=== PATIENT | female | born 1975 | race American Indian/Alaskan Native ===

== ENCOUNTER 2019-01-12 05:40 | Observation (INO) | payer BC, OTHER ==
[~2019-01-12] VITALS: Ht 167.6 cm; Wt 207.3 kg
--- OUTSIDE RECORDS SUMMARY | ~2019-01-12 | XMS | Clinical Summary ---
Demographics + + + | Address | [address] | | | [place] [address] | + + + | Home Phone | | + + + | Preferred Language | Unknown | + + + | Marital Status | Unknown | + + + | Mosque Affiliation | Unknown | + + + | Race | Unknown | + + + | Ethnic Group | Unknown | + + + Author + + + | Author | [facility] | | | and [place] | + + + | Organization | [facility] | | | and [place] | + + + | Address | Unknown | + + + | Phone | Unavailable | + + + Support + + +---------+ + | Name | Relationship | Address | Phone | + + +---------+ + | Jyoti Bullock | ECON | Unknown | | + + +---------+ + Care Team Providers + +------+ + | Care Home Insurance Agent Name | Role | Phone | + +------+ + | Margarito Felix PA-C | PP | | + +------+ + Allergies Not on File Medications + + + +---------+------+------+-------+ | Medication [...] Noted Date | + + + | Asthma | [...] Diabetes | 04/18/2014 | + + + Social History + +-------+ [...] recent travel history available. | + + Plan of Treatment + + + + + | Health Maintenance | Due Date | Last Done | Comments | + + + + + | Vaccine: | | | | | Dtap/Tdap/Td (1 - | 3 | | | | Tdap) | | | | + + + + + | Cervical Cancer | | | | | Screening (Pap) | 4 | | | + + + + + | Vaccine: Influenza | | | | | (Season Ended) | 9 | | | + + [...] +--------+ +---------+--------+ | HEALTHCOMP | HEALTH | [id number] | 01/02/20 | [phone] | | PPO | | | COMP | | 07-Pre | 7 | | | | | PPOR | | sent | | | | + +--------+ +--------+ +---------+--------+ | HEALTH | IHS | [id number] | Effect | | | Indemn | [...] | Self | [birth year] | [address] | | | [place] | | 1975 | [phone] | [place] [address] | | | be | | | 1 (Home) | | + +--------+ +--------+ + + Advance Directives Patient has advance care planning documents on file. For more information, please contact:[facility] [place] [address]"
--- OUTSIDE RECORDS SUMMARY | ~2019-01-12 | XMS | Clinical Summary ---
Demographics + + + | Address | [address] | | | [place] [address] | + + + | Home Phone | | + + + | Preferred Language | Unknown | + + + | Marital Status | Unknown | + + + | Taoist Affiliation | Unknown | + + + | Race | Unknown | + + + | Ethnic Group | Unknown | + + + Author + + + | Author | [facility] | + + + | Organization | [facility] | + + + | Address | Unknown | + + + | Phone | Unavailable | + + + Support + + +---------+ + | Name | Relationship | Address | Phone | + + +---------+ + | Lazaro Merchant | ECON | Unknown | | + + +---------+ + | Tahir Espinoza | ECON | Unknown | | + + +---------+ + Care Team Providers + +------+ + | Care Oil Field Rig Builder Name | Role | Phone | + +------+ + | Larissa Keen MD | PP | | + +------+ + Allergies + [...] + + + + | Levofloxacin | Rash, Other (See | Medium | 01/20/20 | Colitis, | | | Comments) | | 17 | fibrillation | + + + + + + | Azithromycin | Rash | Medium | 07/23/20 | | | | | | 14 | | + + + + + + Current Medications + + +--------+---------+------+------+-------+ | Prescription | Sig. | Disp. | Refills | Star | End | Statu | | | | | | t | Date | s | | | | | | Date | | | + + +--------+---------+------+------+-------+ | OMEPRAZOLE PO | Take 1 tablet by | | | | | Activ | | | mouth 2 (two) times | | | | | e | | | daily. | | | | | | + + +--------+---------+------+------+-------+ | metoprolol | Take 100 mg by mouth | | | | | Activ | | (TOPROL-XL) 100 MG | daily. | | | | | e | | 24 hr tablet | | | | | | | + + +--------+---------+------+------+-------+ | calcium carbonate | Take 600 mg by mouth | | | | | Activ | | (OS-JEANNIE) 600 MG TABS | 2 (two) times daily | | | | | e | | | with meals. | | | | | | + + +--------+---------+------+------+-------+ | insulin glargine | Inject 10 Units into | | | | | Activ | | (LANTUS) 100 UNIT/ML | the skin nightly. | | | | | e | | injection | | | | | | | + + +--------+---------+------+------+-------+ | irbesartan | Take 300 mg by mouth | | | | | Activ | | (AVAPRO) 300 MG | nightly. | | | | | e | | tablet | | | | | | | + + +--------+---------+------+------+-------+ | ascorbic acid | Take 1,000 mg by | | | | | Activ | | (VITAMIN C) 1000 MG | mouth daily. | | | | | e | | tablet | | | | | | | + + +--------+---------+------+------+-------+ | Multiple | Take 1 tablet by | | | | | Activ | | Vitamins-Minerals | mouth daily. | | | | | e | | (MULTIVITAMIN PO) | | | | | | | + + +--------+---------+------+------+-------+ | ondansetron | Take 4 mg by mouth 3 | | | | | Activ | | (ZOFRAN) 4 MG tablet | (three) times daily | | | | | e | | | as needed for | | | | | | | | Nausea. | | | | | | + + +--------+---------+------+------+-------+ | Cholecalciferol | Take 5,000 Units by | | | | | Activ | | (VITAMIN D-3 PO) | mouth daily. | | | | | e | + + +--------+---------+------+------+-------+ | levothyroxine | Take 75 mcg by mouth | | | | | Activ | | (SYNTHROID) 75 MCG | every morning | | | | | e | | tablet | before breakfast. | | | | | | + + +--------+---------+------+------+-------+ | magnesium oxide | Take 400 mg by mouth | | | | | Activ | | (MAG-OX) 400 MG | daily. | | | | | e | | tablet | | | | | | | + + +--------+---------+------+------+-------+ | glipiZIDE | Take 10 mg by mouth | | | | | Activ | | (GLUCOTROL) 10 MG | daily. | | | | | e | | tablet | | | | | | | + + +--------+---------+------+------+-------+ | celecoxib | Take 200 mg by mouth | | | | | Activ | | (CELEBREX) 200 MG | daily. | | | | | e | | capsule | | | | | | | + + +--------+---------+------+------+-------+ | sitagliptan | Take 100 mg by mouth | | | | | Activ | | (JANUVIA) 100 MG | daily. | | | | | e | | tablet | | | | | | | + + +--------+---------+------+------+-------+ | oxyCODONE | Take 10 mg by mouth | | | | | Activ | | (OXYCONTIN) 10 MG 12 | every 8 (eight) | | | | | e | | hr tablet | hours as needed for | | | | | | | | Pain. | | | | | | + + +--------+---------+------+------+-------+ | fish oil omega-3 | Take 1 g by mouth | | | | | Activ | | fatty acids 1000 MG | daily. | | | | | e | | capsule | | | | | | | + + +--------+---------+------+------+-------+ | | Take 1 tablet by | | | | | Activ | | HYDROcodone-acetamin | mouth every 6 (six) | | | | | e | | ophen (NORCO) 10-325 | hours as needed for | | | | | | | MG per tablet | Pain. | | | | | | + + +--------+---------+------+------+-------+ | | Take 1 tablet by | | | | | Activ | | triamterene-hydrochl | mouth. | | | | | e | | orothiazide | | | | | | | | (MAXZIDE-25) 37.5-25 | | | | | | | | MG per tablet | | | | | | | + + +--------+---------+------+------+-------+ | rivaroxaban | Take 1 tablet by | 60 | 2 | 01/01 | | Activ | | (XARELTO) 20 MG | mouth daily with | tablet | | 06/22 | | e | | tablet | dinner. | | | 17 | | | + + +--------+---------+------+------+-------+ Active Problems + + + | Problem | Noted Date | + + + | Morbid obesity due to excess calories (HCC) | 01/19/2017 | + + + | Paroxysmal atrial fibrillation (HCC) | 07/23/2014 | + + + + + | Overview: Paroxysmal atrial fibrillation, S/P CV in 2013. | | Last Assessment & Plan: S/p cardioversion currently in sinus | | On Xarelto for stroke prophylaxis. | + + + + + | SOB (shortness of breath) | 07/23/2014 | + + + + + | Last Assessment & Plan: Multifactorial-Recent h/o Afib s/p | | cardioversion- as per [facility] is normalWill | | request and review records from [id number] echoPt want to follow | | up with her manager linux in [place]. | |Pt want to follow up with her manager linux in [place]. | + + + + + | Hyperlipidemia | 07/23/2014 | + + + + + | Last Assessment & Plan: On Statin. | + + + + + | History of cardioversion | 05/03/2014 | + + + | Depression | 04/18/2014 | + + + | Hypertension | 04/18/2014 | + + + Resolved Problems + + + + | Problem | Noted | Resolved | | | Date | Date | + + + + | Bradycardia | 07/23/20 | | | | 14 | 7 | + + + + + + | Last Assessment & Plan: Possibly pulse deficit from Bigeminy- | | her true HR in 72 in clinicPossibly secondary to AB eleonora | | blocking agentsPatient on Metoprolol and diltiazem doses | | unknownWill review medicationsConsider lowering the medication or | | stopping diltiazem and continue MetoprololHolter monitoring- | | Ventricular Bigeminy on EKG | + + Family History + + +------+ + | Medical History | Relation | Name | Comments | + + +------+ + | Diabetes type II | Father | | | + + [...] quit 2009 | + + + + +---------+ + | Alcohol Use | Drinks/We | oz/Week | Comments | | | ek | | | + + +---------+ + | No | | | | + + +---------+ + + + + | Sex Assigned at | Date Recorded | | | | + + + | Not on file | | + + + Last Filed Vital Signs + + + + | Vital Sign | Reading | Time Taken | + + + + | Blood Pressure | 124/72 | 03/16/2017 3:07 PM PDT | + + + + | Pulse | 92 | 03/16/2017 3:07 PM PDT | + + + + | Temperature | - | - | + + + + | Respiratory Rate | 14 | 07/23/2014 4:28 PM PDT | + + + + | Oxygen Saturation | 92% | 03/16/2017 3:07 PM PDT | + + + + | Inhaled Oxygen | - | - | | Concentration | | | + + + + | Weight | 235.1 kg (518 lb 4.8 | 03/16/2017 3:07 PM PDT | | | oz) | | + + + + | Height | 167.6 cm (5' 6") | 03/16/2017 3:07 PM PDT | + + + + | Body Mass Index | 83.66 | 03/16/2017 3:07 PM PDT | + + + + Plan of Treatment [...] filefrom Last 3 Months Insurance + +--------+ +------+-------+ + | Payer | Benefi | Subscriber | Type | Phone | Address | | | t Plan | ID | | | | | | / | | | | | | | Group | | | | | + +--------+ +------+-------+ + | [employer] | PREMER | [id number] | | | [address] [address] | | | A BLUE | | | | [place], [place] | | | CROSS | | | | [phone] | | | FED | | | | | | | PPO | | | | | + +--------+ +------+-------+ + | [employer] | YELLOW | [id number] | | | | | PLANS | [place] | | | | | + +--------+ +------+-------+ + + +--------+ +--------+ + + | Guarantor Name | Accoun | Relation to | Date | Phone | Billing Address | | | t Type | Patient | of | | | | | | | | | | + +--------+ +--------+ + + | OSMIN ESPINOZA | Person | Self [birth year] | Work: | [address] | | | [place] | | 1975 | [phone] | [place] | | | be | | | [phone]: | [address] | | | | | | | | | | | | | [phone] | | | | | | | [address] | | + +--------+ +--------+ + +
--- OUTSIDE RECORDS SUMMARY | ~2019-01-12 | XMS | Clinical Summary ---
Demographics + + + | Address | [address] | | | [place] [address] | + + + | Home Phone | | + + + | Preferred Language | Unknown | + + + | Marital Status | Unknown | + + + | Mormonism Affiliation | Unknown | + + + | Race | Unknown | + + + | Ethnic Group | Unknown | + + + Author + + + | Author | [facility] | | | and [place] | + + + | Organization | [facility] | | | and [place] [...] Team Providers + +------+ + | Care Hydro Excavation Operator Name | Role | Phone | [...] +--------+ +---------+--------+ | HEALTHCOMP | HEALTH | [id number] | 01/02/20 | [phone] | | PPO | | | COMP | | 07-Pre | 7 | | | | | PPOR | | sent | | | | + +--------+ +--------+ +---------+--------+ | HEALTH | IHS | [id number] | Effect | | | Indemn | [...] | Self | [birth year] | [address] | | | [place] | | 1975 | [phone] | [place] [address] | | | be | | | 1 (Home) | | + +--------+ +--------+ + + Advance Directives Patient has advance care planning documents on file. For more information, please contact:[facility] [place] [address]"
--- OUTSIDE RECORDS SUMMARY | ~2019-01-12 | XMS | Clinical Summary ---
Demographics + + + | Address | [address] | | | [place] [address] | + + + | Home Phone | | + + + | Preferred Language | Unknown | + + + | Marital Status | Unknown | + + + | Mandaen Affiliation | Unknown | + + + | Race | Unknown | + + + | Ethnic Group | Unknown | + + + Author + + + | Author | [facility] | + + + | Organization | [facility] | + + + | Address | [...] Team Providers + +------+ + | Care Bsw Name | Role | Phone | + [...] cardioversion- as per pt [facility] is normalWill | | request and review records from [id number] echoPt want to follow | | up with her restrooms or lounges maid in [place]. | |Pt want to follow up with her restrooms or lounges maid in [place]. | + + + + + | [...] +------+-------+ + | [employer] | PREMER | [id number] | | | [address] [phone] | | | A BLUE | | | | [place], [place] | | | CROSS | | | | [phone] | | | FED | | | | | | | PPO | | | | | + +--------+ +------+-------+ + | [employer] | YELLOW | [id number] | | | | | PLANS | [...] | | [place] | | 1975 | [phone] | [place] | | | be | | | [phone]: | [address] | | | | | | | | | | | | | [phone] | | | | | | | [address] | | + +--------+ +--------+ + +
--- OUTSIDE RECORDS SUMMARY | ~2019-01-12 | XMS | Clinical Summary ---
Demographics + + + | Address | [address] | | | [place] [address] | + + + | Home Phone [...] Author + + + | Author | [facility] | + + + | Organization | [facility] | + + + | Address | Unknown | + + + | Phone | Unavailable | + + + Support + + +---------+ + | Name | Relationship | Address | Phone | + + +---------+ + | Lazaro Merchant | ECON | Unknown | | + + +---------+ + Care Team Providers + +------+ + | Care Coremaker Supervisor Name | Role | Phone | + +------+ + | Larissa Keen MD | PP | Unavailable | + +------+ + Source Comments SHERRI is fully live on both [facility] and [facility] Allergies + + + + + + | Active Allergy | Reactions | Severity | Noted | Comments | | | | | Date | | + + + + + + | Amoxicillin-Pot | Unknown | | 03/13/20 | | | Clavulanate | | | 14 | | + + + + + + | Levofloxacin | Unknown | | 03/13/20 | | | | | | 14 | | + + + + + + | Azithromycin | Unknown | | 03/13/20 | | | | | | 14 | | + + + + + + Current Medications + + +-------+---------+------+------+-------+ | Prescription | Sig. | Disp. | Refills | Star | End | Statu | | | | | | t | Date | s | | | | | | Date | | | + + +-------+---------+------+------+-------+ | rivaroxaban 20 mg | Take by mouth once | | | | | Activ | | oral tablet | daily in the | | | | | e | | | evening. | | | | | | + + +-------+---------+------+------+-------+ | metoprolol | Take 100 mg by mouth | | | | | Activ | | tartrate 100 mg oral | once daily in the | | | | | e | | tablet | evening. | | | | | | + + +-------+---------+------+------+-------+ | irbesartan 300 mg | Take 300 mg by mouth | | | | | Activ | | oral tablet | four times daily. | | | | | e | + + +-------+---------+------+------+-------+ | | Take by mouth four | | | | | Activ | | Calcium-Cholecalcife | times daily. | | | | | e | | rol, D3, 600 | | | | | | | | mg(1,500mg) -400 | | | | | | | | unit oral tablet | | | | | | | + + +-------+---------+------+------+-------+ | Cholecalciferol, | Take 5,000 Units by | | | | | Activ | | Vitamin D3, (VITAMIN | mouth four times | | | | | e | | D3) 5,000 unit oral | daily. | | | | | | | tablet | | | | | | | + + +-------+---------+------+------+-------+ | | Take 1 tablet by | | | | | Activ | | triamterene-hydrochl | mouth four times | | | | | e | | orothiazide 37.5-25 | daily. | | | | | | | mg oral tablet | | | | | | | + + +-------+---------+------+------+-------+ | omeprazole 40 mg | Take 40 mg by mouth | | | | | Activ | | oral capsule,delayed | two times daily. | | | | | e | | release(/EC) | | | | | | | + + +-------+---------+------+------+-------+ | levothyroxine 75 | Take 75 mcg by mouth | | | | | Activ | | mcg oral tablet | four times daily. | | | | | e | + + +-------+---------+------+------+-------+ | magnesium oxide | Take 400 mg by mouth | | | | | Activ | | 400 mg oral tablet | four times daily. | | | | | e | + + +-------+---------+------+------+-------+ | diltiazem SR 24 | Take by mouth four | | | | | Activ | | hour release 300 mg | times daily. | | | | | e | | oral capsule, | | | | | | | | extended release | | | | | | | + + +-------+---------+------+------+-------+ | VIT/IRON | Take by mouth once | | | | | Activ | | FUMARATE/FA | daily in the | | | | | e | | ( ORAL) | morning. | | | | | | + + +-------+---------+------+------+-------+ | | Take 1 tablet by | [...] | | | | | + + +-------+---------+------+------+-------+ | OMEGA-3 FATTY | Take by mouth once | | | | | Activ | | ACIDS (FISH OIL | daily in the | | | | | e | | ORAL) | morning. | | | | | | + + +-------+---------+------+------+-------+ | ascorbic acid SR | Take 1,000 mg by | | | | | Activ | | (VITAMIN C) 1,000 mg | mouth once daily in | | | | | e | | oral tablet | the morning. | | | | | | + + +-------+---------+------+------+-------+ Active Problems + + + | Problem | Noted Date | + + + | Type 2 diabetes mellitus treated with insulin ([facility]) | 01/24/2015 | + + + | Morbid obesity with BMI of 70 and over, adult ([facility]) | 05/03/2014 | + + + | Morbid obesity ([facility]) | 05/03/2014 | + + + | Diabetes ([facility]) | 05/03/2014 | + + + | HTN (hypertension) | 05/03/2014 | + + + | TOMMY (obstructive sleep apnea) | 05/03/2014 | + + + | Heavy periods | 05/03/2014 | + + + | A-fib (HCC) | 05/03/2014 | + + + | [...] + +---------+ + | No | 0 | 0.0 | former use 2-3 | | | Standard | | | | | drinks or | | | | | | | | | | equivalen | | | | | t | | | + + +---------+ + + + + | Sex Assigned at | Date Recorded | | | | + + + | Not on file | | + + + Last Filed Vital Signs + + + + | Vital Sign | Reading | Time Taken | + + + + | Blood Pressure | 157/83 | 06/02/2015 9:15 AM PDT | + + + + | Pulse | 86 | 06/02/2015 9:15 AM PDT | + + + + | Temperature | 37.3 C (99.1 F) | 06/02/2015 9:15 AM PDT | + + + + | Respiratory Rate | 20 | 06/02/2015 9:15 AM PDT | + + + + | Oxygen Saturation | 98% | 06/02/2015 9:15 AM PDT | + + + + | Inhaled Oxygen | - | - | | Concentration | | | + + + + | Weight | 231.5 kg (510 lb 6.4 | 07/14/2015 4:27 PM PDT | | | oz) | | + + + + | Height | 167.6 cm (5' 6") | 06/02/2015 9:15 AM PDT | + + + + | Body Mass Index | 82.38 | 07/14/2015 4:27 PM PDT | + + + + Plan of Treatment + + + + + | Health Maintenance | Due Date | Last Done | Comments | + + + + + | Pneumococcal (Adult) | | | | | (1 of 1 - PPSV23) | 3 | | | + + + + + | Influenza (Flu) | | | | | vaccination (#1) | 8 | | | + + + + + Results Not on filefrom Last 3 Months Insurance + +--------+ +------+ + + | Payer | Benefi | Subscriber | Type | Phone | Address | | | t Plan | ID | | | | | | / | | | | | | | Group | | | | | + +--------+ +------+ + + | [place] BLUE | [phone] | PPO | [phone] [address] [address] [place] | | | CROSS | | | [address] | [place] [address] | | | [place] | | | | | | | L | | | | | + +--------+ +------+ + + + +--------+ +--------+ + + | Guarantor Name | Accoun | Relation to | Date | Phone | Billing Address | | | t Type | Patient | of | | | | | | | | | | + +--------+ +--------+ + + | OSMIN ESPINOZA | Person | Self | [birth year] | Home: | [address] | | | al/Fam | | 1975 | [phone] [place] [address] | | | be | | | [address] | | + +--------+ +--------+ + +
--- OUTSIDE RECORDS SUMMARY | ~2019-01-12 | XMS | Clinical Summary ---
Demographics + + + | Address | [address] | | | [place] [address] | + + + | Home Phone [...] + + + | Author | [facility] | + + + | Organization | [facility] | + + + | Address | Unknown | + + + | Phone | Unavailable | + + + Support + + +---------+ + | Name | Relationship | Address | Phone | + + +---------+ + | Lazaro Merchant | ECON | Unknown | | + + +---------+ + Care Team Providers + +------+ + | Care Officer Lieutenant Name | Role | Phone | + +------+ + | Larissa Keen MD | PP | Unavailable | + +------+ + Source Comments [facility] Allergies + + + + + [...] Type 2 diabetes mellitus treated with insulin ([facility]) | 01/24/2015 | + + + | Morbid obesity with BMI of 70 and over, adult ([facility]) | 05/03/2014 | + + + | Morbid obesity ([facility]) | 05/03/2014 | + + + | Diabetes ([facility]) | 05/03/2014 | + + + | [...] | PPO | [phone] [address] [address] [place] | | | CROSS | | | [address] | [place] [address] | | | [place] | | | [...] | 1975 | [phone] | [place] [address] | | | be | | | [address] | | + +--------+ +--------+ + +
[~2019-01-12 05:40] MED LIST: ASPIRIN EC325 MG PO; ATENOLOL25 MG PO; CALCIUM600 MG PO; CARDIZEM CD120 MG PO; CELEBREX200 MG PO; CEPHALEXIN500 MG PO; DIGOXIN250 MCG PO; DILTIAZEM 24HR300 M1 PO; FELDENE20 MG PO; FISH OIL 1,0001 EAC6 PO; GLIPIZIDE XL10 MG PO; GUAIFENESIN600 MG PO; HYDROCODON-ACE1 EAC8 PO; IRBESARTAN300 MG PO; JANUVIA100 MG PO; LANTUS100 UNITS/ SUB-Q; LEVOXYL75 MCG PO; LISINOPRIL40 MG PO; MAGNESIUM400 MG PO; MULTIVITAMINS1 EAC8 PO; NORCO 10-325 T1 EACH PO; OMEPRAZOLE20 MG PO; ONDANSETRON ODT4 MG PO; OXYCONTIN10 MG PO; TOPROL XL100 MG PO; TRIAMTERENE-HC1 EAC1 PO; TRIAMTERENE-HC1 EAC3 PO; VERAPAMIL HCL80 MG PO; VIBRAMYCIN100 MG PO; VITAMIN C1000 MG PO; VITAMIN C500 M1 PO; VITAMIN D5000 UNIT PO; XARELTO20 MG PO
--- NOTE | 2019-01-12 09:01 | NUR ---
01/12/19 0901 Gaby Ignacio 0819- PT ARRIVES TO PACU. PT IS EXTREMELY ANXIOUS, RESP 50, LABORED. OXYGEN SAT MID 90'S ON 15L VIA MASK. PT IS COUGHING AND STATING, "I CAN'T BREATHE". RT X2 AT THE BEDSIDE SETTING UP BIPAP AND FOR A BREATHING TREATMENT PER NAHUN DUNCAN CRNA VERBAL ORDER. NAHUN DUNCAN CRNA AT THE BEDSIDE INSTRUCTING PT TO TAKE DEEP BREATHS, TRYING TO SLOW DOWN RESPS, AND TO COUGH. PT IS ABLE TO FOLLOW COMMANDS. PT PLACED ON BIPAP AT 30% O2 BY RT. PT DOES NOT LIKE THE MASK ON HER FACE. EDUCATED PT THAT SHE NEEDS TO WEAR THE BIPAP TO HELP. PT DOES NOT LIKE THIS BUT IS COOPERATIVE AT THIS TIME. 0824- PT IS TRYING TO PULL THE BIPAP MASK OFF OF HER FACE. PT STATES, "JUST GIVE ME A MOMENT. I NEED TO CATCH MY BREATHE". BIPAP MASK REMOVED TO CALM PT. PT WAS ABLE TO TAKE A COUPLE OF DEEP BREATHS AND COUGH. PT HAS SECRETIONS IN HER MOUTH. SECRETIONS SUCTIONED AND MOUTH WIPED. PT HAS BRIGHT RED BLOOD SECRETIONS. NAHUN DUNCAN CRNA REMAINS AT THE BEDSIDE AND AWARE OF THIS. 0825- DUONEB PLACED IN LINE TO BIPAP BY RT. 0831- PT IS REQUESTING TO HER USE HER BIPAP FROM HOME. RT IS SETTING UP THIS FOR THE PT. PT PLACED ON HER HOME BIPAP FOR COMFORT. 0834- ALBUTEROL PLACED IN LINE BY RT WITH 6L OF O2. 0837- PT REPORTS SHE IS FEELING MUCH BETTER AND NOT SO "PANICKY". 0844- PT BLOOD SUGAR 478.
--- NOTE | 2019-01-12 11:00 | NUR ---
PT ARRIVED VIA STREACHER FROM PACU DUE TO FAILURE OF INTUBATION TO COMPLETE VAGINAL EXAM UNDER ANSTHIA. AFTER BEING IN PACU FOR SOMETIME, PT CAME TO CCU AND WAS ABLE [facility] BS COMMODE AND VOID 300ML OF CATA IN COLOR URINE AND HAD A SMEAR OF BM. PT THEN TRANSFERED SELF TO THE BED. PT C/O SOB AND WAS PLACED ON O2 VIA NC AT 2L'S. PT HAS BEEN IN S-TACH.
--- NOTE | 2019-01-12 12:35 | NUR ---
DR SIU NOTIFIED OF Tt 0.234 AT THIS TIME. PT CONTIOUES TO C/O SOB AND UNABLE TO SLEEP DUE TO THE PRESSURE ON HER CHEST.
[2019-01-12] MEDS ORDERED: OMEPRAZOLE40 MG PO (14:29)
[2019-01-12] MEDS ORDERED: PRENATAL VITAM1 EAC5 PO (14:31)
[2019-01-12] MEDS ORDERED: TOPROL XL200 MG PO (14:31)
[2019-01-12] MEDS ORDERED: OXYCONTIN10 MG PO (14:47)
--- NOTE | 2019-01-12 14:49 | NUR ---
MED REC COMPLETE
--- NOTE | 2019-01-12 15:53 | EKG ---
[facility] [address] [place] [address] Signed Sinus tachycardia Voltage criteria for left ventricular hypertrophy Anterior infarct (cited on or before 08-JAN-2019) Abnormal ECG When compared with ECG of 08-JAN-2019 10:25, Vent. rate has increased BY 42 BPM T wave inversion now evident in Lateral leads Confirmed by SADA SIU MD ([id number]) on 01/12/2019 3:52:48 PM Electronically Signed By: SADA SIU MD 01/12/19 1553 PATIENT NAME: OSMIN ESPINOZA Electrocardiogram DATE OF : 73 PHYSICIAN: SADA SIU MD REPORT #: [id number] REPORT IS CONFIDENTIAL AND NOT TO BE RELEASED WITHOUT AUTHORIZATION
--- NOTE | 2019-01-12 16:38 | NUR ---
PT UP TO BS COMMODE VOIDED AND THEN BACK TO BED. PT JUST RETURNED AT THIS TIME, WITH SOME PERSON BELONGINGS.
--- NOTE | 2019-01-12 17:32 | NUR ---
PT UP TO BEDSIDE COMMODE, HAD BM AND BACK TO BED, AT THE BEDSIDE. PT IS FEELING BETTER, BUT DOES HAVE JAW AND THROAT PAIN. WAS GIVEN LOGEN FOR THROAT PAIN, EXPLAINED THAT WE WOULD NOT BE GIVEN PAIN MEDICATIONS DUE TO HER ISSUES WITH RESP FAILURE THIS AM.
--- NOTE | 2019-01-12 17:54 | NUR ---
PT APPEARS TO BE RELAXED AT HIS TIME, WITH IN THE ROOM.
--- NOTE | 2019-01-12 18:30 | NUR ---
PT REQUESTED NEB TX, RT NOTIFIED AND TX GIVEN. PT HAS BEEN RESTING COMFORTABLE WITH HER PERSONAL CPAP INPLACE. PT DINNER IS AT THE BEDSIDE. REMAINS AT THE BEDSIDE.
--- NOTE | 2019-01-12 19:14 | NUR ---
PT UP TO THE BS COMMODE VOIDED AND BM MED IN SIZE. PT BACK TO BED, O2 INPLACE C/O FLEM IN HER THROAT.
--- NOTE | 2019-01-12 19:15 | NUR ---
WITH THE FLEM SHE ABLE TO COUGH AND CLEAR HER THROAT. AT TIMES HAS DRY HEAVES AND HAS INCREASED ANXIETY. FRESH ICE WATER GIVEN AT THIS TIME.
--- NOTE | 2019-01-12 19:30 | NUR ---
PT IS SITTING UP AT SIDE OF BED. PT STATED THAT SHE HAS SOB. O2 SATS ARE >90%, RR IN THE 20'S. ALL LOBES HAVE WHEEZING PRESENT AT THIS TIME. PT USING 2L O2 NC AT THIS TIME. WILL CONTINUE TO MONITOR. PT REFUSES TO SIT UP.
--- NOTE | 2019-01-12 20:15 | NUR ---
BG WAS 404. MD SIU WAS NOTIFIED AT 2012. NO NEW ORDERS WERE GIVEN.
--- NOTE | 2019-01-12 20:45 | NUR ---
PT SEEMS TO HAVE FOUND A COMFORTABLE POSITION FOR SLEEPING AND BEING ABLE TO BREATH WITHOUT FEELING SHORT OF BREATH. NO NEW CONCERNS NOTED AT THIS TIME.
--- NOTE | 2019-01-12 22:00 | NUR ---
PT USED BSC. PT NOW BACK IN BED TRYING TO SLEEP SOME. NO NEW CONCERNS NOTED AT THIS TIME.
--- NOTE | 2019-01-12 23:44 | NUR ---
PT AT THIS TIME IS GETTING A NEB. PT STATED THAT SHE CANNOT BREATH. RR WAS <20, O2 SATS > 92% ON 2L O2 NC AT THE TIME OF HER COMPLAINT. PT IS ALSO ANXIOUS AT THIS TIME AND INTERMITTENLY CRYING IN REGARDS TO HER HOSPITAL STAY AND HER INABLILITY TO TAKE A FULL BREATH. PT WAS SITTING UP FOR A FEW MINUTED EARLIER BUT AT THIS TIME IS LAYING FLAT AGAIN. WILL CONTINUE TO MONITOR.
--- NOTE | 2019-01-13 | NUR ---
PT AT THIS TIME IS STILL AWAKE AND ANXIOUS. PT IS NOT ABLE TO SLEEP. LOBES HAVE EXPIRATORY WHEEZING PRESENT. NO CHANGE IN ASSESSMENT AT THIS TIME NOTED SINCE THE FIRST ASSESSMENT THIS SHIFT. WILL CONTINUE TO MONITOR.
--- NOTE | 2019-01-13 01:52 | NUR ---
PT AT THIS TIME IS SLEEPING. NO NEW CONCERNS NOTED. V/S OVERALL ARE WDL.
--- NOTE | 2019-01-13 03:30 | NUR ---
PT IS SLEEPING AT THIS TIME.
--- NOTE | 2019-01-13 05:25 | NUR ---
PT AMBULATED TO THE BATHROOM AND VOIDED. PT IS LESS ANXIOUS AT THIS TIME THAN EARLIER. PT HAS ALSO BEEN ABLE TO SLEEP FOR A WHILE. O2 SATS ARE ANYWHERE FROM 88%-95%. LOBES HAVE HAD EXPIRATOTY WHEEZING PRESENT MOST OF THIS SHIFT. THE LAST ASSESSMENT SHOWED DIMINISHED LOBES. PT DOES HAVE SEVERE TOMMY IT SEEMS. BG AT 2100 WAS 404, MD SIU WAS NOTIFIED AND INSULIN PER ORDER WAS GIVEN. AT THIS TIME V/S ARE WDL OVERALL EXCEPT HER RR IS IN THE 20'S. THIS PERHAPS IS BASELINE THOUGH. PT HAS BEEN USING HOME BI-PAP INTERMITTENLY THROUGHOUT THE NIGHT. PT HAS ALSO NEEDED FREQUWNT PRN NEBS. ONE CONCERNS IS THE HIGH DOSES OF OPIOD PT TAKES AT HOME. PT FOR THE MOST PART IS SWEATY AND ANXIOUS AND COMPLAINING OF PAIN. PRN TYLENOL DID NOT HELP. PT ALSO HAD NAUSEA AT TIMES THIS SHIFT AND REGLAN/ZOFRAN HAD TO BE GIVEN.
--- NOTE | 2019-01-13 07:30 | NUR ---
REPORT RECIEVED. PATIENT IS SITTING UP IN BED RREADY TO ORDER BREAKFAST. DENIES SHORTNESS OF BREATH. C/O IRRITATED THROAT.
--- NOTE | 2019-01-13 08:00 | NUR ---
ASSESSMENT DONE. PT IS ALKING ABOUT GOING HOME. STATES SHE FEELS ALMOST BACK TO NOMAL,EXCEPT THROAT IS SORE. DENIES SWALLOWING POBLEMS. VOICE IS CLEAR.
--- NOTE | 2019-01-13 09:30 | NUR ---
O2 TO RA, IVF CAPPED. WILL CONTINUE TO MONITOR O2 SATS. DR. CHANEY HERE TO SEE PATIENT. OKAY WITH DR. CHANEY TO DISCHARGE IF OKAY WITH DR. SIU.
[2019-01-13] MEDS ORDERED: FLUCONAZOLE150 MG PO (09:49)
[2019-01-13] MEDS ORDERED: FISH OIL 1,0001 EAC2 PO (09:50)
[2019-01-13] MEDS ORDERED: VITAMIN C1000 MG PO (09:50)
--- NOTE | 2019-01-13 10:00 | NUR ---
DISCHAGE ORDERS RECIEVED. PATIENT STATES HER RIDE HOME SHOULD BE HERE AFTER 3 TODAY.
--- NOTE | 2019-01-13 10:20 | NUR ---
SLEEPING WITH BIPAP ON. NO DISTRESS NOED.
--- NOTE | 2019-01-13 12:00 | NUR ---
ACCUCHECK-357, HUMALOG INSULIN 11 UNITS SQ GIVEN. HAS OCC LOOSE COUGH. DENEIS PROBLEMS SWALLOWING. DENEIS SHORTNESS OF BREATH REMAINS ON RA. O2 SAT 92-95 ON RA.
--- NOTE | 2019-01-13 14:25 | NUR ---
DISCHARGE INSTRUCTIONS GIVEN WITH PATIENT UNDERSTANDING. IV SITE DC'D [facility] CATH INTACT.
--- NOTE | 2019-01-13 15:30 | NUR ---
DISCHARGED VIA W/C TO HOME ACCOMP BY NURSE AND PATIENT BOYFRIEND.
== END 2019-01-13 15:30 | disposition home or self-care (01) ==
LOC: DS 05:40 → CCU 10:20 → DS 10:20 → CCU 10:50
PROVIDERS: ADMIT Obstetrics & Gynecology
PROC: 5A09357 Assistance with Respiratory Ventilation, Less than 24 Consecutive Hours, Continuous Positive Airway Pressure (ICD-10-PCS; principal; 2019-01-12)
DX: T88.4XXA Failed or difficult intubation, initial encounter (principal); J96.00 Acute respiratory failure, unspecified whether with hypoxia or hypercapnia; N92.1 Excessive and frequent menstruation with irregular cycle; E66.01 Morbid (severe) obesity due to excess calories; E11.65 Type 2 diabetes mellitus with hyperglycemia; I10 Essential (primary) hypertension; I48.0 Paroxysmal atrial fibrillation; G47.33 Obstructive sleep apnea (adult) (pediatric); K21.9 Gastro-esophageal reflux disease without esophagitis; E03.9 Hypothyroidism, unspecified; G89.4 Chronic pain syndrome; F11.20 Opioid dependence, uncomplicated; N94.6 Dysmenorrhea, unspecified; F41.9 Anxiety disorder, unspecified; Z68.45 Body mass index [BMI] 70 or greater, adult; Z53.09 Procedure and treatment not carried out because of other contraindication; Z88.1 Allergy status to other antibiotic agents; Z79.01 Long term (current) use of anticoagulants; Z79.1 Long term (current) use of non-steroidal anti-inflammatories (NSAID); Z79.4 Long term (current) use of insulin; Z79.899 Other long term (current) drug therapy
CPT/HCPCS: 36415; 80048; 83735; 84484; 85025; 93005; 93010; 94640; 94660; 96374; 96375; 96376; G0378; J0330; J1815; J2250; J2405; J2704; J2765; J3010; J7030; J7120

== ENCOUNTER 2020-04-22 17:44 | Inpatient (IN) | payer BC, OTHER ==
[~2020-04-22] VITALS: Ht 167.6 cm; Wt 195.2 kg
--- NOTE | ~2020-04-22 | DS ---
[facility] [address] [place], [place] [address] Draft ADMISSION DATE: 04/22/2020 DISCHARGE DATE: 05/06/2020 REASON FOR ADMISSION: This morbidly obese, BMI 74, woman, presented to the emergency room after a week of increasing pain in the right buttock and perineal area as well as left medial thigh. She had been applying mupirocin to the area in the past. She is a patient of Dr. Russell at [facility] as well as other providers. She was found in the emergency room by Dr. Akins to have extreme tenderness in the right buttock area with a 4 cm area of skin necrosis and marked erythema and tenderness, findings suggestive of abscess. Her white count was 18,600, lactic acid 1.6, blood sugars greater than 400 and hemoglobin A1c greater than 14. She is admitted for further evaluation and care. PERTINENT PHYSICAL EXAMINATION: GENERAL: Showed a quite morbidly obese, woman, estimated at 420 pounds. CHEST: Clear. HEART: Irregularly irregular. ABDOMEN: Massively obese, but soft. In the perineum on the right side was a necrotic ulcerated area about 4 cm in size with local tenderness and erythema, in the medial thigh and erythematous flat nondraining, non-necrotic area. HOSPITAL COURSE: The patient was thought likely to have a perineal abscess and went from emergency room with fluid resuscitation and IV antibiotic directly to operation. In the lateral decubitus position with intravenous sedation with propofol, she underwent exam under anesthesia and extensive debridement of necrotizing soft tissue infection of the right perineum and right buttock. Excision of soft tissue back to viable bleeding normal tissue was accomplished. Incision and debridement of left medial thigh soft tissue infection was also undertaken. Application of wound VAC to the buttock and perineum on the right side was accomplished. Postoperatively, she was maintained with broad-spectrum meropenem. Her COVID-19 test had been obtained and ultimately was found to be negative. She had rather poorly controlled blood sugar and consultation was undertaken with Dr. Chandler regarding that. There was some consideration of nursing staff that her was bringing her additional food much of it, not appropriate for diabetic diet, which made the sugars controls more problematic. Gram stain and cultures that were obtained showed polymicrobial problem, but the cultures never grew anything likely related to have preoperative antibiotics that had been admitted. Her wound VAC was applied was good and functional, however, urination and bowel movement proves to be problematic in PATIENT NAME: OSMIN ESPINOZA DISCHARGE SUMMARY DATE OF : 73 REPORT #: [id number] PHYSICIAN: IGOR AVINA MD PCP: NATALIE RUSSELL MD REPORT IS CONFIDENTIAL AND NOT TO BE RELEASED WITHOUT AUTHORIZATION [facility] [address] [place], [place] [address] Draft keeping the wound VAC device on. On that basis, a Hope catheter was placed. The Gram stain of the wound showed gram-negative rods, gram-positive rods, and gram-positive cocci, but as previously stated, cultures never grew anything in particular. On that basis, she was transitioned to Cipro and Flagyl antibiotics from meropenem when clinical findings of erythema and so forth of the perineum had resolved. Aggressive management for blood sugar is undertaken through initiation of Lantus insulin. It was noted that she was on a "pain contract" managed by Dr. Russell at [facility]. Pain management was an issue with her somewhat, but both opiate, non-opiate medications were used including her baseline medication. Final pathology of her excised tissue showed exuberant acute inflammation, abscess formation, dermis, subcutaneous tissue with soft tissue necrosis. Upon examination of one wound dressing change of the wound VAC, there appeared to be purulent drainage in the medial aspect of the wound. This was not far from the anal canal and concern was maintained this may represent a ewrnxua-bo-ogc, which might account for her original problem. On that basis, she was taken to the operation under a regional anesthetic and examination undertaken. There was no evidence as it turns out of a slsfckf-jj-ovz. The wound VAC was replaced. That procedure was on April 29, 2020. At that point, it was deemed likely she would benefit from ongoing wound VAC treatment of the wound, but it was problematic dislodgement of the device due to urination and poor ability to manage her own perineal hygiene needs. Consideration was made for fdc versus home health for wound VAC dressing changes. A trial of self-care was undertaken, but it was quite clear, she could not adequately manage her perineal hygiene needs. Therefore, fdc arrangements were made. After a fair amount of administrative delays, she was ultimately approved for fdc care at [facility]. She is anticipated to have wound VAC dressing changes twice a week. We will be keeping the Hope catheter in place. Mindful of the risk of urinary tract infection development, but also mindful that the wound VAC will not easily maintain its position without that. It is our open expectation that the wound will heal completely without need for elaborate additional surgical interventions (skin grafting, etc.). Her expected stay in an extended care facility would be likely 2-4 weeks and unlikely more than that. DISCHARGE MEDICATIONS: 1. Lantus insulin units daily subcutaneously. 2. Oxycodone 10 mg p.o. q.6 hours around the clock baseline maintenance medication. 3. Humalog insulin 4 units subcutaneously 5 p.m. daily. 4. Gabapentin 300 mg p.o. q.8 hours. PATIENT NAME: OSMIN ESPINOZA DISCHARGE SUMMARY DATE OF : 73 REPORT #: [id number] PHYSICIAN: IGOR AVINA MD PCP: NATALIE RUSSELL MD REPORT IS CONFIDENTIAL AND NOT TO BE RELEASED WITHOUT AUTHORIZATION [facility] [address] [place] [address] Draft 5. Aspirin 81 mg p.o. daily (in lieu of thrombin inhibitor previously on). 6. Hydroxyzine 50 mg p.o. q.6 hours p.r.n. 7. Benadryl 25 mg p.o. q.6 hours p.r.n. 8. Fluconazole 200 mg p.o. daily. 9. Humalog subcutaneous insulin 26 units t.i.d. with meals. 10. Zofran 4 mg p.o. q.6 hours as needed for nausea. 11. Pepcid 20 mg p.o. q.12 hours. 12. Ativan 2 mg p.o. q.6 hours p.r.n. anxiety. 13. Verapamil 80 mg p.o. t.i.d. 14. Triamterene hydrochlorothiazide 1 tab p.o. daily. 15. Synthroid 75 mcg p.o. daily. 16. Tylenol 1000 mg p.o. q.8 hours p.r.n. pain. 17. Metoprolol 200 mg p.o. at bedtime. DISCHARGE DIAGNOSES: 1. Necrotizing soft tissue infection of right perineum, status post extensive debridement, application of wound VAC. 2. Incision, drainage and debridement of left medial thigh. Necrotizing infection. 3. Morbid obesity, greater than 420 pounds. 4. Diabetes mellitus, insulin dependent. 5. Anxiety. 6. Chronic pain syndrome. 7. Atrial fibrillation. 8. Intertriginous and perineal yeast infection. 9. Hypothyroidism. FOLLOWUP: I will try to make arrangements to evaluate her wound at the fdc at the time of a wound VAC dressing change. Details will need to be worked out given ever changing COVID-19 visitation restrictions in fdc settings. MD KIERRA Mcintosh/MODL /[id number] PATIENT NAME: OSMIN ESPINOZA DISCHARGE SUMMARY DATE OF : 73 REPORT #: [id number] PHYSICIAN: IGOR AVINA MD PCP: NATALIE RUSSELL MD REPORT IS CONFIDENTIAL AND NOT TO BE RELEASED WITHOUT AUTHORIZATION [facility] [address] [place], [place] [address] Draft cc: MD Chrissy Aguirre MD Copies: NATALIE RUSSELL MD, CYNTHIA MD ~ PATIENT NAME: OSMIN ESPINOZA DISCHARGE SUMMARY DATE OF : [birth year] REPORT #: [id number] PHYSICIAN: IGOR AVINA MD PCP: NATALIE RUSSELL MD REPORT IS CONFIDENTIAL AND NOT TO BE RELEASED WITHOUT AUTHORIZATION
--- OUTSIDE RECORDS SUMMARY | ~2020-04-22 | XMS | Encounter Summary ---
Demographics + + + | Address | [address] | | | [place] [address] | + + + | Home Phone | | + + + | Preferred Language | Unknown | + + + | Marital Status | Unmarried Domestic Partner | + + + | Yazdanism Affiliation | Unknown | + + + | Race | or | + + + | Ethnic Group | Not or | + + + Author + + + | Author | [facility] | + + + | Organization | [facility] | + + + | Address | Unknown | + + + | Phone | Unavailable | + + + Support + + +---------+ + | Name | Relationship | Address | Phone | + + +---------+ + | Lazaro Merchant | ECON | Unknown | | + + +---------+ + Care Team Providers + +------+ + | Care Topology Teacher Name | Role | Phone | + +------+ + | Larissa Keen MD | PCP | | + +------+ + Reason for Visit + + + | Reason | Comments | + + + | Discussion | | + + + Encounter Details +--------+ + + + + | Date | Type | Department | Care Team | Description | +--------+ + + + + | 01/30/ | Telephone | Digestive Health | Jaquelin Ibanez, | Discussion | | 2014 | | Center [place] [address] | [place] | | | | | [address] [facility] | | | | | | for Health and | | | | | | [facility], [facility] [address] | | | | | | [place], [place] | | | | | | [address] | | | | | | [phone] | | | +--------+ + + + + Social History + + + +--------+------+ | Tobacco Use | Types | Packs/Day | Years | Date | | | | | Used | | + + + +--------+------+ | Former Smoker | Cigarettes | 0.4 | | | + + + +--------+------+ + + +---------+ + | Alcohol Use | Drinks/Week | oz/Week | Comments | + + +---------+ + | No | | | former use 2-3 | + + +---------+ + + + + | Sex Assigned at | Date Recorded | | | | + + + | Not on file | | + + + + + + + | Job Start Date | Occupation | Industry | + + + + | Not on file | Not on file | Not on file | + + + + + + + + | Travel History | Travel Start | Travel End | + + + + + + | No recent travel history available. | + + documented as of this encounter Plan of Treatment Not on filedocumented as of this encounter Visit Diagnoses Not on filedocumented in this encounter"
--- OUTSIDE RECORDS SUMMARY | ~2020-04-22 | XMS | Encounter Summary ---
Demographics + + + | Address | [address] | | | [place] [address] | + + + | Home Phone | | + + + | Preferred Language | Unknown | + + + | Marital Status | Unmarried Domestic Partner | + + + | Roman Catholic Affiliation | Unknown | + + + | Race | or | + + + | Ethnic Group | Not or | + + + Author + + + | Author | [facility] [facility] [employer] | + + + | Organization | [facility] | + + + | Address | Unknown | + + + | Phone | Unavailable | + + + Support + + +---------+ + | Name | Relationship | Address | Phone | + + +---------+ + | Lazaro Merchant | ECON | Unknown | | + + +---------+ + Care Team Providers + +------+ + | Care Routing Machine Operator Name | Role | Phone | + +------+ + | Larissa Keen MD | PCP | | + +------+ + Reason for Visit + + + | Reason | Comments | + + + | Questions About | counseling list | | Surgery | | + + + Encounter Details +--------+ + + + + | Date | Type | Department | Care Team | Description | +--------+ + + + + | 05/03/ | Documentati | Digestive Health | Diamond De León, | Questions About | | 2013 | on | Center at [facility] [address] | ASIAN STUDIES PROFESSOR [address] | Surgery (counseling | | | | [address] | , [address] | list) | | | | for Health and | [place], [place] | | | | | [facility] [address] | [address] | | | | | [place], [place] | [phone] | | | | | [address] | | | | | | [phone] | | | +--------+ + + + [...]
--- OUTSIDE RECORDS SUMMARY | ~2020-04-22 | XMS | Encounter Summary ---
Demographics + + + | Address | [address] | | | [place] [address] | + + + | Home Phone [...] Author + + + | Author | [facility] [employer] | + + + | Organization | [facility] | + + + | Address | Unknown | + + + | Phone | Unavailable | + + + Support + + +---------+ + | Name | Relationship | Address | Phone | + + +---------+ + | Lazaro Merchant | ECON | Unknown | | + + +---------+ + Care Team Providers + +------+ + | Care Thread Trimmer Name | Role | Phone | + +------+ + | Larissa Keen MD | PCP | | + +------+ + Encounter Details +--------+ + + + + | Date | Type | Department | Care Team | Description | +--------+ + + + + | 05/06/ | Abstract | Digestive Health | Diamond De León, | | | 2013 | | Center at [facility] [address] | AUTOMOBILE REPOSSESSOR [address] | | | | | [address] [facility] | [facility] [address] | | | | | for Health and | [place], [place] | | | | | [facility] [place] [address] | [address] | | | | | [place], [place] | [phone] | | | | | [address] | | | | | | [phone] | | | +--------+ + + + [...]
--- OUTSIDE RECORDS SUMMARY | ~2020-04-22 | XMS | Encounter Summary ---
Demographics + + + | Address | [address] | | | [place] [address] | + + + | Home Phone | | + + + | Preferred Language | Unknown | + + + | Marital Status | Unmarried Domestic Partner | + + + | Catholic Affiliation | Unknown | + + + | Race | or | + + + | Ethnic Group | Not or | + + + Author + + + | Author | [employer] [facility] | + + + | Organization | [facility] | + [...] Team Providers + +------+ + | Care Can Pusher Name | Role | Phone | + +------+ + | Mar DoddP | PCP | | + +------+ + Encounter Details +--------+ + + + + | Date | Type | Department | Care Team | Description | +--------+ + + + + | 03/15/ | Abstract | Digestive Health | Fátima Hernandez, | | | 2013 | | Center at [facility] [address] | [facility] [address] | | | | | [address] [place] | e [place], [place] | | | | | for Health and | [address] | | | | | Healing, [address] | | | | | | [place], [place] | | | | | | [address] | | | | | | | | | +--------+ + + + [...]
--- OUTSIDE RECORDS SUMMARY | ~2020-04-22 | XMS | Encounter Summary ---
Demographics + + + | Address | [address] | | | [place] [address] | + + + | Home Phone [...] + + + | Author | [facility] | + + + | Organization | [facility] | + + + | Address | Unknown | + + + | Phone | Unavailable | + + + Support + + +---------+ + | Name | Relationship | Address | Phone | + + +---------+ + | Lazaro Merchant | ECON | Unknown | | + + +---------+ + Care Team Providers + +------+ + | Care Color Weigher Name | Role | Phone | + +------+ + | Larissa Kene MD | PCP | | + +------+ + Encounter Details +--------+ + + + + | Date | Type | Department | Care Team | Description | +--------+ + + + + | 11/01/ | Abstract | Digestive Health | Diamond De León, | | | 2014 | | Center at [facility] [address] | HARD METALS ENGRAVER HAND [address] | | | | | [address] [facility] | [facility] [address] | | | | | for Health and | [place], [place] | | | | | [facility], [place] [address] | [address] | | | | | [place], [place] | [phone] | | | | | [address] | | | | | | [phone] | | | +--------+ + + + [...]
--- OUTSIDE RECORDS SUMMARY | ~2020-04-22 | XMS | Encounter Summary ---
Demographics + + + | Address | [address] | | | [place] [address] | + + + | Home Phone | | + + + | Preferred Language | Unknown | + + + | Marital Status | Unmarried Domestic Partner | + + + | Episcopal Affiliation | Unknown | + + + | Race | or | + + + | Ethnic Group | Not or | + + + Author + + + | Author | [facility] | + + + | Organization | [facility] | + [...] Team Providers + +------+ + | Care Tail Worker Name | Role | Phone | + +------+ + | Larissa Keen MD | PCP | | + +------+ + Reason for Visit + + + | Reason | Comments | + + + | Bariatric Nutrition | | + + + Office Visit - E/M Services (Routine) +--------+--------+ + + + + | Status | Reason | Specialty | Diagnoses / | Referred By | Referred To | | | | | Procedures | Contact | Contact | +--------+--------+ + + + + | Closed | | Nutrition | Diagnoses | Non-[facility] | Fn | | | | | Morbid | Epic Dept | [facility] | | | | | obesity | | [facility] [address] | | | | | (HCC) | | [address] | | | | | | | [facility] | | | | | | | Health and | | | | | | | Healing, | | | | | | | [address] | | | | | | | [place], [place] | | | | | | | [address] | | | | | | | Phone: | | | | | | | [phone] | | | | | | | Fax: | | | | | | | [phone] | +--------+--------+ + + + + Encounter Details +--------+---------+ + + + | Date | Type | Department | Care Team | Description | +--------+---------+ + + + | 05/03/ | Office | Digestive Health | Tejal Iraheta RD | Morbid obesity with | | 2013 | Visit | Center at [facility] [address] | [address] | BMI of 70 and over, | | | | [address] | [address] [place], | adult ([facility]) (Primary | | | | for Health and | [place] [address] | Dx) | | | | [facility] 2 | [phone] | | | | | [place], [place] | | | | | | [address] | | | | | | [phone] | | | +--------+---------+ + + + Social History + + [...] + + documented as of this encounter Progress Notes Tejal Iraheta, RD - 05/03/2014 10:21 AM PDT Referring Provider: Mar Dodd [facility] Outpatient Nutrition Clinic, Pre-Bariatric Surgery Evaluation Initial diet consultation prior to having Leah En Y gastric bypass surgery. Documented Time of Visit: 10:19 until 11:21 (62 minutes suew-by-kvgf with patient) SUBJECTIVE: Arrives with her boyfried. 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 Patient attended public meeting - yes, February 18. Changes made since public meeting: felt va lidated finally, working on lowering portion sizes Questions/Information desired today: nothing specific Goals & reasons why patient wants to have bariatric surgery: I want my body back, I want to be able to walk, be healthier. Daily food frequency information provided: Yes Food Allergies: Yes - raw onions Food Intolerances: Yes - walnuts, makes mouth itchy Lactose Intolerance: No Emotional Eating: Yes, due to stress, relaxation, comfort, depression, anxiety, boredom a nd anything. Dad would eat in front of them and not share food. Not allowed "junk food" at h ome, would binge when at cousins house. Weight pattern changer and repairer the past year: fluctuating 50lbs Best diet success and why: sensible eating at breakfast and lunch + working out 4 day s/week. Has not been in the routine since having gallbladder surgery. Current Physical Exercise: Nothing, has gym membership, gym has a small pool OBJECTIVE: Height: Ht Readings from Last 1 Encounters: 05/03/14 1.69 m (5' 6.53") Weight: Wt Readings from Last 1 Encounters: 05/03/14 211.331 kg (465 lb 14.4 oz) BMI: 74 Past Medical History: Past Medical History Diagnosis Date Hypertension Heartburn Nausea Loss of appetite Abdominal pain Gallstone Sleep apnea CPAP (continuous positive airway pressure) dependence setting 17 Palpitation Leaking of urine Abnormal Pap smear Irregular periods Anxiety Diabetes Thyroid disease Medications: See list in Epic snap shot Medications for Diabetes: nothing yet Checking blood glucose: yes, checks inconsistently. ranges 140-230 but highest 345mg/dL Dietary Supplements: Vit D, Ca, Mag, PNV MVI, fish oil, vit C Labs: see Results Review for current labs (if available) Nutrition Diagnosis: Obesity as evidenced by BMI of There is no height or weight on file t o calculate BMI.. Factors contributing to obesity: Emotional eating Lack of a regular physical activity program Large portions Intake of excessive empty calories Pre-Surgery Diet: Breakfast: Weight control oatmeal 1 packet, + 1/2 cup whole milk + 1T butter + Wheat toast, honey oat + 1T butter + water Brunch on the weekends, cereal, geronimo and eggs. Occ fruit between breakfast and lunch Lunch: Tuna (aguilar - lots, celery, pickles, spices) on wheat with fruit and water. Occ handf ul of chips. + water, occ alessio jose 10 Dinner: Pork chop,hamburger, deer, elk, frozen/breaded fish. green beans, salad (lettuce, carrots, tomatoes, cucumber, avocado, shredded cheese, celery + 1000[place], belizean, ranch 3 T) Rice a Roger, Mac and cheese (1 cup). Drinks ice water and diet soda. Eats out - only when going out of town. Likes pizza, Anne's, McDonalds, Liberian, Cambodian ( <1x/wk) Provided written diet suggestions to help patient lose weight before surgery. -Eat within one hour of waking, then every 3-4 waking hours -Include protein with all meals & snacks -Use healthy plate model or frozen entree (~300 calories, < 600 mg sodium) at lunch & dinn er -Begin keeping daily food logs -Choose foods & beverages with < 14 g sugar & < 5 g fat per serving. Recommended LF/FF mil k, LF/FF salad dressing, LF aguilar peanut butter instead of butter and decrease portion. -Eliminate liquid calories, carbonated beverages Discussed behavior changes to practice before surgery to prepare for surgery. -Begin fluids from meals by 30 minutes before and after -Sip fluids throughout the day, aim for 64 oz/day (non-caloric, non-caffeinated, non-carbo nated) -Begin practicing mindful eating Explore exercise program options - discussed seated options, encouraged pool use. Post-surgery diet education: Provided visual, verbal, & written information on all aspects of bariatric surgery. Discuss ed lifelong behavior changes, proper diet selections, and exercise. Encouraged patient to fo llow up with dietitian pre- or post-surgery. Written education provided: Provided and reviewed an instructional handout (bariatric surgery notebook) with the russell t on post-surgery diet progression, sample menus, behavior modifications, food items, and vi tamin and mineral supplements needed after surgery. Emphasized the importance of a regular p hysical activity program of 30-60 minutes per day to maintain weight loss post-surgery. Patient's Comprehension: The patient is: Receptive Stage of change: Preparation Barrier(s) to education: No Learning style: Patient is a Visual learner Verbal learner Information provided in writing, and used visual aids to demonstrate food portions post-alvin praneeth and size of stomach after surgery. Expected Outcome: I think the patient will do moderately if following all lifestyle and be havioral changes discussed today. Pt asking if she will ever be able to "indulge" after surg gallito. Discussed that weight gain after surgery is possible if changes to eating habits are no t made. Pt tearful, stating she would like to know why her desire to eat is so strong. She m entioned a person who offered to provide support throughout this process. Encouraged her to explore counseling/therapy/group support options. Also encouraged pt to redefine what foods are considered indulgences & that eating healthfully can be enjoyable. GOAL: The patient's goal is to have weight loss surgery to maintain weight loss and improve other health conditions. 1. Continue to practice behavioral changes to prepare for surgery. 2. Increase physical activity. 3. Review all information provided for post surgery diet progression. 4. Call or email dietitian with any questions. 5. Follow up with dietitian 1 week after surgery at first post-op visit. 6. Contact information was provided. Tejal Iraheta RD, CNSC, LD Pager# [phone] documented in this enco unter Plan of Treatment Not on filedocumented as of this encounter Procedures + +--------+ + + + | Procedure Name | Priori | Date/Time | Associated Diagnosis | Comments | | | ty | | | | + +--------+ + + + | [place] MNT INITIAL | Routin | 05/03/2014 | Morbid obesity | | | ASSESSMNT X15MIN | e | 11:40 AM | with BMI of 70 and | | | | | PDT | over, adult ([facility]) | | + +--------+ + + + documented in this encounter Visit Diagnoses + + | Diagnosis | + + | Morbid obesity with BMI of 70 and over, adult (HCC) - Primary | + + documented in this encounter
--- OUTSIDE RECORDS SUMMARY | ~2020-04-22 | XMS | Encounter Summary ---
Demographics + + + | Address | [address] | | | [place] [address] | + + + | Home Phone | | + + + | Preferred Language | Unknown | + + + | Marital Status | Unmarried Domestic Partner | + + + | Judaism Affiliation | Unknown | + + + | Race | or | + + + | Ethnic Group | Not or | + + + Author + + + | Author | [facility] | + + + | Organization | [facility] | + + + | Address | Unknown | + + + | Phone | Unavailable | + + + Support + + +---------+ + | Name | Relationship | Address | Phone | + + +---------+ + | Lazaro Merchant | ECON | Unknown | | + + +---------+ + Care Team Providers + +------+ + | Care Customs Broker Name | Role | Phone | + [...] | | | | | | | [facility] | | | | | | | Health and | | | | | | | Healing, | | | | | | | [address] | | | | | | | [place], [place] | | | | | | | [address] | | | | | | | Phone: | | | | | | | [phone] | | | | | | | Fax: | | | | | | | [phone] | +--------+--------+ + + + + Encounter Details +--------+---------+ + + + | Date | Type | Department | Care Team | Description | +--------+---------+ + + + | 06/02/ | Office | Digestive Health | Tejal Iraheta RD | Morbid obesity (HCC) | | 2015 | Visit | Center at [facility] [address] | [address] | (Primary Dx); Type | | | | [address] [facility] | [address] [place], | 2 diabetes mellitus | | | | for Health and | [place] [address] | treated with insulin | | | | [place] [address] | [phone] | (HCC) | | | | [place], [place] | | | | | | [address] | | | | | | [phone] | | | +--------+---------+ + + + [...] + + +---------+ + | No | 0 Standard drinks | 0.0 | former use 2-3 | | | or equivalent | | | + + +---------+ + + + [...] encounter Progress Notes Tejal Iraheta, RD - 06/02/2015 10:27 AM PDT Referring Provider: Larissa Keen MD Outpatient Nutrition Clinic, Pre-Bariatric Surgery Visit Follow-up diet consult prior to having Leah-En-Y gastric bypass surgery or Sleeve Gastrecto my. Documented Time of Visit: 10:29 to 10:57 (28 minutes oach-ms-orrf with patient) SUBJECTIVE: took her a couple of weeks to get into the Liver Reduction Diet. Using Quest Ba rs and Premier Shake. Working with counselor, no longer binging. Feeling full with less food s. Food Allergies: Yes - raw onions Food Intolerances: Yes - walnuts, makes mouth itchy Lactose Intolerance: No Current Physical Activity: Nothing regular - still feels uncomfortable going to the gym. Rosa s a sandy for a stair stepper- expects it to be arriving in the next few weeks Diet Recall: Shake or eggs with veggies Quest Bar or light yogurt Shake or veggies + hummus Meat + veggies Not strictly following LRD - still eating occasional bread, had a few bites of mac and pham se at dinner yesterday. Mostly drinking water, some carbonation (Ice brand) OBJECTIVE: Height: Ht Readings from Last 1 Encounters: 06/02/15 1.676 m (5' 6") Weight: Wt Readings from Last 2 Encounters: 06/02/15 227.297 kg (501 lb 1.6 oz) 01/24/15 233.557 kg (514 lb 14.4 oz) BMI: 80.9 Weight change since last nutrition appointment: lost 14lbs according to our scale. Past Medical History: Past Medical History Diagnosis Date Hypertension Heartburn Nausea Loss of appetite Abdominal pain Gallstone Sleep apnea CPAP (continuous positive airway pressure) dependence setting 17 Palpitation Leaking of urine Abnormal Pap smear Irregular periods Anxiety Diabetes Thyroid disease Intertriginous candidiasis Medications: See list in Epic snap shot Medications for Diabetes: Insulin Dietary Supplements: none Labs: see Results Review for current labs (if available). Nutrition Diagnosis: Obesity as evidenced by BMI of 80.9. Pre-Surgery Diet: - Continue LRD, encouraged more strict adherence - Incorporate regular exercise Discussed behavior changes to practice before surgery to prepare for surgery. -Begin fluids from meals by 30 minutes before and after -Sip fluids throughout the day, aim for 64 oz/day (non-caloric, non-caffeinated, non-carbo nated) -Continue practicing mindful eating Written Education Provided/Reviewed: Reviewed the bariatric surgery notebook with the patient, including post-surgery diet progr ession, sample menus, food items, and vitamin and mineral supplements needed after surgery. Emphasized the importance of a regular physical activity program of 30-60 minutes per day to maintain weight loss post-surgery. Patient's Comprehension: The patient is: Receptive Stage of change: Action Barrier(s) to education: No Learning style: Patient is a Visual learner, Verbal learner Expected Outcome: Marielle has made significant progress since January visit. She is making b charity choices, controlling portions better and working on her emotional relationship with fo od. Encouraged her to continue to work on mindful eating. Discussed that the changes she is making are for a lifetime & to be comfortable with that. Encouraged her to continue to seek counseling for support. Still needs to work on incorporating regular exercise. GOAL: The patient's goal is to have weight loss surgery to maintain weight loss and improve other health conditions. 1. Continue to practice behavioral changes to prepare for surgery. 2. Increase physical activity. 3. Review all information provided for post-surgery diet progression. 4. Call or send Payfonehart message to dietitian with any questions. Contact information was provided. Follow up with dietitian in ~ 1 month at [facility]. Tejal Iraheta RD, CNSC, LD Pager# [phone] documented in this enco unter Plan of Treatment Not on filedocumented as of this encounter Procedures + +--------+ + + + | Procedure Name | Priori | Date/Time | Associated Diagnosis | Comments | | | ty | | | | + +--------+ + + + | [place] MNT RE-ASSESSMNT | Routin | 06/02/2015 | Morbid obesity | | | X15MIN | e | 11:18 AM | ([facility]) Type 2 | | | | | PDT | diabetes mellitus | | | | | | treated with insulin | | | | | | ([facility]) | | + +--------+ + + + documented in this encounter Visit Diagnoses + + | Diagnosis | + + | Morbid obesity ([facility]) - Primary Morbid obesity | + + | Type 2 diabetes mellitus treated with insulin (HCC) | + + documented in this encounter
--- OUTSIDE RECORDS SUMMARY | ~2020-04-22 | XMS | Encounter Summary ---
Demographics + + + | Address | [address] | | | [place] [address] | + + + | Home Phone [...] Author + + + | Author | [facility] | + + + | Organization | [facility] | + + + | Address | Unknown | + + + | Phone | Unavailable | + + + Support + + +---------+ + | Name | Relationship | Address | Phone | + + +---------+ + | Lazaro Merchant | ECON | Unknown | | + + +---------+ + Care Team Providers + +------+ + | Care Recovery Specialist Name | Role | Phone | + +------+ + | Mar DoddP | PCP | | + +------+ + Encounter Details +--------+ + + + + | Date | Type | Department | Care Team | Description | +--------+ + + + + | 03/15/ | Abstract | Digestive Health | Fátima Hernandez, | | | 2013 | | Center at [facility] [address] | AC[facility] [address] | | | | | [address] [place] | e [place], [place] | | | | | for Health and | [address] | | | | | Healing, [address] | | | | | | [place], [place] | | | | | | [address] | | | | | | | [...]
--- OUTSIDE RECORDS SUMMARY | ~2020-04-22 | XMS | Encounter Summary ---
Demographics + + + | Address | [address] | | | [place] [address] | + + + | Home Phone | | + + + | Preferred Language | Unknown | + + + | Marital Status | Unmarried Domestic Partner | + + + | Mandaen Affiliation | Unknown | + + + | Race | or | + + + | Ethnic Group | Not or | + + + Author + + + | Author | [facility] | + + + | Organization | [facility] | + [...] Team Providers + +------+ + | Care Carbon Capture Power Plant Engineer Name | Role | Phone | + [...] 2013 | | Center at [facility] [address] | SHEET COMBINING OPERATOR [address] | | | | | [address] [facility] | [facility] [address] | | | | | for Health and | [place], [place] | | | | | [facility], [place] [address] | [address] | | | | | [place], [place] | [phone] | | | | | [address] | | | | | | [phone] | | | +--------+ + + + [...]
--- OUTSIDE RECORDS SUMMARY | ~2020-04-22 | XMS | Encounter Summary ---
Demographics + + + | Address | [address] | | | [place] [address] | + + + | Home Phone | | + + + | Preferred Language | Unknown | + + + | Marital Status | Unmarried Domestic Partner | + + + | Hinduism Affiliation | Unknown | + + + | Race | or | + + + | Ethnic Group | Not or | + + + Author + + + | Author | [facility] | + + + | Organization | [facility] | + + + | Address | Unknown | + + + | Phone | Unavailable | + + + Support + + +---------+ + | Name | Relationship | Address | Phone | + + +---------+ + | Lazaro Merchant | ECON | Unknown | | + + +---------+ + Care Team Providers + +------+ + | Care Medical Device Name | Role | Phone | + +------+ + | Larissa Keen MD | PCP | | + +------+ + Encounter Details +--------+ + + + + | Date | Type | Department | Care Team | Description | +--------+ + + + + | 08/13/ | Abstract | Digestive Health | Clinic, Surgery | | | 2014 | | Center at [facility] [address] | | | | | | [facility] | | | | | | for Health and | | | | | | Healing, [address] | | | | | | [place], [place] | | | | | | [address] | | | | | | [phone] | | | +--------+ + + + [...]
--- OUTSIDE RECORDS SUMMARY | ~2020-04-22 | XMS | Encounter Summary ---
Demographics + + + | Address | [address] | | | [place] [address] | + + + | Home Phone | | + + + | Preferred Language | Unknown | + + + | Marital Status | Unmarried Domestic Partner | + + + | Worship Affiliation | Unknown | + + + | Race | or | + + + | Ethnic Group | Not or | + + + Author + + + | Author | [facility] | + + + | Organization | [facility] | + + + | Address | Unknown | + + + | Phone | Unavailable | + + + Support + + +---------+ + | Name | Relationship | Address | Phone | + + +---------+ + | Lazaro Merchant | ECON | Unknown | | + + +---------+ + Care Team Providers + +------+ + | Care Real Estate Listing Consultant Name | Role | Phone | + [...] [address] | | | | | ([facility]) | [address] | for Health | | | | | Procedures | [place], [place] | and Healing, | | | | | PHYSICAL | [address] | [address], | | | | | THERAPY | Phone: | 1st Floor | | | | | REFERRAL | | [place], [place] | | | | | | Fax: | [address] | | | | | | [phone] | Phone: | | | | | | | [phone] | | | | | | | Fax: | | | | | | | [phone] | +--------+--------+ + + + + Encounter Details +--------+ + + + + | Date | Type | Department | Care Team | Description | +--------+ + + + + | 06/02/ | Websphere Commerce Developer | Digestive Health | Fátima Hernandez, | Morbid obesity (HCC) | | 2014 | | Center at [facility] [address] | AC[facility] [address] | (Primary Dx) | | | | [address] | Ave [place], [place] | | | | | for Health and | [address] | | | | | [facility], [address] | | | | | | [place], [place] | | | | | | [address] | | | | | | [phone] | | | +--------+ + + + [...]
--- OUTSIDE RECORDS SUMMARY | ~2020-04-22 | XMS | Encounter Summary ---
Demographics + + + | Address | [address] | | | [place] [address] | + + + | Home Phone | | + + + | Preferred Language | Unknown | + + + | Marital Status | Unmarried Domestic Partner | + + + | Buddhism Affiliation | Unknown | + + + | Race | or | + + + | Ethnic Group | Not or | + + + Author + + + | Author | [facility] | + + + | Organization | [facility] | + [...] Team Providers + +------+ + | Care Salesperson Toy Trains And Accessories Name | Role | Phone | + +------+ + | Larissa Keen MD | PCP | | + +------+ + Encounter Details +--------+---------+ + + + | Date | Type | Department | Care Team | Description | +--------+---------+ + + + | 06/02/ | Office | [facility] | Mandy Melendez, PT | Morbid obesity with | | 2014 | Visit | Therapy Services at | [address] [facility] | BMI of 70 and over, | | | | [facility] | [facility], | adult (HCC) (Primary | | | | [address] | [place] [address] | Dx); Use of cane as | | | | [facility] | [phone] | ambulatory aid | | | | and Healing, | | | | | | Building 1, | | | | | | Floor [place], [place] | | | | | | [address] | | | | | | [phone] | | | +--------+---------+ + + + [...] documented as of this encounter Progress Notes Mandy Melendez, PT - 06/02/2015 11:50 AM PDT [id number] OSMIN ESPINOZA Date of : 1975 Start of care: 06/02/2015 Date of onset: 01/08/2015 Referring/Attending Practitioner: Fátima De Luna NP Primary/Referral Diagnosis/ICD-9:278.01, V85.45 Morbid obesity with BMI of 70 and over, ad ult 719.7 Use of cane as ambulatory aid Insurance: Payor: [employer] / Plan: [employer] / Product Type: [employer] / Service period from: 06/02/2015 to: - Number visits used/authorized: 10/[address] [facility] EVALUATION SUBJECTIVE: History of Presenting Problem: Pt is here for Prehabilitation evaluation prior to Bariatric abdominal surgery. She plans to have Gastric sleeve major abdominal surgery . Prior Services: Bariatric. Current Services: Bariatric Current PA: Nu step at local gym 30 minutes with short stops to readjust and drink water 1- 2x wk. Patient seen Cardiology and states they are aware her exercise. Pain Reported in location of Pain is a back, knees, feet, ankles 7/10 on a scale of 0-10. Pain is: constant. Patient states their pain is aching Denies any numbness and tingling. Current functional Status: The following activities aggravate the pain: walking. The pain limits the 's ability to wal k. The pain is relieved by activity. Sleep is interrupted by the pain. sleeps 5-8 hours per night and wake rested 1/2 the time. Current stress level is moderate. 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 lives with her spouse. PMH: See [employer] Meds: see [facility] Living situation/environment is limiting function: none Equipment at home: plans to get a N u step for home. Requests family members or friends involved with rehabilitation therapy: yes Anxieties or concerns about therapy: Yes. Patient's goals are to: reduce high BP, diabetes free, improve wellness, better mental heal th. OBJECTIVE: EXAM: Vitals: 81 bpm which quickly decreased to 39 bpm (has had echo, she states she has had chec ked and cleared to exercise.) Weight: plan to lose 50 lbs prior to surgery ROM: UE WFL, LE limited hip flexion due to tissue approximation, full knee extension, ankle DF 0 MMT: LE 5/5 except hip 4/5 bilaterally Balance/Coordination: uses a cane in left hand limps slightly. Outcome Measures: Outcome measure Score 06/02/2015 Interpretation Goal at 12 weeks 30 sec sit to stand 1x Knee pain Normal values: 30 y/o = 30 reps 40 y/o = 25 reps 50 y/o = 20 reps 60 y/o = 15 reps 70 y/o = 13 reps 80 y/o = 12 reps 90 y/o = 10 reps 30 sec sit to stand: Gait speed: 11 sec Normal values for 10 m: 12-14 sec Functional Implications: Timed up and Go: 15 sec Normal values: 8.1 (7.1-9.0) sec for 60 to 69 year olds 9.2 (8.2-10.2) sec for 70 to 79 years 11.3 (10.0-12.7) sec for 80 to 99 years Predictive values Community dwelling frail older adults: > 14 associated with high fall risk Post-op hip fracture pts at time of d/c: > 24 predictive of falls within 6 months s/p hip f racture Frail older adults = 30 predictive of using AD for ambulation and being dependent for ADLs 6 MWT Uses a straight cane for ambulation due to pain, Distance 80 ft, Stops due to knee pain and fatigue. Able to talk during walk but has some SOBOE. Treatment: Therapeutic exercises:45 minutes Intervention Date* Comments Compliance 06/02/2015 Predicted: good Progressive walking program 06/02/2015 On Nu step at home, discussed light activity where able to talk during exercise and rest breaks ok, trying to get 30 minutes daily PA which can be three 10 minute or two 15 minute bouts of PA, she will need breaks due to her SOBOE. General light strengthening/stretching exercises 06/02/2015 Provided handout Logroll instruction 06/02/2015 instructed Abdominal precautions instruction 06/02/2015 instructed * indicates date intervention started. see comments for details of compliance, modification s, deletions ASSESSMENT: requires services that can be safely and effectively performed only by a qualified therapis t to address the following problems and achieve the following goals: Problems: Morbid obesity. Patient has been provided with instruction on appropriate exercise which she is performing currently and congratulated her, recommend if she can add another day beginning a few minute s to progress as able up to her 30 minutes of PA and discussed pain control strategies to in crease aerobic PA to prepare for major bariatric abdominal surgery, LONG-TERM GOALS: Discussed with . Due in 12 weeks. Aerobic PA 30 minutes per day, all days(may be three 10 minute or two 15 minute bouts) Performing strengthening exercises 3x/wk. [place] continue in her hometown, follow up wit h MD is having any difficulties. Independent with home exercise program. Goals discussed with . Individual cultural needs addressed. Rehab Potential Good, if Osmin carries through with home exercise program. . Critical behavior/Cognitive Status: Osmin understands and follows directions. Co-morbidities that affect goals and treatment plan/Obstacles to rehabilitation: obesity. Patient's knowledge of disease process: Good . PLAN OF CARE: Aerobic PA Strengthening exercises Stretching exercises Frequency/Duration: 1 Treatment began: 1140 Treatment ended: 1215 This note is to serve as the discharge summary if the patient fails to attend further Physi shan Therapy appointments or contact the therapist regarding any change in their status. Mandy Melendez P.T. [facility] [address] Mailcode: [address] [facility], [address] [facility] [address] documented in this enco unter Plan of Treatment Not on filedocumented as of this encounter Procedures + +--------+ + + + | Procedure Name | Priori | Date/Time | Associated Diagnosis | Comments | | | ty | | | | + +--------+ + + + | PHYSICAL THERAPY | Routin | 06/02/2015 | Morbid obesity | | | EVAL, BRIEF | e | 3:00 PM | with BMI of 70 and | | | | | PDT | over, adult (HCC) | | | | | | Use of cane as | | | | | | ambulatory aid | | + +--------+ + + + | MD THERAPEUTIC | Routin | 06/02/2015 | Morbid obesity | | | EXERCISES | e | 3:00 PM | with BMI of 70 and | | | | | PDT | over, adult ([facility]) | | | | | | Use of cane as | | | | | | ambulatory aid | | + +--------+ + + + documented in this encounter Visit Diagnoses + + | Diagnosis | + + | Morbid obesity with BMI of 70 and over, adult (HCC) - Primary | + + | Use of cane as ambulatory aid Difficulty in walking | + + documented in this encounter"
--- OUTSIDE RECORDS SUMMARY | ~2020-04-22 | XMS | Encounter Summary ---
Demographics + + + | Address | [address] | | | [place] [address] | + + + | Home Phone | | + + + | Preferred Language | Unknown | + + + | Marital Status | Unmarried Domestic Partner | + + + | Tenriism Affiliation | Unknown | + + + | Race | or | + + + | Ethnic Group | Not or | + + + Author + + + | Author | [facility] [employer] [facility] | + + + | Organization | [facility] | + + + | Address | Unknown | + + + | Phone | Unavailable | + + + Support + + +---------+ + | Name | Relationship | Address | Phone | + + +---------+ + | Lazaro Merchant | ECON | Unknown | | + + +---------+ + Care Team Providers + +------+ + | Care Rip And Groove Machine Operator Name | Role | Phone [...] | 2013 | on | Center at [facility] [address] | HYBRID CAR MECHANIC [address] | Surgery (counseling | | | | [address] | , [address] | list) | | | | for Health and | [place], [place] | | | | | [facility] [address] | [address] | | | | | [place], [place] | [phone] | | | | | [address] | | | | | | [phone] | | | +--------+ + + + [...]
--- OUTSIDE RECORDS SUMMARY | ~2020-04-22 | XMS | Encounter Summary ---
Demographics + + + | Address | [address] | | | [place] [address] | + + + | Home Phone | | + + + | Preferred Language | Unknown | + + + | Marital Status | Unknown | + + + | Muslim Affiliation | Unknown | + + + | Race | Unknown | + + + | Ethnic Group | Unknown | + + + Author + + + | Author | [facility] | | | and [place] | + + + | Organization | [facility] | | | and [place] | + + + | Address | Unknown | + + + | Phone | Unavailable | + + + Support + + +---------+ + | Name | Relationship | Address | Phone | + + +---------+ + | Jyoti Kobe | ECON | Unknown | | + + +---------+ + Care Team Providers + +------+ + | Care Content Writer Name | Role | Phone | + +------+ + | Margarito Felix PA-C | PCP | | + +------+ + Encounter Details +--------+ + + + + | Date | Type | Department | Care Team | Description | +--------+ + + + + | 04/18/ | Abstract | [facility] | Merrick Gonzalez MD | Asthma, mild | | 2013 | | OTOLARYNGOLOGY [address] | [address] | persistent, | | | | [address] | [place] [address] | uncomplicated | | | | [place] | [place] [address] | (Primary Dx); High | | | | [address] | [phone] | blood pressure; | | | | [phone] | | Obesity; | | | | | | Fibrillation, atrial | | | | | | (HCC); | | | | | | Hypothyroidism; | | | | | | Stress; Anxiety; | | | | | | Depression; | | | | | | Hypersomnia with | | | | | | sleep apnea; | | | | | | Dysmenorrhea; | | | | | | Vitamin D | | | | | | deficiency; | | | | | | Esophageal reflux; | | | | | | Diabetes (HCC) | +--------+ + + + + Social History + +-------+ +--------+------+ | Tobacco Use | Types | Packs/Day | Years | Date | | | | | Used | | + +-------+ +--------+------+ | Never Assessed | | | | | + +-------+ +--------+------+ + + + | Sex Assigned at | Date Recorded | | | | + + + | Not on file | | + + + documented as of this encounter Plan of Treatment Not on filedocumented as of this encounter Visit Diagnoses + + | Diagnosis | + + | Asthma, mild persistent, uncomplicated - Primary | + + | High blood pressure Unspecified essential hypertension | + + | Obesity Obesity, unspecified | + + | Fibrillation, atrial (HCC) | + + | Hypothyroidism Unspecified hypothyroidism | + + | Stress Other psychological or physical stress, not elsewhere classified | + + | Anxiety Anxiety state, unspecified | + + | Depression Depressive disorder, not elsewhere classified | + + | 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
--- OUTSIDE RECORDS SUMMARY | ~2020-04-22 | XMS | Encounter Summary ---
Demographics + + + | Address | [address] | | | [place] [address] | + + + | Home Phone | | + + + | Preferred Language | Unknown | + + + | Marital Status | Unmarried Domestic Partner | + + + | Yarsanism Affiliation | Unknown | + + + | Race | or | + + + | Ethnic Group | Not or | + + + Author + + + | Author | [facility] | + + + | Organization | [facility] | + + + | Address | Unknown | + + + | Phone | Unavailable | + + + Support + + +---------+ + | Name | Relationship | Address | Phone | + + +---------+ + | Lazaro Merchant | ECON | Unknown | | + + +---------+ + Care Team Providers + +------+ + | Care Washer Blanket Name | Role | Phone | + +------+ + | aLrissa Keen MD | PCP | | + [...] | | | | | | [facility] | | | | | | | Health and | | | | | | | Healing, | | | | | | | [address] | | | | | | | [place], [place] | | | | | | | [address] | | | | | | | Phone: | | | | | | | [phone] | | | | | | | Fax: | | | | | | | [phone] | +--------+--------+ + + + + Encounter Details +--------+---------+ + + + | Date | Type | Department | Care Team | Description | +--------+---------+ + + + | 06/02/ | Office | [facility] | [address] | Morbid obesity (HCC) | | 2015 | Visit | Center at [facility] [address] | [address] | (Primary Dx); Type | | | | [address] | [address] [place], | 2 diabetes mellitus | | | | for Health and | [place] [address] | treated with insulin | | | | [place] [address] | [phone] | (HCC) | | | | [place], [place] | | | | | | [address] | | | | | | [phone] | | | +--------+---------+ + + + [...] of Visit: 10:29 to 10:57 (28 minutes [id number] with patient) SUBJECTIVE: took her a couple [...] post-surgery diet progression. 4. Call or send [employer] message to dietitian with any questions. Contact information was provided. Follow up with dietitian in ~ 1 month at [facility]. Tejal Iraheta RD, CNSC, LD Pager# [phone] documented in this enco unter Plan of Treatment Not on filedocumented as of this encounter Procedures + +--------+ + + + | Procedure Name | Priori | Date/Time | Associated Diagnosis | Comments | | | ty | | | | + +--------+ + + + | [place] MNT RE-ASSESSMNT | Routin | 06/02/2015 | Morbid obesity | | | X15MIN | e | 11:18 AM | ([facility]) Type 2 | | | | | PDT | diabetes mellitus | | | | | | treated with insulin | | | | | | ([facility]) | | + +--------+ + + + documented in this encounter Visit Diagnoses + + | Diagnosis | + + | Morbid obesity ([facility]) - Primary Morbid obesity | + + | Type 2 diabetes mellitus treated with insulin (HCC) | + + documented in this encounter
--- OUTSIDE RECORDS SUMMARY | ~2020-04-22 | XMS | Encounter Summary ---
Demographics + + + | Address | [address] | | | [place] [address] | + + + | Home Phone | | + + + | Preferred Language | Unknown | + + + | Marital Status | Unmarried Domestic Partner | + + + | Baptist Affiliation | Unknown | + + + | Race | or | + + + | Ethnic Group | Not or | + + + Author + + + | Author | [place] [employer] [facility] | + + + | Organization | [facility] | [...] Team Providers + +------+ + | Care Ship/Rec/Doc Control Name | Role | Phone | + +------+ + | Larissa Keen MD | PCP | | + +------+ + Encounter Details +--------+ + + + + | Date | Type | Department | Care Team | Description | +--------+ + + + + | 11/01/ | Abstract | Dig[facility]ive [facility] | Diamond De León, | | | 2014 | | Center at [facility] [address] | WAYS OPERATOR [address] | | | | | [address] [facility] | [facility] [address] | | | | | for Health and | [place], [place] | | | | | [facility], [place] [address] | [address] | | | | | [place], [place] | [phone] | | | | | [address] | | | | | | [phone] | | | +--------+ + + + [...]
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
--- OUTSIDE RECORDS SUMMARY | ~2020-04-22 | XMS | Encounter Summary ---
Demographics + + + | Address | [address] | | | [place] [address] | + + + | Home Phone | | + + + | Preferred Language | Unknown | + + + | Marital Status | Unmarried Domestic Partner | + + + | Sabianist Affiliation | Unknown | + + + | Race | or | + + + | Ethnic Group | Not or | + + + Author + + + | Author | [facility] [employer] [facility] | + + + | Organization | [facility] | + [...] Team Providers + +------+ + | Care Preschool Substitute Teacher Name | Role | Phone | + +------+ + | Larissa Keen MD | PCP | | + +------+ + Encounter Details +--------+ + + + + | Date | Type | Department | Care Team | Description | +--------+ + + + + | 07/15/ | Abstract | Digestive Health | Fátima Hernandez, | | | 2014 | | Center at [facility] [address] | ACNP [address] | | | | | [address] [place] | [address] [facility] [place] | | | | | for Health and | [address] | | | | | Healing, [address] | | | | | | [place], [place] | | | | | | [address] | | | | | | | [...]
--- OUTSIDE RECORDS SUMMARY | ~2020-04-22 | XMS | Encounter Summary ---
Demographics + + + | Address | [address] | | | [place] [address] | + + + | Home Phone | | + + + | Preferred Language | Unknown | + + + | Marital Status | Unmarried Domestic Partner | + + + | Muslim Affiliation | Unknown | + + + | Race | or | + + + | Ethnic Group | Not or | + + + Author + + + | Author | [facility] | + + + | Organization | [facility] | [...] Team Providers + +------+ + | Care Dry Cleaner Hand Name | Role | Phone | + +------+ + | Larissa Keen MD | PCP | | + +------+ + Encounter Details +--------+ + + + + | Date | Type | Department | Care Team | Description | +--------+ + + + + | 11/01/ | Abstract | Digestive Health | Diamond De León, | | | 2014 | | Center at [facility] [address] | [address] | | | | | [address] [facility] | [facility] [address] | | | | | for Health and | [place], [place] | | | | | [facility], [place] [address] | [address] | | | | | [place], [place] | [phone] | | | | | [address] | | | | | | [phone] | | | +--------+ + + + [...]
--- OUTSIDE RECORDS SUMMARY | ~2020-04-22 | XMS | Encounter Summary ---
Demographics + + + | Address | [address] | | | [place] [address] | + + + | Home Phone | | + + + | Preferred Language | Unknown | + + + | Marital Status | Unmarried Domestic Partner | + + + | Episcopalian Affiliation | Unknown | + + + | Race | or | + + + | Ethnic Group | Not or | + + + Author + + + | Author | [facility] | + + + | Organization | [facility] | + [...] Team Providers + +------+ + | Care Butcher Chicken And Fish Name | Role | Phone | + [...] | | | | | | | [facility] | | | | | | | Health and | | | | | | | Healing, | | | | | | | [address] | | | | | | | [place], [place] | | | | | | | [address] | | | | | | | Phone: | | | | | | | [phone] | | | | | | | Fax: | | | | | | | [phone] | +--------+--------+ + + + + Encounter Details +--------+---------+ + + + | Date | Type | Department | Care Team | Description | +--------+---------+ + + + | 01/24/ | Office | Digestive Health | Tejal Iraheta RD | Morbid obesity with | | 2014 | Visit | Center at [facility] [address] | [address] | BMI of 70 and over, | | | | [address] | [address] [facility], | adult ([facility]) (Primary | | | | for Health and | [place] [address] | Dx); Type 2 | | | | [facility], [place] [address] | [phone] | diabetes mellitus | | | | [place], [place] | | treated with insulin | | | | [address] | | ([facility]) | | | | [phone] | | | +--------+---------+ + + + [...] + + documented as of this encounter Last Filed Vital Signs + + + + + | Vital Sign | Reading | Time Taken | Comments | + + + + + | Blood Pressure | - | - | | + + + + + | Pulse | - | - | | + + + + + | Temperature | - | - | | + + + + + | Respiratory Rate | - | - | | + + + + + | Oxygen Saturation | - | - | | + + + + + | Inhaled Oxygen | - | - | | | Concentration | | | | + + + + + | Weight | 233.6 kg (514 lb | 01/24/2015 10:23 AM | | | | 14.4 oz) | PDT | | + + + + + | Height | - | - | | + + + + + | Body Mass Index | 81.78 | 05/03/2014 9:02 AM | | | | | PDT | | + + + + + documented in this encounter Progress Notes Tejal Iraheta, RD - 01/24/2015 10:24 AM PDT Referring Provider: No Referring Provider Per Patient Outpatient Nutrition [facility], Pre-Bariatric Surgery Visit Follow-up diet consult prior to having Leah-En-Y gastric bypass surgery. Documented Time of Visit: 10:20 to 11:20 (60 minutes guoe-la-buig with patient). Bariatric RN also participated in some of the visit. SUBJECTIVE: Arrives with her partner. Distraught over weight gain. Says she gas gained 25l bs since seeing her doctor 2 weeks ago. Food Allergies: Yes - raw onions Food Intolerances: Yes - walnuts, makes mouth itchy Lactose Intolerance: No Current Physical Activity: Nothing, does not want to go to the gym (feels judged), Dr. Anderson martinez suggested Sit and Be Fit today, encouraged this. OBJECTIVE: Height: Ht Readings from Last 1 Encounters: 05/03/14 1.69 m (5' 6.53") Weight: Wt Readings from Last 2 Encounters: 01/24/15 233.557 kg (514 lb 14.4 oz) 05/03/14 211.331 kg (465 lb 14.4 oz) BMI: Body mass index is 81.77 kg/(m^2). Weight change since last nutrition appointment: Gained 49lbs (? If some fluids contributing ) Past Medical History: Past Medical History Diagnosis Date Hypertension Heartburn Nausea Loss of appetite Abdominal pain Gallstone Sleep apnea CPAP (continuous positive airway pressure) dependence setting 17 Palpitation Leaking of urine Abnormal Pap smear Irregular periods Anxiety Diabetes Thyroid disease Medications: See list in Epic snap shot Medications for Diabetes: Insulin, 10 units before bed Dietary Supplements: none Labs: see Results Review for current labs (if available). Nutrition Diagnosis: Morbid Obesity as evidenced by BMI of 81.2. Pre-Surgery Diet: Weekends - cheats a lot, eats out of boredom Breakfast: [place] yogurt + 20oz creamer + Norwegian cream 3T or Bagel + cream cheese 1 wheat tortilla + 1/2 cup hummus + red, yellow peppers. 2 cuties or an apple + Ice drink Snack: cheesebrger or hummus + chips/crackers. She says this is the hardest part of the day because she is alone in the house. Dinner: meat + veggies (cooked carrots + zucchini or salad - lettuce, carrots, celery, swathi toes + Eritrean dressing) + Rice a Roger, occ fried potato. Weekend: pizza + wings, Stir-Moraes, Home Made Hamburger, Rice a Roger with hamburger, Provided written diet suggestions to help patient lose weight before surgery. - Reviewed liver reduction diet - Instructed patient to follow up with provider that prescribes insulin prior to starting d iet to adjust insulin as needed. Reviewed managing low blood sugar. Discussed behavior changes to practice before surgery to prepare for surgery. - Strongly encouraged patient to seek counseling to address emotional eating. She plans to f/u with her clinic in [place] [facility] - Begin seated exercise program Written Education Provided/Reviewed: Reviewed the bariatric surgery notebook with the patient, including post-surgery diet progr ession, sample menus, food items, and vitamin and mineral supplements needed after surgery. Emphasized the importance of a regular physical activity program of 30-60 minutes per day to maintain weight loss post-surgery. Patient's Comprehension: The patient is: Receptive but (frustrated and very upset) Stage of change: Action Barrier(s) to education: No Learning style: Patient is a Visual learner, Verbal learner Expected Outcome: Emotional/Binge eating continues to be an issue. Pt did not seek any cou nseling or support after our initial visit. She had decided against the surgery and was not strictly following the recommended diet. We discussed the need for her to lose a significant amount of weight to prepare for surgery (MD to advise on specific goal). She was initially overwhelmed upon hearing this but left this visit appearing to be willing to make changes ne cessary to prepare for surgery. Will likely benefit from closer f/u. If coming to [place] i s unrealistic I am available to consult with RD (if available) in her clinic in [place]. GOAL: The patient's goal is to have weight loss surgery to maintain weight loss and improve other health conditions. 1. Continue to practice behavioral changes to prepare for surgery. 2. Increase physical activity. 3. Review all information provided for post-surgery diet progression. 4. Call or send Fliplifet message to dietitian with any questions. Contact information was provided. Follow up with dietitian - YENY pt to be discussed at high risk meeting. Tejal Iraheta RD, [facility], Pager# [phone] documented in this enco unter Plan of Treatment Not on filedocumented as of this encounter Procedures + +--------+ + + + | Procedure Name | Priori | Date/Time | Associated Diagnosis | Comments | | | ty | | | | + +--------+ + + + | [facility] | Routin | 01/24/2015 | Morbid obesity | | | X15MIN | e | 12:19 PM | with BMI of 70 and | | | | | PDT | over, adult ([facility]) | | | | | | Type 2 diabetes | | | | | | mellitus treated | | | | | | with insulin ([facility]) | | + +--------+ + + + documented in this encounter Visit Diagnoses + + | Diagnosis | + + | Morbid obesity with BMI of 70 and over, adult (HCC) - Primary | + + | Type 2 diabetes mellitus treated with insulin (HCC) | + + documented in this encounter
--- OUTSIDE RECORDS SUMMARY | ~2020-04-22 | XMS | Encounter Summary ---
Demographics + + + | Address | [address] | | | [place] [address] | + + + | Home Phone | | + + + | Preferred Language | Unknown | + + + | Marital Status | Unmarried Domestic Partner | + + + | Methodist Affiliation | Unknown | + + + | Race | or | + + + | Ethnic Group | Not or | + + + Author + + + | Author | [facility] | + + + | Organization | [facility] | + + + | Address | Unknown | + + + | Phone | Unavailable | + + + Support + + +---------+ + | Name | Relationship | Address | Phone | + + +---------+ + | Lazaro Merchant | ECON | Unknown | | + + +---------+ + Care Team Providers + +------+ + | Care Certified Hand Therapist Name | Role | Phone | + [...] | | | | | | [facility] | | | | | | | Health and | | | | | | | Healing, | | | | | | | [address] | | | | | | | [place], [place] | | | | | | | [address] | | | | | | | Phone: | | | | | | | [phone] | | | | | | | Fax: | | | | | | | [phone] | +--------+--------+ + + + + Encounter Details +--------+---------+ + + + | Date | Type | Department | Care Team | Description | +--------+---------+ + + + | 06/02/ | Office | Digestive Health | Tejal Iraheta RD | Morbid obesity (HCC) | | 2015 | Visit | Center at [facility] [address] | [address] | (Primary Dx); Type | | | | [address] | [address] [place], | 2 diabetes mellitus | | | | for Health and | [place] [address] | treated with insulin | | | | [place] [address] | [phone] | (HCC) | | | | [place], [place] | | | | | | [address] | | | | | | [phone] | | | +--------+---------+ + + + [...] of Visit: 10:29 to 10:57 (28 minutes hegs-zk-utci with patient) SUBJECTIVE: took her a couple [...] post-surgery diet progression. 4. Call or send [employer] message to dietitian with any questions. Contact information was provided. Follow up with dietitian in ~ 1 month at [facility]. Tejal Iraheta RD, CNSC, LD Pager# [phone] documented in this enco unter Plan of Treatment Not on filedocumented as of this encounter Procedures + +--------+ + + + | Procedure Name | Priori | Date/Time | Associated Diagnosis | Comments | | | ty | | | | + +--------+ + + + | [facility]ASSESS[facility] | Routin | 06/02/2015 | Morbid obesity | | | X15MIN | e | 11:18 AM | ([facility]) Type 2 | | | | | PDT | diabetes mellitus | | | | | | treated with insulin | | | | | | ([facility]) | | + +--------+ + + + documented in this encounter Visit Diagnoses + + | Diagnosis | + + | Morbid obesity ([facility]) - Primary Morbid obesity | + + | Type 2 diabetes mellitus treated with insulin (HCC) | + + documented in this encounter
--- OUTSIDE RECORDS SUMMARY | ~2020-04-22 | XMS | Encounter Summary ---
Demographics + + + | Address | [address] | | | [place] [address] | + + + | Home Phone [...] Author + + + | Author | [facility] | + + + | Organization | [facility] | + + + | Address | Unknown | + + + | Phone | Unavailable | + + + Support + + +---------+ + | Name | Relationship | Address | Phone | + + +---------+ + | Lazaro Merchant | ECON | Unknown | | + + +---------+ + Care Team Providers + +------+ + | Care School Administrator Name | Role | Phone | + [...] | 2013 | on | Center at [facility] [address] | PLANNER/SCHEDULER [address] | Surgery (counseling | | | | [address] | , [address] | list) | | | | for Health and | [place], [place] | | | | | [facility] [address] | [address] | | | | | [place], [place] | [phone] | | | | | [address] | | | | | | [phone] | | | +--------+ + + + [...]
--- OUTSIDE RECORDS SUMMARY | ~2020-04-22 | XMS | Encounter Summary ---
Demographics + + + | Address | [address] | | | [place] [address] | + + + | Home Phone | | + + + | Preferred Language | Unknown | + + + | Marital Status | Unknown | + + + | Anabaptist Affiliation | Unknown | + + + | Race | Unknown | + + + | Ethnic Group | Unknown | + + + Author + + + | Author | [facility] | | | and [place] | + + + | Organization | [facility] | | | and [place] | [...] Team Providers + +------+ + | Care Plant Machinist Name | Role | Phone | + +------+ + PCP | Unavailable | + +------+ + Encounter Details +--------+ + + + + | Date | Type | Department | Care Team | Description | +--------+ + + + + | 08/23/ | Hospital | [facility] | | | | 2005 - | Encounter | MED CTR MED ONC | | | | | | [address] | | | | 08/25/ | | [place] [address] | | | | 2005 | | [phone] | | | +--------+ + + + [...]
--- OUTSIDE RECORDS SUMMARY | ~2020-04-22 | XMS | Encounter Summary ---
Demographics + + + | Address | [address] | | | [place] [address] | + + + | Home Phone [...] + + + | Author | [employer] [facility] | + + + [...] Team Providers + +------+ + | Care Shipping Agent Name | Role | Phone | + [...] | Pain | Diagnoses | Conser, | Fishing Tool Supervisor Psych | | | | Management | Morbid | Diamond Sandoval NP | [address] | | | | | obesity | [address] | | | | | (HCC) | [address], | Center for | | | | | Procedures | [address] | Health and | | | | | CONSULT TO | [place], [place] | Healing, | | | | | PAIN CENTER | [address] | Building | | | | | | Phone: | 1,15th Floor | | | | | | [phone] | [place], [place] | | | | | | Fax: | [address] | | | | | | [phone] | Phone: | | | | | | | [phone] | | | | | | | Fax: | | | | | | | [phone] | +--------+--------+ + + + + Encounter Details +--------+ + + + + | Date | Type | Department | Care Team | Description | +--------+ + + + + | // | Television Picture Tube Rebuilder | Digestive Health | Diamond De León, | Morbid obesity (HCC) | | 2015 | | Center at [facility] [address] | CHINESE LANGUAGE PROFESSOR [address] | (Primary Dx) | | | | [address] | [address], [address] | | | | | for Health and | [place], [place] | | | | | Healing, Building 2 | [address] | | | | | [place], [place] | [phone] | | | | | [address] | | | | | | [phone] | | | +--------+ + + + [...]
--- OUTSIDE RECORDS SUMMARY | ~2020-04-22 | XMS | Encounter Summary ---
Demographics + + + | Address | [address] | | | [place] [address] | + + + | Home Phone | | + + + | Preferred Language | Unknown | + + + | Marital Status | Unmarried Domestic Partner | + + + | Samaritan Affiliation | Unknown | + + + | Race | or | + + + | Ethnic Group | Not or | + + + Author + + + | Author | [employer] [facility] [employer] | + + + | Organization | [facility] | + [...] Team Providers + +------+ + | Care Fire Ranger Name | Role | Phone | + +------+ + | Larissa Keen MD | PCP | | + +------+ + Encounter Details +--------+ + + + + | Date | Type | Department | Care Team | Description | +--------+ + + + + | 12/09/ | Abstract | Digestive Health | Diamond De León, | | | 2014 | | Center at [facility] [address] | DIRECTOR OF EPIDEMIOLOGY [address] | | | | | [address] [facility] | [facility] 350 | | | | | for Health and | [place], [place] | | | | | [facility] [place] [address] | [address] | | | | | [place], [place] | [phone] | | | | | [address] | | | | | | [phone] | | | +--------+ + + + [...]
--- OUTSIDE RECORDS SUMMARY | ~2020-04-22 | XMS | Encounter Summary ---
Demographics + + + | Address | [address] | | | [place] [address] | + + + | Home Phone | | + + + | Preferred Language | Unknown | + + + | Marital Status | Unmarried Domestic Partner | + + + | Restoration Affiliation | Unknown | + + + | Race | or | + + + | Ethnic Group | Not or | + + + Author + + + | Author | [place] [employer] [facility] | + + + | Organization | [facility] | + + + | Address | Unknown | + + + | Phone | Unavailable | + + + Support + + +---------+ + | Name | Relationship | Address | Phone | + + +---------+ + | Lazaro Merchant | ECON | Unknown | | + + +---------+ + Care Team Providers + +------+ + | Care Packing Inspector Name | Role | Phone | + +------+ + | Larissa Keen MD | PCP | | + +------+ + Encounter Details +--------+ + + + + | Date | Type | Department | Care Team | Description | +--------+ + + + + | 06/05/ | Abstract | Digestive Health | Fátima Hernandez, | | | 2014 | | Center at [facility] [address] | ACNP [address] | | | | | [address] | [address] [place], [place] | | | | | for Health and | [address] | | | | | Healing, [address] | | | | | | [place], [place] | | | | | | [address] | | | | | | | [...]
--- OUTSIDE RECORDS SUMMARY | ~2020-04-22 | XMS | Encounter Summary ---
Demographics + + + | Address | [address] | | | [place] [address] | + + + | Home Phone | | + + + | Preferred Language | Unknown | + + + | Marital Status | Unmarried Domestic Partner | + + + | Voodoo Affiliation | Unknown | + + + | Race | or | + + + | Ethnic Group | Not or | + + + Author + + + | Author | [place] [employer] [facility] [employer] | + + + [...] Team Providers + +------+ + | Care Frame Nailer Name | Role | Phone | + +------+ + | Larissa Keen MD | PCP | | + +------+ + Encounter Details +--------+ + + + + | Date | Type | Department | Care Team | Description | +--------+ + + + + | 01/08/ | Abstract | Digestive Health | Diamond De León, | | | 2014 | | Center at [facility] [address] | SUSTAINABILITY COMMUNICATOR [address] | | | | | [address] [facility] | [facility] 350 | | | | | for Health and | [place], [place] | | | | | [facility], [place] [address] | [address] | | | | | [place], [place] | [phone] | | | | | [address] | | | | | | [phone] | | | +--------+ + + + [...]
--- OUTSIDE RECORDS SUMMARY | ~2020-04-22 | XMS | Encounter Summary ---
Demographics + + + | Address | [address] | | | [place] [address] | + + + | Home Phone | | + + + | Preferred Language | Unknown | + + + | Marital Status | Unmarried Domestic Partner | + + + | Scientology Affiliation | Unknown | + + + | Race | or | + + + | Ethnic Group | Not or | + + + Author + + + | Author | [employer] [facility] [employer] | + + + | Organization | [facility] | + [...] Team Providers + +------+ + | Care Iron Installer Name | Role | Phone | + +------+ + | Larissa Keen MD | PCP | | + +------+ + Encounter Details +--------+ + + + + | Date | Type | Department | Care Team | Description | +--------+ + + + + | 06/05/ | Abstract | Digestive Health | Fátima Hernandez, | | | 2014 | | Center at [facility] [address] | ACNP [address] | | | | [address] | [address] [place], [place] | | | | | for Health and | [address] | | | | | Healing, [address] | | | | | | [place], [place] | | | | | | [address] | | | | | | | [...]
--- OUTSIDE RECORDS SUMMARY | ~2020-04-22 | XMS | Encounter Summary ---
Demographics + + + | Address | [address] | | | [place] [address] | + + + | Home Phone | | + + + | Preferred Language | Unknown | + + + | Marital Status | Unmarried Domestic Partner | + + + | Congregation Affiliation | Unknown | + + + | Race | or | + + + | Ethnic Group | Not or | + + + Author + + + | Author | [place] [employer] [facility] [employer] | + + + | Organization | [facility] | + [...] Team Providers + +------+ + | Care Automotive Manager Name | Role | Phone | [...] | | | | | | | [facility] | | | | | | | Health and | | | | | | | Healing, | | | | | | | Building [address] | | | | | | | [place], [place] | | | | | | | [address] | | | | | | | Phone: | | | | | | | [phone] | | | | | | | Fax: | | | | | | | [phone] | +--------+--------+ + + + + Encounter Details +--------+---------+ + + + | Date | Type | Department | Care Team | Description | +--------+---------+ + + + | 01/24/ | Office | Digestive Health | Tejal Iraheta [address] | Morbid obesity with | | 2014 | Visit | Center at [facility] [address] | [address] | BMI of 70 and over, | | | | [address] | [address] [facility], | adult ([facility]) (Primary | | | | for Health and | [place] [address] | Dx); Type 2 | | | | [facility], [place] [address] | [phone] | diabetes mellitus | | | | [place], [place] | | treated with insulin | | | | [address] | | ([facility]) | | | | [phone] | | | +--------+---------+ + + + [...] of Visit: 10:20 to 11:20 (60 minutes [id number] with patient). Bariatric RN also participated in [...] Breakfast: [place] yogurt + 20oz creamer + Samoan cream 3T or Bagel + cream cheese [...] - lettuce, carrots, celery, swathi toes + Iranian dressing) + Rice a Roger, occ fried [...] to f/u with her clinic in [place] - Begin seated exercise program Written Education [...] benefit from closer f/u. If coming to [place] i s unrealistic I am available to consult with RD (if available) in her clinic in [place]. GOAL: The patient's goal is to have weight loss surgery to maintain weight loss and improve other health conditions. 1. Continue to practice behavioral changes to prepare for surgery. 2. Increase physical activity. 3. Review all information provided for post-surgery diet progression. 4. Call or send M[place]iot message to dietitian with any questions. Contact information was provided. Follow up with dietitian - YENY pt to be discussed at high risk meeting. Tejal Iraheta RD, [facility], Pager# [phone] documented in this enco unter Plan of Treatment Not on filedocumented as of this encounter Procedures + +--------+ + + + | Procedure Name | Priori | Date/Time | Associated Diagnosis | Comments | | | ty | | | | + +--------+ + + + | [place] MNT RE-ASSESSMNT | Routin | 01/24/2015 | Morbid obesity | | | X15MIN | e | 12:19 PM | with BMI of 70 and | | | | | PDT | over, adult ([facility]) | | | | | | Type 2 diabetes | | | | | | mellitus treated | | | | | | with insulin ([facility]) | | + +--------+ + + + documented in this encounter Visit Diagnoses + + | Diagnosis | + + | Morbid obesity with BMI of 70 and over, adult (HCC) - Primary | + + | Type 2 diabetes mellitus treated with insulin (HCC) | + + documented in this encounter
--- OUTSIDE RECORDS SUMMARY | ~2020-04-22 | XMS | Encounter Summary ---
Demographics + + + | Address | [address] | | | [place] [address] | + + + | Home Phone | | + + + | Preferred Language | Unknown | + + + | Marital Status | Unmarried Domestic Partner | + + + | Yarsani Affiliation | Unknown | + + + | Race | or | + + + | Ethnic Group | Not or | + + + Author + + + | Author | [place] [employer] [facility] | + + + | Organization | [facility] | + + + | Address | Unknown | + + + | Phone | Unavailable | + + + Support + + +---------+ + | Name | Relationship | Address | Phone | + + +---------+ + | Lazaro Merchant | ECON | Unknown | | + + +---------+ + Care Team Providers + +------+ + | Care Central Station Operator Name | Role | Phone | + +------+ + | Larissa Keen MD | PCP | | + +------+ + Encounter Details +--------+ + + + + | Date | Type | Department | Care Team | Description | +--------+ + + + + | 10/16/ | Abstract | Digestive Health | Diamond De León, | | | 2014 | | Center at [facility] [address] | PHOTOGRAPHY PROFESSOR [address] | | | | | [address] [facility] | [facility] 350 | | | | | for Health and | [place], [place] | | | | | [facility], [place] [address] | [address] | | | | | [place], [place] | [phone] | | | | | [address] | | | | | | [phone] | | | +--------+ + + + [...]
--- OUTSIDE RECORDS SUMMARY | ~2020-04-22 | XMS | Encounter Summary ---
Demographics + + + | Address | [address] | | | [place] [address] | + + + | Home Phone | | + + + | Preferred Language | Unknown | + + + | Marital Status | Unmarried Domestic Partner | + + + | Oriental Orthodox Affiliation | Unknown | + + + | Race | or | + + + | Ethnic Group | Not or | + + + Author + + + | Author | [place] [employer] [facility] | + + + | Organization | [facility] | + + + | Address | Unknown | + + + | Phone | Unavailable | + + + Support + + +---------+ + | Name | Relationship | Address | Phone | + + +---------+ + | Lazaro Merchant | ECON | Unknown | | + + +---------+ + Care Team Providers + +------+ + | Care Internet Media Planner Name | Role | Phone | + +------+ + | Larissa Keen MD | PCP | | + +------+ + Encounter Details +--------+ + + + + | Date | Type | Department | Care Team | Description | +--------+ + + + + | 07/15/ | Abstract | Digestive Health | Fátima Hernandez, | | | 2014 | | Center at [facility] [address] | ACNP [address] | | | | | [address] | [address] [facility] [place] | | | | | for Health and | [address] | | | | | Healing, [address] | | | | | | [place], [place] | | | | | | [address] | | | | | | | [...]
--- OUTSIDE RECORDS SUMMARY | ~2020-04-22 | XMS | Encounter Summary ---
Demographics + + + | Address | [address] | | | [place] [address] | + + + | Home Phone | | + + + | Preferred Language | Unknown | + + + | Marital Status | Unmarried Domestic Partner | + + + | Mandaeism Affiliation | Unknown | + + + | Race | or | + + + | Ethnic Group | Not or | + + + Author + + + | Author | [place] [employer] [facility] | + + + | Organization | [facility] | + [...] Team Providers + +------+ + | Care Cook Mayonnaise Name | Role | Phone | + +------+ + | Mar DoddP | PCP | | + +------+ + Encounter Details +--------+ + + + + | Date | Type | Department | Care Team | Description | +--------+ + + + + | 03/11/ | Abstract | Digestive Health | Fátima Hernandez, | | | 2013 | | Center at [facility] [address] | ACNP [address] | | | | | [address] [place] | e [place], [place] | | | | | for Health and | [address] | | | | | Healing, [address] | | | | | | [place], [place] | | | | | | [address] | | | | | | | [...]
--- OUTSIDE RECORDS SUMMARY | ~2020-04-22 | XMS | Clinical Summary ---
Demographics + + + | Address | [address] | | | [place] [address] | + + + | Home Phone | | + + + | Preferred Language | Unknown | + + + | Marital Status | Unmarried Domestic Partner | + + + | Gnosticist Affiliation | Unknown | + + + | Race | or | + + + | Ethnic Group | Not or | + + + Author + + + | Author | [facility] | + + + | Organization | [facility] | + + + | Address | Unknown | + + + | Phone | Unavailable | + + + Support + + +---------+ + | Name | Relationship | Address | Phone | + + +---------+ + | Lazaro Merchant | ECON | Unknown | | + + +---------+ + Care Team Providers + +------+ + | Care Helper/Driver Name | Role | Phone | + +------+ + | Larissa Keen MD | PCP | | + +------+ + Source Comments SHERRI is fully live on both [facility] Amb[facility] and [facility] InPatient.[facility] Allergies + + + + + + | Active Allergy | Reactions | Severity | Noted | Comments | | | | | Date | | + + + + + + | Amoxicillin-Pot | Unknown | | 03/13/20 | | | Clavulanate | | | 14 | | + + + + + + | Levofloxacin | Unknown | | 06/11/20 | | | | | | 14 | | + + + + + + | Azithromycin | Unknown | | 03/13/20 | | | | | | 14 | | + + + + + + Medications + + + +---------+------+------+-------+ | Medication | Sig | Dispensed | Refills | Star | End | Statu | | | | | | t | Date | s | | | | | | Date | | | + + + +---------+------+------+-------+ | rivaroxaban 20 mg | Take by mouth once | | 0 | | | Activ | | oral tablet | daily in the | | | | | e | | | evening. | | | | | | + + + +---------+------+------+-------+ | metoprolol | Take 100 mg by mouth | | 0 | | | Activ | | tartrate 100 mg oral | once daily in the | | | | | e | | tablet | evening. | | | | | | + + + +---------+------+------+-------+ | irbesartan 300 mg | Take 300 mg by mouth | | 0 | | | Activ | | oral tablet | four times daily. | | | | | e | + + + +---------+------+------+-------+ | | Take by mouth four | | 0 | | | Activ | | Calcium-Cholecalcife | times daily. | | | | | e | | rol, D3, 600 | | | | | | | | mg(1,500mg) -400 | | | | | | | | unit oral tablet | | | | | | | + + + +---------+------+------+-------+ | Cholecalciferol, | Take 5,000 Units by | | 0 | | | Activ | | Vitamin D3, (VITAMIN | mouth four times | | | | | e | | D3) 5,000 unit oral | daily. | | | | | | | tablet | | | | | | | + + + +---------+------+------+-------+ | | Take 1 tablet by | | 0 | | | Activ | | triamterene-hydrochl | mouth four times | | | | | e | | orothiazide 37.5-25 | daily. | | | | | | | mg oral tablet | | | | | | | + + + +---------+------+------+-------+ | omeprazole 40 mg | Take 40 mg by mouth | | 0 | | | Activ | | oral capsule,delayed | two times daily. | | | | | e | | release(/YARELI) | | | | | | | + + + +---------+------+------+-------+ | levothyroxine 75 | Take 75 mcg by mouth | | 0 | | | Activ | | mcg oral tablet | four times daily. | | | | | e | + + + +---------+------+------+-------+ | magnesium oxide | Take 400 mg by mouth | | 0 | | | Activ | | 400 mg oral tablet | four times daily. | | | | | e | + + + +---------+------+------+-------+ | diltiazem SR 24 | Take by mouth four | | 0 | | | Activ | | hour release 300 mg | times daily. | | | | | e | | oral capsule, | | | | | | | | extended release | | | | | | | + + + +---------+------+------+-------+ | VIT/IRON | Take by mouth once | | 0 | | | Activ | | FUMARATE/FA | daily in the | | | | | e | | ( ORAL) | morning. | | | | | | + + + +---------+------+------+-------+ | | Take 1 tablet by | | 0 | | | Activ | | HYDROcodone-acetamin | mouth as needed. Not | | | | | e | | ophen 10-325 mg oral | to exceed 3250 mg | | | | | | | tablet | of acetaminophen | | | | | | | | from all products | | | | | | | | per 24 hour period. | | | | | | + + + +---------+------+------+-------+ | OMEGA-3 FATTY | Take by mouth once | | 0 | | | Activ | | ACIDS (FISH OIL | daily in the | | | | | e | | ORAL) | morning. | | | | | | + + + +---------+------+------+-------+ | ascorbic acid SR | Take 1,000 mg by | | 0 | | | Activ | | (VITAMIN C) 1,000 mg | mouth once daily in | | | | | e | | oral tablet | the morning. | | | | | | + + + +---------+------+------+-------+ Active Problems + + + | Problem | Noted Date | + + + | Type 2 diabetes mellitus treated with insulin | 01/24/2015 | + + + | Morbid obesity with BMI of 70 and over, adult | 05/03/2014 | + + + | Morbid obesity | 05/03/2014 | + + + | Diabetes | 05/03/2014 | + + + | HTN (hypertension) | 05/03/2014 | + + + | TOMMY (obstructive sleep apnea) | 05/03/2014 | + + + | Heavy periods | 05/03/2014 | + + + | A-fib | 05/03/2014 | + + + | History of cardioversion | 05/03/2014 | + + + | H/O hernia repair | 05/03/2014 | + + + | S/P cholecystectomy | 05/03/2014 | + + + | Anxiety | 05/03/2014 | + + + | GERD (gastroesophageal reflux disease) | 05/03/2014 | + + + | Use of cane as ambulatory aid | 05/03/2014 | + + + Family History + + +------+ + | Medical History | Relation | Name | Comments | + + +------+ + | Alcohol/Drug | Brother | | | + + +------+ + | Obesity | Brother | | | + + +------+ + | Diabetes | Father | | | + + +------+ + | Heart Disease | Father | | | + + +------+ + | Obesity | Father | | | + + +------+ + | Heart Attack | Mother | | | + + +------+ + | Other | Mother | | low blood platelets | + + +------+ + + +------+ + + | Relation | Name | Status | Comments | + +------+ + + | Brother | | Alive | | + +------+ + + | Brother | | | | + +------+ + + | Father | | Alive | | + +------+ + + | Mother | | | heart attack | + +------+ + + Social History + + + [...] recent travel history available. | + + Last Filed Vital Signs + + + + + | Vital Sign | Reading | Time Taken | Comments | + + + + + | Blood Pressure | 157/83 | 06/02/2015 9:15 AM | | | | | PDT | | + + + + + | Pulse | 86 | 06/02/2015 9:15 AM | | | | | PDT | | + + + + + | Temperature | 37.3 C (99.1 F) | 06/02/2015 9:15 AM | | | | | PDT | | + + + + + | Respiratory Rate | 20 | 06/02/2015 9:15 AM | | | | | PDT | | + + + + + | Oxygen Saturation | 98% | 06/02/2015 9:15 AM | | | | | PDT | | + + + + + | Inhaled Oxygen | - | - | | | Concentration | | | | + + + + + | Weight | 231.5 kg (510 lb 6.4 | 07/14/2015 4:27 PM | | | | oz) | PDT | | + + + + + | Height | 167.6 cm (5' 6") | 06/02/2015 9:15 AM | | | | | PDT | | + + + + + | Body Mass Index | 82.38 | 06/02/2015 9:15 AM | | | | | PDT | | + + + + + Plan of Treatment + + + + + | Health Maintenance | Due Date | Last Done | Comments | + + + + + | Pneumococcal | | | | | vaccination (1 of 1 | 0 | | | | - PPSV23) | | | | + + + + + | Influenza (Flu) | | | | | vaccination (#1) | 9 | | | + + + + + Results Not on filefrom Last 3 Months Insurance + +--------+ +--------+ + +------+ | Payer | Benefi | Subscriber | Effect | Phone | Address | Type | | | t Plan | ID | imani | | | | | | / | | Dates | | | | | | Group | | | | | | + +--------+ +--------+ + +------+ | [place] | BLUE | [phone] | 10/03/19 | [phone] | [address] | PPO | | | CROSS | | 16-Pre | 8 | [id number] | | | | [place] | | sent | | [place], | | | | [place] | | | | [place] [address] | | + +--------+ +--------+ + +------+ + +--------+ +--------+ + + | Guarantor Name | Accoun | Relation to | Date | Phone | Billing Address | | | t Type | Patient | of | | | | | | | | | | + +--------+ +--------+ + + | Marielle Esparza | Person | Self | [birth year] | [address] | | | al/[place] | | 1975 | [phone] | [place] [address] | | | be | | | 1 (Home) | | + +--------+ +--------+ + +
--- OUTSIDE RECORDS SUMMARY | ~2020-04-22 | XMS | Encounter Summary ---
Demographics + + + | Address | [address] | | | [place] [address] | + + + | Home Phone [...] + + + | Author | [place] [employer] [facility] | + + + | Organization | [facility] | + + + | Address | Unknown | + + + | Phone | Unavailable | + + + Support + + +---------+ + | Name | Relationship | Address | Phone | + + +---------+ + | Lazaro Merchant | ECON | Unknown | | + + +---------+ + Care Team Providers + +------+ + | Care City Carrier Assistant Name | Role | Phone | + +------+ + | Larissa Keen MD | PCP | | + +------+ + Encounter Details +--------+ + + + + | Date | Type | Department | Care Team | Description | +--------+ + + + + | 05/06/ | Abstract | Digestive Health | Diamond De León, | | | 2013 | | Center at [facility] [address] | UNDERWRITING ASSISTANT [address] | | | | | [address] [facility] | [facility] [address] | | | | | for Health and | [place], [place] | | | | | [facility], [place] [address] | [address] | | | | | [place], [place] | [phone] | | | | | [address] | | | | | | [phone] | | | +--------+ + + + [...]
--- OUTSIDE RECORDS SUMMARY | ~2020-04-22 | XMS | Encounter Summary ---
Demographics + + + | Address | [address] | | | [place] [address] | + + + | Home Phone | | + + + | Preferred Language | Unknown | + + + | Marital Status | Unmarried Domestic Partner | + + + | Shinto Affiliation | Unknown | + + + | Race | or | + + + | Ethnic Group | Not or | + + + Author + + + | Author | [facility] | + + + | Organization | [facility] | + + + | Address | Unknown | + + + | Phone | Unavailable | + + + Support + + +---------+ + | Name | Relationship | Address | Phone | + + +---------+ + | Lazaro Merchant | ECON | Unknown | | + + +---------+ + Care Team Providers + +------+ + | Care Percussion Instrument Repairer Name | Role | Phone | + +------+ + | Larissa Keen MD | PCP | | + +------+ + Encounter Details +--------+ + + + + | Date | Type | Department | Care Team | Description | +--------+ + + + + | 10/16/ | Abstract | Digestive Health | Diamond De León, | | | 2014 | | Center at [facility] [address] | CAMOUFLAGE ASSEMBLER [address] | | | | | [address] [facility] | [facility] [address] | | | | | for Health and | [place], [place] | | | | | [facility], [place] [address] | [address] | | | | | [place], [place] | [phone] | | | | | [address] | | | | | | [phone] | | | +--------+ + + + [...]
--- OUTSIDE RECORDS SUMMARY | ~2020-04-22 | XMS | Encounter Summary ---
Demographics + + + | Address | [address] | | | [place] [address] | + + + | Home Phone | | + + + | Preferred Language | Unknown | + + + | Marital Status | Unknown | + + + | Anabaptist Affiliation | Unknown | + + + | Race | Unknown | + + + | Ethnic Group | Unknown | + + + Author + + + | Author | [facility] | | | and [place] | + + + | Organization | [facility] | | | and [place] | [...] Team Providers + +------+ + | Care Piano Regulator Name | Role | Phone | + +------+ + | Margarito Felix PA-C | PCP | | + +------+ + Encounter Details +--------+ + + + + | Date | Type | Department | Care Team | Description | +--------+ + + + + | 04/27/ | Orders Only | [facility] | Provider, | | | 2018 | | SYSTEM GENERIC OP | [address] | | | | | CONVERSION [address] | [address] | | | | | [address] [place], [place] | [place] [address] | | | | | [address] | | | | | | [phone] | | | +--------+ + + + + Social History + +-------+ +--------+------+ | Tobacco Use | Types | Packs/Day | Years | Date | | | | | Used | | + +-------+ +--------+------+ | Never Smoker | | | | | + +-------+ +--------+------+ + + | Comments: quit 2009 | + + + + + | Sex Assigned at | Date Recorded | | | | + + + | Not on file | | + + + documented as of this encounter Plan of Treatment Not on filedocumented as of this encounter Visit Diagnoses Not on filedocumented in this encounter"
--- OUTSIDE RECORDS SUMMARY | ~2020-04-22 | XMS | Encounter Summary ---
Demographics + + + | Address | [address] | | | [place] [address] | + + + | Home Phone | | + + + | Preferred Language | Unknown | + + + | Marital Status | Unmarried Domestic Partner | + + + | Sikh Affiliation | Unknown | + + + | Race | or | + + + | Ethnic Group | Not or | + + + Author + + + | Author | [facility] | + + + | Organization | [facility] | + + + | Address | Unknown | + + + | Phone | Unavailable | + + + Support + + +---------+ + | Name | Relationship | Address | Phone | + + +---------+ + | Lazaro Merchant | ECON | Unknown | | + + +---------+ + Care Team Providers + +------+ + | Care Kitchen Helper Name | Role | Phone | + +------+ + | Larissa Keen MD | PCP | | + +------+ + Encounter Details +--------+ + + + + | Date | Type | Department | Care Team | Description | +--------+ + + + + | 05/06/ | Abstract | Digestive Health | Diamond De León, | | | 2013 | | Center at [facility] [address] | LEATHER SPLITTER [address] | | | | | [address] [facility] | [facility] 350 | | | | | for Health and | [place], [place] | | | | | [facility], [place] [address] | [address] | | | | | [place], [place] | [phone] | | | | | [address] | | | | | | [phone] | | | +--------+ + + + [...]
--- OUTSIDE RECORDS SUMMARY | ~2020-04-22 | XMS | Encounter Summary ---
Demographics + + + | Address | [address] | | | [place] [address] | + + + | Home Phone | | + + + | Preferred Language | Unknown | + + + | Marital Status | Unmarried Domestic Partner | + + + | Jewish Affiliation | Unknown | + + + | Race | or | + + + | Ethnic Group | Not or | + + + Author + + + | Author | [facility] | + + + | Organization | [facility] | + + + | Address | Unknown | + + + | Phone | Unavailable | + + + Support + + +---------+ + | Name | Relationship | Address | Phone | + + +---------+ + | Lazaro Merchant | ECON | Unknown | | + + +---------+ + Care Team Providers + +------+ + | Care Diesel Service Apprentice Name | Role | Phone | + +------+ + | Larissa Keen MD | PCP | | + +------+ + Encounter Details +--------+ + + + + | Date | Type | Department | Care Team | Description | +--------+ + + + + | 12/09/ | Abstract | Digestive Health | Diamond De León, | | | 2014 | | Center at [facility] [address] | METAL WEIGHER [address] | | | | | [address] [facility] | [facility] 350 | | | | | for Health and | [place], [place] | | | | | [facility], [place] [address] | [address] | | | | | [place], [place] | [phone] | | | | | [address] | | | | | | [phone] | | | +--------+ + + + [...]
--- OUTSIDE RECORDS SUMMARY | ~2020-04-22 | XMS | Encounter Summary ---
Demographics + + + | Address | [address] | | | [place] [address] | + + + | Home Phone | | + + + | Preferred Language | Unknown | + + + | Marital Status | Unmarried Domestic Partner | + + + | Lutheran Affiliation | Unknown | + + + | Race | or | + + + | Ethnic Group | Not or | + + + Author + + + | Author | [facility] | + + + | Organization | [facility] | + + + | Address | Unknown | + + + | Phone | Unavailable | + + + Support + + +---------+ + | Name | Relationship | Address | Phone | + + +---------+ + | Lazaro Merchant | ECON | Unknown | | + + +---------+ + Care Team Providers + +------+ + | Care Youth Corrections Officer Name | Role | Phone | + +------+ + | Larissa Keen MD | PCP | | + +------+ + Reason for Visit + + + | Reason | Comments | + + + | Bariatric Nutrition | | + + + Encounter Details +--------+---------+ + + + | Date | Type | Department | Care Team | Description | +--------+---------+ + + + | 07/14/ | Office | Digestive Health | | Morbid obesity with | | 2014 | Visit | Center at [facility] [address] | | BMI of 70 and over, | | | | [facility] | | adult (HCC) (Primary | | | | for Health and | | Dx) | | | | [facility], [facility] 2 | | | | | | [place], [place] | | | | | | [address] | | | | | | [phone] | | | +--------+---------+ + + + [...] + documented in this encounter Progress Notes Blanca Thurston, RD - 07/14/2015 4:27 PM PDT Referring Provider: Larissa Keen MD Outpatient [facility], Pre-Bariatric Surgery Class Pre-Surgery Class #2 prior to having Leah-En-Y gastric bypass surgery or Sleeve Gastrectomy . Documented Time of Class: 3:00 until 4:00 (60 minutes wbmp-kg-veus with patient) OBJECTIVE: Height: Ht Readings from Last 1 Encounters: 06/02/15 1.676 m (5' 6") Ht Readings from Last 1 Encounters: 06/02/15 1.676 m (5' 6") Wt Readings from Last 2 Encounters: 07/14/15 231.516 kg (510 lb 6.4 oz) 06/02/15 227.297 kg (501 lb 1.6 oz) BMI: Body mass index is 82.42 kg/(m^2). Teaching Methods: PowerPoint and verbal presentation with additional written materials. Class content included: 1. Review of garcia points. -Eat within one hour of waking, then every 3 to 4 waking hours (usually 3 meals and 2-3 sna cks daily)Include protein at meals (2-3 ounces) and at snacks (~1 ounce). -Goal is 60-80grams of protein/day -At least 64 ounces of fluids throughout the day (no calories, caffeine, or carbonation) -Separate fluids from meals nothing to drink 30 minutes before, during, and [address] eating -Practice mindful eating eat slowly (30 minutes for meals) without distractions such as T V, computer, phone -Choose foods with < 14 grams of sugar and < 5 grams of fat per serving -30-60 minutes of physical activity most days -Taking vitamins and minerals every day 2. Fluids 3. Exercise 4. Vitamins and Minerals & lab work. 5. Liver Reduction Diet 6. Post surgical diet progression Assessment: Pt remained attentive throughout the class and/or participated by asking questi ons or sharing information. Yes Blanca Thurston RD PERITONEAL DIALYSIS REGISTERED NURSE LD Outpatient Adult Dietitian documented in this enc ounter Plan of Treatment Not on filedocumented as of this encounter Visit Diagnoses + + | Diagnosis | + + | Morbid obesity with BMI of 70 and over, adult (HCC) - Primary | + + documented in this encounter
--- OUTSIDE RECORDS SUMMARY | ~2020-04-22 | XMS | Clinical Summary ---
Demographics + + + | Address | [address] | | | [place] [address] | + + + | Home Phone | | + + + | Preferred Language | Unknown | + + + | Marital Status | Unmarried Domestic Partner | + + + | Scientologist Affiliation | Unknown | + + + | Race | or | + + + | Ethnic Group | Not or | + + + Author + + + | Author | [facility] | + + + | Organization | [facility] | + + + | Address | Unknown | + + + | Phone | Unavailable | + + + Support + + +---------+ + | Name | Relationship | Address | Phone | + + +---------+ + | Lazaro Merchant | ECON | Unknown | | + + +---------+ + Care Team Providers + +------+ + | Care Re Etcher Name | Role | Phone | + +------+ + | Larissa Keen MD | PCP | | + +------+ + Source Comments SHERRI is fully live on both [facility] Amb[facility] and [facility] In[facility] Allergies + + + + + [...] CROSS | | 16-Pre | 8 | [address] | | | | [place] | | sent | | [place], | | | | L | | | | [place] [address] | | + +--------+ +--------+ + +------+ [...] al/Sony | | 1975 | [phone] | [place] [address] | | | be | | | 1 (Home) | | + +--------+ +--------+ + +
--- OUTSIDE RECORDS SUMMARY | ~2020-04-22 | XMS | Encounter Summary ---
Demographics + + + | Address | [address] | | | [place] [address] | + + + | Home Phone | | + + + | Preferred Language | Unknown | + + + | Marital Status | Unmarried Domestic Partner | + + + | Buddhist Affiliation | Unknown | + + + | Race | or | + + + | Ethnic Group | Not or | + + + Author + + + | Author | [facility] | + + + [...] Team Providers + +------+ + | Care Immigration Services Officer Name | Role | Phone | [...] Discussion | | 2014 | | Center [place] [address] | [place] | | | | | [address] [facility] | | | | | | for Health and | | | | | | [facility], [facility] 2 | | | | | | [place], [place] | | | | | | [address] | | | | | | [phone] | | | +--------+ + + + [...]
--- OUTSIDE RECORDS SUMMARY | ~2020-04-22 | XMS | Encounter Summary ---
Demographics + + + | Address | [address] | | | [place] [address] | + + + | Home Phone [...] + + + | Author | [facility] | + + + | Organization | [facility] | + + + | Address | Unknown | + + + | Phone | Unavailable | + + + Support + + +---------+ + | Name | Relationship | Address | Phone | + + +---------+ + | Lazaro Merchant | ECON | Unknown | | + + +---------+ + Care Team Providers + +------+ + | Care Paintings Conservator Name | Role | Phone | + +------+ + | Larissa Keen MD | PCP | | + +------+ + Reason for Visit + + + | Reason | Comments | + + + | Chart Review | | + + + Encounter Details +--------+ + + + + | Date | Type | Department | Care Team | Description | +--------+ + + + + | 08/07/ | Telephone | [facility] | Fátima Hernandez, | Chart Review | | 2014 | | [place] [address] | ACNP [address] | | | | | [address] [facility] | [address] [place], [place] | | | | | Health and Healing, | [address] | | | | | Building [address] | [phone] | | | | | [place], [place] | | | | | | [address] | | | | | | [phone] | | | +--------+ + + + [...]
--- OUTSIDE RECORDS SUMMARY | ~2020-04-22 | XMS | Encounter Summary ---
Demographics + + + | Address | [address] | | | [place] [address] | + + + | Home Phone | | + + + | Preferred Language | Unknown | + + + | Marital Status | Unmarried Domestic Partner | + + + | Christian Affiliation | Unknown | + + + | Race | or | + + + | Ethnic Group | Not or | + + + Author + + + | Author | [facility] | + + + | Organization | [facility] | + + + | Address | Unknown | + + + | Phone | Unavailable | + + + Support + + +---------+ + | Name | Relationship | Address | Phone | + + +---------+ + | Lazaro Merchant | ECON | Unknown | | + + +---------+ + Care Team Providers + +------+ + | Care Specialty Sales Representative Name | Role | Phone | + [...] | | | | [address] | [place], [place] | | | | | for Health and | [address] | | | | | Healing, Building [address] | | | | | | [place], [place] | | | | | | [address] | | | | | | | [...]
--- OUTSIDE RECORDS SUMMARY | ~2020-04-22 | XMS | Encounter Summary ---
Demographics + + + | Address | [address] | | | [place] [address] | + + + | Home Phone | | + + + | Preferred Language | Unknown | + + + | Marital Status | Unmarried Domestic Partner | + + + | Adventism Affiliation | Unknown | + + + | Race | or | + + + | Ethnic Group | Not or | + + + Author + + + | Author | [facility] | + + + | Organization | [facility] | + + + | Address | Unknown | + + + | Phone | Unavailable | + + + Support + + +---------+ + | Name | Relationship | Address | Phone | + + +---------+ + | Lazaro Merchant | ECON | Unknown | | + + +---------+ + Care Team Providers + +------+ + | Care Squeegee Finisher Name | Role | Phone | + [...] on | Center at [facility] [address] | PROCESS ANALYST [address] | | | | | [address] [place] | , [facility] 350 | | | | | for Health and | [place], [place] | | | | | Healing, Building [address] | [address] | | | | | [place], [place] | [phone] | | | | | [address] | | | | | | [phone] | | | +--------+ + + + [...]
--- OUTSIDE RECORDS SUMMARY | ~2020-04-22 | XMS | Encounter Summary ---
Demographics + + + | Address | [address] | | | [place] [address] | + + + | Home Phone [...] Author + + + | Author | [facility] | + + [...] Team Providers + +------+ + | Care Paste Mixer Name | Role | Phone | + [...] | Pain | Diagnoses | Conser, | Commutator Inspector Psych | | | | Management | Morbid | Diamond M, MAPPING ANALYST | [facility] [address] | | | | | obesity | [address] | | | | | (HCC) | [address], | Center for | | | | | Procedures | [address] | Health and | | | | | CONSULT TO | [place], [place] | Healing, | | | | | PAIN CENTER | [address] | Building | | | | | | Phone: | 1,15th Floor | | | | | | [phone] | [place], [place] | | | | | | Fax: | [address] | | | | | | [phone] | Phone: | | | | | | | [phone] | | | | | | | Fax: | | | | | | | [phone] | +--------+--------+ + + + + Encounter Details +--------+---------+ + + + | Date | Type | Department | Care Team | Description | +--------+---------+ + + + | 01/24/ | Office | Pain Center at [facility] | Berto Samuels, | Adjustment disorder | | 2015 | Visit | 15th Floor [address] | PhD [address] | with mixed anxiety | | | | [address] Mailcode: | [place], [place] | and depressed mood | | | | [facility] for | [address] | (Primary Dx); Morbid | | | | Health and Healing, | [phone] | obesity with BMI of | | | | Building | | 70 and over, adult | | | | Floor [place], [place] | | ([facility]); Type 2 | | | | [address] | | diabetes mellitus | | | | [phone] | | treated with insulin | | | | | | ([facility]) | +--------+---------+ + + + Social History [...] Name: Marielle Esparza : 1975 Medical Record: [id number] Age:39 y.o. Weight: 465 lbs BMI: 73 Proposed Surgery: Leah en y gastric bypass. Public Meeting: Attended Identifying Information: Marielle Esparza is a 39 y.o. female who lives with her boyfriend in [place], [place]. She was referred for psychological evaluation [...] is socially active with fri ends and kobuk and community activities. 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 Current Life Stressors: Her health [...] to improve her consistency with following the chemist intern's recommendations. 4. She is urged to establish [...] interpretation. BERTO SAMUELS, PhD PAIN CENTER AT [facility] 4TH FLOOR [address] Mail Code: [place] [address] documented in this en counter Plan of Treatment Not on filedocumented as of this encounter Visit Diagnoses + + | Diagnosis | + + | Adjustment disorder with mixed anxiety and depressed mood - Primary | + + | Morbid obesity with BMI of 70 and over, adult ([facility]) | + + | Type 2 diabetes mellitus treated with insulin (HCC) | + + documented in this encounter
--- OUTSIDE RECORDS SUMMARY | ~2020-04-22 | XMS | Encounter Summary ---
Demographics + + + | Address | [address] | | | [place] [address] | + + + | Home Phone | | + + + | Preferred Language | Unknown | + + + | Marital Status | Unknown | + + + | Gnosticism Affiliation | Unknown | + + + | Race | Unknown | + + + | Ethnic Group | Unknown | + + + Author + + + | Author | [facility] | | | and [place] | + + + | Organization | [facility] | | | and [place] [...] Providers + +------+ + | Care Content Strategy Lead Name | Role | Phone | + +------+ + | Margarito Felix PA-C | PCP | | + +------+ + Encounter Details +--------+ + + + + | Date | Type | Department | Care Team | Description | +--------+ + + + + | 04/27/ | Orders Only | [facility] | Provider, | | | 2018 | | SYSTEM GENERIC OP | [address] | | | | | CONVERSION [address] | [address] [address] | | | | | [address] [place], [place] | [place] [address] | | | | | [address] | | | | | | [phone] | | | +--------+ + + + [...]
--- OUTSIDE RECORDS SUMMARY | ~2020-04-22 | XMS | Encounter Summary ---
Demographics + + + | Address | [address] | | | [place] [address] | + + + | Home Phone | | + + + | Preferred Language | Unknown | + + + | Marital Status | Unmarried Domestic Partner | + + + | Pentecostal Affiliation | Unknown | + + + | Race | or | + + + | Ethnic Group | Not or | + + + Author + + + | Author | [facility] | + + + | Organization | [facility] | + [...] Team Providers + +------+ + | Care Treating Inspector Name | Role | Phone | [...] | | 2014 | | Center at [facility] [address] | DIGITAL MEDIA PLANNER [address] | | | | | [address] [facility] | [facility] 350 | | | | | for Health and | [place], [place] | | | | | [facility], [place] [address] | [address] | | | | | [place], [place] | [phone] | | | | | [address] | | | | | | [phone] | | | +--------+ + + + [...]
--- OUTSIDE RECORDS SUMMARY | ~2020-04-22 | XMS | Encounter Summary ---
Demographics + + + | Address | [address] | | | [place] [address] | + + + | Home Phone | | + + + | Preferred Language | Unknown | + + + | Marital Status | Unmarried Domestic Partner | + + + | Hoahaoism Affiliation | Unknown | + + + | Race | or | + + + | Ethnic Group | Not or | + + + Author + + + | Author | [facility] | + + + | Organization | [facility] | + + + | Address | Unknown | + + + | Phone | Unavailable | + + + Support + + +---------+ + | Name | Relationship | Address | Phone | + + +---------+ + | Lazaro Merchant | ECON | Unknown | | + + +---------+ + Care Team Providers + +------+ + | Care Wool Washer Feeder Name | Role | Phone | + +------+ + | Larissa Keen MD | PCP | | + +------+ + Encounter Details +--------+ + + + + | Date | Type | Department | Care Team | Description | +--------+ + + + + | 10/17/ | Abstract | Digestive Health | Diamond De León, | | | 2014 | | Center at [facility] [address] | BEADING INSTALLER [address] | | | | | [address] [facility] | [facility] 350 | | | | | for Health and | [place], [place] | | | | | [facility], [place] [address] | [address] | | | | | [place], [place] | [phone] | | | | | [address] | | | | | | [phone] | | | +--------+ + + + [...]
--- OUTSIDE RECORDS SUMMARY | ~2020-04-22 | XMS | Encounter Summary ---
Demographics + + + | Address | [address] | | | [place] [address] | + + + | Home Phone | | + + + | Preferred Language | Unknown | + + + | Marital Status | Unmarried Domestic Partner | + + + | Pentecostalism Affiliation | Unknown | + + + | Race | or | + + + | Ethnic Group | Not or | + + + Author + + + | Author | [facility] | + + + | Organization | [facility] | + + + | Address | Unknown | + + + | Phone | Unavailable | + + + Support + + +---------+ + | Name | Relationship | Address | Phone | + + +---------+ + | Lazaro Merchant | ECON | Unknown | | + + +---------+ + Care Team Providers + +------+ + | Care Intramural Director Name | Role | Phone | [...] | | | | | | | [facility] | | | | | | | Health and | | | | | | | Healing, | | | | | | | [address] | | | | | | | [place], [place] | | | | | | | [address] | | | | | | | Phone: | | | | | | | [phone] | | | | | | | Fax: | | | | | | | [phone] | +--------+--------+ + + + + Encounter Details +--------+---------+ + + + | Date | Type | Department | Care Team | Description | +--------+---------+ + + + | 01/24/ | Office | Digestive Health | Tejal Iraheta RD | Morbid obesity with | | 2014 | Visit | Center at [facility] [address] | [address] | BMI of 70 and over, | | | | [address] | [address] [facility], | adult ([facility]) (Primary | | | | for Health and | [place] [address] | Dx); Type 2 | | | | [facility] [place], [place] [address] | [phone] | diabetes mellitus | | | | [place], [place] | | treated with insulin | | | | [address] | | ([facility]) | | | | [phone] | | | +--------+---------+ + + + [...] of Visit: 10:20 to 11:20 (60 minutes rpke-[id number] with patient). Bariatric RN also participated in [...] Breakfast: [place] yogurt + 20oz creamer + Wallisian cream 3T or Bagel + cream cheese [...] - lettuce, carrots, celery, swathi toes + Malian dressing) + Rice a Roger, occ fried [...] to f/u with her clinic in [facility] - Begin seated exercise program Written Education [...] benefit from closer f/u. If coming to [place] i s unrealistic I am available to consult with RD (if available) in her clinic in [place]. GOAL: The patient's goal is to have weight loss surgery to maintain weight loss and improve other health conditions. 1. Continue to practice behavioral changes to prepare for surgery. 2. Increase physical activity. 3. Review all information provided for post-surgery diet progression. 4. Call or send tinycluest message to dietitian with any questions. Contact information was provided. Follow up with dietitian - YENY pt to be discussed at high risk meeting. Tejal Iraheta RD, [facility], Pager# [phone] documented in this enco unter Plan of Treatment Not on filedocumented as of this encounter Procedures + +--------+ + + + | Procedure Name | Priori | Date/Time | Associated Diagnosis | Comments | | | ty | | | | + +--------+ + + + | MT MNT RE-ASSESSMNT | Routin | 01/24/2015 | Morbid obesity | | | X15MIN | e | 12:19 PM | with BMI of 70 and | | | | | PDT | over, adult ([facility]) | | | | | | Type 2 diabetes | | | | | | mellitus treated | | | | | | with insulin ([facility]) | | + +--------+ + + + documented in this encounter Visit Diagnoses + + | Diagnosis | + + | Morbid obesity with BMI of 70 and over, adult (HCC) - Primary | + + | Type 2 diabetes mellitus treated with insulin (HCC) | + + documented in this encounter
--- OUTSIDE RECORDS SUMMARY | ~2020-04-22 | XMS | Encounter Summary ---
Demographics + + + | Address | [address] | | | [place] [address] | + + + | Home Phone [...] Author + + + | Author | [facility] | + + + [...] Team Providers + +------+ + | Care Hospital Cna Name | Role | Phone | + [...] + | 08/07/ | Telephone | [facility] at [facility] | Fátima Hernandez, | Chart Review | | 2014 | | [facility] [address] | [address] | | | | | [facility] for | [address] [place], [place] | | | | | Health and Healing, | [address] | | | | | [address] | [phone] | | | | | [place], [place] | | | | | | [address] | | | | | | [phone] | | | +--------+ + + + [...]
--- OUTSIDE RECORDS SUMMARY | ~2020-04-22 | XMS | Encounter Summary ---
Demographics + + + | Address | [address] | | | [place] [address] | + + + | Home Phone [...] + + + | Author | [facility] | + + + [...] Team Providers + +------+ + | Care Service Desk Director Name | Role | Phone | [...] [facility] | [address] [place], [place] | | | | | Health and Healing, | [address] | | | | | [address] | [phone] | | | | | [place], [place] | | | | | | [address] | | | | | | [phone] | | | +--------+ + + + [...]
--- OUTSIDE RECORDS SUMMARY | ~2020-04-22 | XMS | Encounter Summary ---
Demographics + + + | Address | [address] | | | [place] [address] | + + + | Home Phone | | + + + | Preferred Language | Unknown | + + + | Marital Status | Unmarried Domestic Partner | + + + | Holiness Affiliation | Unknown | + + + | Race | or | + + + | Ethnic Group | Not or | + + + Author + + + | Author | [facility] | + + + [...] Team Providers + +------+ + | Care Criminal Judge Name | Role | Phone | + +------+ + | Larissa Keen MD | PCP | | + +------+ + Encounter Details +--------+ + + + + | Date | Type | Department | Care Team | Description | +--------+ + + + + | 08/15/ | Abstract | Digestive Health | Clinic, Surgery | | | 2014 | | Center at [facility] [address] | | | | | | [facility] | | | | | | for Health and | | | | | | Healing, [address] | | | | | | [place], [place] | | | | | | [address] | | | | | | [phone] | | | +--------+ + + + [...]
--- OUTSIDE RECORDS SUMMARY | ~2020-04-22 | XMS | Encounter Summary ---
Demographics + + + | Address | [address] | | | [place] [address] | + + + | Home Phone | | + + + | Preferred Language | Unknown | + + + | Marital Status | Unmarried Domestic Partner | + + + | Taoist Affiliation | Unknown | + + + | Race | or | + + + | Ethnic Group | Not or | + + + Author + + + | Author | [facility] | + + + | Organization | [facility] | + + + | Address | Unknown | + + + | Phone | Unavailable | + + + Support + + +---------+ + | Name | Relationship | Address | Phone | + + +---------+ + | Lazaro Merchant | ECON | Unknown | | + + +---------+ + Care Team Providers + +------+ + | Care Decal Cutter Name | Role | Phone | [...] | | | | | | | [facility] | | | | | | | Health and | | | | | | | Healing, | | | | | | | [address] | | | | | | | [place], [place] | | | | | | | [address] | | | | | | | Phone: | | | | | | | [phone] | | | | | | | Fax: | | | | | | | [phone] | +--------+--------+ + + + + Encounter Details +--------+---------+ + + + | Date | Type | Department | Care Team | Description | +--------+---------+ + + + | 05/03/ | Office | Digestive Health | Tejal Iraheta RD | Morbid obesity with | | 2013 | Visit | Center at [facility] [address] | [address] | BMI of 70 and over, | | | | [address] | [address] [place], | adult ([facility]) (Primary | | | | for Health and | [place] [address] | Dx) | | | | [facility] [address] | [phone] | | | | | [place], [place] | | | | | | [address] | | | | | | [phone] | | | +--------+---------+ + + + [...] 10:21 AM PDT Referring Provider: Mar Dodd [facility] Out[facility], Pre-Bariatric Surgery Evaluation Initial diet consultation prior to having Leah En Y gastric bypass surgery. Documented Time of Visit: 10:19 until 11:21 (62 minutes sfzj-fc-janj with patient) SUBJECTIVE: Arrives with her boyfried. 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 Drinks ice water and diet soda. Eats out - only when going out of town. Likes pizza, Anne's, McDonalds, Macanese, Nigerien ( <1x/wk) Provided written diet suggestions to [...] provided. Tejal Iraheta RD, CNSC, LD Pager# [phone] documented in this enco unter Plan of Treatment Not on filedocumented as of this encounter Procedures + +--------+ + + + | Procedure Name | Priori | Date/Time | Associated Diagnosis | Comments | | | ty | | | | + +--------+ + + + | NM MNT INITIAL | Routin | 05/03/2014 | Morbid obesity | | | ASSESSMNT X15MIN | e | 11:40 AM | with BMI of 70 and | | | | | PDT | over, adult ([facility]) | | + +--------+ + + + documented in this encounter Visit Diagnoses + + | Diagnosis | + + | Morbid obesity with BMI of 70 and over, adult (HCC) - Primary | + + documented in this encounter
--- OUTSIDE RECORDS SUMMARY | ~2020-04-22 | XMS | Encounter Summary ---
Demographics + + + | Address | [address] | | | [place] [address] | + + + | Home Phone | | + + + | Preferred Language | Unknown | + + + | Marital Status | Unmarried Domestic Partner | + + + | Nondenominational Affiliation | Unknown | + + + | Race | or | + + + | Ethnic Group | Not or | + + + Author + + + | Author | [facility] | + + + | Organization | [facility] | + + + | Address | Unknown | + + + | Phone | Unavailable | + + + Support + + +---------+ + | Name | Relationship | Address | Phone | + + +---------+ + | Lazaro Merchant | ECON | Unknown | | + + +---------+ + Care Team Providers + +------+ + | Care Fisheries Manager Name | Role | Phone | [...] | | 2014 | | Center at [facility] [address] | FORESTRY SUPPORT SPECIALIST [address] | | | | | [address] [facility] | [facility] [address] | | | | | for Health and | [place], [place] | | | | | [facility], [place] [address] | [address] | | | | | [place], [place] | [phone] | | | | | [address] | | | | | | [phone] | | | +--------+ + + + [...]
--- OUTSIDE RECORDS SUMMARY | ~2020-04-22 | XMS | Encounter Summary ---
Demographics + + + | Address | [address] | | | [place] [address] | + + + | Home Phone | | + + + | Preferred Language | Unknown | + + + | Marital Status | Unmarried Domestic Partner | + + + | Christianity Affiliation | Unknown | + + + | Race | or | + + + | Ethnic Group | Not or | + + + Author + + + | Author | [facility] | + + + | Organization | [facility] | + + + | Address | Unknown | + + + | Phone | Unavailable | + + + Support + + +---------+ + | Name | Relationship | Address | Phone | + + +---------+ + | Lazaro Merchant | ECON | Unknown | | + + +---------+ + Care Team Providers + +------+ + | Care Pilot Control Operator Helper Name | Role | Phone | [...] | Pain | Diagnoses | Conser, | Insole Reinforcer Psych | | | | Management | Morbid | Diamond Sandoval NP | [facility] [address] | | | | | obesity | [address] | | | | | (HCC) | [address], | Center for | | | | | Procedures | [address] | Health and | | | | | CONSULT TO | [place], [place] | [facility], | | | | | PAIN CENTER | [address] | Building | | | | | | Phone: | 1,15th Floor | | | | | | [phone] | [place], [place] | | | | | | Fax: | [address] | | | | | | [phone] | Phone: | | | | | | | [phone] | | | | | | | Fax: | | | | | | | [phone] | +--------+--------+ + + + + Reason for Visit + + + | Reason | Comments | + + + | New patient | | | consultation | | + + + Office Visit - E/M Services (Routine) +--------+ + + + + + | Status | Reason | Specialty | Diagnoses / | Referred By | Referred To | | | | | Procedures | Contact | Contact | +--------+ + + + + + | Closed | BAR: | Surgery | | Non-[facility] | Bar | | | Received | | | Epic Dept | [facility] | | | Records | | | | [facility] [address] | | | | | | | [address] | | | | | | | Center for | | | | | | | Health and | | | | | | | Healing, | | | | | | | [address] | | | | | | | [place], [place] | | | | | | | [address] | | | | | | | Phone: | | | | | | | [phone] | | | | | | | Fax: | | | | | | | [phone] | +--------+ + + + + + Encounter Details +--------+---------+ + + + | Date | Type | Department | Care Team | Description | +--------+---------+ + + + | 05/03/ | Office | Digestive Health | Diamond De León, | Morbid obesity (HCC) | | 2013 | Visit | Center at [facility] [address] | SENIOR VICE PRESIDENT AND CHIEF INFORMATION OFFICER [address] | (Primary Dx); | | | | [address] | [address], [address] | Diabetes ([facility]); HTN | | | | for Health and | [place], [place] | (hypertension); TOMMY | | | | [facility] 2 | [address] | (obstructive sleep | | | | [place], [place] | [phone] | apnea); Heavy | | | | [address] | | periods; A-fib | | | | [phone] | | ([facility]); History of | | | | | | cardioversion; H/O | | | | | | hernia repair; S/P | | | | | | cholecystectomy; | | | | | | Anxiety; GERD | | | | | | (gastroesophageal | | | | | | reflux disease); Use | | | | | | of cane as | | | | | | ambulatory aid | +--------+---------+ + + + Social History [...] + + + | Blood Pressure | 148/81 | 05/03/2014 9:02 AM | | | | | PDT | | + + + + + | Pulse | 104 | 05/03/2014 9:02 AM | | | | | PDT | | + + + + + | Temperature | 37.1 C (98.7 F) | 05/03/2014 9:02 AM | | | | | PDT | | + + + + + | Respiratory Rate | 17 | 05/03/2014 9:02 AM | | | | | PDT | | + + + + + | Oxygen Saturation | - | - | | + + + + + | Inhaled Oxygen | - | - | | | Concentration | | | | + + + + + | Weight | 211.3 kg (465 lb | 05/03/2014 9:02 AM | | | | 14.4 oz) | PDT | | + + + + + | Height | 169 cm (5' 6.54") | 05/03/2014 9:02 AM | | | | | PDT | | + + + + + | Body Mass Index | 73.99 | 05/03/2014 9:02 AM | | | | | PDT | | + + + + + documented in this encounter Patient Instructions Patient Instructions Diamond De León NP - 05/03/2014 10:03 AM PDTPlan: 1. Dietitian consultation: Today. 2. Labs needed: CBC, CMP, TSH, A1C, PTH, Vitamin D25: Please have these faxed to us from [facility]. 3. Pap test: Please fax recent results to us. 4. Mammogram: Please fax latest report to us. 5. Pre-op Psychological Evaluation: If your referral is at [facility], pain management will call you in the next week to schedule. 6. Sleep study: Please fax the last sleep study that you did to our office. If CPAP ordered please fax CPAP compliance report to us, surgeons generally require that you wear the machi ne over 4 hours per night, 80% of the time. 7. Cardiology Consult: A cardiology provider needs to evaluate your cardiac function and le t us know if you can proceed with with bariatric surgery. 8. Recommended weight loss: 5% wt loss goal of 442, (lose 23lbs) Once the above list is completed and copies have been received by our office, we will submi t for insurance authorization then schedule with the surgeon. Goal timeframe for surgery: Merritt De León RN, EXECUTIVE ASSISTANT TO GENERAL COUNSEL- Nurse Practitioner for Bariatric Surgery [facility] | [address] | [place], [place] | [address] | Potential Contraindications to Bariatric Surgery Age over 69 BMI over 60 Oxygen dependence Immobility wheelchair or bed bound Cardiac issues such as ischemic heart disease as indicated on cardiac stress test or cardia c catheterization; severe or uncompensated heart failure which may be indicated by a decreas ed ejection fraction. Pulmonary issues such as untreated sleep apnea, obesity hypoventilation syndrome, severe CO PD or asthma. Liver disease such as cirrhosis, esophageal varices, or portal hypertension. Severe, untreated renal disease. Rheumatologic and other diseases requiring immune suppressant medications. Untreated or active cancer. Untreated psychological disability. If you have any of the above conditions, you may not be a candidate for bariatric surgery. Our program will perform a thorough evaluation prior to making such a determination. This evaluation may involve testing or consultations. We will make every effort to notify patien ts who are not candidates for surgery as early in the process as possible, but it is importa nt to realize that the surgeon may make that determination later in the process. Clearance for surgery by your PCP or other providers does not guarantee that the [facility] Bariatric Surger y program will deem you a surgical candidate. documented in this encounter Progress Notes Diamond De León NP - 05/03/2014 9:10 AM PDTFormatting of this note might be different fr om the original. BARIATRIC INITIAL VISIT Provider: CYRUS Turner Referring Provider: Dr. Larissa Keen Reason for Requested Consultation: Initial evaluation for bariatric surgery. Marielle Esparza is interested in Leah en y gastric b ypass. The pt is here with her boyfriend, they have at home to help with post-op care after surge ry. They have no stairs to get into their home. History of Present Illness: She is a morbidly obese, 39 y.o. female with a BMI of 73, 465 lbs., and 66 inches who has failed prior attempts at sustained dietary/medical weight loss a nd desires surgical weight loss in order to "get help to lose weight, less appetite, help wi th health issues". Duration of obesity: 32 years. Onset of obesity at age 7 First diet attempts at age 10 Personally initiated diets: 1999- LEARN, lost 50 lbs, regained 100. 2004, DM diet, lost 110 , regained 120. Programmatic diets: - Physician Monitored diet: - Use of Redux or Phen/fen: no Transthoracic ECHO: - Christianity or cultural reason you would refuse blood products? no Comorbidities include: Type 2 diabetes, sleep apnea, osteoarthritis, stress urinary inconti nence, GERD (gastroesophageal reflux disease) and hypertension All previous chart notes from PCP reviewed, previous tests and labs reviewed. ALLERGIES: Allergies Allergen Reactions Augmentin (Amoxicillin-Pot Clavulanate) Unknown Levaquin (Levofloxacin) Unknown Zithromax (Azithromycin) Unknown Current outpatient prescriptions:ascorbic acid SR (VITAMIN C) 1,000 mg oral tablet, Take 1, 000 mg by mouth once daily in the morning., Disp: , Rfl: Calcium-Cholecalciferol, D3, 600 mg(1,500mg) -400 unit oral tablet, Take by mouth four ana es daily., Disp: , Rfl: Cholecalciferol, Vitamin D3, (VITAMIN D3) 5,000 unit oral tablet, Take 5,000 Units by mouth four times daily., Disp: , Rfl: diltiazem SR 24 hour release 300 mg oral capsule, extended release, Take by mouth four ana es daily., Disp: , Rfl: HYDROcodone-acetaminophen 10-325 mg oral tablet, Take 1 tablet by mouth as needed. Not to e xceed 3250 mg of acetaminophen from all products per 24 hour period., Disp: , Rfl: irbesartan 300 mg oral tablet, Take 300 mg by mouth four times daily., Disp: , Rfl: levothyroxine 75 mcg oral tablet, Take 75 mcg by mouth four times daily., Disp: , Rfl: magnesium oxide 400 mg oral tablet, Take 400 mg by mouth four times daily., Disp: , Rfl: metoprolol tartrate 100 mg oral tablet, Take 100 mg by mouth once daily in the evening., Di sp: , Rfl: OMEGA-3 FATTY ACIDS (FISH OIL ORAL), Take by mouth once daily in the morning., Disp: , Rfl : omeprazole 40 mg oral capsule,delayed release(DR/EC), Take 40 mg by mouth two times daily., Disp: , Rfl: VIT/IRON FUMARATE/FA ( ORAL), Take by mouth once daily in the morning., D isp: , Rfl: rivaroxaban 20 mg oral tablet, Take by mouth once daily in the evening., Disp: , Rfl: triamterene-hydrochlorothiazide 37.5-25 mg oral tablet, Take 1 tablet by mouth four times d aily., Disp: , Rfl: History: Past Medical History Diagnosis Date Hypertension Heartburn Nausea Loss of appetite Abdominal pain Gallstone Sleep apnea CPAP (continuous positive airway pressure) dependence setting 17 Palpitation Leaking of urine Abnormal Pap smear Irregular periods Anxiety Diabetes Thyroid disease Past Surgical History Procedure Laterality Date Tonsillectomy 2009 [facility], [place] Gallbladder removal 2005 [place], [place] Incisional hernia repair 2003 [facility] Incisional hernia repair 2011 [facility] Cardioversion 214 [facility] History Social History Marital Status: Unmarried Domestic Partner Spouse Name: N/A Number of Children: N/A Years of Education: N/A Occupational History Not on file. Social History Main Topics Smoking status: Former Smoker -- 0.40 packs/day Types: Cigarettes Smokeless tobacco: Not on file Alcohol Use: No Comment: former use 2-3 Drug Use: Yes Comment: marijuana Sexually Active: Not on file Other Topics Concern Not on file Social History Narrative No narrative on file Family History Problem Relation Obesity Father Diabetes Father Heart Disease Father Other Mother low blood platelets Heart Attack Mother Alcohol/Drug Brother Obesity Brother Review of Systems: General: Denies constitutional symptoms of fatigue, weakness, unintentional weight loss, f olga, chills, night sweats. Eyes/Ears/Nose/Throat: Denies visual changes, sore throat, dental pain, hoarseness, dyspha mark, oral or tongue lesions. Respiratory: Denies shortness of breath, cough or wheezing. Denies nocturnal snoring, dayt sivla drowsiness or morning headaches. Denies history of asthma. Has TOMMY- wearing CPAP every n ight. Cardiovascular: Denies exertional chest pain, palpitations, syncope, orthopnea, or paroxys mal nocturnal dyspnea. Denies history of lower extremity edema, hyperlipidemia. Denies CHF, VA, ischemic heart disease, DVT/PE, or pulmonary hypertension. States able to climb two flig hts of stairs. Has hx of A-fib, cardioverted in December 2013. HTN- controlled on medications. Neurologic: The patient denies any symptoms of neurological impairment or TIAs; denies dip lopia, dysphasia or unilateral disturbance of motor or sensory function. Denies loss of onel nce or vertigo, persistent headaches, numbness or paresthesias. No history of seizure disord er. Musculoskeletal: Has back pain hip pain and knee pain. Gastrointestinal: Denies abdominal or flank pain, anorexia, nausea or vomiting, dysphagia, change in bowel habits, black or bloody stools. Denies history of ulcers. Denies persistent reflux symptoms, taking PPI BID with good control. Denies history of liver disease or jaund ice. Has had multiple hernia repairs, incisional hernias from getting gall bladder removed, all have been repaired. Genitourinary: Denies history of kidney stones. Denies urethral discharge, dysuria, hematu roman or sores on the genitals. Denies menstrual irregularity, history of endometriosis or abn ormal PAP's. Current method of control is: none. Has some mild urinary incontinence, s tress incontinence. Skin: Denies intertrigenous skin infections. Denies recent rashes, sores, or skin changes. Psychological: Denies anxiety, depression, thoughts of suicide or hallucinations. Heme/Lymphatic: Denies history of anemia. The patient denies abnormal bruising, abnormal b leeding or enlarged lymph nodes. Metabolic: No polyuria, polyphagia or polydipsia. Denies history of gout. Hypothyroidism, t aking daily replacement. Has had DM for 2-3 years, diet controlled, last A1C 7.5 range. OBJECTIVE BP 148/81 | Pulse 104 | Temp (Src) 37.1 C (98.7 F) (Oral) | RR 17 | Ht 1.69 m (5' 6.54" ) | Wt 211.331 kg (465 lb 14.4 oz) | BMI 73.99 kg/(m^2) Physical exam: General: Alert and cooperative. Neuro: Oriented x 3. CN III-XII grossly intact. No focal deficits. HEENT: Oropharynx clear without lesion or exudate. Neck: Neck supple. No adenopathy. Thyroid symmetric & normal size. Respiratory: Good diaphragmatic excursion. Lungs clear to auscultation bilaterally. Cardiac: Regular rate and rhythm, no murmur, gallop or bruits. No carotid bruits noted. Extremities: No lower extremity edema. Abdomen: Obese, gynecoid surgical habitus, soft, nontender, no appreciable masses or hernia . Skin: No evidence of pannus infection. Psych: No problems noted. Impression: 1. HTN- moderately controlled on medication. A-sebastian, cardioverted in December, she will meet wi th her associate loan officer and discuss weaning from blood thinner prior to surgery. 2. DM- moderate control with diet and activity, pt aware she needs to keep her A1C below 8 prior to surgery. 3. Elevated BMI at 73- I did discuss with pt that she will need to have her weight trending down. Ideally getting to BMI of 60 or below. She should come in to surge-consult to discuss with surgeon if a liquid diet or very low shan diet may be appropriate in the weeks prior to surgery. 4. TOMMY- wearing CPAP nightly. 5. GERD- controlled on PPI. 6. Stress urinary incontinence. Patient meets and or exceeds NIH criteria for morbid obesity with a BMI of 73 and comorbidi ties related to obesity including HTN, DM, TOMMY, GERD, stress urinary incontience, which may be improved with bariatric surgery. Records have been reviewed from her PCM and several att empts have been made to lose weight over the past years without success. She qualifies for medically necessary weight loss surgery to control co-morbidities. She has attended the Public Informational Session in which risks and benefits of bariatri c surgery were discussed. Discussion of realistic expectations of bariatric surgery was hel d today. A Bariatric notebook with pre-op, inter-op and post-op guidance and information was provide d for the patient today. Plan: 1. Dietitian consultation: Today. 2. Labs needed: CBC, CMP, TSH, A1C, PTH, Vitamin D25: Please have these faxed to us from [facility]. 3. Pap test: Please fax recent results to us. 4. Mammogram: Please fax latest report to us. 5. Pre-op Psychological Evaluation: If your referral is at [facility], pain management will call you in the next week to schedule. 6. Sleep study: Please fax the last sleep study that you did to our office. If CPAP ordered please fax CPAP compliance report to us, surgeons generally require that you wear the machi ne over 4 hours per night, 80% of the time. 7. Cardiology Consult: A cardiology provider needs to evaluate your cardiac function and le t us know if you can proceed with with bariatric surgery. 8. Recommended weight loss: 5% wt loss goal of 442, (lose 23lbs) Once the above list is completed and copies have been received by our office, we will submi t for insurance authorization then schedule with the surgeon. Goal timeframe for surgery: Merritt De León RN, [facility]- Nurse Practitioner for Bariatric Surgery [facility] | [address] | [place], [place] | [address] | Potential Contraindications to Bariatric Surgery Age over 69 BMI over 60 Oxygen dependence Immobility wheelchair or bed bound Cardiac issues such as ischemic heart disease as indicated on cardiac stress test or cardia c catheterization; severe or uncompensated heart failure which may be indicated by a decreas ed ejection fraction. Pulmonary issues such as untreated sleep apnea, obesity hypoventilation syndrome, severe CO PD or asthma. Liver disease such as cirrhosis, esophageal varices, or portal hypertension. Severe, untreated renal disease. Rheumatologic and other diseases requiring immune suppressant medications. Untreated or active cancer. Untreated psychological disability. If you have any of the above conditions, you may not be a candidate for bariatric surgery. Our program will perform a thorough evaluation prior to making such a determination. This evaluation may involve testing or consultations. We will make every effort to notify patien ts who are not candidates for surgery as early in the process as possible, but it is importa nt to realize that the surgeon may make that determination later in the process. Clearance for surgery by your PCP or other providers does not guarantee that the [facility] Bariatric Surger y program will deem you a surgical candidate. New pt visit. Start time: 904, end time 5. I spent a total of 60 minutes face to face with this patie nt. Over 50% of time spent in counseling. ~10 minutes were spent doing chart review prior to the visit and documentation after the v isit. documented in this e ncounter Plan of Treatment Not on filedocumented as of this encounter Visit Diagnoses + + | Diagnosis | + + | Morbid obesity (HCC) - Primary Morbid obesity | + + | Diabetes (HCC) | + + | HTN (hypertension) Unspecified essential hypertension | + + | TOMMY (obstructive sleep apnea) Obstructive sleep apnea (adult) (pediatric) | + + | Heavy periods Excessive or frequent menstruation | + + | A-fib (HCC) Atrial fibrillation | + + | History of cardioversion Personal history of surgery to heart and great vessels, | | presenting hazards to health | + + | H/O hernia repair Other postprocedural status | + + | S/P cholecystectomy Other acquired absence of organ | + + | Anxiety Anxiety state, unspecified | + + | GERD (gastroesophageal reflux disease) Esophageal reflux | + + | Use of cane as ambulatory aid Difficulty in walking | + + documented in this encounter
--- OUTSIDE RECORDS SUMMARY | ~2020-04-22 | XMS | Encounter Summary ---
Demographics + + + | Address | [address] | | | [place] [address] | + + + | Home Phone [...] + + + | Author | [employer] [facility] [employer] | + + + [...] Team Providers + +------+ + | Care Apparatus Cleaner Name | Role | Phone | + [...] | | | | [address] [place] | [address] [place], [place] | | | | | for Health and | [address] | | | | | Healing, [address] | | | | | | [place], [place] | | | | | | [address] | | | | | | | [...]
--- OUTSIDE RECORDS SUMMARY | ~2020-04-22 | XMS | Encounter Summary ---
Demographics + + + | Address | [address] | | | [place] [address] | + + + | Home Phone [...] Author + + + | Author | [employer] [facility] | + + + | Organization | [facility] | + + + | Address | Unknown | + + + | Phone | Unavailable | + + + Support + + +---------+ + | Name | Relationship | Address | Phone | + + +---------+ + | Lazaro Merchant | ECON | Unknown | | + + +---------+ + Care Team Providers + +------+ + | Care Mainspring Former Name | Role | Phone | + [...] | 2014 | | Center at [facility] [address] | [place] [address] | | | | | [address] [facility] | [facility] [address] | | | | | for Health and | [place], [place] | | | | | [facility], [place] [address] | [address] | | | | | [place], [place] | [phone] | | | | | [address] | | | | | | [phone] | | | +--------+ + + + [...]
--- OUTSIDE RECORDS SUMMARY | ~2020-04-22 | XMS | Encounter Summary ---
Demographics + + + | Address | [address] | | | [place] [address] | + + + | Home Phone [...] + + + | Author | [employer] [facility] [employer] [facility] | + + + | Organization | [facility] | + + + | Address | Unknown | + + + | Phone | Unavailable | + + + Support + + +---------+ + | Name | Relationship | Address | Phone | + + +---------+ + | Lazaro Merchant | ECON | Unknown | | + + +---------+ + Care Team Providers + +------+ + | Care Flow Machine Operator Name | Role | Phone [...] Visit | Therapy Services at | [address] [facility] | BMI of 70 and over, | | | | [facility] | [facility], | adult (HCC) (Primary | | | | [address] | [place] [address] | Dx); Use of cane as | | | | Center for Health | [phone] | ambulatory aid | | | | and Healing, | | | | | | Building [address], | | | | | | Floor [place], [place] | | | | | | [address] | | | | | | [phone] | | | +--------+---------+ + + + [...] Melendez, PT - 06/02/2015 11:50 AM PDT [id number] OSMIN ESPINOZA Date of : 1975 Start of care: 06/02/2015 Date of onset: 01/08/2015 Referring/Attending Practitioner: Fátima De Luna NP Primary/Referral Diagnosis/ICD-9:278.01, V85.45 Morbid obesity with BMI of 70 and over, ad ult 719.7 Use of cane as ambulatory aid Insurance: Payor: [employer] / Plan: [employer] / Product Type: [employer] / Service period from: 06/02/2015 to: - Number visits used/authorized: 10/03 [facility] PHYSICAL THERAPY EVALUATION SUBJECTIVE: History of Presenting [...] is moderate. 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 lives with her spouse. PMH: See [employer] Meds: see [facility] Living situation/environment is limiting function: none [...] change in their status. Mandy Melendez P.T. [facility] [address] Mailcode: [address] [facility], 3rd [facility] [address] documented in this enco [...] | + +--------+ + + + | TX THERAPEUTIC | Routin | 06/02/2015 | Morbid obesity | | | EXERCISES | e | 3:00 PM | with BMI of 70 and | | | | | PDT | over, adult ([facility]) | | | | | | Use [...]
--- OUTSIDE RECORDS SUMMARY | ~2020-04-22 | XMS | Encounter Summary ---
Demographics + + + | Address | [address] | | | [place] [address] | + + + | Home Phone | | + + + | Preferred Language | Unknown | + + + | Marital Status | Unmarried Domestic Partner | + + + | Advent Affiliation | Unknown | + + + | Race | or | + + + | Ethnic Group | Not or | + + + Author + + + | Author | [employer] [facility] | + + + | Organization | [facility] | + [...] Team Providers + +------+ + | Care Technical Account Executive Name | Role | Phone | + [...] Visit | Therapy Services at | [address] [facility] | BMI of 70 and over, | | | | [facility] | [facility] | adult (HCC) (Primary | | | | [address] | [place] [address] | Dx); Use of cane as | | | | [facility] | [phone] | ambulatory aid | | | | and Healing, | | | | | | Building 1, | | | | | | Floor [place], [place] | | | | | | [address] | | | | | | [phone] | | | +--------+---------+ + + + [...] Melendez, PT - 06/02/2015 11:50 AM PDT [id number] OSMIN ESPINOZA Date of : 1975 Start of care: 06/02/2015 Date of onset: 01/08/2015 Referring/Attending Practitioner: Fátima De Luna NP Primary/Referral Diagnosis/ICD-9:278.01, V85.45 Morbid obesity with BMI of 70 and over, ad ult 719.7 Use of cane as ambulatory aid Insurance: Payor: bepretty NW / Plan: bepretty NW / Product Type: [employer] / Service period from: 06/02/2015 to: - Number visits used/authorized: 10/03 [facility] PHYSICAL THERAPY EVALUATION SUBJECTIVE: History of Presenting [...] is moderate. Patient's current occupational status: working [employer]. lives with her spouse. PMH: See [employer] Meds: see [facility] Living situation/environment is limiting function: none [...] change in their status. Mandy Melendez P.T. [facility] REHABILITATION SERVICES AND HAND THERAPY [address] Mailcode: [address] [facility] [address] documented in this enco unter Plan [...] | + +--------+ + + + | NE THERAPEUTIC | Routin | 06/02/2015 | Morbid obesity | | | EXERCISES | e | 3:00 PM | with BMI of 70 and | | | | | PDT | over, adult ([facility]) | | | | | | Use [...]
--- OUTSIDE RECORDS SUMMARY | ~2020-04-22 | XMS | Encounter Summary ---
Demographics + + + | Address | [address] | | | [place] [address] | + + + | Home Phone | | + + + | Preferred Language | Unknown | + + + | Marital Status | Unmarried Domestic Partner | + + + | Mu-Ism Affiliation | Unknown | + + + | Race | or | + + + | Ethnic Group | Not or | + + + Author + + + | Author | [employer] [facility] | + + + | Organization | [facility] | + + + | Address | Unknown | + + + | Phone | Unavailable | + + + Support + + +---------+ + | Name | Relationship | Address | Phone | + + +---------+ + | Lazaro Merchant | ECON | Unknown | | + + +---------+ + Care Team Providers + +------+ + | Care Workday Senior Associate Name | Role | Phone | + [...] | Pain | Diagnoses | Conser, | Consumer Marketing Analyst Psych | | | | Management | Morbid | Diamond Sandoval NP | [address] | | | | | obesity | [address] | | | | | (HCC) | [address], | Center for | | | | | Procedures | [address] | Health and | | | | | CONSULT TO | [place], [place] | [facility], | | | | | PAIN CENTER | [address] | Building | | | | | | Phone: | 1,15th Floor | | | | | | [phone] | [place], [place] | | | | | | Fax: | [address] | | | | | | [phone] | Phone: | | | | | | | [phone] | | | | | | | Fax: | | | | | | | [phone] | +--------+--------+ + + + + Reason [...] | | | | | | | [place], [place] | | | | | | | [address] | | | | | | | Phone: | | | | | | | [phone] | | | | | | | Fax: | | | | | | | [phone] | +--------+ + + + + + Encounter Details +--------+---------+ + + + | Date | Type | Department | Care Team | Description | +--------+---------+ + + + | 05/03/ | Office | Digestive Health | Diamond De León, | Morbid obesity (HCC) | | 2013 | Visit | Center at [facility] [address] | [address] | (Primary Dx); | | | | [address] | St, [address] | Diabetes ([facility]); HTN | | | | for Health and | [place], [place] | (hypertension); TOMMY | | | | [facility] 2 | [address] | (obstructive sleep | | | | [place], [place] | [phone] | apnea); Heavy | | | | [address] | | periods; A-fib | | | | [phone] | | ([facility]); History of | | | | | [...] Please have these faxed to us from [facility] primary care office. 3. Pap test: Please fax recent results to us. 4. Mammogram: Please fax latest report to us. 5. Pre-op Psychological Evaluation: If your referral is at [facility], pain management will call you in the [...] timeframe for surgery: Merritt De León RN, TELEMARKETER- Nurse Practitioner for Bariatric Surgery [facility] | [address] | [place], [place] | [address] | Potential Contraindications to Bariatric Surgery Age [...] other providers does not guarantee that the [facility] Bariatric Surger y program will deem you [...] Redux or Phen/fen: no Transthoracic ECHO: - Mu-Ism or cultural reason you would refuse blood [...] Surgical History Procedure Laterality Date Tonsillectomy 2009 [facility], [place] Gallbladder removal 2005 [place], [place] Incisional hernia repair 2003 [facility] Incisional hernia repair 2011 [facility] Cardioversion 214 [facility] History Social History Marital Status: Unmarried Domestic [...] cough or wheezing. Denies nocturnal snoring, dayt silva drowsiness or morning headaches. Denies history of asthma. Has TOMMY- wearing CPAP every n ight. Cardiovascular: Denies exertional chest pain, palpitations, syncope, orthopnea, or paroxys mal nocturnal dyspnea. Denies history of lower extremity edema, hyperlipidemia. Denies CHF, [place], ischemic heart disease, DVT/PE, or pulmonary hypertension. [...] December, she will meet wi th her screw down and discuss weaning from blood thinner prior [...] Please have these faxed to us from [facility] primary care office. 3. Pap test: Please fax recent results to us. 4. Mammogram: Please fax latest report to us. 5. Pre-op Psychological Evaluation: If your referral is at [facility], pain management will call you in the [...] timeframe for surgery: Merritt De León RN, [facility]- Nurse Practitioner for Bariatric Surgery [facility] | [address] | [place], [place] | [address] | Potential Contraindications to Bariatric Surgery Age [...] other providers does not guarantee that the [facility] Bariatric Surger y program will deem you [...]
--- OUTSIDE RECORDS SUMMARY | ~2020-04-22 | XMS | Encounter Summary ---
Demographics + + + | Address | [address] | | | [place] [address] | + + + | Home Phone | | + + + | Preferred Language | Unknown | + + + | Marital Status | Unknown | + + + | Amish Affiliation | Unknown | + + + | Race | Unknown | + + + | Ethnic Group | Unknown | + + + Author + + + | Author | [facility] | | | and [place] | + + + | Organization | [facility] | | | and [place] [...] Team Providers + +------+ + | Care Vacuum Form Operator Name | Role | Phone | + +------+ + | Margarito Felix PA-C | PCP | | + +------+ + Encounter Details +--------+ + + + + | Date | Type | Department | Care Team | Description | +--------+ + + + + | 04/27/ | Orders Only | [facility] | Provider, | | | 2018 | | SYSTEM GENERIC OP | MD [address] | | | | | CONVERSION [address] | [address] | | | | | [address] [place], [place] | [place] [address] | | | | | [address] | | | | | | [phone] | | | +--------+ + + + [...]
--- OUTSIDE RECORDS SUMMARY | ~2020-04-22 | XMS | Encounter Summary ---
Demographics + + + | Address | [address] | | | [place] [address] | + + + | Home Phone [...] + + + | Author | [employer] [facility] | + + + [...] Team Providers + +------+ + | Care Director Of Architecture Name | Role | Phone | + [...] 2014 | | Center at [facility] [address] | AC[address] | | | | | [address] [place] | [address] [facility] [place] | | | | | for Health and | [address] | | | | | Healing, Building 2 | | | | | | [place], [place] | | | | | | [address] | | | | | | | [...]
--- OUTSIDE RECORDS SUMMARY | ~2020-04-22 | XMS | Encounter Summary ---
Demographics + + + | Address | [address] | | | [place] [address] | + + + | Home Phone [...] + + + | Author | [employer] [facility] | + + + | Organization | [facility] | + + + | Address | Unknown | + + + | Phone | Unavailable | + + + Support + + +---------+ + | Name | Relationship | Address | Phone | + + +---------+ + | Lazaro Merchant | ECON | Unknown | | + + +---------+ + Care Team Providers + +------+ + | Care Breakfast Cook Name | Role | Phone | + +------+ + | Larissa Keen MD | PCP | | + +------+ + Encounter Details +--------+ + + + + | Date | Type | Department | Care Team | Description | +--------+ + + + + | 01/08/ | Abstract | Digestive Health | Diamond De León, | | | 2014 | | Center at [facility] [address] | SODA DISPENSER [address] | | | | | [address] [facility] | [facility] 350 | | | | | for Health and | [place], [place] | | | | | [facility], [place] [address] | [address] | | | | | [place], [place] | [phone] | | | | | [address] | | | | | | [phone] | | | +--------+ + + + [...]
--- OUTSIDE RECORDS SUMMARY | ~2020-04-22 | XMS | Clinical Summary ---
Demographics + + + | Address | [address] | | | [place] [address] | + + + | Home Phone | | + + + | Preferred Language | Unknown | + + + | Marital Status | Unknown | + + + | Zoroastrian Affiliation | Unknown | + + + | Race | Unknown | + + + | Ethnic Group | Unknown | + + + Author + + + | Author | [facility] | | | and [place] | + + + | Organization | [facility] | | | and [place] | [...] Team Providers + +------+ + | Care Sugar Reprocess Operator Head Name | Role | Phone | + [...] cardioversion- as per pt echo done in [facility] is | | Marquez request and review records from [id number] | | want to follow up with her plasterer foreman in [place]. | |2D echo | |Pt want to follow up with her plasterer foreman in [place]. | + + + + + | [...] +--------+ +---------+--------+ | [employer] | HEALTH | [id number] | 01/02/20 | [phone] | | PPO | | | COMP | | 07-Pre | 7 | | | | | PPOR | | sent | | | | + +--------+ +--------+ +---------+--------+ | [facility] | IHS | [id number] | Effect | | | Indemn | [...] | 1975 | [phone] | [place] [address] | | | be | | | 1 (Home) | | + +--------+ +--------+ + + Advance Directives + + + + + | Type | Date Recorded | Patient | Explanation | | | | Bolt Cutter | | + + + + + | Power of | | | | | Religious Ritual Slaughterer | | | | + + + + + | Advance | | | | | Directive | | | | + + + + +
--- OUTSIDE RECORDS SUMMARY | ~2020-04-22 | XMS | Encounter Summary ---
Demographics + + + | Address | [address] | | | [place] [address] | + + + | Home Phone [...] + + | Author | [employer] [place] [employer] [facility] | + + + | Organization | [facility] | + + + | Address | Unknown | + + + | Phone | Unavailable | + + + Support + + +---------+ + | Name | Relationship | Address | Phone | + + +---------+ + | Lazaro Merchant | ECON | Unknown | | + + +---------+ + Care Team Providers + +------+ + | Care Software Database Architect Name | Role | Phone | + [...] | | | | [address] | Ave [place], [place] | | | | | for Health and | [address] | | | | | Healing, Building 2 | | | | | | [place], [place] | | | | | | [address] | | | | | | | [...]
--- OUTSIDE RECORDS SUMMARY | ~2020-04-22 | XMS | Encounter Summary ---
Demographics + + + | Address | [address] | | | [place] [address] | + + + | Home Phone [...] + + + | Author | [place] [employer] [facility] | + + + [...] Team Providers + +------+ + | Care Sales Solutions Associate Name | Role | Phone | + +------+ + | Mar DoddP | PCP | | + +------+ + Encounter Details +--------+ + + + + | Date | Type | Department | Care Team | Description | +--------+ + + + + | 03/15/ | Abstract | Digestive Health | Fátima Hernandez, | | | 2013 | | Center at [facility] [address] | ACNP [address] | | | | [address] | e [place], [place] | | | | | for Health and | [address] | | | | | Healing, Building 2 | | | | | | [place], [place] | | | | | | [address] | | | | | | | [...]
--- OUTSIDE RECORDS SUMMARY | ~2020-04-22 | XMS | Encounter Summary ---
Demographics + + + | Address | [address] | | | [place] [address] | + + + | Home Phone [...] + + | Author | [place] [employer] [facility] | + + + | Organization | [facility] | + + + | Address | Unknown | + + + | Phone | Unavailable | + + + Support + + +---------+ + | Name | Relationship | Address | Phone | + + +---------+ + | Lazaro Merchant | ECON | Unknown | | + + +---------+ + Care Team Providers + +------+ + | Care Audio Video Mechanic Name | Role | Phone | [...] | 2014 | Visit | Center at [facility] [address] | | BMI of 70 and over, | | | | [facility] | | adult (HCC) (Primary | | | | for Health and | | Dx) | | | | [facility] 2 | | | | | | [place], [place] | | | | | | [address] | | | | | | [phone] | | | +--------+---------+ + + + [...] of Class: 3:00 until 4:00 (60 minutes [id number] with patient) OBJECTIVE: Height: Ht Readings from [...] or sharing information. Yes Blanca Thurston RD CUSTOMER CONSULTING MANAGER LD Outpatient Adult Dietitian documented in this enc ounter Plan of Treatment Not on filedocumented as of this encounter Visit Diagnoses + + | Diagnosis | + + | Morbid obesity with BMI of 70 and over, adult (HCC) - Primary | + + documented in this encounter
--- OUTSIDE RECORDS SUMMARY | ~2020-04-22 | XMS | Encounter Summary ---
Demographics + + + | Address | [address] | | | [place] [address] | + + + | Home Phone [...] Author + + + | Author | [place] [employer] [facility] | + + + [...] Team Providers + +------+ + | Care Film Crew Member Name | Role | Phone | + +------+ + | Larissa Keen MD | PCP | | + +------+ + Reason for Visit + + + | Reason | Comments | + + + | Medical Records | [facility] - OUTSIDE RECORDS: Progress Note 09/12/2014 | | Review | | + + + Encounter Details +--------+ + + + + | Date | Type | Department | Care Team | Description | +--------+ + + + + | 09/13/ | Abstract | Digestive Health | Diamond De León, | Medical Records | | 2013 | | Center at [facility] [address] | [place] [address] | Review ([facility] - | | | | [address] | [facility] 350 | OUTSIDE RECORDS: | | | | for Health and | [place], [place] | Progress Note | | | | [facility] 2 | [address] | 09/12/2014 ) | | | | [place], [place] | [phone] | | | | | [address] | | | | | | [phone] | | | +--------+ + + + [...]
--- OUTSIDE RECORDS SUMMARY | ~2020-04-22 | XMS | Encounter Summary ---
Demographics + + + | Address | [address] | | | [place] [address] | + + + | Home Phone [...] + + | Author | [place] [employer] [facility] | + + + [...] Team Providers + +------+ + | Care Agricultural Education Professor Name | Role | Phone | + [...] Discussion | | 2014 | | Center [place] [address] | [place] | | | | | [address] [facility] | | | | | | for Health and | | | | | | [facility], [facility] 2 | | | | | | [place], [place] | | | | | | [address] | | | | | | [phone] | | | +--------+ + + + [...]
--- OUTSIDE RECORDS SUMMARY | ~2020-04-22 | XMS | Encounter Summary ---
Demographics + + + | Address | [address] | | | [place] [address] | + + + | Home Phone [...] + + + | Author | [place] [employer] [facility] | + + + | Organization | [facility] | + + + | Address | Unknown | + + + | Phone | Unavailable | + + + Support + + +---------+ + | Name | Relationship | Address | Phone | + + +---------+ + | Lazaro Merchant | ECON | Unknown | | + + +---------+ + Care Team Providers + +------+ + | Care Property Adjuster Name | Role | Phone | + [...] | Pain | Diagnoses | Conser, | Firewall Security Engineer Psych | | | | Management | Morbid | Diamond Sandoval NP | [address] | | | | | obesity | [address] | | | | | (HCC) | [address], | Center for | | | | | Procedures | [address] | Health and | | | | | CONSULT TO | [place], [place] | [facility], | | | | | PAIN CENTER | [address] | Building | | | | | | Phone: | 1,15th Floor | | | | | | [phone] | [place], [place] | | | | | | Fax: | [address] | | | | | | [phone] | Phone: | | | | | | | [phone] | | | | | | | Fax: | | | | | | | [phone] | +--------+--------+ + + + + Reason [...] | | | | | | | [place], [place] | | | | | | | [address] | | | | | | | Phone: | | | | | | | [phone] | | | | | | | Fax: | | | | | | | [phone] | +--------+ + + + + + Encounter Details +--------+---------+ + + + | Date | Type | Department | Care Team | Description | +--------+---------+ + + + | 05/03/ | Office | Digestive Health | Diamond De León, | Morbid obesity (HCC) | | 2013 | Visit | Center at [facility] [address] | [place] TYP[address] | (Primary Dx); | | | | [address] | [address], [address] | Diabetes ([facility]); HTN | | | | for Health and | [place], [place] | (hypertension); TOMMY | | | | [facility] 2 | [address] | (obstructive sleep | | | | [place], [place] | [phone] | apnea); Heavy | | | | [address] | | periods; A-fib | | | | [phone] | | ([facility]); History of | | | [...] Please have these faxed to us from [facility] primary care office. 3. Pap test: Please fax recent results to us. 4. Mammogram: Please fax latest report to us. 5. Pre-op Psychological Evaluation: If your referral is at [facility], pain management will call you in the [...] timeframe for surgery: Merritt De León RN, AIRCRAFT LAUNCH AND RECOVERY TECHNICIAN- Nurse Practitioner for Bariatric Surgery [facility] | [address] | [place] | [address] | Potential Contraindications to Bariatric Surgery Age [...] other providers does not guarantee that the [facility] Bariatric Surger y program will deem you [...] Redux or Phen/fen: no Transthoracic ECHO: - Episcopal or cultural reason you would refuse blood [...] Surgical History Procedure Laterality Date Tonsillectomy 2009 [facility] [place] Gallbladder removal 2005 [place], [place] Incisional hernia repair 2003 [facility] Incisional hernia repair 2011 [facility] Cardioversion 214 [facility] History Social History Marital Status: Unmarried [...] of lower extremity edema, hyperlipidemia. Denies CHF, [place], ischemic heart disease, DVT/PE, or pulmonary hypertension. [...] December, she will meet wi th her mirror machine feeder and discuss weaning from blood thinner prior [...] Please have these faxed to us from [facility] primary care office. 3. Pap test: Please fax recent results to us. 4. Mammogram: Please fax latest report to us. 5. Pre-op Psychological Evaluation: If your referral is at [facility], pain management will call you in the [...] [facility]- Nurse Practitioner for Bariatric Surgery [facility] | [address] | [place] | [address] | Potential Contraindications to Bariatric Surgery Age [...] other providers does not guarantee that the [facility] Bariatric Surger y program will deem you [...]
--- OUTSIDE RECORDS SUMMARY | ~2020-04-22 | XMS | Encounter Summary ---
Demographics + + + | Address | [address] | | | [place] [address] | + + + | Home Phone | | + + + | Preferred Language | Unknown | + + + | Marital Status | Unknown | + + + | Adventism Affiliation | Unknown | + + + | Race | Unknown | + + + | Ethnic Group | Unknown | + + + Author + + + | Author | [facility] | | | and [place] | + + + | Organization | [facility] | | | and [place] [...] Team Providers + +------+ + | Care Mannequin Wig Maker Name | Role | Phone | + [...] | | [place] | [place] [address] | (Primary Dx); High | | | | [address] | [phone] | blood pressure; | | | | [phone] | | Obesity; | | | | [...]
--- OUTSIDE RECORDS SUMMARY | ~2020-04-22 | XMS | Encounter Summary ---
Demographics + + + | Address | [address] | | | [place] [address] | + + + | Home Phone [...] Author + + + | Author | [place] [employer] [facility] | + + + [...] Team Providers + +------+ + | Care Tanbark Peeler Name | Role | Phone | + +------+ + | Larissa Keen MD | PCP | | + +------+ + Encounter Details +--------+ + + + + | Date | Type | Department | Care Team | Description | +--------+ + + + + | 12/04/ | Abstract | Digestive Health | Diamond De León, | | | 2014 | | Center at [facility] [address] | JOURNEYMAN MECHANIC [address] | | | | | [address] [facility] | [facility] 350 | | | | | for Health and | [place], [place] | | | | | [facility], [place] [address] | [address] | | | | | [place], [place] | [phone] | | | | | [address] | | | | | | [phone] | | | +--------+ + + + [...]
--- OUTSIDE RECORDS SUMMARY | ~2020-04-22 | XMS | Encounter Summary ---
Demographics + + + | Address | [address] | | | [place] [address] | + + + | Home Phone | | + + + | Preferred Language | Unknown | + + + | Marital Status | Unmarried Domestic Partner | + + + | Adventist Affiliation | Unknown | + + + | Race | or | + + + | Ethnic Group | Not or | + + + Author + + + | Author | [place] [employer] [facility] | + + + | Organization | [facility] | + + + | Address | Unknown | + + + | Phone | Unavailable | + + + Support + + +---------+ + | Name | Relationship | Address | Phone | + + +---------+ + | Lazaro Merchant | ECON | Unknown | | + + +---------+ + Care Team Providers + +------+ + | Care Volunteer Services Assistant Name | Role | Phone | [...] | | 2014 | | Center at [facility] [address] | FROG SHAKER [address] | | | | | [address] [facility] | [facility] 350 | | | | | for Health and | [place], [place] | | | | | [facility], [place] [address] | [address] | | | | | [place], [place] | [phone] | | | | | [address] | | | | | | [phone] | | | +--------+ + + + [...]
--- OUTSIDE RECORDS SUMMARY | ~2020-04-22 | XMS | Encounter Summary ---
Demographics + + + | Address | [address] | | | [place] [address] | + + + | Home Phone [...] + + + | Author | [employer] [facility] | + + + | Organization | [facility] | + [...] + +------+ + | Care Director Of Accounts Receivable Name | Role | Phone | + [...] Therapy Services at | [address] [facility] | BMI of 70 and over, | | | | [facility] | [facility], | adult (HCC) (Primary | | | | [address] | [place] [address] | Dx); Use of cane as | | | | [facility] | [phone] | ambulatory aid | | | | and Healing, | | | | | | Building 1, | | | | | | Floor [place], [place] | | | | | | [address] | | | | | | [phone] | | | +--------+---------+ + + + [...] Melendez, PT - 06/02/2015 11:50 AM PDT [id number] OSMIN ESPINOZA Date of : 1975 Start of care: 06/02/2015 Date of onset: 01/08/2015 Referring/Attending Practitioner: Fátima De Luna NP Primary/Referral Diagnosis/ICD-9:278.01, V85.45 Morbid obesity with BMI of 70 and over, ad ult 719.7 Use of cane as ambulatory aid Insurance: Payor: [employer] / Plan: [employer] / Product Type: [employer] [facility] [place] / Service period from: 06/02/2015 to: - Number visits used/authorized: 10/03 [facility] PHYSICAL THERAPY EVALUATION SUBJECTIVE: History of Presenting [...] is moderate. 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 PMH: See [employer] Meds: see [facility] Living situation/environment is limiting function: none Equipment [...] change in their status. Mandy Melendez P.T. [facility] REHABILITATION SERVICES AND HAND THERAPY [address] Mailcode: [address] [facility], 3rd [facility] [address] documented in this [...] + +--------+ + + + | [place] THER[facility]IC | Routin | 06/02/2015 | Morbid obesity | | | EXERCISES | e | 3:00 PM | with BMI of 70 and | | | | | PDT | over, adult ([facility]) | | | | | | Use [...]
--- OUTSIDE RECORDS SUMMARY | ~2020-04-22 | XMS | Encounter Summary ---
Demographics + + + | Address | [address] | | | [place] [address] | + + + | Home Phone | | + + + | Preferred Language | Unknown | + + + | Marital Status | Unmarried Domestic Partner | + + + | Mormonism Affiliation | Unknown | + + + | Race | or | + + + | Ethnic Group | Not or | + + + Author + + + | Author | [employer] [facility] | + + + | Organization | [facility] | + [...] Team Providers + +------+ + | Care Carroting Machine Offbearer Name | Role | Phone | + [...] | 2014 | Visit | Center at [facility] [address] | | BMI of 70 and over, | | | | [facility] | | adult (HCC) (Primary | | | | for Health and | | Dx) | | | | [facility] 2 | | | | | | [place], [place] | | | | | | [address] | | | | | | [phone] | | | +--------+---------+ + + + [...] of Class: 3:00 until 4:00 (60 minutes [id number]-[id number] with patient) OBJECTIVE: Height: Ht Readings from [...] or sharing information. Yes Blanca Thurston RD MOLDING SUPERVISOR LD Outpatient Adult Dietitian documented in this enc ounter Plan of Treatment Not on filedocumented as of this encounter Visit Diagnoses + + | Diagnosis | + + | Morbid obesity with BMI of 70 and over, adult (HCC) - Primary | + + documented in this encounter
--- OUTSIDE RECORDS SUMMARY | ~2020-04-22 | XMS | Encounter Summary ---
Demographics + + + | Address | [address] | | | [place] [address] | + + + | Home Phone [...] + + + | Author | [employer] [facility] | + + + [...] Team Providers + +------+ + | Care Bread Panner Name | Role | Phone | + +------+ + | Larissa Keen MD | PCP | | + +------+ + Encounter Details +--------+ + + + + | Date | Type | Department | Care Team | Description | +--------+ + + + + | 12/09/ | Abstract | Digestive Health | Diamond De León, | | | 2014 | | Center at [facility] [address] | BRICK CLEANER [address] | | | | | [address] [facility] | [facility] [address] | | | | | for Health and | [place], [place] | | | | | [facility], [place] [address] | [address] | | | | | [place], [place] | [phone] | | | | | [address] | | | | | | [phone] | | | +--------+ + + + [...]
--- OUTSIDE RECORDS SUMMARY | ~2020-04-22 | XMS | Encounter Summary ---
Demographics + + + | Address | [address] | | | [place] [address] | + + + | Home Phone [...] + + + | Author | [place] [employer] [facility] | + + + [...] Team Providers + +------+ + | Care Reed Or Wind Instrument Repairer Name | Role | Phone [...] | | | | | | | [facility] | | | | | | | Health and | | | | | | | Healing, | | | | | | | Building 2 | | | | | | | [place], [place] | | | | | | | [address] | | | | | | | Phone: | | | | | | | [phone] | | | | | | | Fax: | | | | | | | [phone] | +--------+--------+ + + + + Encounter Details +--------+---------+ + + + | Date | Type | Department | Care Team | Description | +--------+---------+ + + + | 06/02/ | Office | Digestive Health | Tejal Iraheta RD | Morbid obesity (HCC) | | 2015 | Visit | Center at [facility] [address] | [address] | (Primary Dx); Type | | | | [address] [facility] | Estela Cohen [place], | 2 diabetes mellitus | | | | for Health and | [place] [address] | treated with insulin | | | | [place] [address] | [phone] | (HCC) | | | | [place], [place] | | | | | | [address] | | | | | | [phone] | | | +--------+---------+ + + + [...] of Visit: 10:29 to 10:57 (28 minutes qkrn-ot-autp with patient) SUBJECTIVE: took her a couple [...] post-surgery diet progression. 4. Call or send [employer] message to dietitian with any questions. Contact information was provided. Follow up with dietitian in ~ 1 month at [facility]. Tejal Iraheta RD, CNSC, LD Pager# [phone] documented in this enco unter Plan of Treatment Not on filedocumented as of this encounter Procedures + +--------+ + + + | Procedure Name | Priori | Date/Time | Associated Diagnosis | Comments | | | ty | | | | + +--------+ + + + | [place] MNT RE-ASSESSMNT | Routin | 06/02/2015 | Morbid obesity | | | X15MIN | e | 11:18 AM | ([facility]) Type 2 | | | | | PDT | diabetes mellitus | | | | | | treated with insulin | | | | | | ([facility]) | | + +--------+ + + + documented in this encounter Visit Diagnoses + + | Diagnosis | + + | Morbid obesity ([facility]) - Primary Morbid obesity | + + | Type 2 diabetes mellitus treated with insulin (HCC) | + + documented in this encounter
--- OUTSIDE RECORDS SUMMARY | ~2020-04-22 | XMS | Encounter Summary ---
Demographics + + + | Address | [address] | | | [place] [address] | + + + | Home Phone | | + + + | Preferred Language | Unknown | + + + | Marital Status | Unmarried Domestic Partner | + + + | Mormon Affiliation | Unknown | + + + | Race | or | + + + | Ethnic Group | Not or | + + + Author + + + | Author | [place] [employer] [facility] | + + + [...] Team Providers + +------+ + | Care Drop Forger Helper Name | Role | Phone | [...] | Pain | Diagnoses | Conser, | Camelid Fiber Sorter Psych | | | | Management | Morbid | Diamond Sandoval NP | [facility] [address] | | | | | obesity | [address] | | | | | (HCC) | [address], | Center for | | | | | Procedures | [address] | Health and | | | | | CONSULT TO | [place], [place] | Healing, | | | | | PAIN CENTER | [address] | Building | | | | | | Phone: | 1,15th Floor | | | | | | [phone] | [place], [place] | | | | | | Fax: | [address] | | | | | | [phone] | Phone: | | | | | | | [phone] | | | | | | | Fax: | | | | | | | [phone] | +--------+--------+ + + + + Encounter Details +--------+ + + + + | Date | Type | Department | Care Team | Description | +--------+ + + + + | // | Core Man | Digestive Health | Diamond De León, | Morbid obesity (HCC) | | 2015 | | Center at [facility] [address] | SUPERVISOR WET END [address] | (Primary Dx) | | | | [address] | [address], [address] | | | | | for Health and | [place], [place] | | | | | Healing, Building 2 | [address] | | | | | [place], [place] | [phone] | | | | | [address] | | | | | | [phone] | | | +--------+ + + + [...]
--- OUTSIDE RECORDS SUMMARY | ~2020-04-22 | XMS | Encounter Summary ---
Demographics + + + | Address | [address] | | | [place] [address] | + + + | Home Phone [...] + + | Author | [employer] [place] [employer] [facility] | + + + | Organization | [facility] | + [...] Team Providers + +------+ + | Care Internal Audit Director Name | Role | Phone | [...] | 2014 | | Center at [facility] [address] | ACNP [address] | | | | | [address] | [address] [place], [place] | | | | | for Health and | [address] | | | | | Healing, Building 2 | | | | | | [place], [place] | | | | | | [address] | | | | | | | [...]
--- OUTSIDE RECORDS SUMMARY | ~2020-04-22 | XMS | Encounter Summary ---
Demographics + + + | Address | [address] | | | [place] [address] | + + + | Home Phone | | + + + | Preferred Language | Unknown | + + + | Marital Status | Unknown | + + + | Gnosticist Affiliation | Unknown | + + + | Race | Unknown | + + + | Ethnic Group | Unknown | + + + Author + + + | Author | [facility] | | | and [place] | + + + | Organization | [facility] | | | and [place] | [...] Team Providers + +------+ + | Care Camp Director Name | Role | Phone | + +------+ + PCP | Unavailable | + +------+ + Encounter Details +--------+ + + + + | Date | Type | Department | Care Team | Description | +--------+ + + + + | 05/16/ | Hospital | [facility] | Michael Peraza, | | | 2004 | Encounter | MED CTR SLEEP | [address] | | | | | CENTER [address] | [place] | | | | | [place] | [id number] | | | | | [address] | | | | | | [phone] | | | +--------+ + + + [...]
--- OUTSIDE RECORDS SUMMARY | ~2020-04-22 | XMS | Encounter Summary ---
Demographics + + + | Address | [address] | | | [place] [address] | + + + | Home Phone [...] + + | Author | [employer] [facility] | + + + | Organization | [facility] | + + + | Address | Unknown | + + + | Phone | Unavailable | + + + Support + + +---------+ + | Name | Relationship | Address | Phone | + + +---------+ + | Lazaro Merchant | ECON | Unknown | | + + +---------+ + Care Team Providers + +------+ + | Care Fruit Grower Name | Role | Phone | + +------+ + | Larissa Keen MD | PCP | | + +------+ + Encounter Details +--------+ + + + + | Date | Type | Department | Care Team | Description | +--------+ + + + + | 10/09/ | Abstract | Digestive Health | Diamond De León, | | | 2014 | | Center at [facility] | PARTY PLAN SALES UNIT ADVISOR [address] | | | | | [address] [facility] | [facility] [address] | | | | | for Health and | [place], [place] | | | | | [facility], [place] [address] | [address] | | | | | [place], [place] | [phone] | | | | | [address] | | | | | | [phone] | | | +--------+ + + + [...]
--- OUTSIDE RECORDS SUMMARY | ~2020-04-22 | XMS | Encounter Summary ---
Demographics + + + | Address | [address] | | | [place] [address] | + + + | Home Phone | | + + + | Preferred Language | Unknown | + + + | Marital Status | Unknown | + + + | Rastafarian Affiliation | Unknown | + + + | Race | Unknown | + + + | Ethnic Group | Unknown | + + + Author + + + | Author | [facility] | | | and [place] | + + + | Organization | [facility] | | | and [place] [...] Providers + +------+ + | Care Accounting Support Specialist Name | Role | Phone | [...] | | [place] | [place] [address] | (Primary Dx); High | | | | [address] | [phone] | blood pressure; | | | | [phone] | | Obesity; | | | | [...]
--- OUTSIDE RECORDS SUMMARY | ~2020-04-22 | XMS | Encounter Summary ---
Demographics + + + | Address | [address] | | | [place] [address] | + + + | Home Phone [...] + + + | Author | [place] [employer] [facility] | + + + [...] Team Providers + +------+ + | Care Transportation Superintendent Name | Role | Phone | + +------+ + | Larissa Keen MD | PCP | | + +------+ + Encounter Details +--------+ + + + + | Date | Type | Department | Care Team | Description | +--------+ + + + + | 08/13/ | Abstract | Digestive Health | Clinic, Surgery | | | 2014 | | Center at [facility] [address] | | | | | | [facility] | | | | | | for Health and | | | | | | Healing, Building 2 | | | | | | [place], [place] | | | | | | [address] | | | | | | [phone] | | | +--------+ + + + [...]
--- OUTSIDE RECORDS SUMMARY | ~2020-04-22 | XMS | Encounter Summary ---
Demographics + + + | Address | [address] | | | [place] [address] | + + + | Home Phone [...] + + + | Author | [employer] | + + + [...] Team Providers + +------+ + | Care Trench Trimmer Fine Name | Role | Phone | + [...] | | | | | | | [place], [place] | | | | | | | [address] | | | | | | | Phone: | | | | | | | [phone] | | | | | | | Fax: | | | | | | | [phone] | +--------+ + + + + + Encounter Details +--------+---------+ + + + | Date | Type | Department | Care Team | Description | +--------+---------+ + + + | 06/02/ | Office | Digestive Health | Fátima Hernandez, | Morbid obesity with | | 2014 | Visit | Center at [address] | ACNP [address] | BMI of 70 and over, | | | | [address] | [address] [place], [place] | adult ([facility]) (Primary | | | | for Health and | [address] | Dx); Type 2 | | | | Healing, [address] | | diabetes mellitus | | | | [place], [place] | | without complication | | | | [address] | | (HCC); Essential | | | | | | hypertension; HLD | | | | | | (hyperlipidemia); | | | | | | TOMMY on CPAP; History | | | | | | of atrial | | | | | | fibrillation; | | | | | | Asthma, mild | | | | | | intermittent, | | | | | | uncomplicated | +--------+---------+ + + + Social History [...] + + + + | Weight | 227.3 kg (501 lb 1.6 | 06/02/2015 9:15 AM | | | | oz) | PDT | | + + + + + | Height | 167.6 cm (5' 6") | 06/02/2015 9:15 AM | | | | | PDT | | + + + + + | Body Mass Index | 80.88 | 06/02/2015 9:15 AM | | | | | PDT | | + + + + + documented in this encounter Patient Instructions Patient Instructions Fátima De Luna ACNP - 06/02/2015 9:54 AM PDTPlan: The following has mansi sharp provided to Marielle Esparza This is a preliminary visit for a evaluation for bariatric surgery. There are some patients who have too many illnesses, and this elective surgery would not be safe for them. We have listed some of the potential reasons below. You can over eat ANY of the surgeries. The surgery is a tool with diet and exercise To help you obtain a healthy weight. + Dietitian consultation: Today. + Physical therapy referral for Bariatric Surgery Prehabilitation + Weight Management classes: 2 classes are required in addition to your private appointme nt with the fibrous wallboard inspector. These classes will be scheduled apporoximately 1 month apart to allow time for you to put the teaching into action. When you check out today, please ask the automobile contract clerk to schedule these with you + Labs needed: lipids, CBC, CMP, TSH, A1C, PTH, Vitamin D25, Please go to the 3rd floor a nd have these labs done. + Please have your PCP notes from the past 2 yrs faxed to us. Thank you. + Mammogram: Have your primary care provider order, and send the radiology report to us by fax. + EKG: Please go to 9th floor today to get this done. + . Sleep study: Please undergo a sleep study and have notes/tests faxed to us. If you curr ently use CPAP, then contact the provider of your equipment to help you download the report of your CPAP use. Our surgeons require that you wear the machine over 4 hours per night, 80 % of the time. If your referral is at [facility], they will call you in the next week to schedule . + Required weight loss: 10% wt loss goal of 50 pounds + Sign up for [employer]t so that we can communicate easily back and forth + control: no pills because it causes clots, so we would shots in your arm, or a nuva ring, or implanon... Or IUD we would recommend: Once the above list is completed and copies have been received by our office, we will submi t for insurance authorization then schedule with the surgeon. Fátima De Luna DNP, ACNP, POLICE COMMUNICATIONS OPERATOR Nurse Practitioner for Bariatric Surgery [facility] | [address] | [place], [place] | [address] | Potential Contraindications to Bariatric Surgery Age [...] other providers does not guarantee that the [facility] Bariatric Surger y program will deem you a surgical candidate. documented in this encounter Progress Notes Fátima De Luna ACNP - 06/02/2015 9:30 AM PDTFormatting of this note might be different fro m the original. BARIATRIC INITIAL VISIT Provider: Fátima De Luna DNP, ACNP, POLICE COMMUNICATIONS OPERATOR Referring Provider: [facility] Reason for Requested Consultation: Initial evaluation for bariatric surgery. Marielle Esparza is interested in sleeve gastrectomy or elenita en Y gastric bypass. She started the program last May, then tried to lose the weight by herself. She is makin g better choices, feels better, Is more able to walk, but has gained 40 pounds since last year. She is here with her boyfriend to restart the program. 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 female with a BMI of 80, 501 lbs., and 5'6" inches who has failed prior attempts at sustained dietary/medical weight los s and desires surgical weight loss in order to "to give me help to lose weight, less appetit e, help my health issues ". Duration of obesity: 32 years. Onset of obesity at age 7 First diet attempts at age 10 Personally initiated diets: 1999- LEARN, lost 50 lbs, regained 100. 2004, DM diet, lost 110 , regained 120. Programmatic diets: - Physician Monitored diet: - Use of Redux or Phen/fen: no Transthoracic ECHO: not indicated Restoration or cultural reason you would refuse blood products? no Comorbidities include: Type 2 diabetes, sleep apnea, insulin resistance, obesity related hy poventilation syndrome, osteoarthritis, intertrigenous skin infections, GERD (gastroesophage al reflux disease), hypertension and hyperlipidemia All previous chart notes from PCP reviewed, previous tests and labs reviewed. ALLERGIES: Allergies Allergen Reactions Augmentin [Amoxicillin-Pot Clavulanate] Unknown Levaquin [Levofloxacin] Unknown Zithromax [Azithromycin] Unknown Current outpatient prescriptions: ascorbic acid SR (VITAMIN C) 1,000 mg oral tablet, Take 1 ,000 mg by mouth once daily in the [...] Past Surgical History Procedure Laterality Date Tonsillectomy 2008 [facility] [place] Gallbladder removal 2006 [place], [place] Incisional hernia repair 2003 [facility] Incisional hernia repair 2011 [facility] Cardioversion 214 [facility] History Social History Marital Status: Unmarried Domestic Partner Spouse Name: N/A Number of Children: N/A Years of Education: N/A Occupational History Not on file. Social History Main Topics Smoking status: Former Smoker -- 0.40 packs/day Types: Cigarettes Smokeless tobacco: Not on file Alcohol Use: No Comment: former use 2-3 Drug Use: Yes Comment: marijuana Sexual Activity: Not on file Other Topics Concern Not on file Social History Narrative Family History Problem Relation Obesity Father Diabetes Father Heart Disease Father Other Mother low blood platelets Heart Attack Mother Alcohol/Drug Brother Obesity Brother Review of Systems: General: Some days has symptoms of fatigue she feels she is feeling better with more ener gy this past year. denies weakness, unintentional weight loss, fevers, chills, night sweat s at times Eyes/Ears/Nose/Throat: Denies visual changes, sore throat, dental pain, hoarseness, dyspha mark, oral or tongue lesions. Has had a tonsillectomy (she states they were very large) uvul a was also removed. Respiratory: shortness of breath with half a block denies cough or wheezing. She has slee p apnea, denies asthma. Cardiovascular: Denies exertional chest pain, palpitations, syncope, orthopnea, or paroxys mal nocturnal dyspnea. history of lower extremity edema, hypertension, hyperlipidemia. Zoran es CHF, ND, ischemic heart disease, DVT/PE, or pulmonary hypertension. States she possibly c ould climb 2 flights of stairs, it would be very difficult for her. If she walks very far he r heart beats fast She describes SOB with activity but denies chest pressure, chest pain, jaw pain, neck or sh oulder pain. Neurologic: The patient denies any symptoms of neurological impairment or TIAs; denies dip lopia, dysphasia or unilateral disturbance of motor or sensory function. Denies loss of onel nce or vertigo, persistent headaches, numbness or paresthesias. No history of seizure disord er. Musculoskeletal: Her ambulation is limited by pain in her feet, knees and low back, althou gh at her visit 1 year ago was in a wheelchair, today she is walking with a cane. She has a rolling gait, limping. Gastrointestinal: Denies abdominal or flank pain, anorexia, nausea or vomiting, dysphagia, change in bowel habits, black or bloody stools. Denies history of ulcers or hernias. Denies persistent reflux symptoms. Denies history of liver disease or jaundice. Treated with pril osec, with certain foods otherwise has no symptoms Genitourinary: occ. urinary incontinence. Denies history of kidney stones. Denies urethral discharge, dysuria, hematuria or sores on the genitals. Denies menstrual irregularity, his tory of endometriosis or abnormal PAP's. Current method of control is: currently nothi ng Skin: rare intertrigenous skin infections. Denies recent rashes, sores, or skin changes. Psychological: Denies anxiety, depression, thoughts of suicide or hallucinations. Heme/Lymphatic: Denies history of anemia. The patient denies abnormal bruising, abnormal b leeding or enlarged lymph nodes. Metabolic: Denies symptoms of hypo or hyperthyroidism. history of diabetes. No polyuria, po lyphagia or polydipsia. Denies history of gout. OBJECTIVE BP 157/83 | Pulse 86 | Temp (Src) 37.3 C (99.1 F) (Oral) | RR 20 | Ht 1.676 m (5' 6") | Wt 227.297 kg (501 lb 1.6 oz) | SpO2 98% | BMI 80.92 kg/(m^2) Physical exam: General: Alert and cooperative. Neuro: Oriented x 3. CN III-XII grossly intact. No focal deficits. HEENT: Oropharynx clear without lesion or exudate. Neck: Neck supple. No adenopathy. Respiratory: Good diaphragmatic excursion. Lungs clear to auscultation bilaterally. Cardiac: Regular rate and rhythm, no murmur, gallop or bruits. No carotid bruits noted. Extremities: 3 + lower extremity edema. She walks with a cane, limping from foot and knee Pain when she walks. Abdomen: Obese, surgical habitus, soft, nontender, no appreciable masses or hernia. Large pannus. Psych: No problems noted.she describes that over the past year she has realized how big she has gotten, The impact on her health and has been following our diet. She was last seen may of 2014 by a provider And she was 89. She states she is eating better, feels better bur unfortunately she has ga ined 40 pounds since then. Laboratory Data: Impression: This patient meets and or exceeds NIH criteria for morbid obesity with a BMI of 80 and com orbidities related to obesity including Type 2 diabetes, sleep apnea, insulin resistance, ob esity related hypoventilation syndrome, osteoarthritis, intertrigenous skin infections, GERD (gastroesophageal reflux disease), hypertension and hyperlipidemia , which may be improved with bariatric surgery. Records have been reviewed from her PCM an d several attempts have been made to lose weight over the past years without success. She q ualifies for medically necessary weight loss surgery to control co-morbidities. Marielle Esparza has attended the Public Informational Session in which risks and benefits of bariatric surgery were discussed. Discussion of realistic expectations of bariatric surger y was held today. A Bariatric notebook with pre-op, inter-op and post-op guidance and information was provide d for the patient today. 1. BMI: 80 I have asked her to lose 10% of her current weight today which is 50 pounds. PLan: appointment with fibrous wallboard inspector and PT. 2. CV: history of A fib, today on exam in [facility]. Off xarelto per her communications agent. Blood pres sure is not well controlled today. Plan: Ask pcp to follow BP for trends. Target less than 140/80 3. CM: last A1C is 7.6 Plan: she will continue towork on her DM 4. Psychiatric evaluation: she had a prior evaluation and followed up locally with a located [facility] for ongoing counseling x 6 sessions with a local person. This person has helped her to th ink About why she is eating, how to deal with prior trauma in her life and how to avoid turning to food. Plan: she has this individual still available, discussed with her that with this surgery th ere can be positive and negative emotions and she may need further support 5. Control: currently has no protection. Plan: Refer back to pcp for discussion. control pills are too risky for clots in her, so other options other than condoms would be great. We advise that this is initiated pr ior to having Surgery so that it is in place. She doesn't want children, she will be more fertile followi ng surgery. Plan: The following has been provided to Marielle Esparza This is a preliminary visit for a evaluation for bariatric surgery. There are some patients who have too many illnesses, and this elective surgery would not be safe for them. We have listed some of the potential reasons below. You can over eat ANY of the surgeries. The surgery is a tool with diet and exercise To help you obtain a healthy weight. + Dietitian consultation: Today. + Physical therapy referral for Bariatric Surgery Prehabilitation + Weight Management classes: 2 classes are required in addition to your private appointme nt with the fibrous wallboard inspector. These classes will be scheduled apporoximately 1 month apart to allow time for you to put the teaching into action. When you check out today, please ask the automobile contract clerk to schedule these with you + Labs needed: CBC, CMP, TSH, A1C, PTH, Vitamin D25, ferritin: PCP to order/send + Mammogram: Have your primary care provider order, and send the radiology report to us by fax. + EKG: Please go to 9th floor today to get this done. + Required weight loss: 10% wt loss goal of 50 pounds + Sign up for [employer] so that we can communicate easily back and forth + control: no pills because it causes clots, so we would shots in your arm, or a nuva ring, or implanon... Or IUD we would recommend: Once the above list is completed and copies have been received by our office, we will submi t for insurance authorization then schedule with the surgeon. Fátima De Luna DNP, ACNP, POLICE COMMUNICATIONS OPERATOR Nurse Practitioner for Bariatric Surgery [facility] | [address] | [place], [place] | [address] | Potential Contraindications to Bariatric Surgery Age [...] other providers does not guarantee that the [facility] Bariatric Surger y program will deem you a surgical candidate. documented in this en counter Plan of Treatment + +------+--------+ + + | Name | Type | Priori | Associated Diagnoses | Order Schedule | | | | ty | | | + +------+--------+ + + | 12 LEAD ECG | ECG | Routin | Morbid obesity | Ordered: 06/02/2015 | | | | e | with BMI of 70 and | | | | | | over, adult (HCC) | | + +------+--------+ + + documented as of this encounter Visit Diagnoses + + | Diagnosis | + + | Morbid obesity with BMI of 70 and over, adult (HCC) - Primary | + + | Type 2 diabetes mellitus without complication (HCC) | + + | Essential hypertension | + + | HLD (hyperlipidemia) Other and unspecified hyperlipidemia | + + | TOMMY on CPAP Obstructive sleep apnea (adult) (pediatric) | + + | History of atrial fibrillation Personal history of other diseases of circulatory | | system | + + | Asthma, mild intermittent, uncomplicated | + + documented in this encounter
--- OUTSIDE RECORDS SUMMARY | ~2020-04-22 | XMS | Clinical Summary ---
Demographics + + + | Address | [address] | | | [place] [address] | + + + | Home Phone | | + + + | Preferred Language | Unknown | + + + | Marital Status | Unknown | + + + | Episcopal Affiliation | Unknown | + + + | Race | Unknown | + + + | Ethnic Group | Unknown | + + + Author + + + | Author | [facility] | | | and [place] | + + + | Organization | [facility] | | | and [...] Team Providers + +------+ + | Care Supervisory Civil Engineer Name | Role | Phone | [...] cardioversion- as per pt echo done in [facility] is | | Marquez request and review records from [id number] | | want to follow up with her data analytics chief scientist in [place]. | |2D echo | |Pt want to follow up with her data analytics chief scientist in [place]. | + + + + + | [...] +--------+ +---------+--------+ | [employer]ALTH[employer] | HEALTH | [id number] | 01/02/20 | [phone] | | PPO | | | COMP | | 07-Pre | 7 | | | | | PPOR | | sent | | | | + +--------+ +--------+ +---------+--------+ | [facility] | IHS | [id number] | Effect | | | Indemn | [...] | 1975 | [phone] | [place] [address] | | | be | | | 1 (Home) | | + +--------+ +--------+ + + Advance Directives + + + + + | Type | Date Recorded | Patient | Explanation | | | | Curtains And Draperies Salesperson | | + + + + + | Power of | | | | | Foxing Cutting Machine Operator | | | | + + + + + | Advance | | | | | Directive | | | | + + + + +
--- OUTSIDE RECORDS SUMMARY | ~2020-04-22 | XMS | Clinical Summary ---
Demographics + + + | Address | [address] | | | [place] [address] | + + + | Home Phone [...] Author + + + | Author | [facility] | + + + | Organization | [facility] | + + + | Address | Unknown | + + + | Phone | Unavailable | + + + Support + + +---------+ + | Name | Relationship | Address | Phone | + + +---------+ + | Lazaro Merchant | ECON | Unknown | | + + +---------+ + Care Team Providers + +------+ + | Care Pipe Organ Mechanic Name | Role | Phone | + +------+ + | Larissa Keen MD | PCP | | + +------+ + Source Comments SHERRI is fully live on both [facility] and [facility] Allergies + + + + + + [...] CROSS | | 16-Pre | 8 | [address] | | | | [place] | | sent | | [place], | | | | [place] | | | | [place] [address] | | + +--------+ +--------+ + +------+ [...] | 1975 | [phone] | [place] [address] | | | be | | | 1 (Home) | | + +--------+ +--------+ + +
--- OUTSIDE RECORDS SUMMARY | ~2020-04-22 | XMS | Encounter Summary ---
Demographics + + + | Address | [address] | | | [place] [address] | + + + | Home Phone | | + + + | Preferred Language | Unknown | + + + | Marital Status | Unmarried Domestic Partner | + + + | Spiritism Affiliation | Unknown | + + + | Race | or | + + + | Ethnic Group | Not or | + + + Author + + + | Author | [employer] [facility] [employer] | + + + | Organization | [facility] | + + + | Address | Unknown | + + + | Phone | Unavailable | + + + Support + + +---------+ + | Name | Relationship | Address | Phone | + + +---------+ + | Lazaro Merchant | ECON | Unknown | | + + +---------+ + Care Team Providers + +------+ + | Care Rejected Items Clerk Name | Role | Phone | + +------+ + | Mar DoddP | PCP | | + +------+ + Encounter Details +--------+ + + + + | Date | Type | Department | Care Team | Description | +--------+ + + + + | 03/11/ | Abstract | Digestive Health | Fátima Hernandez, | | | 2013 | | Center at [facility] [address] | ACNP [address] | | | | | [address] | e [place], [place] | | | | | for Health and | [address] | | | | | Healing, [address] | | | | | | [place], [place] | | | | | | [address] | | | | | | | [...]
--- OUTSIDE RECORDS SUMMARY | ~2020-04-22 | XMS | Encounter Summary ---
Demographics + + + | Address | [address] | | | [place] [address] | + + + | Home Phone [...] Author + + + | Author | [employer] | + + + | Organization | [facility] | + + + | Address | Unknown | + + + | Phone | Unavailable | + + + Support + + +---------+ + | Name | Relationship | Address | Phone | + + +---------+ + | Lazaro Merchant | ECON | Unknown | | + + +---------+ + Care Team Providers + +------+ + | Care Field Service Poultry Technician Name | Role | Phone | [...] [address] | | | | | ([facility]) | [address] | for Health | | | | | Procedures | [place], [place] | and Healing, | | | | | PHYSICAL | [address] | [address], | | | | | THERAPY | Phone: | 1st Floor | | | | | REFERRAL | | [place], [place] | | | | | | Fax: | [address] | | | | | | [phone] | Phone: | | | | | | | [phone] | | | | | | | Fax: | | | | | | | [phone] | +--------+--------+ + + + + Encounter Details +--------+ + + + + | Date | Type | Department | Care Team | Description | +--------+ + + + + | 06/02/ | Data Control Clerk Supervisor | Digestive Health | Fátima Hernandez, | Morbid obesity (HCC) | | 2014 | | Center at [facility] [address] | ACNP [address] | (Primary Dx) | | | | [address] | [address] [place], [place] | | | | | for Health and | [address] | | | | | [facility], [address] | | | | | | [place], [place] | | | | | | [address] | | | | | | [phone] | | | +--------+ + + + [...]
--- OUTSIDE RECORDS SUMMARY | ~2020-04-22 | XMS | Encounter Summary ---
Demographics + + + | Address | [address] | | | [place] [address] | + + + | Home Phone [...] + + + | Author | [employer] | + + + [...] Team Providers + +------+ + | Care Online Publisher Name | Role | Phone | + +------+ + | Mar DoddP | PCP | | + +------+ + Encounter Details +--------+ + + + + | Date | Type | Department | Care Team | Description | +--------+ + + + + | 03/15/ | Abstract | Digestive Health | Fátima Hernandez, | | | 2013 | | Center at [facility] | ACNP [address] | | | | | [address] [place] | e [place], [place] | | | | | for Health and | [address] | | | | | Healing, [address] | | | | | | [place], [place] | | | | | | [address] | | | | | | | [...]
--- OUTSIDE RECORDS SUMMARY | ~2020-04-22 | XMS | Encounter Summary ---
Demographics + + + | Address | [address] | | | [place] [address] | + + + | Home Phone [...] + + | Author | [employer] [facility] [employer] | + + + | Organization | [facility] | + + + | Address | Unknown | + + + | Phone | Unavailable | + + + Support + + +---------+ + | Name | Relationship | Address | Phone | + + +---------+ + | Lazaro Merchant | ECON | Unknown | | + + +---------+ + Care Team Providers + +------+ + | Care Front End Wheel Loader Operator Name | Role | Phone | [...] [address] | | | | | [address] [facility] for | Ave [place], [place] | | | | | Health and Healing, | [address] | | | | | [address] | [phone] | | | | | [place], [place] | | | | | | [address] | | | | | | [phone] | | | +--------+ + + + [...]
--- OUTSIDE RECORDS SUMMARY | ~2020-04-22 | XMS | Encounter Summary ---
Demographics + + + | Address | [address] | | | [place] [address] | + + + | Home Phone [...] + + + | Author | [employer] [facility] | + + + | Organization | [facility] | + [...] Team Providers + +------+ + | Care Driller And Broacher Name | Role | Phone | + +------+ + | Larissa Keen MD | PCP | | + +------+ + Encounter Details +--------+ + + + + | Date | Type | Department | Care Team | Description | +--------+ + + + + | 12/04/ | Abstract | Digestive Health | Diamond De León, | | | 2014 | | Center at [facility] [address] | SCRAP SEPARATOR [address] | | | | | [address] [facility] | [facility] [address] | | | | | for Health and | [place], [place] | | | | | [facility], [place] [address] | [address] | | | | | [place], [place] | [phone] | | | | | [address] | | | | | | [phone] | | | +--------+ + + + [...]
--- OUTSIDE RECORDS SUMMARY | ~2020-04-22 | XMS | Encounter Summary ---
Demographics + + + | Address | [address] | | | [place] [address] | + + + | Home Phone [...] + + + | Author | [place] [employer] [facility] [employer] [facility] | + + + | Organization | [facility] | + [...] Team Providers + +------+ + | Care Transfer Controller Name | Role | Phone | + [...] | | Center at [address] | [address] | | | | | [address] [facility] | [facility] [address] | | | | | for Health and | [place], [place] | | | | | [facility], [place] [address] | [address] | | | | | [place], [place] | [phone] | | | | | [address] | | | | | | [phone] | | | +--------+ + + + [...]
--- OUTSIDE RECORDS SUMMARY | ~2020-04-22 | XMS | Encounter Summary ---
Demographics + + + | Address | [address] | | | [place] [address] | + + + | Home Phone [...] + + + | Author | [place] [employer] [facility] | + + + [...] Team Providers + +------+ + | Care Artificial Inseminator Name | Role | Phone | + [...] Ave Center | | | | | ([facility]) | [address] | for Health | | | | | Procedures | [place], [place] | and Healing, | | | | | PHYSICAL | [address] | Building 1, | | | | | THERAPY | Phone: | 1st Floor | | | | | REFERRAL | | [place], [place] | | | | | | Fax: | [address] | | | | | | [phone] | Phone: | | | | | | | [phone] | | | | | | | Fax: | | | | | | | [phone] | +--------+--------+ + + + + Encounter Details +--------+ + + + + | Date | Type | Department | Care Team | Description | +--------+ + + + + | 06/02/ | License Examiner | Digestive Health | Fátima Hernandez, | Morbid obesity (HCC) | | 2014 | | Center at [facility] | ACNP [address] | (Primary Dx) | | | | [address] | Ave [place], [place] | | | | | for Health and | [address] | | | | | [facility], Building 2 | | | | | | [place], [place] | | | | | | [address] | | | | | | [phone] | | | +--------+ + + + [...]
--- OUTSIDE RECORDS SUMMARY | ~2020-04-22 | XMS | Encounter Summary ---
Demographics + + + | Address | [address] | | | [place] [address] | + + + | Home Phone | | + + + | Preferred Language | Unknown | + + + | Marital Status | Unmarried Domestic Partner | + + + | Rastafarian Affiliation | Unknown | + + + | Race | or | + + + | Ethnic Group | Not or | + + + Author + + + | Author | [place] [employer] [facility] | + + + [...] Team Providers + +------+ + | Care Insurance Adviser Name | Role | Phone | + +------+ + | Larissa Keen MD | PCP | | + +------+ + Encounter Details +--------+ + + + + | Date | Type | Department | Care Team | Description | +--------+ + + + + | 01/08/ | Abstract | Digestive Health | Diamond De León, | | | 2014 | | Center at [facility] [address] | [place] | | | | | [address] [facility] | [facility] 350 | | | | | for Health and | [place], [place] | | | | | [facility], [place] [address] | [address] | | | | | [place], [place] | [phone] | | | | | [address] | | | | | | [phone] | | | +--------+ + + + [...]
--- OUTSIDE RECORDS SUMMARY | ~2020-04-22 | XMS | Encounter Summary ---
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 These classes will be scheduled apporoximately 1 month apart to allow time for you to put the teaching into action. When you check out today, please ask the reservations clerk to schedule these with you + [...] the time. If your referral is at [facility], they will call you in the next week to schedule . + Required weight loss: 10% wt loss goal of 50 pounds + Sign up for One On Onet so that we can communicate easily back [...] the surgeon. Fátima De Luna DNP, ACNP, CAD ADMINISTRATOR Nurse Practitioner for Bariatric Surgery [facility] | [address] | [place], [place] | [address] | Potential Contraindications to Bariatric Surgery Age [...] other providers does not guarantee that the [facility] Bariatric Surger y program will deem you a surgical candidate. documented in this encounter Progress Notes Fátima De Luna ACNP - 06/02/2015 9:30 AM PDTFormatting of this note might be different fro m the original. BARIATRIC INITIAL VISIT Provider: Fátima De Luna DNP, ACNP, CAD ADMINISTRATOR Referring Provider: [facility] Reason for Requested Consultation: Initial evaluation [...] program. 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 Zoran es CHF, [place], ischemic heart disease, DVT/PE, or pulmonary hypertension. [...] which is 50 pounds. PLan: appointment with video production coordinator and PT. 2. CV: history of A fib, today on exam in NSR. Off xarelto per her employee training specialist. Blood pres sure is not well controlled today. Plan: Ask pcp to follow BP for trends. Target less than 140/80 3. CM: last A1C is 7.6 Plan: she will continue towork on her DM 4. Psychiatric evaluation: she had a prior evaluation and followed up locally with a [facility] er for ongoing counseling x 6 sessions [...] to your private appointme nt with the video production coordinator. These classes will be scheduled apporoximately 1 month apart to allow time for you to put the teaching into action. When you check out today, please ask the reservations clerk to schedule these with you + [...] of 50 pounds + Sign up for Netragon so that we can communicate easily back [...] the surgeon. Fátima De Luna DNP, ACNP, CAD ADMINISTRATOR Nurse Practitioner for Bariatric Surgery [facility] | [address] | [place] | [address] | Potential Contraindications to Bariatric Surgery Age [...] other providers does not guarantee that the [facility] Bariatric Surger y program will deem [...]
--- OUTSIDE RECORDS SUMMARY | ~2020-04-22 | XMS | Encounter Summary ---
Demographics + + + | Address | [address] | | | [place] [address] | + + + | Home Phone | | + + + | Preferred Language | Unknown | + + + | Marital Status | Unmarried Domestic Partner | + + + | Amish Affiliation | Unknown | + + + | Race | or | + + + | Ethnic Group | Not or | + + + Author + + + | Author | [place] [employer] [facility] [employer] | + + + | Organization | [facility] | + + + | Address | Unknown | + + + | Phone | Unavailable | + + + Support + + +---------+ + | Name | Relationship | Address | Phone | + + +---------+ + | Lazaro Merchant | ECON | Unknown | | + + +---------+ + Care Team Providers + +------+ + | Care Cook Vegetable Name | Role | Phone | + [...] | | | | | | | [place], [place] | | | | | | | [address] | | | | | | | Phone: | | | | | | | [phone] | | | | | | | Fax: | | | | | | | [phone] | +--------+ + + + + + [...] | [address] | Ave [place], [place] | adult ([facility]) (Primary | | | | for Health and | [address] | Dx); 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 These classes will be scheduled apporoximately 1 month apart to allow time for you to put the teaching into action. When you check out today, please ask the direct mail clerk to schedule these with you + [...] the time. If your referral is at [facility], they will call you in the next week to schedule . + Required weight loss: 10% wt loss goal of 50 pounds + Sign up for Watchupt so that we can communicate easily back [...] the surgeon. Fátima De Luna DNP, ACNP, REVENUE AUDIT CLERK Nurse Practitioner for Bariatric Surgery [facility] | [address] | [place], [place] | [address] | Potential Contraindications to Bariatric Surgery Age [...] other providers does not guarantee that the [facility] Bariatric Surger y program will deem you a surgical candidate. documented in this encounter Progress Notes Fátima De Luna ACNP - 06/02/2015 9:30 AM PDTFormatting of this note might be different fro m the original. BARIATRIC INITIAL VISIT Provider: Fátima De Luna DNP, ACNP, REVENUE AUDIT CLERK Referring Provider: [facility] Reason for Requested Consultation: Initial evaluation [...] program. 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 Zoran es CHF, [place], ischemic heart disease, DVT/PE, or pulmonary hypertension. [...] which is 50 pounds. PLan: appointment with curb worker and PT. 2. CV: history of A fib, today on exam in NSR. Off xarelto per her assistant reading teacher. Blood pres sure is not well controlled today. Plan: Ask pcp to follow BP for trends. Target less than 140/80 3. CM: last A1C is 7.6 Plan: she will continue towork on her DM 4. Psychiatric evaluation: she had a prior evaluation and followed up locally with a [facility] er for ongoing counseling x 6 [...] to your private appointme nt with the curb worker. These classes will be scheduled apporoximately 1 month apart to allow time for you to put the teaching into action. When you check out today, please ask the direct mail clerk to schedule these with you + [...] of 50 pounds + Sign up for Supponor so that we can communicate easily back [...] the surgeon. Fátima De Luna DNP, ACNP, REVENUE AUDIT CLERK Nurse Practitioner for Bariatric Surgery [facility] | [address] | [place], [place] | [address] | Potential Contraindications to Bariatric Surgery Age [...] other providers does not guarantee that the [facility] Bariatric Surger y program will deem you [...]
--- OUTSIDE RECORDS SUMMARY | ~2020-04-22 | XMS | Encounter Summary ---
Demographics + + + | Address | [address] | | | [place] [address] | + + + | Home Phone [...] + + + | Author | [place] [employer] [facility] [employer] | + + + | Organization | [facility] | + [...] Team Providers + +------+ + | Care Senior Quality Engineer Name | Role | Phone | [...] | Pain | Diagnoses | Conser, | St[facility] He[facility] Psych | | | | Management | Morbid | Diamond Sandoval NP | [address] | | | | | obesity | [address] | | | | | (HCC) | [address], | Center for | | | | | Procedures | [address] | Health and | | | | | CONSULT TO | [place], [place] | [facility], | | | | | PAIN CENTER | [address] | Building | | | | | | Phone: | 1,15th Floor | | | | | | [phone] | [place], [place] | | | | | | Fax: | [address] | | | | | | [phone] | Phone: | | | | | | | [phone] | | | | | | | Fax: | | | | | | | [phone] | +--------+--------+ + + + + Reason [...] | | | | | | | [place], [place] | | | | | | | [address] | | | | | | | Phone: | | | | | | | [phone] | | | | | | | Fax: | | | | | | | [phone] | +--------+ + + + + + Encounter Details +--------+---------+ + + + | Date | Type | Department | Care Team | Description | +--------+---------+ + + + | 05/03/ | Office | Digestive Health | Diamond De León, | Morbid obesity (HCC) | | 2013 | Visit | Center at [facility] [address] | [place] [address] | (Primary Dx); | | | | [address] | [address] | Diabetes ([facility]); HTN | | | | for Health and | [place], [place] | (hypertension); TOMMY | | | | [facility] | [address] | (obstructive sleep | | | | [place], [place] | [phone] | apnea); Heavy | | | | [address] | | periods; A-fib | | | | [phone] | | ([facility]); History of | | | | [...] Please have these faxed to us from [facility] primary care office. 3. Pap test: Please fax recent results to us. 4. Mammogram: Please fax latest report to us. 5. Pre-op Psychological Evaluation: If your referral is at [facility], pain management will call you in [...] timeframe for surgery: Merritt De León RN, AUTOMATION TEST ENGINEER- Nurse Practitioner for Bariatric Surgery [facility] | [address] | [place] | [address] | Potential Contraindications to Bariatric Surgery Age [...] providers does not guarantee that the [facility] Bariatric Surger y program will deem [...] Redux or Phen/fen: no Transthoracic ECHO: - Shinto or cultural reason you would refuse blood [...] History Procedure Laterality Date Tonsillectomy 2009 [facility], [place] Gallbladder removal 2005 [place], [place] Incisional hernia repair 2003 [facility] Incisional hernia repair 2011 [facility] Cardioversion 214 [facility] History Social History Marital Status: Unmarried [...] of lower extremity edema, hyperlipidemia. Denies CHF, [place], ischemic heart disease, DVT/PE, or pulmonary hypertension. [...] December, she will meet wi th her information technology security analyst and discuss weaning from blood thinner [...] Please have these faxed to us from [facility] primary care office. 3. Pap test: Please fax recent results to us. 4. Mammogram: Please fax latest report to us. 5. Pre-op Psychological Evaluation: If your referral is at [facility], pain management will call you in [...] timeframe for surgery: Merritt De León RN, [facility]- Nurse Practitioner for Bariatric Surgery [facility] | [address] | [place] | [address] | Potential Contraindications to Bariatric Surgery Age [...] providers does not guarantee that the [facility] Bariatric Surger y program will deem [...]
--- OUTSIDE RECORDS SUMMARY | ~2020-04-22 | XMS | Encounter Summary ---
Demographics + + + | Address | [address] | | | [place] [address] | + + + | Home Phone [...] + + + | Author | [place] [employer] [facility] [employer] [facility] | + + + | Organization | [facility] | + [...] Team Providers + +------+ + | Care Sap Bi Developer Name | Role | Phone | [...] on | Center at [address] | SENIOR ACCOUNTING CLERK [address] | | | | | [address] [place] | , [facility] 350 | | | | | for Health and | [place], [place] | | | | | Healing, Building 2 | [address] | | | | | [place], [place] | [phone] | | | | | [address] | | | | | | [phone] | | | +--------+ + + + [...]
--- OUTSIDE RECORDS SUMMARY | ~2020-04-22 | XMS | Clinical Summary ---
Demographics + + + | Address | [address] | | | [place] [address] | + + + | Home Phone | | + + + | Preferred Language | Unknown | + + + | Marital Status | Unknown | + + + | Amish Affiliation | Unknown | + + + | Race | Unknown | + + + | Ethnic Group | Unknown | + + + Author + + + | Author | [facility] | | | and [place] | + + + | Organization | [facility] | | | and [place] [...] Team Providers + +------+ + | Care Printing Mechanist Name | Role | Phone | + [...] cardioversion- as per pt echo done in [facility] is | | Marquez request and review records from [id number] | | want to follow up with her crop specialist in [place]. | |2D echo | |Pt want to follow up with her crop specialist in [place]. | + + + + + | [...] +--------+ +---------+--------+ | [employer] | HEALTH | [id number] | 01/02/20 | [phone] | | PPO | | | COMP | | 07-Pre | 7 | | | | | PPOR | | sent | | | | + +--------+ +--------+ +---------+--------+ | [employer] | IHS | [id number] | Effect | | | Indemn | [...] | 1975 | [phone] | [place] [address] | | | be | | | 1 (Home) | | + +--------+ +--------+ + + Advance Directives + + + + + | Type | Date Recorded | Patient | Explanation | | | | Defense Travel Administrator | | + + + + + | Power of | | | | | Brokerage Coordinator | | | | + + + + + | Advance | | | | | Directive | | | | + + + + +
--- OUTSIDE RECORDS SUMMARY | ~2020-04-22 | XMS | Encounter Summary ---
Demographics + + + | Address | [address] | | | [place] [address] | + + + | Home Phone [...] + + + | Author | [place] [employer] [facility] [employer] | + + + | Organization | [facility] | [...] Team Providers + +------+ + | Care Photo Cartographer Name | Role | Phone | + [...] on | Center at [address] | MILK COLLECTOR [address] | | | | | [address] [place] | , [facility] 350 | | | | | for Health and | [place], [place] | | | | | Healing, Building 2 | [address] | | | | | [place], [place] | [phone] | | | | | [address] | | | | | | [phone] | | | +--------+ + + + [...]
--- OUTSIDE RECORDS SUMMARY | ~2020-04-22 | XMS | Encounter Summary ---
Demographics + + + | Address | [address] | | | [place] [address] | + + + | Home Phone | | + + + | Preferred Language | Unknown | + + + | Marital Status | Unmarried Domestic Partner | + + + | Anabaptist Affiliation | Unknown | + + + | Race | or | + + + | Ethnic Group | Not or | + + + Author + + + | Author | [place] [employer] [facility] | + + + [...] Team Providers + +------+ + | Care International Account Manager Name | Role | Phone | [...] | | Center at [address] | HEAD TRACK COACH [address] | | | | | [address] [facility] | [facility] 350 | | | | | for Health and | [place], [place] | | | | | [facility], [place] [address] | [address] | | | | | [place], [place] | [phone] | | | | | [address] | | | | | | [phone] | | | +--------+ + + + [...]
--- OUTSIDE RECORDS SUMMARY | ~2020-04-22 | XMS | Encounter Summary ---
Demographics + + + | Address | [address] | | | [place] [address] | + + + | Home Phone | | + + + | Preferred Language | Unknown | + + + | Marital Status | Unmarried Domestic Partner | + + + | Yazidism Affiliation | Unknown | + + + | Race | or | + + + | Ethnic Group | Not or | + + + Author + + + | Author | [place] [employer] [facility] | + + + | Organization | [facility] | + + + | Address | Unknown | + + + | Phone | Unavailable | + + + Support + + +---------+ + | Name | Relationship | Address | Phone | + + +---------+ + | Lazaro Merchant | ECON | Unknown | | + + +---------+ + Care Team Providers + +------+ + | Care Projection Technician Name | Role | Phone | [...] 2014 | | Center at [facility] [address] | | | | | | [facility] | | | | | | for Health and | | | | | | Healing, Building 2 | | | | | | [place], [place] | | | | | | [address] | | | | | | [phone] | | | +--------+ + + + [...]
--- OUTSIDE RECORDS SUMMARY | ~2020-04-22 | XMS | Encounter Summary ---
Demographics + + + | Address | [address] | | | [place] [address] | + + + | Home Phone [...] + + + | Author | [place] [employer] [facility] [employer] | + + + [...] Team Providers + +------+ + | Care Interventional Tech Name | Role | Phone | + +------+ + | Larissa Keen MD | PCP | | + +------+ + Encounter Details +--------+ + + + + | Date | Type | Department | Care Team | Description | +--------+ + + + + | 08/15/ | Abstract | Digestive Health | Clinic, Surgery | | | 2014 | | Center at [facility] [address] | | | | | | [facility] | | | | | | for Health and | | | | | | Healing, Building 2 | | | | | | [place], [place] | | | | | | [address] | | | | | | [phone] | | | +--------+ + + + [...]
--- OUTSIDE RECORDS SUMMARY | ~2020-04-22 | XMS | Encounter Summary ---
Demographics + + + | Address | [address] | | | [place] [address] | + + + | Home Phone [...] + + + | Author | [place] [employer] [facility] [employer] | + + + | Organization | [facility] [place] [facility] | + + + | Address | Unknown | + + + | Phone | Unavailable | + + + Support + + +---------+ + | Name | Relationship | Address | Phone | + + +---------+ + | Lazaro Merchant | ECON | Unknown | | + + +---------+ + Care Team Providers + +------+ + | Care Steward/[employer] Name | Role | Phone | + +------+ + | Mar DoddP | PCP | | + +------+ + Encounter Details +--------+ + + + + | Date | Type | Department | Care Team | Description | +--------+ + + + + | 03/11/ | Abstract | Digestive Health | Fátima Hernandez, | | | 2013 | | Center at [facility] [address] | ACNP [address] | | | | | [address] [place] | e [place], [place] | | | | | for Health and | [address] | | | | | Healing, Building 2 | | | | | | [place], [place] | | | | | | [address] | | | | | | | [...]
--- OUTSIDE RECORDS SUMMARY | ~2020-04-22 | XMS | Encounter Summary ---
Demographics + + + | Address | [address] | | | [place] [address] | + + + | Home Phone [...] + + + | Author | [place] [email or web address] [facility] [employer] | + + + | Organization | [facility] | + [...] Team Providers + +------+ + | Care Cargo Broker Name | Role | Phone | [...] | Pain | Diagnoses | Conser, | Aquarium Specialist Psych | | | | Management | Morbid | Diamond Sandoval NP | [address] | | | | | obesity | [address] | | | | | (HCC) | [address], | Center for | | | | | Procedures | [address] | Health and | | | | | CONSULT TO | [place], [place] | Healing, | | | | | PAIN CENTER | [address] | Building | | | | | | Phone: | 1,15th Floor | | | | | | [phone] | [place], [place] | | | | | | Fax: | [address] | | | | | | [phone] | Phone: | | | | | | | [phone] | | | | | | | Fax: | | | | | | | [phone] | +--------+--------+ + + + + Encounter Details +--------+ + + + + | Date | Type | Department | Care Team | Description | +--------+ + + + + | // | Raise Miner | Digestive Health | Diamond De León, | Morbid obesity (HCC) | | 2015 | | Center at [facility] [address] | PHP MAGENTO DEVELOPER [address] | (Primary Dx) | | | | [address] | [address] | | | | | for Health and | [place], [place] | | | | | Healing, Building 2 | [address] | | | | | [place], [place] | [phone] | | | | | [address] | | | | | | [phone] | | | +--------+ + + + [...]
--- OUTSIDE RECORDS SUMMARY | ~2020-04-22 | XMS | Encounter Summary ---
Demographics + + + | Address | [address] | | | [place] [address] | + + + | Home Phone [...] + + + | Author | [facility] [employer] [facility] | + + + [...] Team Providers + +------+ + | Care Branch Operations Manager Name | Role | Phone | [...] | Visit | Center at [facility] [address] | | BMI of 70 and over, | | | | [facility] | | adult (HCC) (Primary | | | | for Health and | | Dx) | | | | [facility] [address] | | | | | | [place], [place] | | | | | | [address] | | | | | | [phone] | | | +--------+---------+ + + + [...] of Class: 3:00 until 4:00 (60 minutes [id number] with patient) OBJECTIVE: Height: Ht Readings from [...] or sharing information. Yes Blanca Thurston RD SCOUT LD Outpatient Adult Dietitian documented in this enc ounter Plan of Treatment Not on filedocumented as of this encounter Visit Diagnoses + + | Diagnosis | + + | Morbid obesity with BMI of 70 and over, adult (HCC) - Primary | + + documented in this encounter
--- OUTSIDE RECORDS SUMMARY | ~2020-04-22 | XMS | Encounter Summary ---
Demographics + + + | Address | [address] | | | [place] [address] | + + + | Home Phone | | + + + | Preferred Language | Unknown | + + + | Marital Status | Unmarried Domestic Partner | + + + | Caodaism Affiliation | Unknown | + + + | Race | or | + + + | Ethnic Group | Not or | + + + Author + + + | Author | [facility] [employer] [facility] [employer] [facility] | + + + | Organization | [facility] | + [...] Team Providers + +------+ + | Care Section Leader Name | Role | Phone | + [...] at [facility] [address] | [place] [address] | | | | | [address] [facility] | [facility] [address] | | | | | for Health and | [place], [place] | | | | | [facility] [place] [address] | [address] | | | | | [place], [place] | [phone] | | | | | [address] | | | | | | [phone] | | | +--------+ + + + [...]
--- OUTSIDE RECORDS SUMMARY | ~2020-04-22 | XMS | Encounter Summary ---
Demographics + + + | Address | [address] | | | [place] [address] | + + + | Home Phone | | + + + | Preferred Language | Unknown | + + + | Marital Status | Unknown | + + + | Lutheran Affiliation | Unknown | + + + | Race | Unknown | + + + | Ethnic Group | Unknown | + + + Author + + + | Author | [facility] | | | and [place] | + + + | Organization | [facility] | | | and [place] [...] Team Providers + +------+ + | Care Gum Rolling Machine Tender Name | Role | Phone | [...] 2017 | | CONVERSION 888 | MD Noelle SPANGLER | | | | | DICK MYLES | [place], [place] | | | | | [place], [place] | [address] | | | | | [address] | | | | | | [phone] | | | +--------+ + + + [...] TR Vmax: | | | 2.94 m/s Assistant Housekeeping Manager: YOUNG Authenticated by: Delvin Phan | | | Report Date/Time: 02-18-2017 23:27:20 | | + + + + + | Procedure Note | + + | Yuan, Rad Conversion - 05/24/2019 7:24 PM PDT Patient Name: Arline Esparza of | | : 1975 Performing Physician: Delvin | | [place] INDICATIONS------ | | -----Atrial fibrillation CONCLUSIONS 1. [...] cmLVIDd: 5.43 cmLVPWd: 1.16 cmLVOT Area: 4.11 [id number] Diam: 2.28 | | cm%FS: 29.00 %EF(Teich): [...] (A-L): 28.15 ml/m2LAAs A2C: 21.42 | | [id number] A-L A2C: 71.78 mlLALs A2C: 5.42 cmLAAs A4C: 24.36 kw9MABBB A-L A4C: | | 90.05 mlLALs A4C: 5.59 cmRAAs: 12.06 [id number] A-L: 25.19 mlRAESV MOD: 25.31 | | mlRALs: 4.90 cmIVSd: 1.07 cmEDV(Teich): 135.54 mlLVIDd: 5.30 cm%FS: 30.71 | | %EF(Teich): 57.82 %ESV(Teich): 57.16 mlLVIDs: 3.67 cmLVPWd: 1.31 cmTAPSE: 2.99 | | cmAV maxP.84 mmHgAV meanP.35 mmHgAV Vmax: 1.64 m/Carlos Vmean: 1.19 m/Carlos | | VTI: 35.48 cmAVA Vmax: 3.54 cm2AVA (VTI): 3.66 qw9KLTW Vmax: 0.00 cm2/m2AVAI | | (VTI): 0.00 cm2/m2LVOT maxP.08 mmHgLVOT meanP.62 mmHgLVSI Dopp: 44.79 | | ml/m2LVSV Dopp: 129.89 mlLVOT Vmax: 1.42 m/sLVOT Vmean: 0.99 m/sLVOT VTI: 31.59 | | cmMV A Pepe: 0.95 m/sMV DecT: 227.26 msMV E Pepe: 1.16 m/sMV E/A Ratio: 1.22MV | | PHT: 65.90 msMVA By PHT: 3.33 el8Ehefsb e': 0.06 m/sSeptal E/e': 16.79Lateral | | e': 0.08 m/sLateral E/e': 14.05RAP: 10 mmHgRVSP: 44.61 mmHgTR maxP.61 | | mmHgTR Vmax: 2.94 m/s Assistant Housekeeping Manager: Melyticated by: Delvin Hernandez | | Date/Time: [...] |TR Vmax: 2.94 m/s | | | |Assistant Housekeeping Manager: | |Authenticated by: Delvin Phan | |Report [...]
--- OUTSIDE RECORDS SUMMARY | ~2020-04-22 | XMS | Encounter Summary ---
Demographics + + + | Address | [address] | | | [place] [address] | + + + | Home Phone [...] + + + | Author | [facility] [employer] [facility] | + + + | Organization | [facility] | + [...] Team Providers + +------+ + | Care Potato Chip Sacking Machine Operator Name | Role | Phone [...] | 2014 | | Center at [facility] [address] | AC[address] | | | | | [address] | [address] [facility] [place] | | | | | for Health and | [address] | | | | | Healing, Building 2 | | | | | | [place], [place] | | | | | | [address] | | | | | | | [...]
--- OUTSIDE RECORDS SUMMARY | ~2020-04-22 | XMS | Encounter Summary ---
Demographics + + + | Address | [address] | | | [place] [address] | + + + | Home Phone [...] + + + | Author | [employer] [facility] | + + + [...] Team Providers + +------+ + | Care Flag Signalman Name | Role | Phone | + +------+ + | Larissa Keen MD | PCP | | + +------+ + Encounter Details +--------+ + + + + | Date | Type | Department | Care Team | Description | +--------+ + + + + | 01/08/ | Abstract | Digestive Health | Diamond De León, | | | 2014 | | Center at [facility] [address] | [place] [address] | | | | | [address] [facility] | [facility] [address] | | | | | for Health and | [place], [place] | | | | | [facility], [place] [address] | [address] | | | | | [place], [place] | [phone] | | | | | [address] | | | | | | [phone] | | | +--------+ + + + [...]
--- OUTSIDE RECORDS SUMMARY | ~2020-04-22 | XMS | Encounter Summary ---
Demographics + + + | Address | [address] | | | [place] [address] | + + + | Home Phone | | + + + | Preferred Language | Unknown | + + + | Marital Status | Unmarried Domestic Partner | + + + | Jew Affiliation | Unknown | + + + | Race | or | + + + | Ethnic Group | Not or | + + + Author + + + | Author | [facility] [employer] [facility] | + + + | Organization | [facility] | + + + | Address | Unknown | + + + | Phone | Unavailable | + + + Support + + +---------+ + | Name | Relationship | Address | Phone | + + +---------+ + | Lazaro Merchant | ECON | Unknown | | + + +---------+ + Care Team Providers + +------+ + | Care Head Buyer Tobacco Name | Role | Phone | + [...] [address] Center | | | | | ([facility]) | [address] | for Health | | | | | Procedures | [place], [place] | and Healing, | | | | | PHYSICAL | [address] | Building 1, | | | | | THERAPY | Phone: | 1st Floor | | | | | REFERRAL | | [place], [place] | | | | | | Fax: | [address] | | | | | | [phone] | Phone: | | | | | | | [phone] | | | | | | | Fax: | | | | | | | [phone] | +--------+--------+ + + + + Encounter Details +--------+ + + + + | Date | Type | Department | Care Team | Description | +--------+ + + + + | 06/02/ | Corporate Development Intern | Digestive Health | Fátima Hernandez, | Morbid obesity (HCC) | | 2014 | | Center at [facility] [address] | ACNP [address] | (Primary Dx) | | | | [address] | Ave [place], [place] | | | | | for Health and | [address] | | | | | [facility], Building 2 | | | | | | [place], [place] | | | | | | [address] | | | | | | [phone] | | | +--------+ + + + [...]
--- OUTSIDE RECORDS SUMMARY | ~2020-04-22 | XMS | Encounter Summary ---
Demographics + + + | Address | [address] | | | [place] [address] | + + + | Home Phone | | + + + | Preferred Language | Unknown | + + + | Marital Status | Unmarried Domestic Partner | + + + | Islam Affiliation | Unknown | + + + | Race | or | + + + | Ethnic Group | Not or | + + + Author + + + | Author | [employer] [facility] | + + + [...] Team Providers + +------+ + | Care Bus Girl Name | Role | Phone | + [...] on | Center at [facility] [address] | [employer] [address] | | | | | [address] [employer] | , [facility] [address] | | | | | for Health and | [place], [place] | | | | | Healing, Building 2 | [address] | | | | | [place], [place] | [phone] | | | | | [address] | | | | | | [phone] | | | +--------+ + + + [...]
--- OUTSIDE RECORDS SUMMARY | ~2020-04-22 | XMS | Encounter Summary ---
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 These classes will be scheduled apporoximately 1 month apart to allow time for you to put the teaching into action. When you check out today, please ask the reserves clerk to schedule these with you + [...] the time. If your referral is at [facility], they will call you in the next week to schedule . + Required weight loss: 10% wt loss goal of 50 pounds + Sign up for Emitlesst so that we can communicate easily back [...] the surgeon. Fátima De Luna DNP, ACNP, VIDEO OPERATOR Nurse Practitioner for Bariatric Surgery [facility] | [address] | [place], [place] | [address] | Potential Contraindications to Bariatric Surgery Age [...] other providers does not guarantee that the [facility] Bariatric Surger y program will deem you a surgical candidate. documented in this encounter Progress Notes Fátima De Luna ACNP - 06/02/2015 9:30 AM PDTFormatting of this note might be different fro m the original. BARIATRIC INITIAL VISIT Provider: Fátima De Luna DNP, ACNP, VIDEO OPERATOR Referring Provider: [facility] Reason for Requested Consultation: Initial evaluation [...] program. 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 History of Present Illness: She is [...] or Phen/fen: no Transthoracic ECHO: not indicated Episcopal or cultural reason you would refuse [...] unit oral tablet, Take by mouth four naa es daily., Disp: , Rfl: Cholecalciferol, Vitamin [...] Date Tonsillectomy 2008 [facility], [place] Gallbladder removal 2006 [place], [place] Incisional hernia repair 2003 [facility] Incisional hernia repair 2011 [facility] Cardioversion 214 [facility] History Social History Marital Status: Unmarried Domestic [...] extremity edema, hypertension, hyperlipidemia. Zoran es CHF, SD, ischemic heart disease, DVT/PE, or pulmonary hypertension. [...] which is 50 pounds. PLan: appointment with services host and PT. 2. CV: history of A fib, today on exam in NS[facility]. Off xarelto per her c software developer. Blood pres sure is not well controlled today. Plan: Ask pcp to follow BP for trends. Target less than 140/80 3. CM: last A1C is 7.6 Plan: she will continue towork on her DM 4. Psychiatric evaluation: she had a prior evaluation and followed up locally with a [facility] for ongoing counseling x 6 [...] to your private appointme nt with the services host. These classes will be scheduled apporoximately 1 month apart to allow time for you to put the teaching into action. When you check out today, please ask the reserves clerk to schedule these with you + [...] of 50 pounds + Sign up for Triptease so that we can communicate easily back [...] the surgeon. Fátima De Luna DNP, ACNP, VIDEO OPERATOR Nurse Practitioner for Bariatric Surgery [facility] | [address] | [place], [place] | [address] | Potential Contraindications to Bariatric Surgery Age [...] other providers does not guarantee that the [facility] Bariatric Surger y program will deem you [...]
--- OUTSIDE RECORDS SUMMARY | ~2020-04-22 | XMS | Encounter Summary ---
Demographics + + + | Address | [address] | | | [place] [address] | + + + | Home Phone | | + + + | Preferred Language | Unknown | + + + | Marital Status | Unmarried Domestic Partner | + + + | Zoroastrian Affiliation | Unknown | + + + | Race | or | + + + | Ethnic Group | Not or | + + + Author + + + | Author | [employer] [facility] | + + + | Organization | [facility] | + [...] Team Providers + +------+ + | Care Barrel Rib Matting Machine Operator Name | Role | Phone [...] | | 2014 | | Center at [facility] [address] | | | | | | [facility] | | | | | | for Health and | | | | | | Healing, [address] | | | | | | [place], [place] | | | | | | [address] | | | | | | [phone] | | | +--------+ + + + [...]
--- OUTSIDE RECORDS SUMMARY | ~2020-04-22 | XMS | Encounter Summary ---
Demographics + + + | Address | [address] | | | [place] [address] | + + + | Home Phone [...] + + + | Author | [place] [employer] [facility] | + + + | Organization | [facility] | + + + | Address | Unknown | + + + | Phone | Unavailable | + + + Support + + +---------+ + | Name | Relationship | Address | Phone | + + +---------+ + | Lazaro Merchatn | ECON | Unknown | | + + +---------+ + Care Team Providers + +------+ + | Care Breakfast Server Name | Role | Phone | + [...] | 2014 | | Center at [facility] [address] | [address] | | | | | [address] [facility] | [facility] [address] | | | | | for Health and | [place], [place] | | | | | [facility] [place] [address] | [address] | | | | | [place], [place] | [phone] | | | | | [address] | | | | | | [phone] | | | +--------+ + + + [...]
--- OUTSIDE RECORDS SUMMARY | ~2020-04-22 | XMS | Encounter Summary ---
Demographics + + + | Address | [address] | | | [place] [address] | + + + | Home Phone | | + + + | Preferred Language | Unknown | + + + | Marital Status | Unknown | + + + | Gnosticism Affiliation | Unknown | + + + | Race | Unknown | + + + | Ethnic Group | Unknown | + + + Author + + + | Author | [facility] | | | and [place] | + + + | Organization | [facility] | | | and [place] | [...] Providers + +------+ + | Care Business Management Manager Name | Role | Phone | [...] | | DICK MYLES | [place], [place] | | | | | [place], [place] | [address] | | | | | [address] | | | | | | [phone] | | | +--------+ + + + [...] TR Vmax: | | | 2.94 m/s Network Desktop Support Specialist: YOUNG Authenticated by: Delvin Phan | | | Report Date/Time: 02-18-2017 23:27:20 | | + + + + + | Procedure Note | + + | Yuan, Rad Conversion - 05/24/2019 7:24 PM PDT Patient Name: Arline Esparza of | | : 1975 Performing Physician: Delvin | | Carolinaprompton INDICATIONS------ | | -----Atrial fibrillation CONCLUSIONS 1. [...] cmLVIDd: 5.43 cmLVPWd: 1.16 cmLVOT Area: 4.11 [id number] Diam: 2.28 | | cm%FS: 29.00 %EF(Teich): [...] (A-L): 28.15 ml/m2LAAs A2C: 21.42 | | ao6TJEON A-L A2C: 71.78 mlLALs A2C: 5.42 cmLAAs A4C: 24.36 af6MUSER A-L A4C: | | 90.05 mlLALs A4C: 5.59 cmRAAs: 12.06 qb4YWUGP A-L: 25.19 mlRAESV MOD: 25.31 | | mlRALs: 4.90 cmIVSd: 1.07 cmEDV(Teich): 135.54 mlLVIDd: 5.30 cm%FS: 30.71 | | %EF(Teich): 57.82 %ESV(Teich): 57.16 mlLVIDs: 3.67 cmLVPWd: 1.31 cmTAPSE: 2.99 | | cmAV maxP.84 mmHgAV meanP.35 mmHgAV Vmax: 1.64 m/Carlos Vmean: 1.19 m/Carlos | | VTI: 35.48 cmAVA Vmax: 3.54 cm2AVA (VTI): 3.66 ng5PKCU Vmax: 0.00 cm2/m2AVAI | | (VTI): 0.00 cm2/m2LVOT maxP.08 mmHgLVOT meanP.62 mmHgLVSI Dopp: 44.79 | | ml/m2LVSV Dopp: 129.89 mlLVOT Vmax: 1.42 m/sLVOT Vmean: 0.99 m/sLVOT VTI: 31.59 | | cmMV A Pepe: 0.95 m/sMV DecT: 227.26 msMV E Pepe: 1.16 m/sMV E/A Ratio: 1.22MV | | PHT: 65.90 msMVA By PHT: 3.33 ag2Anhysr e': 0.06 m/sSeptal E/e': 16.79Lateral | | e': 0.08 m/sLateral E/e': 14.05RAP: 10 mmHgRVSP: 44.61 mmHgTR maxP.61 | | mmHgTR Vmax: 2.94 m/s Network Desktop Support Specialist: Melyticated by: Delvin Hernandez | | Date/Time: [...] |TR Vmax: 2.94 m/s | | | |Network Desktop Support Specialist: | |Authenticated by: Delvin Phan | |Report [...]
--- OUTSIDE RECORDS SUMMARY | ~2020-04-22 | XMS | Encounter Summary ---
Demographics + + + | Address | [address] | | | [place] [address] | + + + | Home Phone | | + + + | Preferred Language | Unknown | + + + | Marital Status | Unmarried Domestic Partner | + + + | Temple Affiliation | Unknown | + + + | Race | or | + + + | Ethnic Group | Not or | + + + Author + + + | Author | [place] [employer] [facility] [facility] | + + + | Organization | [facility] | + [...] Team Providers + +------+ + | Care Ore Dryer Name | Role | Phone | + +------+ + | Larissa Keen MD | PCP | | + +------+ + Encounter Details +--------+ + + + + | Date | Type | Department | Care Team | Description | +--------+ + + + + | 10/09/ | Abstract | Digestive Health | Diamond De León, | | | 2014 | | Center at [facility] [address] | BONING ROOM WORKER [address] | | | | | [address] [facility] | [facility] 350 | | | | | for Health and | [place], [place] | | | | | [facility], [place] [address] | [address] | | | | | [place], [place] | [phone] | | | | | [address] | | | | | | [phone] | | | +--------+ + + + [...]
--- OUTSIDE RECORDS SUMMARY | ~2020-04-22 | XMS | Encounter Summary ---
Demographics + + + | Address | [address] | | | [place] [address] | + + + | Home Phone | | + + + | Preferred Language | Unknown | + + + | Marital Status | Unmarried Domestic Partner | + + + | Anabaptism Affiliation | Unknown | + + + | Race | or | + + + | Ethnic Group | Not or | + + + Author + + + | Author | [place] [email or web address] [facility] | + + + [...] Providers + +------+ + | Care Interventional Technologist Name | Role | Phone | + [...] | 2013 | on | Center at [facility] [address] | AUTOMATIC CLIPPER AND STRIPPER [address] | Surgery (counseling | | | | [address] | , [address] | list) | | | | for Health and | [place], [place] | | | | | [facility] 2 | [address] | | | | | [place], [place] | [phone] | | | | | [address] | | | | | | [phone] | | | +--------+ + + + [...]
--- OUTSIDE RECORDS SUMMARY | ~2020-04-22 | XMS | Encounter Summary ---
Demographics + + + | Address | [address] | | | [place] [address] | + + + | Home Phone [...] + + + | Author | [place] [facility] | + + + | Organization | [facility] | + + + | Address | Unknown | + + + | Phone | Unavailable | + + + Support + + +---------+ + | Name | Relationship | Address | Phone | + + +---------+ + | Lazaro Merchant | ECON | Unknown | | + + +---------+ + Care Team Providers + +------+ + | Care Cocoa Powder Mixer Operator Name | Role | Phone | + +------+ + | Larissa Keen MD | PCP | | + +------+ + Reason for Visit + + + | Reason | Comments | + + + | Medical Records | [facility] - OUTSIDE RECORDS: Progress Note 09/12/2014 | | Review | | + + + Encounter Details +--------+ + + + + | Date | Type | Department | Care Team | Description | +--------+ + + + + | 09/13/ | Abstract | Digestive Health | Diamond De León, | Medical Records | | 2013 | | Center at [facility] [address] | RETAIL BEAUTY SPECIALIST [address] | Review ([facility] - | | | | [address] [facility] | [facility] 350 | OUTSIDE RECORDS: | | | | for Health and | [place], [place] | Progress Note | | | | [facility] 2 | [address] | 09/12/2014 ) | | | | [place], [place] | [phone] | | | | | [address] | | | | | | [phone] | | | +--------+ + + + [...]
--- OUTSIDE RECORDS SUMMARY | ~2020-04-22 | XMS | Encounter Summary ---
Demographics + + + | Address | [address] | | | [place] [address] | + + + | Home Phone [...] Author + + + | Author | [place] [facility] | + + + | Organization | [facility] | + + + | Address | Unknown | + + + | Phone | Unavailable | + + + Support + + +---------+ + | Name | Relationship | Address | Phone | + + +---------+ + | Lazaro Merchant | ECON | Unknown | | + + +---------+ + Care Team Providers + +------+ + | Care Net Technical Architect Name | Role | Phone | [...] | | | | | | | [facility] | | | | | | | Health and | | | | | | | Healing, | | | | | | | Building [address] | | | | | | | [place], [place] | | | | | | | [address] | | | | | | | Phone: | | | | | | | [phone] | | | | | | | Fax: | | | | | | | [phone] | +--------+--------+ + + + + Encounter Details +--------+---------+ + + + | Date | Type | Department | Care Team | Description | +--------+---------+ + + + | 01/24/ | Office | Digestive Health | Tejal Iraheta [address] | Morbid obesity with | | 2014 | Visit | Center at [facility] [address] | [address] | BMI of 70 and over, | | | | [address] | [address] [facility], | adult ([facility]) (Primary | | | | for Health and | [place] [address] | Dx); Type 2 | | | | [facility], [place] [address] | [phone] | diabetes mellitus | | | | [place], [place] | | treated with insulin | | | | [address] | | ([facility]) | | | | [phone] | | | +--------+---------+ + + + [...] of Visit: 10:20 to 11:20 (60 minutes hsen-zh-lmnz with patient). Bariatric RN also participated in [...] Breakfast: [place] yogurt + 20oz creamer + Danish cream 3T or Bagel + cream cheese [...] - lettuce, carrots, celery, swathi toes + Citizen [place] dressing) + Rice a Roger, occ fried [...] plans to f/u with her clinic in [facility] - Begin seated exercise program [...] benefit from closer f/u. If coming to [place] i s unrealistic I am available to consult with RD (if available) in her clinic in [place]. GOAL: The patient's goal is to have weight loss surgery to maintain weight loss and improve other health conditions. 1. Continue to practice behavioral changes to prepare for surgery. 2. Increase physical activity. 3. Review all information provided for post-surgery diet progression. 4. Call or send Fleksyt message to dietitian with any questions. Contact information was provided. Follow up with dietitian - YENY pt to be discussed at high risk meeting. Tejal Iraheta RD, [facility], Pager# [phone] documented in this enco unter Plan of Treatment Not on filedocumented as of this encounter Procedures + +--------+ + + + | Procedure Name | Priori | Date/Time | Associated Diagnosis | Comments | | | ty | | | | + +--------+ + + + | AK MNT RE-ASSESSMNT | Routin | 01/24/2015 | Morbid obesity | | | X15MIN | e | 12:19 PM | with BMI of 70 and | | | | | PDT | over, adult ([facility]) | | | | | | Type 2 diabetes | | | | | | mellitus treated | | | | | | with insulin ([facility]) | | + +--------+ + + + documented in this encounter Visit Diagnoses + + | Diagnosis | + + | Morbid obesity with BMI of 70 and over, adult (HCC) - Primary | + + | Type 2 diabetes mellitus treated with insulin (HCC) | + + documented in this encounter
--- OUTSIDE RECORDS SUMMARY | ~2020-04-22 | XMS | Encounter Summary ---
Demographics + + + | Address | [address] | | | [place] [address] | + + + | Home Phone [...] + + + | Author | [place] [employer] [facility] | + + + [...] Team Providers + +------+ + | Care Staffing Consultant Name | Role | Phone | [...] | | | | | | | [place], [place] | | | | | | | [address] | | | | | | | Phone: | | | | | | | [phone] | | | | | | | Fax: | | | | | | | [phone] | +--------+--------+ + + + + Encounter Details +--------+---------+ + + + | Date | Type | Department | Care Team | Description | +--------+---------+ + + + | 05/03/ | Office | Digestive Health | Tejal Iraheta RD | Morbid obesity with | | 2013 | Visit | Center at [facility] [address] | [address] | BMI of 70 and over, | | | | [address] | [address] [place], | adult ([facility]) (Primary | | | | for Health and | [place] [address] | Dx) | | | | [facility] 2 | [phone] | | | | | [place], [place] | | | | | | [address] | | | | | | [phone] | | | +--------+---------+ + + + [...] 10:21 AM PDT Referring Provider: Mar Dodd [facility] Outpatient Nutrition Clinic, Pre-Bariatric Surgery Evaluation Initial diet consultation prior to having Leah En Y gastric bypass surgery. Documented Time of Visit: 10:19 until 11:21 (62 minutes vlsd-su-bonu with patient) SUBJECTIVE: Arrives with her boyfried. 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 Weight belt changer the past year: fluctuating 50lbs Best diet [...] cucumber, avocado, shredded cheese, celery + [place], egyptian, ranch 3 T) Rice a Roger, Mac and cheese (1 cup). Drinks ice water and diet soda. Eats out - only when going out of town. Likes pizza, Anne's, McDonalds, French, Mosotho ( <1x/wk) Provided written diet suggestions to [...] provided. Tejal Iraheta RD, CNSC, LD Pager# [phone] documented in this enco unter Plan of [...] over, adult ([facility]) | | + +--------+ + + + documented in this encounter Visit Diagnoses + + | Diagnosis | + + | Morbid obesity with BMI of 70 and over, adult (HCC) - Primary | + + documented in this encounter
--- OUTSIDE RECORDS SUMMARY | ~2020-04-22 | XMS | Encounter Summary ---
Demographics + + + | Address | [address] | | | [place] [address] | + + + | Home Phone [...] + + | Author | [facility] | + + + | Organization | [facility] | + [...] Team Providers + +------+ + | Care Fisher Reef Net Name | Role | Phone | + [...] | Pain | Diagnoses | Conser, | Drafting Clerk Psych | | | | Management | Morbid | Diamond Sandoval NP | [address] | | | | | obesity | [address] | | | | | (HCC) | [address], | Center for | | | | | Procedures | [address] | Health and | | | | | CONSULT TO | [place], [place] | Healing, | | | | | PAIN CENTER | [address] | Building | | | | | | Phone: | 1,15th Floor | | | | | | [phone] | [place], [place] | | | | | | Fax: | [address] | | | | | | [phone] | Phone: | | | | | | | [phone] | | | | | | | Fax: | | | | | | | [phone] | +--------+--------+ + + + + Encounter Details +--------+ + + + + | Date | Type | Department | Care Team | Description | +--------+ + + + + | // | Editorial Writer | Digestive Health | Diamond De León, | Morbid obesity (HCC) | | 2015 | | Center at [facility] [address] | [place] [address] | (Primary Dx) | | | | [address] | [address], [address] | | | | | for Health and | [place], [place] | | | | | Healing, Building 2 | [address] | | | | | [place], [place] | [phone] | | | | | [address] | | | | | | [phone] | | | +--------+ + + + [...]
--- OUTSIDE RECORDS SUMMARY | ~2020-04-22 | XMS | Encounter Summary ---
Demographics + + + | Address | [address] | | | [place] [address] | + + + | Home Phone | | + + + | Preferred Language | Unknown | + + + | Marital Status | Unmarried Domestic Partner | + + + | Anglican Affiliation | Unknown | + + + | Race | or | + + + | Ethnic Group | Not or | + + + Author + + + | Author | [place] [employer] [facility] | + + + [...] Team Providers + +------+ + | Care Streaming Media Specialist Name | Role | Phone | [...] | Pain | Diagnoses | Conser, | Yard Jockey Psych | | | | Management | Morbid | Diamond M, PHOTOGRAMMETRIC ENGINEER | [address] | | | | | obesity | [address] | | | | | (HCC) | [address], | Center for | | | | | Procedures | [address] | Health and | | | | | CONSULT TO | [place], [place] | Healing, | | | | | PAIN CENTER | [address] | Building | | | | | | Phone: | 1,15th Floor | | | | | | [phone] | [place], [place] | | | | | | Fax: | [address] | | | | | | [phone] | Phone: | | | | | | | [phone] | | | | | | | Fax: | | | | | | | [phone] | +--------+--------+ + + + + Encounter Details +--------+---------+ + + + | Date | Type | Department | Care Team | Description | +--------+---------+ + + + | 01/24/ | Office | Pain Center at [facility] | Berto Samuels, | Adjustment disorder | | 2015 | Visit | 15th Floor [address] | PhD [address] | with mixed anxiety | | | | [address] Mailcode: | [place], [place] | and depressed mood | | | | [facility] Center for | [address] | (Primary Dx); Morbid | | | | Health and Healing, | [phone] | obesity with BMI of | | | | Building | | 70 and over, adult | | | | Floor [place], [place] | | ([facility] Type 2 | | | | [address] | | diabetes mellitus | | | | [phone] | | treated with insulin | | | | | | ([facility]) | +--------+---------+ + + + Social History [...] Name: Marielle Esparza : 1975 Medical Record: [id number] Age:39 y.o. Weight: 465 lbs BMI: 73 Proposed Surgery: Leah en y gastric bypass. Public Meeting: Attended Identifying Information: Marielle Esparza is a 39 y.o. female who lives with her boyfriend in [place], [place]. She was referred for psychological evaluation [...] is socially active with fri ends and [place] and community activities. 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 Current Life Stressors: Her health [...] to improve her consistency with following the heel cover splitter's recommendations. 4. She is urged to establish [...] interpretation. BERTO SAMUELS, PhD PAIN CENTER AT [facility] 4TH FLOOR [address] Mail Code: [place] [address] documented in this en counter Plan of Treatment Not on filedocumented as of this encounter Visit Diagnoses + + | Diagnosis | + + | Adjustment disorder with mixed anxiety and depressed mood - Primary | + + | Morbid obesity with BMI of 70 and over, adult ([facility]) | + + | Type 2 diabetes mellitus treated with insulin (HCC) | + + documented in this encounter
--- OUTSIDE RECORDS SUMMARY | ~2020-04-22 | XMS | Encounter Summary ---
Demographics + + + | Address | [address] | | | [place] [address] | + + + | Home Phone [...] + + | Author | [place] [employer] [facility] | + + + [...] Team Providers + +------+ + | Care Saddle Maker Name | Role | Phone | [...] at [facility] [address] | AIRPORT DUTY MANAGER [address] | | | | | [address] [facility] | [facility] 350 | | | | | for Health and | [place], [place] | | | | | [facility], [place] [address] | [address] | | | | | [place], [place] | [phone] | | | | | [address] | | | | | | [phone] | | | +--------+ + + + [...]
--- OUTSIDE RECORDS SUMMARY | ~2020-04-22 | XMS | Encounter Summary ---
Demographics + + + | Address | [address] | | | [place] [address] | + + + | Home Phone [...] + + + | Author | [place] [employer] [facility] | + + + [...] Team Providers + +------+ + | Care Hand Loom Weaver Name | Role | Phone | + +------+ + | Larissa Keen MD | PCP | | + +------+ + Encounter Details +--------+ + + + + | Date | Type | Department | Care Team | Description | +--------+ + + + + | 12/09/ | Abstract | Digestive Health | Diamond De León, | | | 2014 | | Center at [facility] [address] | LAMINA SEARCHER [address] | | | | | [address] [facility] | [facility] 350 | | | | | for Health and | [place], [place] | | | | | [facility], [place] [address] | [address] | | | | | [place], [place] | [phone] | | | | | [address] | | | | | | [phone] | | | +--------+ + + + [...]
--- OUTSIDE RECORDS SUMMARY | ~2020-04-22 | XMS | Encounter Summary ---
Demographics + + + | Address | [address] | | | [place] [address] | + + + | Home Phone | | + + + | Preferred Language | Unknown | + + + | Marital Status | Unknown | + + + | Taoism Affiliation | Unknown | + + + | Race | Unknown | + + + | Ethnic Group | Unknown | + + + Author + + + | Author | [facility] | | | and [place] | + + + | Organization | [facility] | [...] Team Providers + +------+ + | Care Associate Project Manager Name | Role | Phone | [...] | | DICK MYLES | [place], [place] | | | | | [place], [place] | [address] | | | | | [address] | | | | | | [phone] | | | +--------+ + + + [...] TR Vmax: | | | 2.94 m/s Bus Cleaner: YOUNG Authenticated by: Delvin Phan | | | Report Date/Time: 02-18-2017 23:27:20 | | + + + + + | Procedure Note | + + | Yuan, Rad Conversion - 05/24/2019 7:24 PM PDT Patient Name: Arline Esparza of | | : 1975 Performing Physician: Delvin | | [place] INDICATIONS------ | | -----Atrial fibrillation CONCLUSIONS 1. [...] cmLVIDd: 5.43 cmLVPWd: 1.16 cmLVOT Area: 4.11 wy9RIIR Diam: 2.28 | | cm%FS: 29.00 %EF(Teich): [...] (A-L): 28.15 ml/m2LAAs A2C: 21.42 | | mn0YAEPY A-L A2C: 71.78 mlLALs A2C: 5.42 cmLAAs A4C: 24.36 xj5KEZGH A-L A4C: | | 90.05 mlLALs A4C: 5.59 cmRAAs: 12.06 ay4YRURP A-L: 25.19 mlRAESV MOD: 25.31 | | mlRALs: 4.90 cmIVSd: 1.07 cmEDV(Teich): 135.54 mlLVIDd: 5.30 cm%FS: 30.71 | | %EF(Teich): 57.82 %ESV(Teich): 57.16 mlLVIDs: 3.67 cmLVPWd: 1.31 cmTAPSE: 2.99 | | cmAV maxP.84 mmHgAV meanP.35 mmHgAV Vmax: 1.64 m/Carlos Vmean: 1.19 m/Carlos | | VTI: 35.48 cmAVA Vmax: 3.54 cm2AVA (VTI): 3.66 ps5WWMX Vmax: 0.00 cm2/m2AVAI | | (VTI): 0.00 cm2/m2LVOT maxP.08 mmHgLVOT meanP.62 mmHgLVSI Dopp: 44.79 | | ml/m2LVSV Dopp: 129.89 mlLVOT Vmax: 1.42 m/sLVOT Vmean: 0.99 m/sLVOT VTI: 31.59 | | cmMV A Pepe: 0.95 m/sMV DecT: 227.26 msMV E Pepe: 1.16 m/sMV E/A Ratio: 1.22MV | | PHT: 65.90 msMVA By PHT: 3.33 tt1Efqbuk e': 0.06 m/sSeptal E/e': 16.79Lateral | | e': 0.08 m/sLateral E/e': 14.05RAP: 10 mmHgRVSP: 44.61 mmHgTR maxP.61 | | mmHgTR Vmax: 2.94 m/s Bus Cleaner: Melyticated by: Delvin Hernandez | | Date/Time: [...] |TR Vmax: 2.94 m/s | | | |Bus Cleaner: | |Authenticated by: Delvin Phan | |Report [...]
--- OUTSIDE RECORDS SUMMARY | ~2020-04-22 | XMS | Encounter Summary ---
Demographics + + + | Address | [address] | | | [place] [address] | + + + | Home Phone [...] + + + | Author | [place] [employer] [facility] | + + + [...] Team Providers + +------+ + | Care Quality Control Lab Technician Name | Role | Phone | [...] Discussion | | 2014 | | Center [place] [address] | [place] | | | | | [address] [facility] | | | | | | for Health and | | | | | | [facility] 2 | | | | | | [place], [place] | | | | | | [address] | | | | | | [phone] | | | +--------+ + + + [...]
--- OUTSIDE RECORDS SUMMARY | ~2020-04-22 | XMS | Encounter Summary ---
Demographics + + + | Address | [address] | | | [place] [address] | + + + | Home Phone [...] + + | Author | [place] [employer] [facility] | + + [...] Team Providers + +------+ + | Care Punchboard Inserter Name | Role | Phone | + +------+ + | Larissa Keen MD | PCP | | + +------+ + Encounter Details +--------+ + + + + | Date | Type | Department | Care Team | Description | +--------+ + + + + | 10/17/ | Abstract | Digestive Health | Diamond De León, | | | 2014 | | Center at [facility] [address] | PUMP HOUSE TECHNICIAN [address] | | | | | [address] [facility] | [facility] 350 | | | | | for Health and | [place], [place] | | | | | [facility], [place] [address] | [address] | | | | | [place], [place] | [phone] | | | | | [address] | | | | | | [phone] | | | +--------+ + + + [...]
--- OUTSIDE RECORDS SUMMARY | ~2020-04-22 | XMS | Encounter Summary ---
Demographics + + + | Address | [address] | | | [place] [address] | + + + | Home Phone [...] + + | Author | [place] [employer] [facility] | + + + [...] Team Providers + +------+ + | Care Moving Picture Producer Name | Role | Phone | + [...] | | | | [address] [place] | [address] [place], [place] | | | | | for Health and | [address] | | | | | Healing, Building 2 | | | | | | [place], [place] | | | | | | [address] | | | | | | | [...]
--- OUTSIDE RECORDS SUMMARY | ~2020-04-22 | XMS | Encounter Summary ---
Demographics + + + | Address | [address] | | | [place] [address] | + + + | Home Phone | | + + + | Preferred Language | Unknown | + + + | Marital Status | Unmarried Domestic Partner | + + + | Taoism Affiliation | Unknown | + + + | Race | or | + + + | Ethnic Group | Not or | + + + Author + + + | Author | [place] [employer] [facility] | + + + | Organization | [facility] | [...] Team Providers + +------+ + | Care Per Diem Physical Therapist Assistant Name | Role | Phone | [...] | | 2014 | | Center at [facility] [address] | [place] D[address] | | | | | [facility] | [facility] 350 | | | | | for Health and | [place], [place] | | | | | [facility] [place] [address] | [address] | | | | | [place], [place] | [phone] | | | | | [address] | | | | | | [phone] | | | +--------+ + + + [...]
--- OUTSIDE RECORDS SUMMARY | ~2020-04-22 | XMS | Encounter Summary ---
Demographics + + + | Address | [address] | | | [place] [address] | + + + | Home Phone | | + + + | Preferred Language | Unknown | + + + | Marital Status | Unknown | + + + | Baptist Affiliation | Unknown | + + + | Race | Unknown | + + + | Ethnic Group | Unknown | + + + Author + + + | Author | [facility] | | | and [place] | + + + | Organization | [facility] | | | and [place] [...] Team Providers + +------+ + | Care Records Administrator Name | Role | Phone | + +------+ + PCP | Unavailable | + +------+ + Encounter Details +--------+ + + + + | Date | Type | Department | Care Team | Description | +--------+ + + + + | 08/23/ | Hospital | [facility] | | | | 2005 - | Encounter | MED CTR MED ONC | | | | | | [address] | | | | 08/25/ | | [place] [address] | | | | 2005 | | [phone] | | | +--------+ + + + [...]
--- OUTSIDE RECORDS SUMMARY | ~2020-04-22 | XMS | Clinical Summary ---
Demographics + + + | Address | [address] | | | [place] [address] | + + + | Home Phone [...] + + + | Author | [facility] | + + + | Organization | [facility] | + + + | Address | Unknown | + + + | Phone | Unavailable | + + + Support + + +---------+ + | Name | Relationship | Address | Phone | + + +---------+ + | Lazaro Merchant | ECON | Unknown | | + + +---------+ + Care Team Providers + +------+ + | Care Customs Appraiser Name | Role | Phone | + +------+ + | Larissa Keen MD | PCP | | + +------+ + Source Comments SHERRI is fully live on both [facility] Ambulatory and [facility] InPatient.Pending Sale To [facility] Allergies + + + + + + [...] CROSS | | 16-Pre | 8 | [address] | | | | [place] | | sent | | [place], | | | | L | | | | [place] [address] | | + +--------+ +--------+ + +------+ [...] | 1975 | [phone] | [place] [address] | | | be | | | 1 (Home) | | + +--------+ +--------+ + +
--- OUTSIDE RECORDS SUMMARY | ~2020-04-22 | XMS | Encounter Summary ---
Demographics + + + | Address | [address] | | | [place] [address] | + + + | Home Phone | | + + + | Preferred Language | Unknown | + + + | Marital Status | Unknown | + + + | Baptism Affiliation | Unknown | + + + | Race | Unknown | + + + | Ethnic Group | Unknown | + + + Author + + + | Author | [facility] | | | and [place] | + + + | Organization | [facility] | | | and [place] [...] Team Providers + +------+ + | Care Roll Icer Machine Name | Role | Phone | + +------+ + PCP | Unavailable | + +------+ + Encounter Details +--------+ + + + + | Date | Type | Department | Care Team | Description | +--------+ + + + + | 08/23/ | Hospital | [facility] | | | | 2005 - | Encounter | MED CTR MED ONC | | | | | | [address] | | | | 08/25/ | | [place] [address] | | | | 2005 | | [phone] | | | +--------+ + + + [...]
--- OUTSIDE RECORDS SUMMARY | ~2020-04-22 | XMS | Encounter Summary ---
Demographics + + + | Address | [address] | | | [place] [address] | + + + | Home Phone | | + + + | Preferred Language | Unknown | + + + | Marital Status | Unmarried Domestic Partner | + + + | Druze Affiliation | Unknown | + + + | Race | or | + + + | Ethnic Group | Not or | + + + Author + + + | Author | [place] [employer] [facility] | + + + [...] Team Providers + +------+ + | Care Calenderer Name | Role | Phone | + [...] | | Center at [address] | [employer] [address] | | | | | [address] [facility] | [facility] 350 | | | | | for Health and | [place], [place] | | | | | [facility] [place] [address] | [address] | | | | | [place], [place] | [phone] | | | | | [address] | | | | | | [phone] | | | +--------+ + + + [...]
--- OUTSIDE RECORDS SUMMARY | ~2020-04-22 | XMS | Encounter Summary ---
Demographics + + + | Address | [address] | | | [place] [address] | + + + | Home Phone [...] + + + | Author | [place] [employer] [facility] | + + + | Organization | Replaced By [facility] | + + [...] Providers + +------+ + | Care Transportation Logistics Internship Name | Role | Phone | + [...] | | | [facility] | | | | | | | Health and | | | | | | | Healing, | | | | | | | Building [address] | | | | | | | [place], [place] | | | | | | | [address] | | | | | | | Phone: | | | | | | | [phone] | | | | | | | Fax: | | | | | | | [phone] | +--------+--------+ + + + + Encounter Details +--------+---------+ + + + | Date | Type | Department | Care Team | Description | +--------+---------+ + + + | 05/03/ | Office | Digestive Health | [address] | Morbid obesity with | | 2013 | Visit | Center at [facility] [address] | [address] | BMI of 70 and over, | | | | [address] | [address] [place], | adult ([facility]) (Primary | | | | for Health and | [place] [address] | Dx) | | | | [facility] 2 | [phone] | | | | | [place], [place] | | | | | | [address] | | | | | | [phone] | | | +--------+---------+ + + + [...] 10:21 AM PDT Referring Provider: [facility], Pre-Bariatric Surgery Evaluation Initial diet consultation prior to having Leah En Y gastric bypass surgery. Documented Time of Visit: 10:19 until 11:21 (62 minutes [id number] with patient) SUBJECTIVE: Arrives with her boyfried. 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 Weight traveler changer the past year: fluctuating 50lbs Best [...] cucumber, avocado, shredded cheese, celery + [place], mosotho, ranch 3 T) Rice a Roger, Mac and cheese (1 cup). Drinks ice water and diet soda. Eats out - only when going out of town. Likes pizza, Anne's, McDonalds, Sri Lankan, Senegalese ( <1x/wk) Provided written diet suggestions to [...] provided. Tejal Iraheta RD, CNSC, LD Pager# [phone] documented in this enco unter Plan of Treatment Not on filedocumented as of this encounter Procedures + +--------+ + + + | Procedure Name | Priori | Date/Time | Associated Diagnosis | Comments | | | ty | | | | + +--------+ + + + | WI MNT INITIAL | Routin | 05/03/2014 | Morbid obesity | | | ASSESSMNT X15MIN | e | 11:40 AM | with BMI of 70 and | | | | | PDT | over, adult ([facility]) | | + +--------+ + + + documented in this encounter Visit Diagnoses + + | Diagnosis | + + | Morbid obesity with BMI of 70 and over, adult (HCC) - Primary | + + documented in this encounter
--- OUTSIDE RECORDS SUMMARY | ~2020-04-22 | XMS | Encounter Summary ---
Demographics + + + | Address | [address] | | | [place] [address] | + + + | Home Phone | | + + + | Preferred Language | Unknown | + + + | Marital Status | Unmarried Domestic Partner | + + + | Moravian Affiliation | Unknown | + + + | Race | or | + + + | Ethnic Group | Not or | + + + Author + + + | Author | [place] [employer] [facility] | + + + [...] Team Providers + +------+ + | Care Chemical Pumper Name | Role | Phone | + [...] 2014 | | Center at [facility] [address] | | | | | | [facility] | | | | | | for Health and | | | | | | Healing, Building [address] | | | | | | [place], [place] | | | | | | [address] | | | | | | [phone] | | | +--------+ + + + [...]
--- OUTSIDE RECORDS SUMMARY | ~2020-04-22 | XMS | Encounter Summary ---
Demographics + + + | Address | [address] | | | [place] [address] | + + + | Home Phone | | + + + | Preferred Language | Unknown | + + + | Marital Status | Unmarried Domestic Partner | + + + | Alevism Affiliation | Unknown | + + + | Race | or | + + + | Ethnic Group | Not or | + + + Author + + + | Author | [place] [employer] [facility] | + + + [...] Team Providers + +------+ + | Care Treasury Specialist Name | Role | Phone | [...] | Center at [facility] [address] | ACNP [address] | | | | | [address] | [address] [place], [place] | | | | | for Health and | [address] | | | | | Healing, [address] | | | | | | [place], [place] | | | | | | [address] | | | | | | | [...]
--- OUTSIDE RECORDS SUMMARY | ~2020-04-22 | XMS | Encounter Summary ---
Demographics + + + | Address | [address] | | | [place] [address] | + + + | Home Phone [...] + + | Author | [place] [employer] [facility] | + + + | Organization | [facility] | + + + | Address | Unknown | + + + | Phone | Unavailable | + + + Support + + +---------+ + | Name | Relationship | Address | Phone | + + +---------+ + | Lazaro Merchant | ECON | Unknown | | + + +---------+ + Care Team Providers + +------+ + | Care Tooth Inspector Name | Role | Phone | [...] | | 2014 | | Center at [facility] [address] | ASSISTANT PROFESSOR SCULPTURE [address] | | | | | [address] [facility] | [facility] 350 | | | | | for Health and | [place], [place] | | | | | [facility], [place] [address] | [address] | | | | | [place], [place] | [phone] | | | | | [address] | | | | | | [phone] | | | +--------+ + + + [...]
--- OUTSIDE RECORDS SUMMARY | ~2020-04-22 | XMS | Encounter Summary ---
Demographics + + + | Address | [address] | | | [place] [address] | + + + | Home Phone [...] + + + | Author | [place] [employer] [facility] | + + + | Organization | [facility] | + [...] Team Providers + +------+ + | Care Dye Mixer Name | Role | Phone | + +------+ + | Larissa Keen MD | PCP | | + +------+ + Reason for Visit + + + | Reason | Comments | + + + | Medical Records | [facility] - OUTSIDE RECORDS: Progress Note 09/12/2014 | | Review | | + + + Encounter Details +--------+ + + + + | Date | Type | Department | Care Team | Description | +--------+ + + + + | 09/13/ | Abstract | Digestive Health | Diamond De León, | Medical Records | | 2013 | | Center at [facility] [address] | AGRICULTURAL EDUCATION INSTRUCTOR [address] | Review ([facility] - | | | | [address] [facility] | [facility] 350 | OUTSIDE RECORDS: | | | | for Health and | [place], [place] | Progress Note | | | | [facility] 2 | [address] | 09/12/2014 ) | | | | [place], [place] | [phone] | | | | | [address] | | | | | | [phone] | | | +--------+ + + + [...]
--- OUTSIDE RECORDS SUMMARY | ~2020-04-22 | XMS | Encounter Summary ---
Demographics + + + | Address | [address] | | | [place] [address] | + + + | Home Phone | | + + + | Preferred Language | Unknown | + + + | Marital Status | Unmarried Domestic Partner | + + + | Confucianist Affiliation | Unknown | + + + | Race | or | + + + | Ethnic Group | Not or | + + + Author + + + | Author | [place] [facility] | + + + | Organization | [facility] | + + + | Address | Unknown | + + + | Phone | Unavailable | + + + Support + + +---------+ + | Name | Relationship | Address | Phone | + + +---------+ + | Lazaro Merchant | ECON | Unknown | | + + +---------+ + Care Team Providers + +------+ + | Care Jumbo Operator Name | Role | Phone | + +------+ + | Mar DoddP | PCP | | + +------+ + Encounter Details +--------+ + + + + | Date | Type | Department | Care Team | Description | +--------+ + + + + | 03/11/ | Abstract | Digestive Health | Fátima Hernandez, | | | 2013 | | Center at [facility] [address] | ACNP [address] | | | | | [address] | e [place], [place] | | | | | for Health and | [address] | | | | | Healing, Building [address] | | | | | | [place], [place] | | | | | | [address] | | | | | | | [...]
--- OUTSIDE RECORDS SUMMARY | ~2020-04-22 | XMS | Encounter Summary ---
Demographics + + + | Address | [address] | | | [place] [address] | + + + | Home Phone | | + + + | Preferred Language | Unknown | + + + | Marital Status | Unknown | + + + | Judaism Affiliation | Unknown | + + + | Race | Unknown | + + + | Ethnic Group | Unknown | + + + Author + + + | Author | [facility] | | | and [place] | + + + | Organization | [facility] | | | and [place] | [...] Team Providers + +------+ + | Care Public Employment Mediator Name | Role | Phone | + +------+ + PCP | Unavailable | + +------+ + Encounter Details +--------+ + + + + | Date | Type | Department | Care Team | Description | +--------+ + + + + | 05/16/ | Hospital | [facility] | Michael Peraza, | | | 2004 | Encounter | MED CTR SLEEP | [address] | | | | | CENTER [address] | [place] | | | | | [place] | [id number] | | | | | [address] | | | | | | [phone] | | | +--------+ + + + [...]
--- OUTSIDE RECORDS SUMMARY | ~2020-04-22 | XMS | Encounter Summary ---
Demographics + + + | Address | [address] | | | [place] [address] | + + + | Home Phone | | + + + | Preferred Language | Unknown | + + + | Marital Status | Unmarried Domestic Partner | + + + | Latter Day Affiliation | Unknown | + + + | Race | or | + + + | Ethnic Group | Not or | + + + Author + + + | Author | [place] [employer] [facility] | + + + | Organization | [facility] | + + + | Address | Unknown | + + + | Phone | Unavailable | + + + Support + + +---------+ + | Name | Relationship | Address | Phone | + + +---------+ + | Lazaro Merchant | ECON | Unknown | | + + +---------+ + Care Team Providers + +------+ + | Care Merchandiser Name | Role | Phone | + [...] | | Center at [address] | DENTAL SALES REPRESENTATIVE [address] | | | | | [address] [facility] | [facility] 350 | | | | | for Health and | [place], [place] | | | | | [facility] [place] [address] | [address] | | | | | [place], [place] | [phone] | | | | | [address] | | | | | | [phone] | | | +--------+ + + + [...]
--- OUTSIDE RECORDS SUMMARY | ~2020-04-22 | XMS | Encounter Summary ---
Demographics + + + | Address | [address] | | | [place] [address] | + + + | Home Phone [...] + + + | Author | [place] [employer] [facility] | + + + | Organization | [facility] | + + + | Address | Unknown | + + + | Phone | Unavailable | + + + Support + + +---------+ + | Name | Relationship | Address | Phone | + + +---------+ + | Lazaro Merchant | ECON | Unknown | | + + +---------+ + Care Team Providers + +------+ + | Care Clinical Dental Technician Name | Role | Phone | [...] 2014 | | Center at [facility] [address] | | | | | | [facility] | | | | | | for Health and | | | | | | Healing, Building 2 | | | | | | [place], [place] | | | | | | [address] | | | | | | [phone] | | | +--------+ + + + [...]
--- OUTSIDE RECORDS SUMMARY | ~2020-04-22 | XMS | Encounter Summary ---
Demographics + + + | Address | [address] | | | [place] [address] | + + + | Home Phone [...] + + + | Author | [place] [employer] [facility] | + + + [...] Team Providers + +------+ + | Care Brake Adjuster Name | Role | Phone | [...] | Pain | Diagnoses | Conser, | Power Line Installer Psych | | | | Management | Morbid | Diamond M, MAINTENANCE PLANNER | [facility] [address] | | | | | obesity | [address] | | | | | (HCC) | [address], | Center for | | | | | Procedures | [address] | Health and | | | | | CONSULT TO | [place], [place] | Healing, | | | | | PAIN CENTER | [address] | Building | | | | | | Phone: | 1,15th Floor | | | | | | [phone] | [place], [place] | | | | | | Fax: | [address] | | | | | | [phone] | Phone: | | | | | | | [phone] | | | | | | | Fax: | | | | | | | [phone] | +--------+--------+ + + + + Encounter Details +--------+---------+ + + + | Date | Type | Department | Care Team | Description | +--------+---------+ + + + | 01/24/ | Office | Pain Center at [facility] | Berto Samuels, | Adjustment disorder | | 2015 | Visit | 15th Floor [address] | PhD [address] | with mixed anxiety | | | | [address] Mailcode: | [place], [place] | and depressed mood | | | | [facility] for | [address] | (Primary Dx); Morbid | | | | Health and Healing, | [phone] | obesity with BMI of | | | | Building | | 70 and over, adult | | | | Floor [place], [place] | | ([facility]); Type 2 | | | | [address] | | diabetes mellitus | | | | [phone] | | treated with insulin | | | | | | ([facility]) | +--------+---------+ + + + Social [...] Name: Marielle Esparza : 1975 Medical Record: [id number] Age:39 y.o. Weight: 465 lbs BMI: 73 Proposed Surgery: Leah en y gastric bypass. Public Meeting: Attended Identifying Information: Marielle Esparza is a 39 y.o. female who lives with her boyfriend in [place], [place]. She was referred for psychological evaluation [...] is socially active with fri ends and moapa and community activities. 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 Current Life Stressors: Her health [...] to improve her consistency with following the sleeve turner's recommendations. 4. She is urged to establish [...] interpretation. BERTO SAMUELS, PhD PAIN [facility] AT [facility] 4TH FLOOR [address] Mail Code: [place] [address] documented in this en counter Plan of Treatment Not on filedocumented as of this encounter Visit Diagnoses + + | Diagnosis | + + | Adjustment disorder with mixed anxiety and depressed mood - Primary | + + | Morbid obesity with BMI of 70 and over, adult ([facility]) | + + | Type 2 diabetes mellitus treated with insulin (HCC) | + + documented in this encounter
--- OUTSIDE RECORDS SUMMARY | ~2020-04-22 | XMS | Encounter Summary ---
Demographics + + + | Address | [address] | | | [place] [address] | + + + | Home Phone [...] + + + | Author | [place] [employer] [facility] | + + + | Organization | [facility] | + + + | Address | Unknown | + + + | Phone | Unavailable | + + + Support + + +---------+ + | Name | Relationship | Address | Phone | + + +---------+ + | Lazaro Merchant | ECON | Unknown | | + + +---------+ + Care Team Providers + +------+ + | Care Central Service Supply Distributor Name | Role | Phone | + +------+ + | Larissa Keen MD | PCP | | + +------+ + Reason for Visit + + + | Reason | Comments | + + + | Medical Records | [facility] - OUTSIDE RECORDS: Progress Note 09/12/2014 | [...] [facility] [address] | ENGINE TURNER [address] | Review ([facility] - | | | | [address] | [facility] 350 | OUTSIDE RECORDS: | | | | for Health and | [place], [place] | Progress Note | | | | [facility] 2 | [address] | 09/12/2014 ) | | | | [place], [place] | [phone] | | | | | [address] | | | | | | [phone] | | | +--------+ + + + [...]
--- OUTSIDE RECORDS SUMMARY | ~2020-04-22 | XMS | Encounter Summary ---
Demographics + + + | Address | [address] | | | [place] [address] | + + + | Home Phone | | + + + | Preferred Language | Unknown | + + + | Marital Status | Unknown | + + + | Druze Affiliation | Unknown | + + + | Race | Unknown | + + + | Ethnic Group | Unknown | + + + Author + + + | Author | [facility] | | | and [place] | + + + | Organization | [facility] | | | and [place] [...] Providers + +------+ + | Care Materials Assistant Name | Role | Phone | + +------+ + PCP | Unavailable | + +------+ + Encounter Details +--------+ + + + + | Date | Type | Department | Care Team | Description | +--------+ + + + + | 05/16/ | Hospital | [facility] | Michael Peraza, | | | 2004 | Encounter | MED CTR SLEEP | [address] | | | | | CENTER [address] | [place] | | | | | [place] | [id number] | | | | | [address] | | | | | | [phone] | | | +--------+ + + + [...]
--- NOTE | 2020-04-22 11:50 | NUR ---
BLOOD GLUCOSE TESTED BG WAS 389 POST OP. BG IS 464. CALL TO MSG BRAXTON LEFT. 11 UNITS HUMALIN PER SLIDING SCALE GIVEN AT THIS TIME. CHARGE NURSE INFORMED/CONSULTED.
[~2020-04-22 17:44] MED LIST changes: +FISH OIL 1,0001 EAC2 PO; +FLUCONAZOLE150 MG PO; +OMEPRAZOLE40 MG PO; +OXYCODONE HCL10 MG PO; +PRENATAL VITAM1 EAC5 PO; +TOPROL XL200 MG PO; +VITAMIN D3125 MC1 PO; -VITAMIN D5000 UNIT PO
--- OUTSIDE RECORDS SUMMARY | 2020-04-22 17:46 | XMS ---
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 E.Marine VISIT COUNT (12 MO.) 1 [place] [place] TOTAL 1 NOTE: Visits indicate total known visits. ED/UCC VISIT TRACKING (12 MO.) 04/22/2020 17:45 [place] TYPE: Emergency COMPLAINT: - POSSIBLE LEG INFECTION INPATIENT VISIT TRACKING (12 MO.) No inpatient visits to display in this time frame [id number]
--- NOTE | 2020-04-22 22:05 | NUR ---
04/22/20 6515 Brandon Bailey REORIENTED PT TO TIME AND SITUATION. EDUCATED ON WOUND VAC AND OTHER CARE EQUIPTMENT. USING U/S TO SEARCH FOR OTHER IV SITE
--- NOTE | 2020-04-22 23:00 | NUR ---
PT ARRIVED TO THE FLOOR WITH NURSE YOON FROM PACU. PT IS ALERT,ORIENTED AND COOPERATIVE. PT REPORTS PAIN OF 7/10 IN LEFT BUTTOCK SURGICAL AREA. PRN DILAUDID PROVIDED. PT HAS A WOUND VAC PUMP ATTACHED TO RIGHT BUTTOCK AND BANDAGE TO LEFT BUTTOCK. PT'S WILL GO HOME AND GET PT'S OWN CPAP FOR TONIGHT. PT INSTRUCTED ON CALLING FOR ASSISTANCE DUE TO WOUND VAC. ICE CHIPS, WATER, BROTH AND JELLO PROVIDED. NO FURTHER NEEDS AT THIS TIME.
--- NOTE | 2020-04-23 00:20 | NUR ---
PT UP TO BSC WITH SBA. SEROSANGUINOUS FLUID DRAINED FROM WOUND INTO WOUND VAC SOON PT STOOD. PT REQUESTS PRN PAIN MEDS AFTER TRANSFER BACK TO BED. PRN DILAUDID PROVIDED. PT'S RETURNED WITH PT'S OWN CPAP. VSS. NO FURTHER REQUESTS AT THIS TIME.
--- NOTE | 2020-04-23 01:44 | NUR ---
CALL LIGHT ANSWERED. PT REQUESTS PAIN MEDICATION FOR PAIN 04/11 IN SURGICAL AREA. PRN DILAUDID PROVIDED. VSS. NO FURTHER NEEDS AT THIS TIME.
--- NOTE | 2020-04-23 04:03 | NUR ---
PT UP TO BSC. AGAIN WOUND VAC DRAINS SEROSANGUINOUS FLUID WHEN PT STANDS. VAC PUMP DOES NOT APPEAR TO SUCTION FLUID WHEN PT IS LAYING. PT REQUESTS PRN PAIN MEDS WHICH ARE PROVIDED. PER PT REQUEST, BROTH AND ICE PACK PROVIDED. SCDS ON. PT STATES SHE WILL TRY TO SLEEP NOW. VSS. NO FURTHER REQUESTS AT THIS TIME.
--- NOTE | 2020-04-23 06:50 | NUR ---
CALL LIGHT ANSWERED. PT STATES THAT SHE "FEELS SICK AND NEEDS THE NURSE TO COME DOWN". UPON ENTERING THE ROOM, PT IS IN TEARS SHE "JUST FEELS TERRIBLE ALL OVER". VSS. PT PROVIDED WITH SCHEDULED TYLENOL, PRN DILAUDID AND PRN ZOFRAN. VERBAL CONVERSATION CALMED THE PT A LOT. WOUND DRESSING INTACT. VAC PUMP DRAINING SANGUINOUS FLUID. DRESSING ON LEFT WOUND IS NEARLY SATURATED WITH SEROSANGUINOUS FLUID. NO FURTHER NEEDS AT THIS TIME. CALL LIGHT WITHIN REACH
--- NOTE | 2020-04-23 09:23 | NUR ---
SPOKE WITH PATIENT IN ROOM WHO STATES SHE LIVES WITH SPOUSE, IS EMPLOYED AND WORKING AT HOME RIGHT NOW. SHE DRIVES. SHE USES A CANE FOR AMBULATION. SHE DENIES FINANCIAL STRAIN TO AFFORD MEDICATIONS, FOOD OR UTILITES. SHE PLANS TO RETURN HOME AT DISCHARGE AND FEELS SAFE TO DO SO. SHE STATES THE ROOM IS TOO HOT AND THEY "WON'T LET ME EVEN HAVE A FAN". NO OTHER CONCERNS AT THIS TIME.
--- NOTE | 2020-04-23 09:25 | NUR ---
ASSESSMENT COMPLETED. UNABLE TO AUSCULTATE LUNGS, BOWELS DUE TO PAPR COLLINS. PATIENT CURRENTLY NOT UTILIZING CPAP MACHINE, BUT VERBALIZES MULTIPLE TIMES ABOUT DIFFICULTY SLEEPING LAST NIGHT AND DESIRE TO REST TODAY. WOUND VAC REMAINS IN PLACE WITH NO LEAK NOTED. DRESSING TO LEFT BUTTOCK APPEARS TO HAVE SHADOWING TO SITE. ICE PACK PROVIDED PER REQUEST. DR. AVINA CALLED AT 0914 DUE TO BLOOD GLUCOSE OF 296 THIS AM. NO NEW ORDERS AT THIS TIME, STATES HE IS GOING TO HAVE DR. SIU CONSULT ON INSULINS. PATIENT LYING IN BED, CALL LIGHT IN REACH, BED RAILS UP X2. AM MEDICATIONS GIVEN. TAKES WITHOUT DIFFICULTY. DENIES OTHER NEEDS AT THIS TIME.
--- NOTE | 2020-04-23 11:58 | NUR ---
Called by DARRYN Eaton, for dressings fall off after ambulating to bathroom. Left thigh remains with packing in place, dry gauze placed over site and taped down. Right thigh wound vac off completely. PRN Morphine given and wound vac reapplied at this time. Seal achieved, no leak noted when wound vac restarted. Tolerated with some complaints of discomfort. Denies other needs at this time. Fingerstick glucose obtained. Educated on need to get blood sugars down for wound healing. Verbalizes understanding.
[2020-04-23] MEDS ORDERED: ECONAZOLE NITRA30 GM TOP (13:13)
--- NOTE | 2020-04-23 13:51 | NUR ---
MED REC COMPLETE
--- NOTE | 2020-04-23 17:33 | NUR ---
Dr. Chandler notified of elevated glucose. States she will put in order for additional insulin for this evening. Assist patient to bedside commode, continent of urine. IV antibiotic complete, Restarted IV LR at 100/hr per orders. Dressings remain intact at this time. No changes from AM assessment this afternoon.
--- NOTE | 2020-04-23 17:34 | NUR ---
Tearful throughout shift regarding being in hospital, feeling like a burden to staff and pain. Redirects well with one on one conversations and provided opportunity to voice concerns. Blood glucose levels remain elevated requiring extra doses of insulin and changes to lantus orders. Wound vac dressing changed this AM due to dressing falling off. Reinforced dressing to Left leg/buttock. Started on IV Merrem today. Continent of urine and stool, great appetite. Some nausea this afternoon resolves with PRN Zofran as prescribed.
--- NOTE | 2020-04-23 19:01 | HP ---
[facility] [address] [place], [place] [address] Signed ADMISSION DATE: 04/22/2020 TIME: 7:45 p.m. PROBLEM: Right gluteal and left medial thigh abscesses. HISTORY: This is a very morbidly obese 45-year-old [place] woman, presented to [facility] earlier in the day with at least one week of increasing swelling in the right gluteal area as well as the left medial thigh with severe pain. She was referred to the emergency room after visualizing a non-drained right gluteal abscess, which was about the size of an orange as well as the left medial thigh, which had evidence of necessitation, but still dense, firm, and tender, consistency both areas consistent with abscess. The patient has diabetes mellitus. She has been doing a diet primarily of intermittent fasting and trying to control her carbohydrate intake and has lost 80 pounds, but is said to remain quite obese at about 400 pounds. The patient does not smoke and does some occasional exercise including water walking in the public pool from time to time. Evaluation by Dr. Springer confirmed her to have two abscesses, one in the right buttock area, but several inches away from the anorectal area itself and another in the medial thigh. The patient was noted to have an elevated white count of 18,000 and a lactic acid level, which was normal, but she has been noted to have a temperature of a 102. PAST MEDICAL HISTORY: Includes hypertension and type 2 diabetes mellitus, anxiety disorder, hypothyroidism, atrial fibrillation, chronic pain, and obstructive sleep apnea. She does use a CPAP device and has reflux disease as well. PAST SURGICAL HISTORY: Includes hernia repair x2, tonsillectomy and cholecystectomy, as well as vein ligation of the right hand. MEDICATIONS: 1. Prilosec. 2. Synthroid. 3. Magnesium oxide. 4. Multivitamins. 5. Metoprolol. Electronically Signed By: IGOR AVINA MD 04/23/20 1901 PATIENT NAME: OSMIN ESPINOZA HISTORY AND PHYSICAL DATE OF : 73 REPORT #: [id number] PHYSICIAN: IGOR AVINA MD PCP: NATALIE ZACARIAS MD REPORT IS CONFIDENTIAL AND NOT TO BE RELEASED WITHOUT AUTHORIZATION [facility] [address] [place], [place] [address] Signed 6. Calcium supplements. 7. Vitamin C. 8. Triamterene hydrochlorothiazide. 9. Celebrex. 10. Verapamil. 11. Also she is taking Xarelto. Notably, she has not taken Xarelto in over two days. SOCIAL HISTORY: She is and is accompanied by her . 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 She is a [employer] member. She lives on the [facility]. REVIEW OF SYSTEMS: She does have anxiety and still states it. She has no chest pain or shortness of breath. She has not had diarrhea or constipation. PHYSICAL EXAMINATION: GENERAL: Very obese Andor[place] woman, lying on her left side, accompanied by her . She was previously 508 pounds, said now to have lost 80 pounds due to dietary changes including intermittent fasting and avoidance of carbohydrates as much as possible, bringing her to about 420 pounds or so. HEENT: Her oropharynx shows her to be a Mallampati 3 (surprisingly). Trachea is midline. She has no hoarseness. CHEST: Shows diminished breath sounds due to obesity. HEART: Shows an irregularly irregular heart rate. ABDOMEN: Massively obese, but nontender. EXTREMITIES: The patient has good mobility of her lower extremities. On the right buttock is an orange sized erythematous markedly tender abscess without necessitation. On the left medial thigh is a smaller indurated area with central ulceration suggestive of prior drainage. She has obese ankles, but no sign of actual edema. LABORATORY STUDIES: Reviewed show white count of 18.6, hematocrit of 39.5, platelets 223,000. Chem profile shows a sodium of 128, potassium 3.3, chloride 91, creatinine is 0.76, glucose elevated at 418. Lactic acid 1.6. Liver enzymes are normal. Albumin 3.4, beta HCG was negative. Urinalysis showed a specific gravity 1.0325, shows large amount of blood, moderate ketones, small leukocyte esterase, rbc's 30, white cells 5. ASSESSMENT: The patient has soft tissue infection of her right buttock with some necrosis of the skin and a drained abscess. I think it is likely a true buttock abscess rather than a Electronically Signed By: IGOR AVINA MD 04/23/201900 PATIENT NAME: OSMIN ESPINOZA HISTORY AND PHYSICAL DATE OF : 73 REPORT #: [id number] PHYSICIAN: IGOR AVINA MD PCP: NATALIE ZACARIAS MD REPORT IS CONFIDENTIAL AND NOT TO BE RELEASED WITHOUT AUTHORIZATION [address] [address] Signed [id number] or perirectal abscess proper. The medial thigh on the contralateral side (left side), there was a dense plaque-like erythematous area that has likely undergone spontaneous drainage, but may still have undrained purulence. I have recommended incision and drainage and debridement of both lesions, likely to include debridement of skin and application of a loop type drain. Given her diabetes and her morbid obesity, prompt treatment is appropriate. She is somewhat worried about a general anesthetic, though she has had them in the past. I believe she may well be able to undergo incision, drainage and debridement with IV sedation and local in a lateral position left side down. The risks of bleeding, infection, failure to completely drain the sites, and so forth were reviewed in detail. She understands. If the anesthesia provider feels it safer that she have a general endotracheal anesthetic, that is fine as well. I have ordered meropenem, Pepcid, and we will facilitate her consent anticipating operative therapy in the next hour or so. MD KIERRA Mcintosh/AILEEN /[id number] cc: CYRUS Stanton MD Copies: CLAUDIA SPRINGER MD ~ Electronically Signed By: IGOR AVINA MD 04/23/20 1901 PATIENT NAME: OSMIN ESPINOZA HISTORY AND PHYSICAL DATE OF : 73 REPORT #: [id number] PHYSICIAN: IGOR AVINA MD PCP: NATALIE ZACARIAS MD REPORT IS CONFIDENTIAL AND NOT TO BE RELEASED WITHOUT AUTHORIZATION
--- NOTE | 2020-04-23 19:01 | OR ---
[facility] [address] [place], [place] [address] Signed DATE OF OPERATION: 04/22/2020 SURGEON: Igor Avina MD PREOPERATIVE DIAGNOSES: 1. Necrotizing infection, right buttock and perineum with possible abscess. 2. Left medial thigh soft tissue infection with previous necessitation. 3. Numerous medical comorbidities including morbid obesity, (BMI 74), insulin-dependent diabetes mellitus, atrial fibrillation, et al. POSTOPERATIVE DIAGNOSES: 1. Severe necrotizing soft tissue infection of right buttock and perineum. 2. Soft tissue infection without necrosis of left medial thigh. 3. Morbid obesity and numerous medical comorbidities. PROCEDURES PERFORMED: 1. Exam under anesthesia. 2. Debridement of necrotizing soft tissue infection of perineum and right buttock. 3. Incision and debridement of left medial thigh soft tissue infection. 4. Application of wound VAC to buttock and perineum. ANESTHESIA: Local with monitored anesthesia care (propofol and Marcaine 20 mL). POSITION: Left lateral decubitus. INDICATIONS: A 45-year-old morbidly obese (BMI 74) Malian woman, who presents to the emergency room after a week of increasing pain in the right buttock and perineal area as well as the left medial thigh. In someway, she was applying mupirocin to the area that she had from the past apparently. She is a patient of Dr. Russell at [facility] as well as other providers. She self-referred to the emergency room this evening, and was seen by Dr. Nielson noting extreme tenderness in the right buttock area with a 4 cm in diameter area of skin necrosis and marked erythema and tenderness, and findings suggestive of abscess. The medial left thigh was an indurated area with apparent previous necessitation. Her blood sugars were noted to be over 400. White count 18,600, lactic acid 1.6. Given Electronically Signed By: IGOR AVINA MD 04/23/20 190 PATIENT NAME: OSMIN ESPINOZA OPERATIVE REPORT DATE OF : 73 REPORT #: [id number] PHYSICIAN: IGOR AVINA MD PCP: NATALIE RUSSELL MD REPORT IS CONFIDENTIAL AND NOT TO BE RELEASED WITHOUT AUTHORIZATION [facility] [address] [place], [place] [address] Signed her numerous comorbidities including morbid obesity, hypertension, diabetes mellitus, and so forth, I have recommended urgent incision and drainage and/or debridement as necessary of this perineal and buttock infection and left medial thigh infection. The risks of bleeding, infection, need for expected procedures and so forth were reviewed with her. Preoperative antibiotic meropenem had been given. FINDINGS: Given her obesity and so forth, the left lateral decubitus position was used with intravenous sedation of propofol and local anesthetic Marcaine 0.25% with epinephrine. This proved to be quite good for management of her anesthetic. She did not have a well-formed abscess of the right buttock, but rather a necrotizing soft tissue infection, which included completely necrotic skin and subcutaneous fat, extending deep into the buttock and extending into the perineum. Extensive excision of skin, fat, and other soft tissues was undertaken. Complete debridement back to viable tissue was undertaken and a wound VAC was used for management of the wound itself. The left medial thigh, which had induration and an area of apparent previous necessitation showed no sign of actual necrosis, but did show a balsa wood like induration. Wedge excision of this tissue was undertaken. This wound was packed simply with gauze. DESCRIPTION OF PROCEDURE: The patient was brought to the operating room and placed in lateral decubitus position left side down. Her right leg was flexed forward. Preoperative antibiotic meropenem had been given. She was given intravenous sedation with propofol infusional technique. A pannus retention system Velcro device was used to elevate the right buttock area allowing for good inspection. Photographs were taken. The perineum, perianal area, and right gluteal area were prepared with a Betadine scrub solution as was the left medial thigh. Approximately 10 mL of 0.25% Marcaine with epinephrine was injected along the edge of the obviously necrotic skin area. Using an 11 blade, incision was made. Propofol sedation was quite beneficial and providing good sedation and some analgesia as well. Incision was undertaken, but there was no egress of purulent material as had been anticipated. Further dissection showed that there was completely necrotic fat beneath this area and oily pus-like appearance. Additionally noted was egress of bubbles indicative of necrotizing soft tissue infection. With all due care, the necrotic eschar was excised with the 11 blade deep into the subcutaneous layers. Meticulous care was taken to provide complete excision of necrotic fat. Additional skin was excised as necessary inferiorly, extending down to the perineum more fully. This was not a finding of a perirectal abscess or anything of that sort, but rather a true necrotizing soft tissue infection of the perineum. Once complete excision was undertaken of all necrotic tissue and photographs taken, the wound was then packed with plain gauze. Electronically Signed By: IGOR AVINA MD 04/23/20 1901 PATIENT NAME: OSMIN ESPINOZA OPERATIVE REPORT DATE OF : 73 REPORT #: [id number] PHYSICIAN: IGOR AVINA MD PCP: NATALIE RUSSELL MD REPORT IS CONFIDENTIAL AND NOT TO BE RELEASED WITHOUT AUTHORIZATION [facility] [address] [facility] [place] [address] Signed Attention was turned to the left medial thigh. This area was indurated and erythematous. Elliptical incision was undertaken along the line of skin tension after application of Marcaine anesthetic as well. A wedge excision was undertaken in central portion of the indurated area showing only woody, waxy fatty tissue. No sign of gangrenous change per se. There was no obvious purulence. Complete excision was undertaken in the central portion and hemostasis assured with electrocautery and a few Vicryl sutures. This wound was then packed. Reinspection of the perineal wound undertaken. There remained essentially no necrotic tissue, which was quite welcome considering the extent of excision already performed. There was deemed most appropriate for wound management to use a wound VAC device. A wound VAC system was used. A black sponge was cut to appropriate size and placed in the wound and with countertraction on the right buttock area, adhesive applied. In the standard way, a negative pressure wound therapy suction was introduced showing an excellent seal. The wound on the left medial thigh was packed with gauze and covered with silk tape. The patient was allowed to emerge from sedation and taken to recovery room in good condition. Blood loss was about 50 mL in aggregate. MD KIERRA Mcintosh/AILEEN /[id number] cc: MD Blake Aguirre MD Copies: NATALIE RUSSELL MD, WILLIAM S MD ~ Electronically Signed By: IGOR AIVNA MD 04/23/20 1901 PATIENT NAME: ALEXISOSMINMANDA DENNIS OPERATIVE REPORT DATE OF : 73 REPORT #: [id number] PHYSICIAN: IGOR AVINA MD PCP: NATALIE RUSSELL MD REPORT IS CONFIDENTIAL AND NOT TO BE RELEASED WITHOUT AUTHORIZATION
--- NOTE | 2020-04-23 19:07 | EKG ---
[facility] [address] [facility] [place] [address] Signed Normal sinus rhythm Nonspecific ST abnormality Abnormal ECG When compared with ECG of 12-JAN-2019 10:22, Criteria for Anterior infarct are no longer present ST no longer elevated in Lateral leads T wave inversion now evident in Inferior leads T wave inversion no longer evident in Lateral leads Confirmed by SADA SIU MD ([id number]) on 04/23/2020 7:07:27 PM Electronically Signed By: SADA SIU MD 04/23/20 1907 PATIENT NAME: OSMIN ESPINOZA Electrocardiogram DATE OF : 73 PHYSICIAN: SADA SIU MD REPORT #: [id number] REPORT IS CONFIDENTIAL AND NOT TO BE RELEASED WITHOUT AUTHORIZATION
--- NOTE | 2020-04-23 20:58 | NUR ---
RN IN ROOM AT THIS TIME.
--- NOTE | 2020-04-23 20:59 | NUR ---
ASSESSMENT COMPLETE. PT C/O PAIN IN BUTTOCK WOUNDS OF 04/11. PT REPORTS NAUSEA WELL. PRN MORPHINE AND ZOFRAN ADMINISTERED. PT WAS UP TO [facility] WITH SBA TO VOID. WOUND VAC PUMP INTACT. WOUND DRESSING ON LEFT BUTTOCK INTACT WITH SCANT SEROSANGUINOUS DRAINAGE. NO FURTHER NEEDS AT THIS TIME. CALL LIGHT WITHIN REACH.
--- NOTE | 2020-04-23 22:32 | NUR ---
PATIENT CALLED FOR FRESH ICE WATER. PATIENT RESTING IN BED, STATES SHE WILL PUT HER CPAP BACK ON SOON. CALL LIGHT IN REACH. PATIENT DECLINES FURTHER NEEDS AT THIS TIME.
--- NOTE | 2020-04-24 02:00 | NUR ---
CALL LIGHT ANSWERED. PT UP TO [facility] WITH SBA. PT REQUESTS PRN ZOFRAN AND TORADOL FOR BREAKTHROUGH PAIN. FRESH WATER AND ICE PROVIDED PLUS AND ENSURE PT C/O HUNGER. NO FURTHER REQUESTS AT THIS TIME. CALL LIGHT WITHIN REACH
--- NOTE | 2020-04-24 05:45 | NUR ---
CALL LIGHT ANSWERED. PT UP TO [facility] WITH SBA. PT REQUESTS PRN PAIN MEDS FOR PAIN 7/10 IN WOUNDS. MORNING MEDS PASSED AND ASSESSMENT COMPLETE. PT REQUESTS WATER AND A FRESH BLANKET. BLOOD DRAW COMPLETE. NO FURTHER REQUESTS AT THIS TIME
--- NOTE | 2020-04-24 07:26 | NUR ---
REPORT RECEIVED FROM BAO COE. PT RESTING ON LEFT SIDE WITH EYES CLOSED. CPAP NOT IN PLACE. RESPIRATIONS EVEN AND UNLABORED. BED RAILS UP. CALL LIGHT WITHIN REACH. PT ALLOWED TO REST.
[2020-04-24] MEDS ORDERED: CALCIUM 600 +1 EAC3 PO (07:59)
[2020-04-24] MEDS ORDERED: MULTI VITAMIN1 EACH PO (08:01)
[2020-04-24] MEDS ORDERED: CENTANY30 GM TOP (08:02)
--- NOTE | 2020-04-24 09:19 | NUR ---
MORNING ASSESSMENT AND MEDICATIONS DUE. PT WATCHING TV. PT REPORTS 6/10 PAIN TO BACKSIDE WOUNDS. ASSESSMENT DONE. DRESSING TO LEFT MEDIAL THIGH SATURATED WITH SEROUS ANGUOINOUS DRAINAGE, DRESSING CHANGED PER MD ORDER. WOUND VAC TO RIGHT GULTEAL WOUND NOT HOLDING SUCTION. DRESSLING LOOSE AROUND MULTIPLE EDGES. PTS SKIN MOIST AND SHOWS WHITE FLECKS OF DRAINAGE IN JESSICA AREA. JESSICA CARE DONE. WOUND VAC REMOVED. SKIN CARE DONE. NEW DRESSING APPLIED. SUCTION HOLDING, GREEN LIGHT ON WOUND VAC CANISTER. DRANAGE CONTAINDER SHOWS ~300ML OF SEROUS DRAIANGE. CANISTER HAS FOUL SMELL, CANISTER CHANGED. MEIDCAITONS GIVEN. PT EATING BREAKFAST. NO ADDITIONAL REQUESTS OR COMPLAINTS. CALL LIGHT WITHIN REACH.
--- NOTE | 2020-04-24 10:52 | NUR ---
PT CALL LIGHT ON. PT REPORTS 04/11 PAIN AND REQUESTS PAIN MEDICATIN STATING "THE BEST PART OF BEING AT THE HOSPITAL IS THAT I CAN HAVE MUCH MEDICINE I WANT." PT STATES "I LOVE HOW I FEEL WITH THAT MEDICINE." PT REPORTS NAUSEA. SEE MAR FOR MEDICATION GIVEN. PT RESTING ON LEFT SIDE. NO ADDITIONAL REQUESTS OR COMPLAINTS. CALL LIGHT WITHIN REACH.
--- NOTE | 2020-04-24 12:39 | NUR ---
NOON ASSESSMENT AND MEDICATION DUE. PT REPORTS 5/10 PAIN AND STATES SHE WANTS MORE MEDICATION. SEE MAR FOR MEDCATION GIVEN. DISCUSSION HELD WITH PT REGARDING PO PAIN MEDICAITONS, PT STATES "NO, I LIKE THE IV A LOT BETTER. THE PILLS AREN'T ENOUGH." ASSESSMENT DONE. LUNG SOUNDS CLEAR. WOUND VAC IN PLACE WITH 80MM/HG SUCTION GOING, GREEN LIGHT EVIDIENT. GAUZE DRESSING TO LEFT THIGH C/D/I. JESSICA AREA MOIST, JESSICA CARE DONE. BLOOD SUGAR 450, REGULAR INSULIN SCALE ADJUSTED PER MD ORDER. SEE MAR FOR INSULIN GIVEN. PT KAMERON HUSSEIN. NO ADDITIONAL REQUESTS OR COMPLAINTS. CALL LIGHT WITHIN REACH. BED RAILS UP.
--- NOTE | 2020-04-24 15:30 | NUR ---
AFTERNOON ASSESSMENT AND MEDICATION DUE. PT REQUESTS ASSISTANCE UP TO RESTROOM. 1 PERSON ASSIST UP TO RESTROOM. WOUND VAC DRESSING INTACT FOR TRANSFER BUT COMES COMPLETELY LOOSE WITH URINATION. NEW WOUND VAC DRESSING PLACED. SUCATION APPLIED AND GREEN LIGHT FLASHING. WILL CONSULT MD REGARDING POSSIBLE VALDEZ CATHETER PLACEMENT TO ASSIST WITH WOUND HEALING. PT VERY PAINFUL WITH WOUND VAC DRESSING CHANGE. SEAL HARD TO ACCHIVE. EVELYNE GORE, AICHA, CONSULTED. ADDITONAL DRESSING SUPPLIES PROVIDED FOR USE IF NEEDED. ASSESSMENT DONE. PAIN MEDICAITON GIVEN FOR 710 PAIN. NO ADDITIONAL REQUESTS OR COMPLAINTS AT THIS TIME. CALL LIGHT WITHIN REACH.
--- NOTE | 2020-04-24 15:58 | PATH ---
[facility] [address] [facility] [place] [place] [address] Signed ORDERING PHYSICIAN: Phillip Parekh MD PATIENT NAME: OSMIN ESPINOZAELLE GENDER: Mary : 1975 SPECIMEN(S): No Source Given MOLECULAR PATHOLOGY RESULTS: SARS-CoV-2 Not Detected ADDITIONAL NOTES.: The [place] Fusion SARS-CoV-2 Assay is a multiplex real-time PCR (RT-PCR) in vitro diagnostic test intended for the qualitative detection of RNA from SARS-CoV-2 from individuals who meet COVID-19 clinical and/or epidemiological criteria. In general, SARS-CoV-2 RNA can be detected during the acute phase of infection. Positive results indicate the presence of SARS-CoV-2 RNA. Clinical correlation with patient history and other diagnostic information is necessary to determine patient infection status. Positive results do not rule out bacterial infection or co-infection with other viruses. Negative results do not preclude SARS-CoV-2 infection and should not be used as the sole basis for patient management decisions. Negative results must be combined with other clinical observations, patient history, and epidemiological information. The [place] Fusion SARS-CoV-2 Assay is not yet approved or cleared by the [place] FDA. When there are no FDA-approved or cleared tests available, and other criteria are met, FDA can make tests available under an emergency access mechanism called an Emergency Use Authorization (EUA). The EUA for this test is supported by the [place] of Health and Human Service's (HHS's) declaration that circumstances exist to justify the emergency use of in vitro diagnostics for the detection and/or diagnosis of the virus that causes COVID-19. This EUA will remain in effect for the duration of the COVID-19 declaration justifying emergency of IVDs, unless it is terminated or revoked by FDA, after which the test may no longer be used. The [place] Fusion SARS-CoV-2 Assay is for use only under EUA in US laboratories certified under the Clinical Laboratory Improvement Amendments of 1988 (CLIA) to perform high complexity tests. [facility] is certified under CLIA to perform high complexity PATIENT NAME: OSMIN ESPINOZA PATHOLOGY DATE OF : 73 REPORT #: [id number] PHYSICIAN: VICTOR MANUEL PATHOLOGY PCP: NATALIE ZACARIAS MD REPORT IS CONFIDENTIAL AND NOT TO BE RELEASED WITHOUT AUTHORIZATION [address] [address] Signed clinical laboratory testing. PERFORMING LABORATORY.: Molecular testing was performed by [facility] [address] [place] [id number] (Line Supply: Ryder Hastings D.O.; CLIA#: [id number]) Diagnostician: System Interface Pathologist Electronically Signed 04/24/2020 Copies: ~ PATIENT NAME: OSMIN ESPINOZA SONNY PATHOLOGY DATE OF : 73 REPORT #: [id number] PHYSICIAN: VICTOR MANUEL RIVERA PCP: NATALIE ZACARIAS MD REPORT IS CONFIDENTIAL AND NOT TO BE RELEASED WITHOUT AUTHORIZATION
--- NOTE | 2020-04-24 17:10 | NUR ---
CONSULT RECEIVED FOR DIABETES DIET EDUCATION. PATIENT HAS HAD DIABETES FOR SEVERAL YEARS. SHE HAS LOST 80 LBS (USED TO BE AROUND 508 LBS) BY DOING INTERMITTENT FASTING AND JUST TRYING TO EAT HEALTHIER OVERALL. SHE HAS A TENDENCY TO EAT LARGE PORTIONS. STATES SHE KNOWS A LOT ABOUT FOOD SHE HAS DONE HER OWN RESEARCH. SHE HAS A HISTORY OF EMOTIONAL EATING WELL. SHE SAID WHAT SHE WOULD REALLY LIKE THE MOST IS TO HAVE 1 MONTH OF A MEAL PLAN ALL FIGURED OUT, AND FOR HER TO BE EDUCATED ABOUT DIABETES SO HE CAN MAKE HEALTHIER MEALS. I TOLD HER ABOUT OUR OUTPATIENT DIABETES AND NUTRITION EDUCATION SERVICES. SOUNDS LIKE THIS WOULD BE THE BEST WAY TO HELP HER SO WE CAN SPEND MORE TIME WITH HER. GAVE HER MY CARD. I PLAN TO CALL HER IN AFTER DISCHARGE TO TOUCH BASE WITH HER TO SEE IF SHE IS STILL INTERESTED IN SCHEDULING AN INITIAL APPOINTMENT FOR DIABETES NUTRITION EDUCATION. SHE AGREES TO HAVE ME CALL HER AFTER DISCHARGE. SHE CAN ALSO EMAIL ME OR CALL ME IF SHE WANTS, TOO. NO HANDOUTS PROVIDED.
--- NOTE | 2020-04-24 17:20 | NUR ---
DR SIU CALLED AND UPDATED REGARDING PTS BLOOD SUGARS, QUESTENED IF PTS INSULIN SLIDING SCALE SHOULD BE RAISED TO THE "HIGH" LEVEL. DR. SIU STATES NO NEW ORDERS AT THIS TIME AND THAT PT SHOULD REMAIN AT THE MODERATE-HIGH LEVEL AT THIS TIME. TO BE REEVALUATED TOMORROW. DR. AVINA UPDATED ON PT STATUS. VALDEZ CATHETER REQUESTED RELATED TO NEED FOR FREQUENT DRESSING CHANGES. DR. AVINA UPDATED ON DRESSING, PAIN, AND INSLUIN STATUS. NEW ORDERS PLACED BY DR. AVINA.
--- NOTE | 2020-04-24 18:09 | NUR ---
VALDEZ CATHETER PLACED WITH SECOND RN ASSIST. 16 GRENADIAN. CLEAR YELLOW URINE RETURNED. PT TOLERATED. MULTIPLE ATTEMPTS TO PLACE.
--- NOTE | 2020-04-24 18:25 | NUR ---
Crying out, Tearful. States getting boggs catheter triggered past trauma from her life. Requesting that she have something for anxiety. Dr. Parekh notified.
--- NOTE | 2020-04-24 19:11 | NUR ---
PT HERE FOR I AND D OF GLUTEAL AND THIGH ABCESSED. PT UP WITH 1 PERSTON ASSIST TO RESTROOM. PT TOLERATING 60 GRAM CARB DIET. BLOOD SUGARS VERY ELEVATED, SLIDING SCALE INSLUIN ADVANCED TO HIGHER RATE THIS SHIFT. DIABETIC EDUCATION DONE WITH PT. LANTUS GIVE WELL. WOUND VAC TO RIGHT GLUTEAL AREA REDRESSED MULTPLE TIMES THIS SHIFT IT BECOMES DISLOGED WITH BATHROOM USE. GREEN LIGHT FLASHING AND DRESSING INTACT AT THIS TIME. GAUZE DRESSING TO LEFT INNER THIGH CHANGED AND C/D/I THIS SHIFT. VALDEZ CATHETER ORDERS FOR ASSISTANCE WITH WOUND HEALING. PAIN MEDICATION GIVEN MULTIPLE TIMES FOR 6/10 PAIN. PT VOIDING QUANTITY SUFFICIENT. PT USES CALL LIGHT APPROPRIATLY.
--- NOTE | 2020-04-24 19:27 | NUR ---
RECEIVED REPORT FROM BAO BROWN. pt RESTING IN BED WITH AT BEDSIDE. REPORTED 6/10 PAIN. WHITEBOARD UPDATED. NO REQUESTS AT THIS TIME. CALL LIGHT WTIHIN REACH.
--- NOTE | 2020-04-24 20:30 | NUR ---
IN TO GIVE MEDICATIONS. pt REPORTING 6/10 PAIN. SCHEDULED MEDICATIONS GIVEN (SEE MAR). VITALS RECORDED. PROVIDED WITH FRESH WATER AND ICE. NO FURTHER REQUESTS AT THIS TIME. CALL LIGHT WITHIN REACH.
--- NOTE | 2020-04-24 22:34 | NUR ---
CALL LIGHT ON. pt REQUESTED SOMEONE VISUALIZE WOUND "IT FEELS LIKE SOMETHING IS PULLING" ASSESSMENT DONE. WOUND VAC IN PLACE, VALDEZ SECUREMENT DEVICE APPEARS TO BE THE ISSUE. WOUND DRESSING ON LEFT THIGH CHANGED PER ORDERS, SEROSANGUINUOUS DRAINAGED. ASSESSMENT DONE. MEDICATIONS GIVEN (SEE MAR). DISCUSSED PAIN MANAGEMENT. NO FURTHER REQUESTS AT THIS TIME. CALL LIGHT WITHIN REACH.
--- NOTE | 2020-04-25 00:23 | NUR ---
CALL LIGHT ON. pt REQUESTED SOMEONE TO LOOK AT HER IV. SCANT AMOUNT OF DRAINAGED NOTED. REPLACED DRESSING. NEW IVF BAG HUNG. IV ABX COMPLETED. PROVIDED WITH FRESH ICE AND WATER. NO FURTHER REQUESTS AT THIS TIME. CALL LIGHT WITHIN REACH. RATED PAIN 5/10
--- NOTE | 2020-04-25 02:20 | NUR ---
IN TO GIVE ABX. pt WOKE TO NOISE IN ROOM. REQUESTED PRN PAIN MEDS FOR 7/10 PAIN, GIVEN (SEE MAR). ASSESSMENT DONE. DRESSINGS INTACT. NO FURTHER REQUESTS AT THIS TIME. CALL LIGHT WITHIN REACH.
--- NOTE | 2020-04-25 05:50 | NUR ---
IN TO GIVE MEDICATION. pt WOKE TO NOISE IN ROOM. pt REPORTED 8/10 PAIN IN BACK, PRN PAIN MEDICATION GIVEN WITH SCHEDULED MEDS (SEE MAR). WOUND DRESSINGS VISUALLIZED, INTACT AND DRY. VITALS AND I&O RECORDED. PROVIDED FRESH WATER. NO FURTHER REQUESTS AT THIS TIME. CALL LIGHT WITHIN REACH.
--- NOTE | 2020-04-25 06:36 | PATH ---
[facility] [address] [place], [place] [address] Signed SPECIMEN(S): A PERINEAL FAT GANGRENE SPECIMEN(S): B LEFT INNER THIGH SPECIMEN SOURCE: A. PERINEAL FAT GANGRENE B. LEFT INNER THIGH CLINICAL HISTORY: Right gluteal/buttocks abscess. Left medial thigh abscess. FINAL PATHOLOGIC DIAGNOSIS: A. Skin and soft tissue, right perineum, excision: - Exuberant acute inflammation and abscess formation of the dermis and subcutaneous tissue with soft tissue necrosis and overlying acutely inflamed, reactive epidermis. B. Skin and soft tissue, left inner thigh, debridement: - Exuberant acute inflammation and abscess formation of the dermis and subcutaneous tissue with soft tissue necrosis and overlying acutely inflamed, reactive epidermis. COMMENT: Correlation with microbiology culture findings is recommended. As part of [employer]' Quality Improvement Program, part B was reviewed by another member of our pathology staff. NAL:NRT:cml:C2NR MICROSCOPIC EXAMINATION: Histologic sections of all submitted blocks are examined by light microscopy. These findings, together with the gross examination, support the pathologic diagnosis. GROSS DESCRIPTION: Two specimens are received in two containers, labeled "KP." A. The specimen, labeled "KP, perianal fat and gangrene," is received in formalin and consists of several pieces of skin, soft and fibroadipose tissue that aggregate measure 13 x 7.5 x 3.3 cm. The tissue is dusky red, congested. Sectioning through the specimen reveals dark red, congested and liquefied tissue. Internal Security Manager sections are submitted in cassette (A1). B. The specimen, labeled "KP, debridement of left inner thigh," is received in formalin and consists of one unoriented skin ellipse that measures 5.5 x 1.7 PATIENT NAME: OSMIN ESPINOZA PATHOLOGY DATE OF : 73 REPORT #: [id number] PHYSICIAN: VICTOR MANUEL PATHOLOGY PCP: NATALIE ZACARIAS MD REPORT IS CONFIDENTIAL AND NOT TO BE RELEASED WITHOUT AUTHORIZATION [facility] [address] [place], [place] [address] Signed cm. The skin ellipse shows attached yellow-corea, congested fibroadipose tissue to 2.1 cm. The skin surface shows ulcerative defect that measures 0.9 x 0.3 cm. Sectioning through the specimen reveals yellow-corea, focally congested subcutaneous tissue. Internal Security Manager sections are submitted in cassette (B1). JS (under the direct supervision of a pathologist) The Gross Description was prepared using a voice recognition system. The report was reviewed for accuracy; however, sound-alike word errors, addition and/or deletions may occur. If there is any question about this report, please contact Client Services. PERFORMING LABORATORY: The technical component was performed by [employer], [address] [place] [id number] (Autopsy Pathologist: Nneka Green MD; CLIA# [id number]). Professional interpretation [facility] by [facility], [address] [address] (CLIA# [id number]). Diagnostician: Racquel Brooks MD Pathologist Electronically Signed 04/24/2020 Copies: ~ PATIENT NAME: OSMIN ESPINOZA PATHOLOGY DATE OF : 73 REPORT #: [id number] PHYSICIAN: VICTOR MANUEL PATHOLOGY PCP: ANTALIE ZACARIAS MD REPORT IS CONFIDENTIAL AND NOT TO BE RELEASED WITHOUT AUTHORIZATION
--- NOTE | 2020-04-25 06:39 | NUR ---
pt RESTED ON AND OFF DURING SHIFT. USED CPAP WHEN SLEEPING. PRN PAIN MEDS GIVEN X2 WELL SCHEDULED MEDICATION. pt DID REQUEST PAIN MEDICATION WHEN WOKEN BUT DID NOT WAKE TO CALL FOR MEDS. VALDEZ DRAINING DILUTE URINE. WOUND VAC DRESSING REMAINED IN PLACE THROUGHOUT SHIFT. LEFT THIGH DRESSING CHANGED PER ORDERS. IV ABX AND IVF. USES CALL LIGHT APPROPRIATELY.
--- NOTE | 2020-04-25 07:43 | NUR ---
0710: Report received from Marlyn GORE. Pt sleeping at this time, call long within reach.
--- NOTE | 2020-04-25 09:45 | NUR ---
DRESSING INTACT AT THIS TIME. PT STATES HER PAIN IS A 6/10 AND WAS MEDICATED ORDERED. PT DENIES ANY OTHER NEW PROBLEMS AT THIS TIME AND IS NOW EATING HER BREAKFAST. SHE STATES SHE SLEPT WELL LAST NIGHT. SEE ASSESSMENT.
--- NOTE | 2020-04-25 11:00 | NUR ---
2 PA WITH BAO BURGOS TO BR. PATIENT CRYING THAT SHE NEEDS TO HAVE A BM BUT DOES NOT WANT TO SIT ON THE TOILET. THIS MANAGER REHAB WAS CARRYING VALDEZ BAG AND WOUND VAC, WHILE AUBREY PUSHED IV POLE, PATIENT USED CANE. WE GOT TO THE SMALL TOILET AREA, THE WOUND VAC BUMPED INTO PATIENTS BUTTOCKS, PATIENT YELLED "DON'T PUSH ME!" TO THIS MANAGER REHAB. AUBREY WITNESSED, NO ONE PUSHED THE PATIENT. BACK TO BED FOR WOUND CHANGE. PATIENT CRYING OFF AND ON WHOLE TIME STAFF IS IN HER ROOM. CALL LIGHT IN REACH
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
--- NOTE | 2020-04-25 11:29 | PATH ---
[facility] [address] [place] [address] Signed ORDERING PHYSICIAN: Phillip Parekh MD PATIENT NAME: OSMIN ESPINOZA GENDER: F : 1975 SPECIMEN(S): No Source Given MOLECULAR PATHOLOGY RESULTS: SARS-CoV-2 Not Performed MOLECULAR PATHOLOGY COMMENT: Received a cancellation request from the ordering provider's office. PERFORMING LABORATORY.: Molecular testing was performed by [facility] [employer] [address] [place], [place] [address] [address] (Lieutenant Firefighter: Ryder Hastings D.O.; IA#: [id number]) Diagnostician: Christel Mejia BS Pathologist Electronically Signed 04/25/2020 Copies: ~ PATIENT NAME: OSMIN ESPINOZA PATHOLOGY DATE OF : 73 REPORT #: [id number] PHYSICIAN: VICTOR MANUEL PATHOLOGY PCP: NATALIE ZACARIAS MD REPORT IS CONFIDENTIAL AND NOT TO BE RELEASED WITHOUT AUTHORIZATION
--- NOTE | 2020-04-25 12:23 | NUR ---
Pt states her pain remains at a 7/10. Pt medicated, see emar.
--- NOTE | 2020-04-25 13:54 | NUR ---
PT STATES HER PAIN IS NOW DOWN TO A 5 WHICH IS WHAT SHE STATES IS ACCEPTABLE. WOUND VAC WORKING WELL AND LEFT THIGH DRESSING REMAINS INTACT. IV ABX INFUSING AT THIS TIME. SEE ASSESSMENT.
--- NOTE | 2020-04-25 14:44 | NUR ---
Pt urine output reported to Dr Chandler. The pt was encouraged to increase her PO fluid intake.
--- NOTE | 2020-04-25 15:25 | NUR ---
Pt was asked to take a walk with staff and she refused at this time. Marielle states she is going to take a nap and will walk later. She was asked to reposition in the bed and she states that she just did. Will attempt to have the pt walk again later in the shift.
--- NOTE | 2020-04-25 16:38 | NUR ---
PT AMBULATED IN THE HALLS AND WALKED 1/4 LAP AND SHE STATES THAT IS ALL SHE CAN DO. PT RETURNED TO HER ROOM AND IS BACK IN BED AT THIS TIME AND IN A DIFFERENT POSITION THAN SHE WAS PRIOR TO THE WALK. IV CONTINUES INFUSING, VALDEZ DRAINING, WOUND VAC FUNCTIONING, SCD'S ON AND RUNNING. CALL HENRIQUEZ WITHIN REACH.
--- NOTE | 2020-04-25 18:54 | NUR ---
PT TAKEN FOR A WALK WHICH SHE WALKED A 1/4 LAP AGIAN. THIS WAS HER SECOND WALK THIS AFTERNOON. UPON RETURNING TO HER BED SHE STARTED CRYING AND STATES THAT IT "HURTS SO BAD". PT STATES IT "HURTS ALL OVER" WHEN ASKED WERE HER PAIN IS. UPON ASKING HOW IT CHANGED WITH WALKING SHE STATES "IT'S THE SAME IT WAS BEFORE THE WALK". "I WAS ABOUT TO CALL YOU". PT MEDICATED FOR PAIN AND IS NOW TEXTING ON HER PHONE WHILE WATCHING TV.
--- NOTE | 2020-04-25 19:25 | NUR ---
RECEIVED REPORT FROM BAO BURGOS. pt RESTING IN BED. REQUESTED PILLOWS AND ASSISTANCE REPOSITIONING, PROVIDED. WOUND VAC IN PLACE, GREEN LIGHT. NO FURTHER REQUESTS AT THIS TIME. WHITEBOARD UPDATED. CALL LIGHT WITHIN REACH.
--- NOTE | 2020-04-25 20:37 | NUR ---
PT CALLED STATING SHE IS IN 7/10 PAIN AND WANTING PAIN MEDICINE. SHE WENT ON TO TALK ABOUT HOW "STRESSED OUT" SHE IS BECAUSE SHE HAS TO STAY ANOTHER WEEK AND HAS A "HOLE IN HER CROTCH". SHE SAYS SHE JUST WANTS TO SLEEP AND NOT BE IN PAIN. ADVISED HER THIS RN WOULD TALK WITH HER PRIMARY RN AND SEE WHAT MEDICATIONS WE CAN BRING HER. AFTER SPEAKING WITH LORA RN, THIS RN RETURNED TO THE PT'S ROOM TO LET HER KNOW LORA WILL SEE HER NEXT WHEN SHE IS DONE WITH ANOTHER PT AND BRING HER MEDICATIONS. PT IS IN A BETTER MOOD AND WATCHING A GAME SHOW ON TV. SHE REQUESTED MORE ICEWATER AND ICE AND DENIES FURTHER NEEDS. CALL LIGHT IS CLOSE.
--- NOTE | 2020-04-25 21:10 | NUR ---
pt REPORTED PAIN 04/11, SCHEDULED MEDICATIONS GIVEN. ASSESSMENT DONE. DRESSING CHANGED, SCANT AMOUNT OF SS DRAINAGE. VITALS AND I&O RECORDED. VALDEZ CARE DONE. DISCUSSED PAIN MANAGEMENT AT LENGTH. NO FURTHER REQUESTS AT THIS TIME. CALL LIGHT WITHIN REACH.
--- NOTE | 2020-04-25 21:12 | NUR ---
VITALS AND I&OS DONE AND CHARTED. CLEANED UP THE FLOOR BY HER BED AND IN THE BATHROOM, IT WAS VERY DIRTY. EMPTIED GARBAGES. BLOOD SUGAR DONE AND CHARTED WELL. PT NEEDS NOTHING ELSE AT THIS TIME. BEDSIDE TABLE AND CALL LIGHT IN REACH.
--- NOTE | 2020-04-25 23:27 | NUR ---
CALL LIGHT ON. pt REQUESTED PRN PAIN MEDS FOR 10 PAIN, GIVEN (SEE MAR). IV REDRESSED. ICE AND WATER PROVIDED. NO FURTHER REQUESTS AT THIS TIME. CALL LIGHT WITHIN REACH.
--- NOTE | 2020-04-26 00:37 | NUR ---
IV ABX COMPLETE. IVF INFUSING. PROVIDED WATER. NO FURTHER REQUESTS AT THIS TIME. pt RESTING IN BED WITH CPAP IN PLACE. CALL LIGHT WITHIN REACH. PAIN 5.5/10
--- NOTE | 2020-04-26 02:25 | NUR ---
pt CALLED FOR ASSISTANCE, BAO SALINAS IN ROOM. PER pt THE STAT LOCK FOR CATHETER WAS CAUSING PAIN. ADJUSTED. WOUND VAC FLASHING GREEN AND INTACT. DRESSING TO LEFT THIGH INTACT AND DRY. IV ABX INFUSING (SEE MAR). REPORTED THAT PAIN IS "TOLERABLE" WILL CALL IF SHE WOULD LIKE PAIN MEDICATION. NO FURTHER REQUESTS AT THIS TIME. CALL LIGHT WITHIN REACH.
--- NOTE | 2020-04-26 05:10 | NUR ---
CALL LIGHT ON. pt REPORTED "A REALLY BAD HEADACHE" SHE ALSO REPORTED PAIN IN WOUND AREA. PRN MEDICATION GIVEN WITH SCHEDULED MEDICATIONS. REDRESSED IV. IV ABX INFUSING. ASSESSMENT DONE. NO FURTHER REQUESTS AT THIS TIME. CALL LIGHT WITHIN REACH. WOUND VAC HAS GREEN LIGHT. DRESSINGS INTACT.
--- NOTE | 2020-04-26 06:48 | NUR ---
IV ABX INFUSION COMPLETE. IVF INFUSING. pt REPORTED PAIN IS DOWN TO A 6/10. NO FURTHER REQUESTS AT THIS TIME. CALL LIGHT WITHIN REACH.
--- NOTE | 2020-04-26 09:15 | NUR ---
PATIENT CALLED FROM BR, 2PA WITH OTHER NURSE PRACTITIONER MANAGER, PATIENT USING CANE, BACK TO BED. PATIENT REQUESTING HELP IN CLEANING UP AFTER BM. PATIENT CRYING IN PAIN SHE STANDS UP FROM TOILET AND WALKS TO BED. PATIENT REQUEST IV MEDS FOR PAIN. RN NOTIFIED. PATIENT STARTING AND STOPPING CRYING WHOLE TIME STAFF IS IN ROOM. CALL LIGHT AND BEDSIDE TABLE BOTH IN REACH.
--- NOTE | 2020-04-26 09:46 | NUR ---
Pt walked a bit in room and to bathroom, back to bed, reports pain is 10/10 where her wounds are. Ativan 2mg po and Morphine 5mg iVP admin at this time.
--- NOTE | 2020-04-26 11:29 | NUR ---
PATIENT IN BED WITH CPAP ON. VITALS AND I&OS CHARTED. VALDEZ EMPTIED. THIS REGULATORY CONSULTANT ASKED PATIENT IF SHE'D LIKE TO TAKE A SHORT WALK, PATIENT REFUSED "I HAVE A HORRIBLE HEADACHE, I'M TIRED, AND MY BOTTOM HURTS." DIETARY IN WITH LUNCH, PATIENT IRRITATED THAT LUNCH WAS BROUGHT IN "TOO EARLY, AND I'M NOT EVEN HUNGRY." PATIENT ASKING FOR PAIN MEDS. CALL CALL LIGHT IN AND PERSONAL ITEM IN REACH. PATIENT EATING LUNCH PROPPED UP IN BED, "THIS IS THE WORST GRILLED CHEESE EVER" WILL TRY FR A WALK AGAIN LATER.
--- NOTE | 2020-04-26 12:30 | NUR ---
Morphine 5mg IVP admin for reports of 8/10 wound pain. Dressing change completed per doc ordering using gauze and tape.
--- NOTE | 2020-04-26 15:22 | NUR ---
VITALS ABD I&OS CHARTED. CALL LIGHT IN REACH.
--- NOTE | 2020-04-26 16:31 | NUR ---
Pt ambulated in the hallway with this RN SBA with walker. Pt tolerted well.
--- NOTE | 2020-04-26 17:26 | NUR ---
Ativan 2mg po admin for reports of anxiety.
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
--- NOTE | 2020-04-26 18:56 | NUR ---
Morphine 5mg IVP admin for reports of 8/10 generalized pain.
--- NOTE | 2020-04-26 19:25 | NUR ---
RECEIVED REPORT FROM BAO DUNCAN. pt RESTING IN BED WITH AT BEDSIDE. NO REQUESTS AT THIS TIME. CALL LIGHT WITHIN REACH. WHITEBOARD UPDATED.
--- NOTE | 2020-04-26 21:22 | NUR ---
PT'S CAME TO THE NURSES STATION ASKING FOR MORE BATTERIES FOR HER FAN AND SAYING THAT HER IV IS BEEPING. UPON ENTERING THE ROOM THE PT ASKED "ARE YOU MY NURSE?" THEN PUT HER PHONE DOWN AND BECAME TEARFUL STATING THAT SHE IS HAVING A HARD TIME DEALING WITH "LOOSING A BODY PART" AND SHE IS IN PAIN AND JUST WANTS TO GO TO SLEEP. EXPLAINED THAT THE WOUNDVAC WAS DOING IT'S JOB TO GET HER HEALED BACK UP AND LISTENED TO HER VENT FOR A FEW MINUTES. ASKED IF SHE WOULD TALK TO SPIRITUAL CARE AND SHE AGREED THAT WOULD BE OK ALSO. ADVISED PT THIS RN WILL LET HER PRIMARY RN KNOW HOW SHE IS DOING AND SHE WILL COME SEE HER IN A BIT WHEN SHE IS DONE WITH ANOTHER PT. CALL LIGHT IS CLOSE AND IS IN THE ROOM.
--- NOTE | 2020-04-26 21:51 | NUR ---
VITALS , I&OS AND BLOOD SUGAR DONE AND CHARTED. EMPTIED GARBAGES, CLEANED BATHROOM. CUP OF ICE AND FRESHICE WATER GIVEN. BEDSIDE TABLE AND CALL LIGHT IN REACH. PT NEEDS NOTHING MORE AT THIS TIME.
--- NOTE | 2020-04-26 22:19 | NUR ---
IN TO DO ASSESSMENT AND MEDICATIONS. pt REPORTED 8/10 PAIN. DRESSING CHANGE TO LEFT THIGH, SS DRAINAGE. REDRESSED IV DUE TO pt SWEATING. WOUND VAC TO RIGHT BUTTOCKS DRESSING INTACT. ASSESSMENT DONE. MEDICATIONS GIVEN (SEE MAR). pt REQUESTED THAT SHE GET ANOTHER DOSE OF ATIVAN WHEN AVAILABLE. PROVIDED WITH WATER AND ICE. NO FURTHER REQUESTS AT THIS TIME AT BEDSIDE.
--- NOTE | 2020-04-26 23:40 | NUR ---
PROVIDED ATIVAN AND PRN PAIN MED PER REQUEST. ANSWERED QUESTIONS ABOUT WOUND AND HEALING. NO FURTHER REQUESTS AT THIS TIME. CALL LIGHT WITHIN REACH.
--- NOTE | 2020-04-27 01:49 | NUR ---
ROUNDED ON pt. RESTING IN BED REPORTED "I'VE SLEPT ON AND OFF, MY PAIN IS TOLERABLE" ADJUSTED VALDEZ FOR COMFORT. PROVIDED ICE AND WATER. NO FURTHER REQUESTS AT THIS TIME. CALL LIGHT WITHIN REACH.
--- NOTE | 2020-04-27 04:07 | NUR ---
ROUNDED ON pt. RESTING IN BED WITH EYES CLOSED, RESPIRATIONS REGULAR AND UNLABORED. CPAP ON. CALL LIGHT WITHIN REACH.
--- NOTE | 2020-04-27 05:10 | NUR ---
ROUNDED ON pt RESTING IN BED WITH EYES CLOSED, RESPIRATIONS REGULAR AND UNLABORED. CALL LIGHT WITHIN REACH.
--- NOTE | 2020-04-27 06:45 | NUR ---
pt RESTING IN BED WITH CPAP ON. WOKE TO TOUCH. REPORTED 7/10 PAIN. MEDICATIONS GIVEN. VITALS AND I&O RECORDED. ICE AND WATER PROVIDED. NO FURTHER REQUESTS AT THIS TIME. CALL LIGHT WITHIN REACH.
--- NOTE | 2020-04-27 06:45 | NUR ---
pt RESTED LITTLE DURING SHIFT, MOSTLY TOWARDS THE END. USES HOME CPAP WHILE SLEEPING. REPORTED ANXIETY (PRN X1) AND PAIN (PRN X1 ALONG WITH SCHEDULED). VALDEZ DRAINING DILUTE URINE. SBA WITH CANE, REQUIRES ASSISTANCE WITH IV, VALDEZ, AND WOUND VAC. WOUND VAC TO RIGHT BUTTOCKS, NO ISSUES WITH SUCTION THIS SHIFT, DRESSING CDI. DRESSING TO LEFT THIGH CHANGED PER ORDERS, SS DRAINAGE NOTED. IV (ULTRASOUND START) A BIT POSITIONAL, IVF INFUSING. PO ABX. 60GM CARB DIET. USES CALL LIGHT APPROPRIATELY.
--- NOTE | 2020-04-27 07:25 | NUR ---
RECEIVED REPORT FROM LORA GORE. PT APPEARS TO BE RESTING WITH RESPIRATIONS NOTED AT THIS TIME. PT WEARING CPAP RHODA
--- NOTE | 2020-04-27 08:41 | NUR ---
IN PTS ROOM TO GIVE MORNING INSULIN. PT STILL RESTING THIS RN GENTLY WOKKE UP PT. PT STATES THAT SHE DID NOT SLEEP WELL AND DID NOT REQUEST ANYTHING FURTHER FROM THIS RN
--- NOTE | 2020-04-27 09:07 | NUR ---
PATIENT RESTING IN BED. VITAL SIGNS AND I&O DONE. CALL LIGHT WITHIN REACH. NO OTHER NEEDS AT THIS TIME
--- NOTE | 2020-04-27 09:15 | NUR ---
IN PTS ROOM TO GIVE MORNING MEDS. PT AWAKE AND ALERT AT THIS TIME. DISCUSSED WITH PT THE PLAN OF THE DAY AND PT IS AGREEABLE TO THE PLAN AT THIS TIME
--- NOTE | 2020-04-27 11:31 | NUR ---
PROVIDED PT WITH PO 2MG ATIVAN AT THIS TIME. PT STATES THAT SHE IS IN PAIN. PTS IV IS CURRENTLY LEAKING. DISCUSSED WITH PT THAT WE WILL NEED TO GET AN ULTRASOUND TRAINED NURSE TO PUT IN A NEW IV. DISCUSSED WITH PT THAT THIS RN WILL ASK FOR PO MORPHINE TO BETTER CONTROL HER PAIN, PT AGREEABLE TO THIS PLAN AFTER BECOMING TEARFUL
--- NOTE | 2020-04-27 14:21 | NUR ---
PATIENT SLEEPING. IN ROOM. I&O DONE. BECAUSE THE PATIENT IS SLEEPING THE NURSE SAID THAT WE CAN WAIT TO TAKE PATIENT'S VITAL SIGNS. CALL LIGHT WITHIN REACH. NO OTHER NEEDS AT THIS TIME
--- NOTE | 2020-04-27 16:59 | NUR ---
PATIENT SITTING UP ON THE EDGE OF THE BED. IN ROOM. VITAL SIGNS AND I&O DONE. CALL LIGHT WITHIN REACH. NO OTHER NEEDS AT THIS TIME
--- NOTE | 2020-04-27 20:30 | NUR ---
pt'S SIGNIFICANT OTHER TO NURSES STATION REQUESTING WATER FOR pt. ICE WATER PROVIDED. pt RESTING IN BED. REQUESTING PRIMARY RN DRESS WOUND, PRIMARY RN NOTIFIED. pt HAS NO ADDITIONAL REQUESTS.
--- NOTE | 2020-04-27 22:19 | NUR ---
PER PT REQUEST I BROUGHT HER FRESH ICE WATER AND EXTRA CUP OF ICE AND A ICE PACK . BEDSIDE TABLE AND CALL LIGHT IN REACH.
--- NOTE | 2020-04-27 23:15 | NUR ---
IN pt ROOM FOR SCHEDULED MEDICATION ADMINISTRATION. CBG REASSESSED, SS INSULIN ADMINISTERED PER ORDERS. DRESSING ON LEFT THIGH APPLIED, TEGADERM TO REINFORCE GAUZE. pt RATES PAIN 6/10 AT THIS TIME, STATES THAT SHE CAN WAIT FOR THE AVAILABLE PRN MEDICATIONS. PRIMARY RN IN ROOM.
--- NOTE | 2020-04-28 00:14 | NUR ---
pt RESTING IN BED, HARVEST FOODS FROM FAMILY PROVIDED, pt EDUCATION PROVIDED ON CARB COUNTS. pt STATES "JUST BECAUSE I'M FAT DOESN'T MEAN I'M NOT EDUCATED, I'M NOT GOING TO LAY HERE AND EAT THE WHOLE BAG". DIABETIC EDUCATION PROVIDED, AND DISCUSSED WITH pt. FOOD PLACED IN REFIGERATOR PER REQUEST. pt KEPT JERKEY TO SANCK ON. RESTING IN BED WITH CALL LIGHT IN REACH.
--- NOTE | 2020-04-28 01:07 | NUR ---
CALL LIGHT ANSWERED. PT REQUESTS PAIN MEDS FOR 7/10 PAIN IN WOUND WITH VAC PUMP. PT ALSO REQUESTS ATIVAN TO HELP HER SLEEP. PRN MORPHINE AND ATIVAN PROVIDED. FRESH ICE WATER AND ICE PACK PROVIDED. NO FURTHER NEEDS AT THIS TIME.
--- NOTE | 2020-04-28 03:02 | NUR ---
ROUNDS COMPLETE. PT APPEARS TO BE SLEEPING LAYING LEFT LATERAL. NO APPARENT SIGNS OF DISTRESS. CALL LIGHT AND BEDSIDE TABLE WITHIN REACH.
--- NOTE | 2020-04-28 06:19 | NUR ---
IN ROOM FOR MEDS AND ASSESSMENT. PT WAS SLEEPING SOUNDLY WITH CPAP ON. EXCELLENT URINE OUTPUT. PT REMAINS FOCUSED ON PAIN MEDS. SCHEDULED MEDS ADMINISTERED AT THIS TIME AND PT AGREES TO WAIT UNTIL NEXT PRN PAIN MED IN 1HR. CALL LIGHT WITHIN REACH.
--- NOTE | 2020-04-28 06:20 | NUR ---
PT SLEPT WELL TONIGHT. WOUND DRESSING ON LEFT MAINTAINED SINCE LAST CHANGE WITH TEGADERM. PT REMAINS FOCUSED ON PAIN MEDS AND REQUEST THEM SOON SHE IS ABLE TO RECEIVE. URINE OUTPUT IS EXCELLENT. PT REMAINED ON LEFT LATERAL SIDE ENTIRE SHIFT DESPITE ENCOURAGEMENT TO ALTER POSITION. WOUND VAC DRAINING SEROSANGUINOUS DISCHARGE. A FAMILY MEMBER OF PT DELIVERED FOOD IN THE EVENING ALTHOUG PT ONLY TOOK JERKY AND THE REST REMAINS IN REFRIGERATOR.
--- NOTE | 2020-04-28 07:20 | NUR ---
BEDSIDE HANDOFF REPORT RECEIVED FROM LAST DIPPER RN. PT SLEEPING, CPAP IN PLACE, LEFT UNDISTURBED.
--- NOTE | 2020-04-28 07:45 | NUR ---
PT REQUESTED PAIN MEDICATION AND ATIVA, GIVEN PER ORDER. PT ON ROOM AIR, LUNG SOUNDS CLEAR, DENIES SOB. PT DENIES NAUSEA, BOWEL TONES ACTIVE, TOLERATING 60G CARB CONTROL DIET. PT WITHOUT IV ACCESS. PT WITH WOUND VAC TO RIGHT BUTTOCK, WORKING PROPERLY. DRESSING TO LEFT INNER THIGH, CDI. PT BLOOD GLUCOSE 196, GIVEN 70 UNITS LANTUS, PT ASSISTED TO ORDER BREAKFAST. VSS. PT DENIES OTHER NEEDS AT THIS TIME.
--- NOTE | 2020-04-28 11:15 | NUR ---
SPOKE WITH PATIENT AT LENGTH IN ROOM ABOUT DISCHARGE POSSIBILITIES. PATIENT IS HOPING TO GO HOME TO CONTINUE TO HEAL. SHE STATES HER IS VERY GOOD ABOUT HELPING HER AND SHE FEELS HE CAN HELP WITH DRESSINGS OR OTHER NEEDS. SHE ASKED IF [facility] COULD SEND A NURSE IN. DISCUSSED THAT OF LAST WEEK THEY WERE STILL NOT DOING HOME VISITS. WE DISCUSSED POSSIBLE HOME HEALTH OR HER COMING INTO WOUND CLINIC FOR WOUND CARE. SHE ASKS IF SHE IS GOING TO HAVE HER CATHETER AT HOME. I DISCUSSED I AM NOT SURE WHAT HER DOCTOR WILL DO YET, BUT THAT SOME PEOPLE TO GO HOME WITH THEM IF NEEDED. EITHER WAY, THE WOUND CLINIC OR HOME HEALTH NURSES CAN HELP WITH THIS ALSO. SHE STATES SHE DOESN'T FEEL IT WOULD BE EASY TO GET OUT TO COME INTO TO CLINIC ON A REGULAR BASIS AND HOPES SHE CAN DO HOME HEALTH. I DID DISCUSS WITH HER THAT OUR HOME HEALTH DEPARTMENTS FROM [facility] AND [facility] ARE BOTH HAVING ISSUES WITH GETTING TO NEW PATIENTS IN A TIMELY MANNER THEY HAVE BEEN OVERLOADED BUT THAT WE CAN CERTAINLY TRY IF THAT IS WHAT IS DECIDED SHE NEEDS. WE DISCUSSED HOW HER STAY IS GOING, SHE STATES SHE IS SO GLAD HER COVID WAS NEGATIVE SO SHE CAN HAVE THE FAN IN HER ROOM. SHE ALSO STATES HER PAIN HAS BEEN 6/10 AT LEAST MOST OF THE TIME AND THAT SHE FEELS BAD FOR ASKING FOR HELP OR PAIN MEDS. SHE STATES "I'M NOT SURE THEY BELIEVE IT HURTS THAT MUCH". SHE DID HAVE SOME COMPLAINTS ABOUT ONE "NURSE IN SPECIFIC WAS VERY RUDE" AND SHE OVERHEARD HER SAY SOMETHING OVER THE INTERCOM THAT UPSET HER. SHE STARTED CRYING WHEN SHE WAS TELLING ME THIS. SHE WAS RELUCTANT TO NAME THIS PERSON. I ASSURRED HER THAT WE WANT TO KNOW WHAT SHE NEEDS. THIS IS WHY WE ARE HERE, TO TAKE CARE OF HER. AND THAT IF HER PAIN IS A 6 THEN WE ABSOLUTELY WANT HER TO SAY THAT SO WE CAN MEET HER PAIN NEEDS. SHE THANKED ME AND WE DISCUSSED AGAIN THAT SHE FEELS HER CAN HELP WITH MOST OF HER NEEDS. I SUGGESTED HE COME IN DURING DRESSING CHANGES RIGHT BEFORE DISCHARGE SO HE CAN SEE WHAT ALL IS BEING DONE. SHE STATES SHE HAS BEEN USING WALKER WHEN AMBULATING BUT THAT SHE THINKS SHE ONLY NEEDS HER CANE (WHICH SHE HAS IN THE ROOM) AT HOME. SHE STATES HER PLACE IS SMALL AND SHE DOESN'T THINK SHE WILL NEED THE WALKER. I EXPLAINED THAT SHE TRY AND USE CANE HERE A FEW TIMES TO MAKE SURE SHE FEELS STABLE WITH JUST THAT. SHE AGREED SHE WOULD. SHE DOES NOT HAVE OTHER CONCERNS AT THIS TIME.
--- NOTE | 2020-04-28 14:08 | NUR ---
Patient VS documented. Patient is lying in bed watching TV. Call light within reach and no further needs at this time.
--- NOTE | 2020-04-28 16:24 | NUR ---
PT WOUND VAC DRESSING FALLING OFF FROM MEDIAL PORTION. DR. AVINA NOTIFIED, OK TO CHANGE DRESSING, DR. AVINA REQUEST TO SEE THE WOUND AFTER REMOVING THE DRESSING. DRESSING REMOVED, WOUND VAC FOAM ADHERED TO WOUND BED, DR. AVINA TO BEDSIDE, FOAM REMOVED, WOUND HAD MODERATE AMOUNT OF PURULENT DRAINAGE. DR. AVINA DISCUSSED TACKING PT BACK TO OR TO CLEAN WOUND AND POSSIBLY PLACE DRAIN. DR. AVINA ORDER TO PLACE WET TO DRY DRESSING TO WOUND AT THIS TIME. PT BEDDING CHANGED. PT VERY EMOTIONAL ABOUT SURGERY, PT REQUESTING ATIVAN, NOT AVAILABLE AT THIS TIME, MESSAGE LEFT FOR DR. AVINA TO RETURN CALL. PT MOVED TO ROOM 123, ALL BELONGINGS MOVED WITH PT.
--- NOTE | 2020-04-28 17:37 | NUR ---
Patient VS and I&O's documented. Patient is resting in bed and call light within reach and no futer needs at this time.
--- NOTE | 2020-04-28 18:29 | NUR ---
PT ON ROOM AIR, LUNG SOUNDS CLEAR. PLAN FOR OR TOMORROW FOR DEBRIDMENT AND POSSIBLE DRAIN PLACEMENT, PT NPO AT MIDNIGHT. PT WITH HIGH ANXIETY AND PAIN THROUGHOUT DAY, GIVEN ATIVAN X3, MORPHINE X2, OXYCODONE X2. NEW IV PLACED TO LEFT FA, 20G, LR INFUSING AT 75ML/HR. WOUND VAC DRESSING REMOVED, WET TO DRY DRESSINGS REPLACED ON BOTH WOUNDS. BLOOD GLUCOSE [id number], SS HUMALOG AND LANTUS GIVEN. VALDEZ DRAINING QS. CONSENT FOR SURGERY SIGNED AND PLACED ON CHART.
--- NOTE | 2020-04-28 19:19 | NUR ---
CHARGE NURSE REPORT RECEIVED FROM [facility].
--- NOTE | 2020-04-28 19:35 | NUR ---
AT DESK, SAID PT BELONGINGS WERE "NOT IN THE TRAY TABLE". THIS RN INVESTIGATED, HOWEVER, THEY WERE FOUND IN THE TRAY TABLE IN PT ROOM.
--- NOTE | 2020-04-28 19:55 | NUR ---
SHIFT REPORT RECEIVED FROM NURSE DHILLON. PT IN BED, TEARFUL AND ANXIOUS. STATES SHE IS SCARED ABOUT TOMORROW'S PROCEDURE AND HER PAIN IN RIGHT BUTTOCK WOUND IS 8/10. PRN MORPHINE BROUGHT AT THIS TIME. PT WAS CONSOLABLE WITH VERBAL INTERACTION. CALL LIGHT WITHIN REACH. NO FURTHER NEEDS AT THIS TIME.
--- NOTE | 2020-04-28 21:15 | NUR ---
ASSESSMENT COMPLETE. PT LAYING LEFT LATERAL AND IS FLUCTUATING EMOTIONAL. IV IN LFA WAS LEAKING FROM CONNECTION. CONNECTION TIGHTENED AND WINDOW REINFORCED. VSS. PT STATES SHE 'JUST WANTS TO SLEEP" AND THAT SHE IS OVERWHELMED WITH HAVING SURGERY AGAIN TOMORROW. WOUND DRESSINGS INTACT WITH SEROSANGUINOUS DRAINAGE. VALDEZ DRAINING CLEAR YELLOW URINE. PT UNDERSTANDS SHE WILL BE NPO AT MIDNIGHT. PT REQUESTS BROTH AND JELLO AT THIS TIME WHICH IS PROVIDED. NO FURTHER REQUESTS AT THIS TIME. BG 209; SS INSULIN 8U ADMINISTERED.
--- NOTE | 2020-04-28 22:50 | NUR ---
MEDICAL CHIEF TECHNICIAN WAS IN ROOM AND IV PUMP WAS TURNED OFF. PT STATES SHE DID NOT TURN IT OFF. IV PUMP WAS PLUGGED IN AND APPEARS TO BE IN WORKING ORDER. IV INSPECTED AND STILL INTACT AND ABLE TO FLUSH. RESTARTED FLUID INFUSION. PT ENCOURAGED TO CALL NURSES STATION IF PUMP BEGINS TO BEEP.
--- NOTE | 2020-04-29 01:36 | NUR ---
CALL LIGHT ANSWERED. PT IS CRYING. THERE IS DISCHARGE FROM THE WOUND ON RIGHT BUTTOCK/PERINEAL AREA ON SHEET AND IT HAS WORRIED THE PT. BANDAGE OVER RIGHT BUTTOCK WOUND HAS PULLED AWAY FROM WOUND. DRESSING RENEWED WITH GAUZE, ABD PAD AND MEDIPORE TAPE IN A WET TO DRY FASHION. PRN ATIVAN AND MORPHINE ADMINISTERED PER REQUEST OF PT AT THIS TIME. PT IS STILL TEARFUL AND UPSET ALTHOUGH CONSOLABLE AND THANKFUL WITH VERBAL DISCUSSION. NO FURTHER NEEDS AT THIS TIME.
--- NOTE | 2020-04-29 06:44 | NUR ---
ASSESSMENT COMPLETE. PT SLEEPING LEFT LATERAL BUT DID AROUSE STAFF ENTERED ROOM. VSS. EXCELLENT URINE OUTPUT THROUGH VALDEZ. WOUND DRESSINGS INTACT. NO FURTHER NEEDS AT THIS TIME. CALL LIGHT WITHIN REACH
--- NOTE | 2020-04-29 06:48 | NUR ---
PT HAD A DECENT NIGHT DESPITE MANY OUTBURSTS OF EMOTION. WOUND DRESSING ON RIGHT PERINEAL/BUTTOCK AREA DID COME LOOSE AND NEED REPLACED. GAUZE WITH AND ABD PAD IN A WET TO DRY FASHION AND ADHERED WITH MEDIPORE TAPE. BG 209 WHICH REQUIRED 8U SS INSULIN. PT HAS BEEN NPO SINCE MIDNIGHT. PT CONTINUES TO RATE PAIN 6-8/10 DESPITE PROMPT SCHEDULED PAIN MED AND PRN PAIN MED ADMINISTRATION. PT STAYED IN SAME LATERAL POSITION ENTIRE SHIFT DESPITE ENCOURAGEMENT TO CHANGE POSITION. VSS. VALDEZ DRAINING LARGE AMOUNTS CLEAR YELLOW URINE.
--- NOTE | 2020-04-29 07:53 | NUR ---
PATIENT RESTING IN BED. WHITE BOARD UPDATED. CALL LIGHT WITHIN REACH. NO OTHER NEEDS AT THIS TIME
--- NOTE | 2020-04-29 08:33 | NUR ---
SCHEDULED INSULIN ADMISNTERED. PT UNABLE TO EAT FOR BREAKFAST D/T PLANNED I&D. DR STATON NOTIFIED OF INSULIN ADMISNTRATION. TELEPHONE ORDER RECIVED TO START D5LR AT 125ML/HR AND RECEHCK BLOOD SUGAR IN 2 HOURS.
--- NOTE | 2020-04-29 09:00 | NUR ---
OR CHARGE NURSE NOTIFIED OF INSULIN ADMISNTRATION AND NEW ORDRE FOR D5LR AT 125ML/HR AND ORDER TO RECHECK BLOOD SUGAR 2 HOURS AFTER STARTING FLUIDS. D5LR WTIH STRAIGHT TUBING PALCED AT PT BEDSIDE.
--- NOTE | 2020-04-29 09:15 | NUR ---
RECHECKED BLOOD SUGAR. BLOOD SUGAR NOW 215.
--- NOTE | 2020-04-29 09:33 | NUR ---
PATIENT RESTING IN BED. VITAL SIGNS AND I&O DONE. CALL LIGHT WITHIN REACH. NO OTHER NEEDS AT THIS TIME
--- NOTE | 2020-04-29 09:41 | NUR ---
PT OFF FLOOR TO SURGERY.
--- NOTE | 2020-04-29 12:14 | NUR ---
04/29/20 Annabel4 Estelle Longo 1205-PATIENT ARRIVED TO PACU ON RA AWAKE DENIES PAIN OR NAUSEA. RR EVEN. SR. WOUND VAC TO BOTTOM CDI. VALDEZ CATHETER IN PLACE DRAINING YELLOW URINE. IVF INFUSING. PATIENT REPORTS "FEELS WEIRD"
--- NOTE | 2020-04-29 12:48 | NUR ---
PT WAS TAKEN TO SURGERY WHEN I CHECKED ON HER. WILL CONTINUE TO FOLLOW
--- NOTE | 2020-04-29 13:19 | NUR ---
PATIENT RESTING IN BED. IN ROOM. I&O DONE. ICE WATER GIVEN. HEAT PACK PROVIDED. CALL LIGHT WITHIN REACH. NO OTHER NEEDS AT THIS TIME
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
--- NOTE | 2020-04-29 13:48 | NUR ---
ATE 100% OF LUNCH. INSULIN ADMSINTERED. REPORTING ANXIETY. INSURED PT ID BRING ATIVAN IN WHEN ITS DUE A [id number].
--- NOTE | 2020-04-29 15:31 | NUR ---
POST OP VITALS DONE. REPOTING 01/10 PAIN. MEDS ADMISNTERED. WOUND VAC WNL. PT INCONT OF STOOL. DRESSING STAYED INTACT. PT CLEANED UP. DENIES FURTHER NEEDS.
--- NOTE | 2020-04-29 17:37 | NUR ---
PATIENT RESTING IN BED. IN ROOM. VITAL SIGNS AND I&O DONE. CALL LIGHT WITHIN REACH. NO OTHER NEEDS AT THIS TIME
--- NOTE | 2020-04-29 18:47 | NUR ---
PT REPORTING PAIN. PRN MORPHINE PO ADMISNTERED.RATING 8/10 CONSTANT. WOUND VAC WNL.
--- NOTE | 2020-04-29 19:18 | NUR ---
IN ROOM FOR REPORT, PT IS CRYING IN BED STATING THE PAIN MEDS SHE WAS GIVEN DID NOT HELP. KORI LEAL RN WILL CALL DR AVINA ABOUT MORE PAIN CONTROL. CALL LIGHT IS CLOSE.
--- NOTE | 2020-04-29 19:30 | NUR ---
PT WIT HINCREASING PAIN DESPIT ALL INTERVENTIONS. DR AVINA NOTIFIED. NEW ORDERS FOR MORPHIN Q3P 15MG AND [id number] Q8 TO BE STARTED. ORDERS PLACED.
--- NOTE | 2020-04-29 22:15 | NUR ---
IN ROOM TO ADMINISTER EVENING MEDICATIONS. PT STATES HER PAIN IS 8/10 AND MORE UNCOMFORTABLE THAN IT WAS PRIOR TO HER PROCEDURE TODAY. WOUND VAC IS IN PLACE AND SEROSANGUINOUS DRAINAGE IS NOTED BEING SUCKED OUT IN THE TUBING. PT HAS NO DRESSING ON HER L MEDIAL THIGH AND DENIED HAVING A GAUZE DRESSING PLACED, SHE HAS A PILLOW CASE BETWEEN HER LEGS TO CATCH ANY DRAINAGE. LR IS INFUSING FINE AT 75MLS/HR. WE DISCUSSED PAIN CONTROL AND THIS RN WILL RETURN ABOUT 10PM WITH THE REST OF HER EVENING MEDS AND ATIVAN. SHE DENIES FURTHER NEEDS AT THIS TIME. CALL LIGHT IS CLOSE.
--- NOTE | 2020-04-29 22:28 | NUR ---
ADMINISTERED THE REST OF THE PT'S EVENING MEDICATIONS ALONG WITH ZOFRAN FOR NAUSEA, MORPHINE FOR PAIN, AND ATIVAN FOR ANXIETY. FRESH ICEWATER AT BEDSIDE PT REPORTS A TINGLING FEELING AT CATHETER SITE AND IS WORRIED THAT SHE IS GETTING A UTI. ADVISED PT WE CAN PASS THAT ALONG TO THE DR. VALDEZ CATH IS DRAINING FINE AT THIS TIME, WILL CONTINUE TO MONITOR. PT DENIES FURTHER NEEDS AND CALL LIGHT IS CLOSE.
--- NOTE | 2020-04-30 00:05 | NUR ---
ANSWERED CALL LIGHT. 1 PA TO THE BEDSIDE COMMODE. PATIENT IS BACK IN BED. EMPTIED VALDEZ. REFILLED ICE WATER AND ICE.
--- NOTE | 2020-04-30 00:19 | NUR ---
WAS NOTIFIED BY ISABEL CATES THAT PT IS ASKING ABOUT PAIN MEDS. ADVISED PT SHE CAN HAVE MORE MORPHINE IN ABOUT 1 HOUR. SHE DENIES FURTHER NEEDS. CALL LIGHT IS CLOSE.
--- NOTE | 2020-04-30 01:38 | NUR ---
V/S AND I&O TAKEN AND CHARTED.
--- NOTE | 2020-04-30 01:41 | NUR ---
IN ROOM TO ADMINISTER MORPHINE FOR PAIN / BACK PAIN AND GET VS & I&O'S. WOUND VAC IS PUMPING FINE AND SEALED, OTHER WOUND ON L IS STILL OPEN TO AIR. PT DENIES FURTHER NEEDS AT THIS TIME, CALL LIGHT IS CLOSE.
--- NOTE | 2020-04-30 03:03 | NUR ---
PT'S IV WAS BEEPING, IT IS NOW INFUSING FINE. SHE ASKED ABOUT MORE PAIN MEDS AND ATIVAN WHICH SHE WAS ADVISED SHE CAN HAVE AGAIN IN ABOUT 2 MORE HOURS. SHE ALSO STATED IT FEELS MORE UNCOMFORTABLE LIKE SHE HAS A UTI. AFTER READING THROUGH DR AVINA'S NOTES IT STATES SHE HAS YEAST OVERGROWTH. EXPLAINED THIS TO PT AND SHE DID NOT SEEM AWARE THAT SHE HAD A YEAST INFECTION BUT REMEMBERS TAKING DIFLUCAN EARLIER. SHE SAYS THIS MAKES SENSE WITH HOW SHE FEELS SO UMCOMFORTABLE DOWN BELOW. SHE DENIES FURTHER NEEDS AT THIS TIME. CALL LIGHT IS CLOSE.
--- NOTE | 2020-04-30 04:05 | NUR ---
PT IS RESTING WITH EYES CLOSED, RR IS EVEN AND NONLABORED. CALL LIGHT IS CLOSE.
--- NOTE | 2020-04-30 05:37 | NUR ---
PT REPORTS FEELING "ICKY" ADMINISTERED ZOFRAN FOR NAUSEA. PT ALSO REPORTS ANXIETY AND PAIN, ADMINISTERED ATIVAN AND MORPHINE FOR 7/10 PAIN THAT SHE STATES IS "ALL OVER". SHE SAYS HER BACK HAS HURT MORE SINCE THE PROCEDURE YESTERDAY. ALSO ADMINISTERED HER SCHEDULED MORNING MEDICATIONS. THE PILLOWCASE SHE HAD BETWEEN HER LEGS WAS GONE, NEW PILLOWCASE PLACED. WOUND VAC IS STILL DRAINING WELL. SHE HAS FRESH ICEWATER AND ICE AT BEDSIDE. ISABEL CATES TOOK PT'S VS AND THEY ARE ENTERED ALONG WITH I&O'S. PT DENIES FURTHER NEEDS AT THIS TIME. CALL LIGHT IS CLOSE.
--- NOTE | 2020-04-30 05:43 | NUR ---
PT SLEPT ON AND OFF THROUGH THE NIGHT SHE CONSISTENLY RATES PAIN 7 OR 8 OUT OF 10 STATING HER PAIN GOAL IS 5/10. SHE TAKES 15MG PO MORPHINE Q3H ALONG WITH HER SCHEDULED OXYCODONE TID. SHE HAS HAD SOME NAUSEA THROUGH THE NIGHT WELL WITHOUT EMESIS.WOUND VAC IS SUCTIONING AND DRAINING WELL. PT DID NOT WANT GAUZE OVER HER L THIGH WOUND, JUST A PILLOW CASE BETWEEN. PT IS CONCERNED SHE HAS A UTI, SHE ALSO QUESTIONS WHERE SHE NEEDS FLOMAX. PT DENIED WEARING SCD'S.
--- NOTE | 2020-04-30 08:02 | NUR ---
patients blood sugar was tested, nothing else to report, breakfast was delievered
--- NOTE | 2020-04-30 09:02 | NUR ---
PT DECLINED GETTING UP IN CHAIR FOR BREAKFAST, GOOD APPETITE ATE 100%, IN GOOD SPIRITS, WOUND WAC IS PATENT, DENIES ANY NEEDS,SCHEDULED MEDS TAKEN, REPORTS MOST OF HER PAIN IS IN HER BACK. CALL LIGHT IN EASY REACH.
--- NOTE | 2020-04-30 10:15 | NUR ---
AMBULATED WITH ASSIST INTO BATHROOM, HAD LG BM, SPONGE BATH GIVEN WHILE UP AND LINENS CHANGED. IN GOOD SPIRITS, BACK TO BED AND WATCHING TV. DENIES FURTHER NEEDS.
--- NOTE | 2020-04-30 11:45 | OR ---
[facility] [address], [place] [address] Signed DATE OF OPERATION: 04/29/2020 SURGEON: Igor Avina MD PREOPERATIVE DIAGNOSES: 1. Morbid obesity (greater than 420 pounds). 2. Multiple medical problems. 3. 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 4. Possible arykmau-hd-gcz. POSTOPERATIVE DIAGNOSES: No evidence of otfzelh-vk-isx; wound granulating well; edema in areas of soft tissue, resolving. PROCEDURES: 1. Exam under anesthesia. 2. Wound debridement with irrigation. 3. Application of wound VAC. ANESTHESIA: Saddle block (Natalya Escobar CRNA). INDICATIONS: This morbidly obese, 420 pounds, 45-year-old woman was admitted and operated on April 22, 2020 with a necrotizing soft tissue infection of the perineum; this required extensive debridement. Another small lesion was noted on the left medial thigh, which was incised and drained as well. A polymicrobial Gram stain was noted, but no pathogen was ever isolated from cultures. She was on meropenem initially, subsequently on Cipro and Flagyl. Wound VAC dressing was applied, which has been helpful. I evaluated the wound yesterday, where she was noted to have good granulation, where the wound VAC has been, but there is an area and a tar heater operator to the area of the anal canal aspect of the deep wound, which was suspicious, but not diagnostic of possible nupjped-nv-lvx; that certainly would account for necrotizing soft tissue infection in this area. On that basis, I have recommend exam under anesthesia, possible incision and drainage and/or placement of seton if appropriate. The risks of bleeding, infection, and so forth were reviewed with her. She understands and wished to proceed. FINDINGS: There is no evidence of ocmweus-wc-gui after all. Good examination was able to be Electronically Signed By: IGOR AVINA MD 04/30/20 1145 PATIENT NAME: OSMIN ESPINOZA OPERATIVE REPORT DATE OF : 73 REPORT #: [id number] PHYSICIAN: IGOR AVINA MD PCP: NATALIE ZACARIAS MD REPORT IS CONFIDENTIAL AND NOT TO BE RELEASED WITHOUT AUTHORIZATION [facility] [address], [place] [address] Signed undertaken with the saddle block, however. Excellent granulation was noted into the depths of the wound. The areas in question for fistula were simply pockets that had edema, that were broken down and debrided a bit. No seton was required. DESCRIPTION OF PROCEDURE: The patient was brought to the operating room after undergoing a caudal block anesthetic by the dragger and placed in stirrups. The perineum was prepared with a Betadine based solution. A Hope catheter was then placed, which has been helpful in managing her wound VAC of the perineum. Photographs were taken. Sterile draping was undertaken. Examination of the wound showed excellent granulation tissue into the depths of the wound. The medial aspect towards the anal canal and introitus of the vulva was examined and probed more fully. Though there was edema and some egress of inflammatory fluid in some of the areas, there was no evidence of actual atmfdpr-bz-yxo. A rectal retractor was placed confirming this. The introitus was examined and there was no sign of vaginal fistula either. There was a fair amount of finding suggestive of yeast infection, however. On the basis of no evidence of otxdfee-tg-lzj, a seton clearly was not indicated of course. Irrigation was undertaken and light debridement as appropriate and electrocautery for hemostasis. A wound VAC sponge was cut to appropriate configuration and the wound VAC device applied, attached to 120 mm of suction pressure. A good seal was noted. She was ultimately transferred to the stretcher with the inflatable transfer mattress and taken to the recovery room in good condition. Blood loss was minimal. MD KIERRA Mcintosh/BERTRAML /[id number] cc: MD Natalie Garcia MD Cynthia Rasch, MD Copies: JOSE STATON MD, JAMES MD Electronically Signed By: IGOR AVINA MD 04/30/20 1145 PATIENT NAME: OSMIN ESPINOZA OPERATIVE REPORT DATE OF : 73 REPORT #: [id number] PHYSICIAN: IGOR AVINA MD PCP: NATALIE ZACARIAS MD REPORT IS CONFIDENTIAL AND NOT TO BE RELEASED WITHOUT AUTHORIZATION [address] [address] Signed SADA SIU MD ~ Electronically Signed By: IGOR AVINA MD 04/30/20 1145 PATIENT NAME: OSMIN ESPINOZA OPERATIVE REPORT DATE OF : 73 REPORT #: [id number] PHYSICIAN: IGOR AVINA MD PCP: NATALIE ZACARIAS MD REPORT IS CONFIDENTIAL AND NOT TO BE RELEASED WITHOUT AUTHORIZATION
--- NOTE | 2020-04-30 12:00 | NUR ---
SPOKE WITH DR AVINA REGARDING DISCHARGE NEEDS. HE FEELS HER BEST CASE WOULD BE GO TO SNF FOR WOUND CARE, VALDEZ CARE AND BLOOD SUGAR CONTROL. HE HAS SPOKEN WITH STAFF AND PATIENT IS NOT ABLE TO DO ANY TYPE OF PERSONAL CARE BELOW WAIST AND HE FEELS SHE WILL NOT HEAL WELL IF WOUND SITES WOULD NOT BE KEPT CLEAN. I DISCUSSED WITH HIM THAT PATIENT HAD TOLD ME A FEW DAYS AGO SHE WANTED TO GO HOME WITH HOME HEALTH. HE STILL FEELS BEST POSSIBILITY FOR HEALING WOULD BE SNF, BUT WILL AGREE TO HOME HEALTH IF SHE REFUSES. SPOKE WITH STAFF NURSES. THEY AGREE WITH SNF BEST CARE NEEDED. PATIENT IS NAPPING AND DOES NOT WANT TO BE DISTURBED ACORDING TO STAFF. WILL RETURN LATER.
--- NOTE | 2020-04-30 13:21 | NUR ---
SPOKE AT LENGTH WITH PATIENT IN ROOM. PATIENT LAYING IN BED, WITH LUNCH TRAY ON TABLE. DISCUSSED DISCHARGE OPTIONS AND THAT MD AND STAFF FEEL HER BEST HEALING SITUATION WOULD BE SNF CARE. DISCUSSED HOME HEALTH VS SNF. ALSO DISCUSSED THAT EITHER WAY A PRE-APPROVAL WILL BE NEEDED FROM INSURANCE. SHE DOES ADMIT SHE WILL BE ALONE AT HOME. HER WORKS AND GOES TO [place] TO TAKE CARE OF HIS DAD. SHE IS AWARE SHE CANNOT CLEAN HERSELF OR IF SHE HAD TROUBLES WITH DRESSINGS SHE COULD NOT REACH ANYTHING. SHE ASKED QUESTIONS ABOUT FACILITIES. I DID HAVE TO EXPLAIN THAT THERE IS NO VISITORS AT FACILITIES AT THIS TIME DUE TO COVID. SHE IMMEDIATELY STARTED TO CRY AND WAIL ABOUT HER SITUATION. TRIED TO BE SUPPORTIVE IN HER FEELINGS. SHE STATED "I CAN'T JUST MAKE A DECISION LIKE THAT". I TOLD HER I UNDERSTAND, AND THAT I CAN COME BACK IN A COUPLE HOURS TO SEE WHAT SHE IS THINKING. SHE THANKS ME FOR GIVING HER SOME TIME. RUN BOAT OPERATOR CAME IN FOR MEDICATIONS.
--- NOTE | 2020-04-30 13:33 | NUR ---
BAO MUNOZ INFORMED ME THAT PT DID NOT WANT TO BE DISTURBED. WILL CHECK BACK FOR LATER VISIT
--- NOTE | 2020-04-30 13:34 | NUR ---
PT ATE 20% OF LUNCH, TAKING FLUIDS WELL, ASKED FOR PAIN MEDICATIONS SO SHE CAN REST. MORPHINE PO GIVEN. WOUND VAC IS PATENT. CALL LIGHT IN EASY REACH.
--- NOTE | 2020-04-30 13:49 | NUR ---
PATIENT REQUESTED TO REST, VITAL SIGNS WILL BE DONE WHEN PATIENT WAKES UP
--- NOTE | 2020-04-30 15:58 | NUR ---
ATTEMPTED TO TALK WITH PATIENT AGAIN REGARDING DISCHARGE. SHE BECAME TEARFUL AND STATES SHE JUST CAN'T DECIDE WHAT SHE WANTS TODAY. ASKED IF SHE HAD SPOKEN WITH HER AND SHE HADN'T. TOLD HER I WOULD COME BY IN THE MORNING AND SEE HER. SHE AGREES WITH THAT.
--- NOTE | 2020-04-30 18:21 | NUR ---
HERE TO VISIT WITH DOGS, PT IN MUCH BETTER SPIRITS, AEATING DINNER, DENIES ANY NEEDS, WOUND VAC IS PATENT, VALDEZ PATENT AND SECURE. CALL LIGHT IN EASY REACH.
--- NOTE | 2020-04-30 19:15 | NUR ---
IN ROOM FOR REPORT, PT IS AWAKE IN BED. SHE DENIES NEEDS AT THIS TIME. CALL LIGHT IS CLOSE.
--- NOTE | 2020-04-30 21:21 | NUR ---
ADMINSITERED EVENING MEDICATIONS ALONG WITH PRN MORPHINE AND ATIVAN. PT STATES HER PAIN IS AT 7/10 AT THIS TIME. HER WOUND VAC IS DRAINING FINE AND DRESSING IS INTACT. CHANGED GAUZE ON LEFT LEG DRESSING. VS TAKEN AND ENTERED. PT HAS FRESH WATER AT BEDSIDE AND A NEW FAN IN HER ROOM. SHE DENIES FURTHER NEEDS AT THIS TIME. CALL LIGHT IS CLOSE.
--- NOTE | 2020-05-01 00:15 | NUR ---
ADMINISTERED MORPHINE FOR 7/10 PAIN, ZOFRAN FOR NAUSEA AND BENADRYL FOR ITCHING. PT DENIES FURTHER NEEDS AT THIS TIME.CALL LIGHT IS CLOSE.
--- NOTE | 2020-05-01 02:05 | NUR ---
REPLACED CLEAR DRESSING OVER FOAM ON WOUNDVAC WITH HELP OF MANDEEP GORE. IT STARTED TO ALARM AFTER PT MOVED IN BED AND TUBING GOT PULLED OFF. SUCTION IS NOW WORKING FINE AND GREEN LIGHT IS ON. FRESH WATER PROVIDED TO PT AND SHE DENIES FURTHER NEEDS. CALL LIGHT IS CLOSE.
--- NOTE | 2020-05-01 03:24 | NUR ---
ADMINISTERED MORPHINE FOR 7/10 PAIN AND ATIVAN FOR ANXIETY. FRESH ICEWATER PROVIDED AND PT DENIES FURTHER NEEDS. CALL LIGHT IS CLOSE.
--- NOTE | 2020-05-01 04:23 | NUR ---
WOUND VAC WAS STILL BEEPING AND WE COULD NOT GET A GOOD SEAL. GOT A WHOLE NEW KIT AND REPLACED ALL OF IT EXCEPT THE FOAM, IT IS NOW SUCTIONING FINE. WITH THE GREEN LIGHT ON. PT IS IN MORE PAIN, ADVISED HER WE WILL RETURN WITH PAIN MEDS SOON WE CAN. CALL LIGHT IS CLOSE.
--- NOTE | 2020-05-01 06:28 | NUR ---
IN ROOM TO ADMINISTER MORPHINE FOR 6/10 PAIN ALONG WITH OTHER SCHEDULED MEDS. WOUND VAC IS KEEPING GOOD SUCTION. PT WAS FINALLY ABLE TO GET AN HOUR OR 2 OF SLEEP. FRESH ICEWATER AT BEDSIDE AND PT DENIES FURTHER NEEDS. CALL LIGHT IS CLOSE.
--- NOTE | 2020-05-01 06:30 | NUR ---
PT DID NOT SLEEP MUCH DURING THE NIGHT. SHE RATES PAIN 6-8 CONSISTENTLY. SHE CONTINUES TO REQUIRE ATIVAN FOR ANXIETY AND DOES BETTER WITH PAIN IF SHE TAKES MORPHINE Q3H CONSISTENTLY BUT AT TIMES IT IS STILL NOT ENOUGH FOR HER. HER WOUNDVAC DRESSING WAS CHANGED OUT AFTER THE TUBING ACCIDENTALLY GOT PULLED OUT AND IS NOW WORKING WELL. VALDEZ IS DRAINING LARGE AMOUNTS OF URINE AND PT DRINKS A LOT OF WATER. SHE IS ON 60G CARB DIET AND HER IV IS SL. CHANGED GAUZE ON LEFT THIGH DURING THE NIGHT D/T SEROSANGUINOUS DRAINAGE.
--- NOTE | 2020-05-01 07:45 | NUR ---
DID PATIENT'S BLOOD SUGAR CHECK. AND GOING TO ORDER HER BREAKFAST.
--- NOTE | 2020-05-01 10:06 | NUR ---
SPOKE WITH PATIENT IN ROOM. ASKED IF SHE HAD A CHANCE TO THINK DISCHARGE OVER AND SPEAK WITH . SHE STATES SHE DID, WANTS TO KNOW WHAT THE DIFFERNCE IN COST IS FOR RETIREMENT VS HOME HEALTH. EXPLAINED I DO NOT KNOW THE ANSWER TO THIS. DISCUSSED THAT INSURANCES DON'T USUALLY GIVE YOU A BREAKDOWN LIKE THAT WITHOUT MANY FACTORS GOING INTO IT. I SUGGESTED SHE JUST DETERMINE WHAT IS BEST FOR HER AT THIS TIME, WE SUBMIT FOR COVERAGE AND THEN IF THEY AGREE OR NOT, WE GO FROM THERE. SHE STATES SHE PROBABLY WILL "HEAL FASTER AT [facility] WHERE I HAVE HELP". ASKED IF SHE IS SURE ABOUT WHICH FACILITY. SHE STATES SHE DOESN'T WANT TO LOOK AT OUT OF TOWN OPTIONS. SHE ASKED IF THERE IS A "WHITER PLACE HERE". ASKED WHAT THAT MEANT, SHE STATES "YOU KNOW, RICHER, WHITE PEOPLE". I EXPLAINED THAT [facility] IS THE ONLY SKILLED FACILITY IN [place]. WHEN ASKED WHAT SHE WAS WORRIED ABOUT, SHE STATES "I KNOW OF ELDERS WHO THERE". I EXPLAINED THAT PEOPLE IN PLACES WHERE THEY STAY AT THE END OF LIFE, OR ILL. POINTED OUT THAT PEOPLE IN HOSPITALS AND AT HOME, TOO. SHE STATED "GOOD POINT". I DID POINT OUT THAT SHE IS NOT GOING TO NEED TO BE THERE LONG-TERM, JUST FOR LONG ENOUGH FOR HEALING TO CONTINUE, AND FOR HER TO GET STRONGER TO BE ABLE TO MOVE ABOUT WITH WOUND CARE DONE LESS OFTEN THEN SHE CAN GO HOME WITH HOME HEALTH. SHE THEN STATES "YOU DON'T HAVE TO EXPLAIN EVERY LITTLE THING TO ME". I TOLD HER I AM JUST TRYING TO ENCOURAGE HER I KNOW THIS HAS BEEN VERY HARD FOR HER. SHE SAID THANK YOU. I DISCUSSED I WILL SEND RECORDS TO [place] AND WORK ON POSSIBLE STAY THERE. FAXED CLINICALS/FACESHEET TO [facility]. LEFT MESSAGE FOR MASTER OCEAN.
--- NOTE | 2020-05-01 11:45 | NUR ---
PT AMBULATED TO THE BATHROOM SHE STATES SHE WAS ABLE TO CLEAN HERSELF AFTER VOIDING. DISCUSSED IF SHE FELT LIKE THE ONE GAUZE DRESSING IS WET? "NO I CAN'T TELL, BUT I DID CLEAN MYSELF UP AFTER VOIDING. " PT IS CURRENTLY SITTING AT THE EDGE OF THE BED EATING LUNCH.
--- NOTE | 2020-05-01 12:50 | NUR ---
PT HAS HISTORY OF CHRONIC PAIN THEREFORE SHE STATES SHE HAS PAIN AT ALL TIMES. PT BACK TO BED AND ATE ALL OF HER LUNCH.
--- NOTE | 2020-05-01 13:52 | NUR ---
PT MEDICATED WITH MORPHINE IR AT THIS TIME, DUE TO PT WILL BE WALKING WITH PHYSICAL THERAPY AT 14:30. PT HAS BEEN UPTO THE BATHROOM IS ABLE SO FAR TO CLEAN SELF UP AFTER USING THE BATHROOM. WOUND VAC INPLACE AND THE DRESSING ON THE LEFT LEG CHANGED DUE TO IT FELL OUT.
--- NOTE | 2020-05-01 14:45 | NUR ---
PT CURRENTLY WORKING WITH PHYSICAL THERAPY AT THIS TIME. PT HAD BEEN UP TO THE BATHROOM VOIDED AND BACK TO BED. SHE IS UNABLE TO GET BACK INTO THE BED WITHOUT PULLING ON THE WOUND VAC CORD AND THEN LIES ON IT ALSO. BUT SHE IS ABLE TO WIPE SELF WHEN DONE WITH VOIDING.
--- NOTE | 2020-05-01 15:00 | NUR ---
PT UP TO THE BATHROOM AT THIS TIME, ABLE TO KEEP SELF CLEAN, BUT THIS AREA IS MOIST IN GENERAL AND THE SEAL ON THE WOUND VAC IS LEAKING. REENFORCED DRESSING AND SEAL IS GOOD NOT. MEDICATED WITH SCHEDULED MEDICATIONS. IT APPEARS THAT THE VALDEZ CATHETER WOULD HELP KEEP THE AREA DRY SOMEWHAT AND LESS PULLING ON THE WOUND VAC CORD.
--- NOTE | 2020-05-01 15:23 | NUR ---
MULTIPLE CALLS WITH [employer] TODAY REGARDING NEEDS FOR SNF AND OUTPATIENT NEEDS AFTER. SPOKE WITH ELHAM [phone] WHO WILL BE HER RN ADVOCATE. SHE WILL WORK WITH [facility] REGARDING DIABETIC FOLLOW UP AND PROGRAMS AVAILABLE THROUGH THEM. SHE STATES SHE HAS ALREADY DISCUSSED WITH THEM POSSIBLE WOUND CARE AT THEIR CLINIC WHEN SHE IS OUT OF SNF AND OR DONE WITH HOME HEALTH. SPOKE WITH NURSE DIMAS [phone] CASE MANAGEMENT REVIEW WHO IS ASKING FOR CLINICALS. WE DISCUSSED NEEDS AND SNF REQUEST. CLINCALS FAXED TO HER WITH FAX CONFIRMATION AT 136PM.
--- NOTE | 2020-05-01 16:24 | NUR ---
SPOKE WITH DIMAS [phone] WHO STATES SHE IS SENDING A PACKET WITH A CONSENT FOR CASE MANAGEMENT AGREEMENT THAT WILL NEED TO BE SIGNED BY PATIENT SO THEY CAN REVIEW FOR SNF. SHE STATES TO FAX THIS BACK TO HER AND SHE WILL REVIEW FOR SNF IN THE MORNING AT 0830.
--- NOTE | 2020-05-01 16:33 | NUR ---
RECEIVED CALL FROM [facility] WHO WILL REQUIRE PATIENT TO BE SCREENED AGAIN FOR COVID HER INITIAL SCREENING WAS OVER 48 HOURS FROM ADMIT. UPDATED STAFF.
--- NOTE | 2020-05-01 16:59 | NUR ---
SPOKE WITH PATIENT IN ROOM. KARSTEN PRESENT. DISCUSSED THAT [facility] HAS ACCEPTED HER AND I AM WORKING ON WHATS NEEDED FROM HER INSURANCE. SHE STATES IT PROBABLY IS GOOD SHE IS GOING, WHEN SHE VOIDED THIS AFTERNOON SHE GOT URINE ON HER WOUND VAC DRESSINGS AND NURSES HAD TO CHANGE IT. SHE SIGNED CONSENT TO CASE MANAGEMENT SENT BY HER INSURANCE CO. EXPLAINED THAT THIS WILL BE SENT BACK AND THEN TOMORROW MORNING THEY WILL GO THROUGH PAPERWORK AND DETERMINE HER ELIGIBILITY. WE DISCUSSED SHE COULD BE DISCHARGED TOMORROW. SHE ASKED IF HER CAN GO WITH HER TO CHECK IN. REMINDED HER THAT THERE IS NO VISITORS ALLOWED IN BUILDING. SHE STARTED TO CRY AND HER WAS REASSURING HER HE WILL CALL AND COME OUT TO A WINDOW OR TALK BY HER COMPUTER. I LEFT SO SHE CAN SPEND TIME WITH HIM. UPDATED STAFF.
--- NOTE | 2020-05-01 17:05 | NUR ---
FAXED SIGNED CASE MANAGEMENT PAPERWORK SENT BY INSURANCE BACK TO THEM WITH FAX CONFIRMATION RECEIVED AT 455PM.
--- NOTE | 2020-05-01 18:14 | NUR ---
PT HAD WOUND VAC COME OFF AND WITH A LARGE JEANNETTE. DRESSING CHANGED ON LEFT THIGH ANF THE WOUND VAC DRESSING CHANGED ALSO. AFTER THIS DRESSING CHANGED WOUND VAC SEALED AND WORKING AT THIS TIME. ALSO PLACED VALDEZ CATHETER DUE TO PT FAILED TO KEEP WOUND VAC DRESSING INPLACE AND TO KEEP THE DRESSING DRY. PT WAS TEARFUL AT TIMES DURING THIS PROCESS.
--- NOTE | 2020-05-01 18:30 | NUR ---
RT COLLECTED COVID 19 SWAB WITH NO COMPLICATIONS AT THIS TIME. RT WALKED SWAB TO THE [facility].
--- NOTE | 2020-05-01 18:39 | NUR ---
PT GIVEN ATIVAN AND MORPHINE IR PO AT THIS TIME FOR PAIN AND ANXIETY.
--- NOTE | 2020-05-01 19:25 | NUR ---
PT RESTING IN BED, WATCHING TV. JOSÉ MIGUEL PATIÑO. NO NEEDS AT THIS TIME. CALL LIGHT IN REACH. SHIFT REPORT RECEIVED FROM BAIRON GORE.
--- NOTE | 2020-05-01 20:20 | NUR ---
CHARGE NURSE NOTE: pT AWAKE, WATCHING TV, NO C/O PAIN, ON ROOM AIR. WOEUND VAC l GROING AREA PATENT, F/C PATENT. CALL LIGHT AND FLUIDS AT BEDSIDE
--- NOTE | 2020-05-01 21:12 | NUR ---
PT RESTING IN BED, DRINKING SODA PROVIDED BY S.O. WHO IS IN ROOM. CBG 205, 8 UNITS INSULIN PROVIDED. WOUNDVAC INTACT, DRESSINGS CDI. PAIN 8/10 IN JESSICA AREA. SCHEDULED PAIN MEDS PROVIDED. SCHEDULED MEDS PROVIDED.PT COMPLAINS OF NAUSEA, PRN NAUSEA MED PROVIDED. LUNGS CLEAR AND DIMINSHED. BOWEL TONES ACTIVE. VALDEZ WNL. IV CDI, WNL, FLUSHED WELL. NO OTHER NEEDS AT THIS TIME. CALL LIGHT IN REACH.
--- NOTE | 2020-05-01 22:47 | NUR ---
SCHEDULED MEDS PROVIDED. PAIN 8/10, PRN PAIN MED PROVIDED. ICE AND ICE WATER PROVIDED. NO OTHER NEEDS AT THIS TIME. CALL LIGHT IN REACH.
--- NOTE | 2020-05-02 00:58 | NUR ---
PT STATES SHE HAS ANXIETY, PRN ANXIETY MED PROVIDED. PT REQUESTS NOTE BE SENT TO MD FOR FMAL FORMS, SENT. NO OTHER NEEDS AT THIS TIME. CALL LIGHT IN REACH.
--- NOTE | 2020-05-02 03:33 | NUR ---
PT RESTING IN BED, EYES CLOSED. VALDEZ AND WOUND VAC WNL. RR EVEN, UNLABORED. CALL LIGHT IN REACH.
--- NOTE | 2020-05-02 06:17 | NUR ---
SCHEDULED MEDS PROVIDED. PT STATES SHE HAS 6/10 PAIN IN JESSICA AREA, PRN PAIN MED PROVIDED. ASSESSMENT COMPLETED. WOUNDS COVERED, CDI. WOUND VAC AND VALDEZ WNL. VS AND I&O COMPLETED BY JANUARY DARRYN. BLE EDEMA 2+, CMS INTACT. ICE WATER PROVIDED. NO OTHER NEEDS. CALL LIGHT IN REACH.
--- NOTE | 2020-05-02 08:27 | NUR ---
Both dressing intact at this time. Wound vac functioning without difficulty. Hope draining clear yellow urine without any trouble. Pt states she has some wound pain rated at a 7 and was medicated as ordered. Pt denies any other new problems. See assessment.
--- NOTE | 2020-05-02 10:16 | NUR ---
Pt sleeping, call long within reach.
--- NOTE | 2020-05-02 10:27 | NUR ---
FAXED PT/OT EVAL NOTES TO DIMAS AT [facility] [phone]. FAX CONFIRMATION RECEIVED 1017AM.
--- NOTE | 2020-05-02 11:15 | NUR ---
SPOKE WITH DIMAS FROM [facility] [phone]. SHE RECEIVED ALL CLINICALS, SIGNED CONSENT AND THERAPY EVALS. SHE STATES SNF NEEDS TO CALL FOR THEIR REQUEST. SHE STATES THEY NEED TO HAVE PHYSCIAN EVAL WITHIN 24HOURS OF ADMIT, AND THERAPY EVALS WITHIN 16HOURS OF ADMIT. ASKED IF I CAN GIVE THEM HER CONTACT INFO IF THEY HAVE QUESTIONS. SHE STATES YES. CALLED [facility], SPOKE WITH TECHNICAL ENGINEER. SHE STATES SHE WILL CALL, BUT THEY DO NOT HAVE A PROVIDER TO DO ASSESSMENT UNTIL NEXT WEEK AND THEIR OT WHO DOES EVAL IS NOT ON LATER TODAY AND BACK NEXT WEEK.
--- NOTE | 2020-05-02 11:16 | NUR ---
LEFT THIGH WOUND DRESSING CHANGED ORDERED. THE WOUND MEASURES 2X5.5X1 CM AND APPEARS HEALTHY WITH FRESH GRANULATION NOTED AND WITH HEALTHY WOUND EDGES WELL. PT TOLERATED THE DRESSING CHANGE WELL.
--- NOTE | 2020-05-02 11:41 | NUR ---
Pt complains of pain rated out a 7/10, pt was medicated as ordered, see emar.
--- NOTE | 2020-05-02 12:55 | NUR ---
FAXED UPDATED PROG NOTE TO [facility] [phone]. FAX CONFIRMATION RECEIVED [id number].
--- NOTE | 2020-05-02 13:48 | NUR ---
HAVE SPOKEN MULTIPLE TIMES WITH [facility]. THEY ARE WORKING WITH BS FOR POSSIBLE AUTH FOR STAY. ORDERS FAXED TO THEM. FAX CONFIRMTION RECEIVED. ALL PENDING AUTHORIZATION. STAFF, PATIENT AND DR KAILYN HERNANDEZ.
--- NOTE | 2020-05-02 14:12 | NUR ---
SPOKE WITH [facility] PAINTER. THEY HAVE NOT RECEIVED AUTH YET. LET HER KNOW CASE MANAGEMENT WILL NOT BE HERE AFTER 2PM TODAY. SHE WILL CONTACT [facility] FOR FURTHER ISSUES. ORDERS PLACED ON FRONT OF CHART THAT WERE FAXED TO [facility] WITH FAX CONFIRMATION AND [facility]. CHART PACK ALSO LEFT WITH CHART. STAFF AWARE NO AUTH WAS OBTAINED YET AND SNF WILL LET THEM KNOW WHEN IT IS ACCEPTED. SPOKE WITH PATIENT AGAIN IN ROOM, SHE UNDERSTANDS WE ARE STILL WORKING ON AUTH FROM INSURANCE FOR HER STAY.
--- NOTE | 2020-05-02 15:03 | NUR ---
PT AWOKE TO VOICE STATES HER PAIN IS A 7/10, SCHEDULED PAIN MEDICATIONS GIVEN, SEE EMAR. DRESSING CDI AT THIS TIME, WOUND VAC WORKING WITHOUT ANY DIFFICULTY. PT ASKED ABOUT WALKING AND SHE STATES THAT SHE MAY LATER. SEE ASSESSMENT.
--- NOTE | 2020-05-02 16:15 | NUR ---
PT REPOSITIONED IN THE BED AND SHE STATES SHE WILL GO FOR A WALK LATER THIS AFTERNOON.
--- NOTE | 2020-05-02 16:34 | NUR ---
BROUGHT PATIENT IN SOME ICE WATER.
--- NOTE | 2020-05-02 18:25 | NUR ---
Pt states her anxiety is now under very good control and she has no needs at this time.
--- NOTE | 2020-05-02 19:30 | NUR ---
wound vac dressing edges dislodged when wiping after having a bm. c/o 7.5/10 pain, medicated. will let med work and then change dressing at her request
--- NOTE | 2020-05-02 20:26 | NUR ---
wound vac dressing reinforced R inner thigh area, pt has duoderm l inner thigh
--- NOTE | 2020-05-03 00:46 | NUR ---
RESTING, NO DISTRESS, ON ROOM AIR, WOUND VAC INTACT, DRESSING TO L INNER THIGH, F/C PATENT.
--- NOTE | 2020-05-03 02:29 | NUR ---
AWAKE, TURNS SELF IN BED C/O BEING HUNGRY. SUGAR FREE OUDIN AND ALEX CRACKERS GIVEN. NO C/O PAIN OR N/V. WOUND VAC AND F/C INPLACE. CALL LIGHT AND FLUIDS AT BEDSIDE
--- NOTE | 2020-05-03 04:31 | NUR ---
c/o 7-05/12 abd pain and alexsandra area thigh area bilat pain. medicated with morphione 15mg po and zofran ODT 4mg sl. Turns self in bed. Tolerating plenty of fluid,. f/c patent draining QS, wound vac intact, patent, dresing l innr thigh
--- NOTE | 2020-05-03 06:19 | NUR ---
PT HAS SLEPT MOST OF THIS SHIFT. LABILE MOOD, CRYING TO IRRITABLE. ON ROOM AIR, DID USE HOME CPAP AT TIMES. NO RESPIRATORY DISTRESS. ROSA AGUILAR. F/C PATENT. DRAINING YELLOW COLORED, QS URINE. WOUND VAC OPSITE REINFORCED X1 R INNER UPPER THIGH AREA. GAUZE DRESSING COVERED WITH DUODERM L INNER UPPER THIGH AREA, STRONG SMELL, SS DRAINAGE NOTED, TENDER AND PAINFUL. PT HAD A BM BETWEEN SHIFT EARLIER. TOLERATING LARGE AMOUNTS OF FLUIDS. CBG 221, RECEIVED HUMALOG SS COVERAGE. SBA, USED SCDS OFF AND ON FOR SHORT AMOUNTS OF TIME. PT VERY OBESE EDEMA AT ANKLES. USES CALL LIGHT APPROPRIATELY
--- NOTE | 2020-05-03 07:05 | NUR ---
HANDOFF REPORT RECEIVED FROM SAT MATH TUTOR RN. PT SLEEPING, LEFT UNDISTURBED.
--- NOTE | 2020-05-03 07:44 | NUR ---
DID PATIENT BLOOD SUGAR CHECK. PATIENT SAID SHE MIGHT DO A BED BATH SOMETIME TODAY. PATIENT WENT BACK TO SLEEP UNTIL BREAKFAST COMES.
--- NOTE | 2020-05-03 09:15 | NUR ---
PT SITTING UP IN BED TO EAT BREAKFAST, PT IRRITABLE, UPSET THAT SHE KEEPS GETTING INTERRUPTED AND ISNT ABLE TO EAT HER BREAKFAST. VSS. PT GIVEN MORNING MEDICATIONS, VISTARIL GIVEN FOR ANXIETY. PAIN 04/11, GIVEN SCHEDULED OXYCODONE. MORNING ASSESSMENT DEFERRED UNTIL AFTER BREAKFAST.
--- NOTE | 2020-05-03 11:09 | NUR ---
SPOKE WITH DR. AVINA ABOUT WOUND VAC CHANGE AND SHOWER, ORDER TO TAKE DRESSINGS DOWN, SHOWER AND ALLOW SOAP AND WASHER TO WASH WOUNDS AND THEN TO REAAPY WOUND VAC AND DRESSING TO LEFT THIGH. PT UPDATED, PT REQUESTING TO SHOWER AFTER LUNCH.
--- NOTE | 2020-05-03 13:15 | NUR ---
PT SHOWERE DAND DRESSING CHANGE COMPLETED WOT BOTH WOUND VAC ON RIGHT BUTTOCK AND LEFT INNER THIGH. RIGHT BUTTOCK WOUND WITH GRANULATION TISSUE IN WOUND BED, SMALL AMOUNT OF SANGUINOUS DRAINAGE AFTER REMOVING OLD FOAM IT WAS ADHERED. WOUND CLEANSED WITH WOUND SPRAY AND NEW WOUND VAC DRESSING PLACED, SEALED PROPERLY. LEFT INNER THIGH DRESSING REMOVED, CLEANSED WITH WOUND SPRAY AND PACKED WITH SALINE SOAKED GAUZE AND COVERED WITH TEGADERM DRESSING. PT WIHT HIGH LEVEL OF PAIN AFTER SHOWER AND DRESSING CHANGE, GIV EN 15MG PO MORPHINE PER ORDER. PT NOW RESTING IN BED.
--- NOTE | 2020-05-03 18:00 | NUR ---
PT GIVEN 34 UNITS HUMALOG, 4 UNITS SS, 4 UNITS WITH DINNER AND, 26 UNITS BASE WITH MEALS. PT VOICING FRUSTRATION THAT PAIN IS HIGHER AFTER DRESSING CHANGES AND THAT SHE DOES NOT WANT TO DC TO [facility] AND JUST WANTS TO BE ABLE TO GO HOME. DISCUSSED WITH PT AND THERAPEUTIC COMMUNICATION PROVIDED. PT DENIES OTHER NEEDS AT THIS TIME.
--- NOTE | 2020-05-03 22:27 | NUR ---
coop with assessment, on room air. lungs clear bilat, sl patent lac, r inner thigh area wound vac in place, L inner thigh area wound gauze replaced as it fell off earlier, replaced. f/c patent, tolerating liquids well, no n/v. CBG 181, received 4 units humalog ss. turns self in bed, call light at bedside uses CPAP when resting
--- NOTE | 2020-05-04 02:56 | NUR ---
PT RESTLESS IN BED, C/O 8/ R INNER THIGH AREA PAIN, WOUND VAC IN PLACE, GAUZE DRESSING TO L INNER THIGH CHANGED IT FELL OFF AGAIN. MEDICATED WITH MORPHINE 6MG PO, TOLERATING QS AMOUNTS OF FLUIDS, NO C/O N/V, F/C PATENT.
--- NOTE | 2020-05-04 06:42 | NUR ---
PT HAS BEEN MEDICATED WITH MORPHINE 15MG PO X2, PER PAIN BOTH INNER THIGHS, PLUS SCHEDULED TYLENOL AND OXYCODONE 10MG PO WITH GOOD TO FAIR PAIN RELIEF. WOUND VAC TO R INNER THIGH PATENT, GAUZE TO L INNER WOUND AREA CHANGED X3X THIS SHIFT, . F/C PATENT DRAINING LARGE AMOUNTS OF MEDIUM YELLOW URINE, TOLERATING QS AMOUNT OF LIQUIDS, NO N/V. REPOSITIONS SELF IN BED, SL PATENT. ON ROOM AIR. COOPERATIVE, MUCH BETTER AFFECT THIS AM USES SBA/CANE WHEN UP, USES CPAP WHEN RESTING SOMETIMES
--- NOTE | 2020-05-04 07:37 | NUR ---
pt resting in bed cpap in place. states pain is 8/10 at this time. reviewed medications with pt and discussed when different meds are available to her. pt is upbeat and talkative. wound vac in place, gauze to left thigh replaced.
--- NOTE | 2020-05-04 11:28 | NUR ---
PT TOLERATES MORNING MEAL RESTING IN BED. WOUND VAC APPEARS POSITIONAL. PT UP TO TOILET RETURNS TO BED, WOUND VAC REINFORCED BECAUSE OF AIR LEAK. PT AGREES PAIN IS WELL CONTROLLED.
--- NOTE | 2020-05-04 15:20 | NUR ---
PT HAS RESTED IN BED THIS SHIFT UP TO TOILET SEVERAL TIMES. BOYFRIEND PRESENT IN ROOM. PT DENIES PAIN AT THIS TIME AGREES OXY HAS BEEN EFFECTIVE FOR HER. WOUND VAC CHANGED THIS SHIFT. RE-INFORCED EARLY IN THE DAY, THEN IT COMES LOOSE AFTER TOILETING. AREA WAS MOIST AND ADHESIVE CAME LOOSE AND ROLLED UP. DRESSING CHANGE WELL TOLERATED. WOUND BED IS GRANULATING AND LOOKS LIKE GOOD HEALTHY TISSUE HEALING EXPECTED. NO ODOR OR RENESS SURROUNDING THE AREA. PT TOLERATED PROCEEDURE
--- NOTE | 2020-05-04 17:57 | NUR ---
PT BOYFRIEND IN THE ROOM. PT HAS HAD NAUSEA MEDICATIONS 2X THIS SHIFT, NO EMESIS. PT DENIES PAIN OR OTHER DISCOMFORTS. TOLERATES SIPS OF CLEAR FLUIDS. IV INFUSING.
--- NOTE | 2020-05-04 19:28 | NUR ---
c/o anxiety, medicated with vistaril , 05/12 r thigh area pain, medicated with morphine 15mg po
--- NOTE | 2020-05-04 22:41 | NUR ---
Pt very restless, received vistaril and morphine earlier, stated that is not working at this time. c/o r inner thigh wound vacarea pain, area reassess and opsite applied to hold tubing and f/c tubing was kinked too and no uo in bag noted at that time, c/o pain at f/c insertion/bladder area. pt is very mobile in bed and wound vac tubing was very thight and gets cought between her heels Inmediate release of urine noted after unkinking f/c tube. wound vac patent now, decrease redness around insertion site noted. l inner thigh wound area gauze replaced as it had come out earlier, no odor, small amount of sanguineous drainage. edema both ankles bilat, non pitting, On room air, sl patent, large abd. cbg 181, received 4 units ss humolog insulin. tolerating fluids well, no c/o n/v. Medicated with oxycodone 10mg and tylenol 1000mg po scheduled meds, Reassured, all concerns, listened to pt for about 20 minutes and was praised for her efforts, calmed down and started laughing, no further c/o anxiety, "i feel better stated". uses cpap at hs at times. sba. call light at bedside, semireceptive to DM diet and restrictions
--- NOTE | 2020-05-05 00:28 | NUR ---
RESTING, NO DISTRESS, USING CPAP. CALL LIGHT AND FLUIDS AT BEDSIDE
--- NOTE | 2020-05-05 02:23 | NUR ---
RESTING, EYS CLOSED, WEARING CPAP MACHINE, F/C, WOUND VAC PATENT.
--- NOTE | 2020-05-05 04:34 | NUR ---
PT W VERY LABILE MOOD AT BEGINING OF SHIFT, WAS MEDICATED WITH VISTARIL PARTIALLY EFFECTIVE. C/O L THIGH PAIN. L WOUND VAC AND F/C TUBING REPOSITIONED IT GETS TANGLED FROM PTS FREQUENT REPOSITIONING /RESTLESSNESS IN BED. HAS BEEN MEDICATED WITH MORPHINE 15MG PO AND SCHEDULED OXYCODONE/TYLENOL WITH FAIR TO GOOD PAIN RELIEF, ON ROOM AIR, USES CPAP AT TIMES WHEN RESTING. WOUND VAC TO R INNER UPPER THIGH/GROIN AREA PATENT, LESS REDNESS L INNER THIGH AREA WOUND W GAUZE, MARINA REAPLACED 2X THIS SHIFT IT FALL OFF. TENDER, SCANT AMOUNT OF SANGUINEOUS DRAINAGE PRESENT ON GAUZE. TOLERATING FLUIDS WELL, CBG 181 RECEIVED 4 UNITS INSULIN. INSTRUCTED OF DM DIET COMPLIANCE, SEMI RECEPTIVE. USES CALL LIGTH APPROPRIATELY
--- NOTE | 2020-05-05 06:58 | NUR ---
awakes easily, using CPAP, r thigh wound vac intact patent, f/c patent draining large amounts of clear urine, l thigh wound gauze in place replaced this am. . medicated with scheduled tylenbol. no c/o n/v, tolerating fluids well. repositions self in bed
--- NOTE | 2020-05-05 07:49 | NUR ---
PT SLEEPING SOUNDLY AT TIME OF REPORT CPAP IN PLACE
--- NOTE | 2020-05-05 08:11 | NUR ---
PATIENT STILL SLEEPING IN BED. USING PERSONAL CPAP. WHITE BOARD UPDATED. CALL LIGHT WITHIN REACH. NO FURTHER NEEDS AT THIS TIME.
--- NOTE | 2020-05-05 08:30 | NUR ---
UPDATED CLINICALS FAXED TO [facility] BY [facility] [phone].
--- NOTE | 2020-05-05 09:20 | NUR ---
CALLED [facility] [phone] AND SPOKE WITH LEGAL PROCESS SPECIALIST DIMAS. SHE STATES SHE WILL DO REVIEW TODAY. DISCUSSED AGAIN THAT WE ARE HOLDING PATIENT FOR DISCHARGE TO FACILITY. DISCUSSED THAT WE HAVE AUTH TO TODAY, AND IF SHE STAYS WE WILL NEED THAT EXTENDED. SHE STATES SHE WILL LOOK OVER PAPERWORK.
--- NOTE | 2020-05-05 10:12 | NUR ---
PATIENT RESTING IN BED. WATER AND ICE REFRESHED. VALDEZ EMPTIED. CALL LIGHT WITHIN REACH. NO FURTHER NEEDS AT THIS TIME.
--- NOTE | 2020-05-05 11:10 | NUR ---
PT ENCOURAGED TO SHOWER WOUND AND SKIN CARE DISCUSSED.
--- NOTE | 2020-05-05 11:24 | NUR ---
SPOKE WITH CRUTCH MAKER FROM [facility]. SHE ALSO HAS BEEN IN CONTACT THIS MORNING WITH DIMAS AT [facility] AND SHE REQUESTED PAPERWORK FROM THEM. SHE REQUESTS UPDATED CLINICALS FROM [facility]. EXPLAINED WE HAVE ALREADY SENT THAT TO [facility] THIS MORNING. DID FAX UPDATED CLINICALS TO THEM, ALSO.
--- NOTE | 2020-05-05 13:29 | NUR ---
PATIENT IS RESTING IN BED. FRESH WATER GIVEN. CALL LIGHT WITHIN REACH. NO FURTHER NEEDS AT THIS TIME.
--- NOTE | 2020-05-05 13:56 | NUR ---
PT RESTING IN BED SHOPPING [employer]. SUGGESTED UP TO THE CHAIR, WALK THE HALLS, OR SHOWER. SHE REFUSES STATES SHE WANTS TO LET HER PAIN MEDS WORK FIRST. STATES SHE WILL SHOWER TOMORROW, MAYBE GET UP OUT OF BED LATER TODAY
--- NOTE | 2020-05-05 15:50 | NUR ---
DR AVINA IN TO SEE PT, QUESTIONS ASKED AND ANSWERED, PLANS GOING FORWARD DISCUSSED. MEDS ADJUSTED FOR BETTER PAIN CONTROL.
--- NOTE | 2020-05-05 18:42 | NUR ---
PATIENT RESTING IN BED. VALDEZ EMPTIED. CALL LIGHT WITHIN REACH. NO FURTHER NEEDS AT THIS TIME.
--- NOTE | 2020-05-05 18:53 | NUR ---
PT RESTING IN BED AGREES SHE IS COMFORTABLE AND BELIEVES NEW PAIN MED REGIMEN WILL BE EFFECTIVE.
--- NOTE | 2020-05-05 19:31 | NUR ---
REPORT RECEIVED FROM BAO WITT. pt RESTING IN BED, TALKING ON PHONE. NO REQUESTS AT THIS TIME.
--- NOTE | 2020-05-05 22:29 | NUR ---
pt ASSESSMENT COMPLETE. pt CRYING WHEN RN ENTERS ROOM, FEELS PRESSURE IN ABDOMEN. VALDEZ REPOSITIONED, DRAINING AT THIS TIME. pt C/O ANXIETY REGARDING POSSIBLE DISCHARGE TO [facility]. PRN ANXIETY MEDICATION ADMINISTERED REQUESTED. SCHEDULED MEDICATIONS ADMINISTERED. WOUND VAC IN PLACE. GAUZE IN PLACE RIGHT THIGH. VALDEZ CARE COMPLETE. VALDEZ EMPTIED. ICE WATER PROVIDED. CALL LIGHT IN REACH.
--- NOTE | 2020-05-06 00:10 | NUR ---
pt IN BED RESTING, ON PHONE. NO C/O PAIN AT THIS TIME. CALL LIGHT IN REACH.
--- NOTE | 2020-05-06 03:31 | NUR ---
CHECKED ON pt. RESTING IN BED WITH EYES CLOSED. BREATHING UNLABORED, RR 18. LIGHTS OFF IN ROOM.
--- NOTE | 2020-05-06 04:26 | NUR ---
CHECKED ON pt. RESTING IN BED WITH EYES CLOSED. BREATHING IS UNLABORED. VALDEZ DRAINING YELLOW URINE.
--- NOTE | 2020-05-06 06:34 | NUR ---
pt SLEEPING, AWAKENS TO VOICE FOR SCHEDULED MEDICATION ADMINISTRATION. RATES PAIN 7.5/10 IN THIGH AREA. VALDEZ EMPTIED, DRAINING QS OUTPUT. ASSESSMENT COMPLETE. VSS. CALL LIGHT IN REACH.
--- NOTE | 2020-05-06 06:55 | NUR ---
HANDOFF REPORT RECEIVED FROM HEALTH PHYSICS TECHNICIAN RN. PT SLEEPING, LEFT UNDISTURBED.
--- NOTE | 2020-05-06 08:25 | NUR ---
PATIENT IN BED. WARM CLOTH GIVEN FOR FACE. PLANNING TO SHOWER AND AMBULATE AFTER BREAKFAST. WHITE BOARD UPDATED. CALL LIGHT WITHIN REACH. NO FURTHER NEEDS AT THIS TIME.
--- NOTE | 2020-05-06 08:30 | NUR ---
PT RESTING IN BED. PT ON ROOM AIR, LUNG SOUNDS CLEAR, DENIES SOB. BOWEL TONESA CTIVE, DENIES NAUSEA, TOLERATING DIET, GIVEN 30 UNITS HUMALOG AND 90 UNITS LANTUS PER ORDER. WOUND VAC DRESSING INTACT, PLAN FOR DRESSING CHANGE AFTER SHOWER. PT WITH HIGH ANXIETY ABOUT DISCHARGING TO [facility] TODAY, PT GIVEN 2MG PO ATIVAN. PT DENIES OTHER NEEDS AT THIS TIME.
--- NOTE | 2020-05-06 10:07 | NUR ---
[facility], [facility] TO SEND A WOUND VAC KIT UP TO HOSPITAL FOR WOUND VAC CHANGE BEFORE DC. PT STARTIGN TO SHOWER AT THIS TIME, UPDATED ON PLAN OF CARE. PT DENIES OTHER NEEDS AT THIS TIME.
--- NOTE | 2020-05-06 11:00 | NUR ---
Notified by staff, they are unable to dc pt as she is crying loudly and refuses to use taxi for transport. In and spoke with pt she is weeping loudly and upset. Stating we don't provide services for large people. Discussed [facility]c van and barriatric [facility] transport. [facility] and states she can only dc with her spouse he is working and cannot get here until 3p. NOtified her insurance requires and assessment by a certain time and she will need to transport sooner for MD and OT to see her for assessment. She has been attempting to text her spouse without return response. She agrees for call to [facility]. I called and spoke with spouse railroad supervisor of engines and spouse called pt. and will be here in 1 hour to transport.
--- NOTE | 2020-05-06 11:15 | NUR ---
RECEIVED WOUND VAC KIT FROM [facility]. WOUND VAC APPLIED TO RIGHT BUTTOCK WOUND, WOUND BED WITH GRANULATION TISSUE, SMALL AMOUNT OF BLEEDING. LEFT LEG WOUND PACKED WITH SALINE SOAKED GAUZE AND COVERED WITH DUODERM PATCH. PT TOLERATED DRESSING CHANGE WELL. PT DENIES OTHER NEEDS AT THIS TIME.
--- NOTE | 2020-05-06 12:43 | NUR ---
PT GIVEN 8 UNITS SS HUMALOG, PT WITHOUT APPETITE AND DOES NOT WANT TO EAT LUNCH, 26 UNIT BASE HUMALOG HELD. PT WITH HIGH ANXIETY ABOUT DISCHARGE, CASE MANAGEMENT WORKING OF ARRANGING TRANSPORTATION WITH .
--- NOTE | 2020-05-06 14:25 | NUR ---
Call from [facility] stating pt has not arrived. Informed she left with her spouse at 1345. David unsure where she is as she was made aware of need for assessment by MD. The drive is less than 10 blocks. They will continue to call her cell phone.
== END 2020-05-06 13:45 | disposition home or self-care (01) | DRG 571 ==
LOC: ED 17:44 → MS 17:46 → ED 17:46 → MS 17:46
PROVIDERS: ADMIT Surgery
PROC: 0J9M0ZZ Drainage of Left Upper Leg Subcutaneous Tissue and Fascia, Open Approach (ICD-10-PCS; principal; 2020-04-22 20:30)
PROC: 0JBM0ZZ Excision of Left Upper Leg Subcutaneous Tissue and Fascia, Open Approach (ICD-10-PCS; 2020-04-29)
DX: L02.416 Cutaneous abscess of left lower limb (principal); Z68.45 Body mass index [BMI] 70 or greater, adult; I48.20 Chronic atrial fibrillation, unspecified; B37.49 Other urogenital candidiasis; L02.31 Cutaneous abscess of buttock; E66.01 Morbid (severe) obesity due to excess calories; F41.9 Anxiety disorder, unspecified; I10 Essential (primary) hypertension; E11.65 Type 2 diabetes mellitus with hyperglycemia; K21.9 Gastro-esophageal reflux disease without esophagitis; G47.33 Obstructive sleep apnea (adult) (pediatric); G89.29 Other chronic pain; I48.0 Paroxysmal atrial fibrillation; G89.4 Chronic pain syndrome; E03.9 Hypothyroidism, unspecified; Z20.828 Contact with and (suspected) exposure to other viral communicable diseases; Z79.4 Long term (current) use of insulin; Z79.01 Long term (current) use of anticoagulants
CPT/HCPCS: 00400; 00902; 36415; 80048; 80053; 81001; 82247; 82465; 83036; 83605; 83615; 84100; 84478; 84550; 84703; 85025; 87040; 87070; 87075; 87205; 93005; 93010; 94762; 96374; 96375; 97162; 99284-25; C9803; J1170; J1644; J1815; J1885; J2001; J2185; J2250; J2270; J2405; J2704; J3010; J7030; J7121; U0002

== ENCOUNTER 2020-05-29 10:03 | Observation (INO) | payer BC, OTHER ==
[~2020-05-29] VITALS: Ht 167.6 cm; Wt 195.2 kg
--- OUTSIDE RECORDS SUMMARY | ~2020-05-29 | XMS | Encounter Summary ---
Demographics + + + | Address | [address] | | | [place] [address] | + + + | Home Phone | | + + + | Preferred Language | Unknown | + + + | Marital Status | Unmarried Domestic Partner | + + + | Faith Affiliation | Unknown | + + + | Race | or | + + + | Ethnic Group | Not or | + + + Author + + + | Author | [place] [employer] [facility] | + + + [...] Team Providers + +------+ + | Care Media Marketing Specialist Name | Role | Phone | + +------+ + | Larissa Keen MD | PCP | | + +------+ + Reason for Referral Physical Therapy (Routine) +--------+--------+ + + + + | Status | Reason | Specialty | Diagnoses / | Referred By | Referred To | | | | | Procedures | Contact | Contact | +--------+--------+ + + + + | Closed | | Physical | Diagnoses | David | [facility] | | | | Therapy | Morbid | [place] | [address] | | | | | obesity | [address] | | | | | ([facility]) | [address] | for Health | | | | | Procedures | [place], [place] | and Healing, | | | | | PHYSICAL | [address] | Building 1, | | | | | THERAPY | Phone: | 1st Floor | | | | | REFERRAL | | [place], [place] | | | | | | Fax: | [address] | | | | | | [phone] | Phone: | | | | | | | [phone] | | | | | | | Fax: | | | | | | | [phone] | +--------+--------+ + + + + Encounter Details +--------+ + + + + | Date | Type | Department | Care Team | Description | +--------+ + + + + | 06/02/ | Alterations Tailor | Digestive Health | Fátima Hernandez, | Morbid obesity (HCC) | | 2014 | | Center at [facility] [address] | ACNP [address] | (Primary Dx) | | | [address] | Ave [place], [place] | | | | | for Health and | [address] | | | | | [facility], [address] | | | | | | [place], [place] | | | | | | [address] | | | | | | [phone] | | | +--------+ + + + [...] on file | | + + + documented as of this encounter Plan of Treatment Not on filedocumented as of this encounter Visit Diagnoses + + | Diagnosis | + + | Morbid obesity (HCC) - Primary Morbid obesity | + + documented in this encounter"
--- OUTSIDE RECORDS SUMMARY | ~2020-05-29 | XMS | Encounter Summary ---
Demographics + + + | Address | [address] | | | [place] [address] | + + + | Home Phone | | + + + | Preferred Language | Unknown | + + + | Marital Status | Unmarried Domestic Partner | + + + | Jainism Affiliation | Unknown | + + + | Race | or | + + + | Ethnic Group | Not or | + + + Author + + + | Author | [place] [employer] [facility] | + + + | Organization | [facility] | + + + | Address | Unknown | + + + | Phone | Unavailable | + + + Support + + +---------+ + | Name | Relationship | Address | Phone | + + +---------+ + | Lazaro Merchant | ECON | Unknown | | + + +---------+ + Care Team Providers + +------+ + | Care Foundry Technician Name | Role | Phone | + +------+ + | Larissa Keen MD | PCP | | + +------+ + Encounter Details +--------+ + + + + | Date | Type | Department | Care Team | Description | +--------+ + + + + | 01/08/ | Abstract | Digestive Health | Diamond De León, | | | 2014 | | Center at [facility] [address] | ADULT BASIC EDUCATION INSTRUCTOR [address] | | | | | [address] [facility] | [facility] [address] | | | | | for Health and | [place], [place] | | | | | [facility] [place] [address] | [address] | | | | | [place], [place] | [phone] | | | | | [address] | | | | | | [phone] | | | +--------+ + + + [...]
--- OUTSIDE RECORDS SUMMARY | ~2020-05-29 | XMS | Encounter Summary ---
Demographics + + + | Address | [address] | | | [place] [address] | + + + | Home Phone | | + + + | Preferred Language | Unknown | + + + | Marital Status | Unmarried Domestic Partner | + + + | Yazidi Affiliation | Unknown | + + + | Race | or | + + + | Ethnic Group | Not or | + + + Author + + + | Author | [place] [employer] [facility] | + + + | Organization | [facility] | + + + | Address | Unknown | + + + | Phone | Unavailable | + + + Support + + +---------+ + | Name | Relationship | Address | Phone | + + +---------+ + | Lazaro Merchant | ECON | Unknown | | + + +---------+ + Care Team Providers + +------+ + | Care Certified Coder Name | Role | Phone | + +------+ + | Mar DoddP | PCP | | + +------+ + Encounter Details +--------+ + + + + | Date | Type | Department | Care Team | Description | +--------+ + + + + | 03/13/ | Documentati | Digestive Health | Diamond De León, | | | 2013 | on | Center at [facility] [address] | INTERNATIONAL REPRESENTATIVE [address] | | | | | [address] [place] | , [facility] [address] | | | | | for Health and | [place], [place] | | | | | Healing, [address] | [address] | | | | | [place], [place] | [phone] | | | | | [address] | | | | | | [phone] | | | +--------+ + + + [...]
--- OUTSIDE RECORDS SUMMARY | ~2020-05-29 | XMS | Encounter Summary ---
Demographics + + + | Address | [address] | | | [place] [address] | + + + | Home Phone | | + + + | Preferred Language | Unknown | + + + | Marital Status | Unmarried Domestic Partner | + + + | Synagogue Affiliation | Unknown | + + + | Race | or | + + + | Ethnic Group | Not or | + + + Author + + + | Author | [place] [employer] [facility] | + + + | Organization | [facility] | + + + | Address | Unknown | + + + | Phone | Unavailable | + + + Support + + +---------+ + | Name | Relationship | Address | Phone | + + +---------+ + | Lazaro Merchant | ECON | Unknown | | + + +---------+ + Care Team Providers + +------+ + | Care Courtroom Reporter Name | Role | Phone | + [...] | | | | | | | [facility] | | | | | | | Health and | | | | | | | Healing, | | | | | | | Building [address] | | | | | | | [place], [place] | | | | | | | [address] | | | | | | | Phone: | | | | | | | [phone] | | | | | | | Fax: | | | | | | | [phone] | +--------+--------+ + + + + Encounter Details +--------+---------+ + + + | Date | Type | Department | Care Team | Description | +--------+---------+ + + + | 05/03/ | Office | Digestive Health | Tejal Iraheta RD, | Morbid obesity with | | 2013 | Visit | Center at [facility] [address] | [place], [place] [address] | BMI of 70 and over, | | | | [address] [place] | [address] | adult (HCC) (Primary | | | | for Health and | [place], [place] | Dx) | | | | [facility] 2 | [address] | | | | | [place], [place] | [phone] | | | | | [address] | | | | | | [phone] | | | +--------+---------+ + + + [...] as of this encounter Progress Notes Tejal Iraheta RD, CSOWM, [place] - 05/03/2014 10:21 AM PDTFormatting of this note might be diff erent from the original. Referring Provider: Mar Dodd [facility] Outpatient Nutrition Clinic, Pre-Bariatric Surgery Evaluation Initial diet consultation prior to having Leah En Y gastric bypass surgery. Documented Time of Visit: 10:19 until 11:21 (62 minutes ionc-ri-aynq with patient) SUBJECTIVE: Arrives with her boyfried. 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 Drinks ice water and diet soda. Eats out - only when going out of town. Likes pizza, Anne's, McDonalds, Telugu, Trinidadian ( <1x/wk) Provided written diet suggestions to [...] Contact information was provided. Tejal Iraheta RD, [facility], [place] Pager# [phone] documented i n this encounter Plan of Treatment Not on filedocumented as of this encounter Procedures + +--------+ + + + | Procedure Name | Priori | Date/Time | Associated Diagnosis | Comments | | | ty | | | | + +--------+ + + + | [place] MNT INITIAL | Routin | 05/03/2014 | Morbid obesity | | | ASSESSMNT X15MIN | e | 11:40 AM | with BMI of 70 and | | | | | PDT | over, adult (HCC) | | + +--------+ + + + documented in this encounter Visit Diagnoses + + | Diagnosis | + + | Morbid obesity with BMI of 70 and over, adult (HCC) - Primary | + + documented in this encounter
--- OUTSIDE RECORDS SUMMARY | ~2020-05-29 | XMS | Encounter Summary ---
Demographics + + + | Address | [address] | | | [place] [address] | + + + | Home Phone | | + + + | Preferred Language | Unknown | + + + | Marital Status | Unmarried Domestic Partner | + + + | Orthodoxy Affiliation | Unknown | + + + | Race | or | + + + | Ethnic Group | Not or | + + + Author + + + | Author | [place] [facility] | + + + | Organization | [facility] | + [...] Team Providers + +------+ + | Care Assistant Broker Name | Role | Phone | + +------+ + | Larissa Keen MD | PCP | | + +------+ + Encounter Details +--------+ + + + + | Date | Type | Department | Care Team | Description | +--------+ + + + + | 08/13/ | Abstract | Digestive Health | Clinic, Surgery | | | 2014 | | Center at [facility] [address] | | | | | | [facility] | | | | | | for Health and | | | | | | Healing, Building [address] | | | | | | [place], [place] | | | | | | [address] | | | | | | [phone] | | | +--------+ + + + [...]
--- OUTSIDE RECORDS SUMMARY | ~2020-05-29 | XMS | Encounter Summary ---
Demographics + + + | Address | [address] | | | [place] [address] | + + + | Home Phone | | + + + | Preferred Language | Unknown | + + + | Marital Status | Unmarried Domestic Partner | + + + | Quaker Affiliation | Unknown | + + + | Race | or | + + + | Ethnic Group | Not or | + + + Author + + + | Author | [place] [employer] [facility] | + + + | Organization | [facility] | + [...] Team Providers + +------+ + | Care Wage And Salary Specialist Name | Role | Phone | + +------+ + | Larissa Keen MD | PCP | | + +------+ + Encounter Details +--------+ + + + + | Date | Type | Department | Care Team | Description | +--------+ + + + + | 09/30/ | Documentati | Digestive Health | Fátima Hernandez, | | | 2014 | on | Center at [facility] [address] | ACNP [address] | | | | | [address] | Ave [place], [place] | | | | | for Health and | [address] | | | | | Healing, Building [address] | | | | | | [place], [place] | | | | | | [address] | | | | | | | [...]
--- OUTSIDE RECORDS SUMMARY | ~2020-05-29 | XMS | Encounter Summary ---
Demographics + + + | Address | [address] | | | [place] [address] | + + + | Home Phone | | + + + | Preferred Language | Unknown | + + + | Marital Status | Unmarried Domestic Partner | + + + | Sabianism Affiliation | Unknown | + + + | Race | or | + + + | Ethnic Group | Not or | + + + Author + + + | Author | [place] [employer] [facility] | + + + | Organization | [facility] | + + + | Address | Unknown | + + + | Phone | Unavailable | + + + Support + + +---------+ + | Name | Relationship | Address | Phone | + + +---------+ + | Lazaro Merchant | ECON | Unknown | | + + +---------+ + Care Team Providers + +------+ + | Care Horse Racing Manager Name | Role | Phone | + +------+ + | Larissa Keen MD | PCP | | + +------+ + Encounter Details +--------+ + + + + | Date | Type | Department | Care Team | Description | +--------+ + + + + | 12/09/ | Abstract | Digestive Health | Diamond De León, | | | 2014 | | Center at [facility] [address] | MENU PLANNER [address] | | | | | [address] [facility] | [facility] 350 | | | | | for Health and | [place], [place] | | | | | [facility], [place] [address] | [address] | | | | | [place], [place] | [phone] | | | | | [address] | | | | | | [phone] | | | +--------+ + + + [...]
--- OUTSIDE RECORDS SUMMARY | ~2020-05-29 | XMS | Encounter Summary ---
Demographics + + + | Address | [address] | | | [place] [address] | + + + | Home Phone | | + + + | Preferred Language | Unknown | + + + | Marital Status | Unmarried Domestic Partner | + + + | Congregational Affiliation | Unknown | + + + | Race | or | + + + | Ethnic Group | Not or | + + + Author + + + | Author | [place] [employer] [facility] | + + + | Organization | [facility] | + + + | Address | Unknown | + + + | Phone | Unavailable | + + + Support + + +---------+ + | Name | Relationship | Address | Phone | + + +---------+ + | Laazro Merchant | ECON | Unknown | | + + +---------+ + Care Team Providers + +------+ + | Care Co Founder And Ceo Name | Role | Phone | + +------+ + | Larissa Keen MD | PCP | | + +------+ + Reason for Referral Consultation (Routine) +--------+--------+ + + + + | Status | Reason | Specialty | Diagnoses / | Referred By | Referred To | | | | | Procedures | Contact | Contact | +--------+--------+ + + + + | Closed | | Pain | Diagnoses | Conser, | E Commerce Solution Architect Psych | | | | Management | Morbid | Diamond Sandoval NP | [facility] [address] | | | | | obesity | [address] | | | | | (HCC) | [address], | Center for | | | | | Procedures | [address] | Health and | | | | | CONSULT TO | [place], [place] | Healing, | | | | | PAIN CENTER | [address] | Building | | | | | | Phone: | 1,15th Floor | | | | | | [phone] | [place], [place] | | | | | | Fax: | [address] | | | | | | [phone] | Phone: | | | | | | | [phone] | | | | | | | Fax: | | | | | | | [phone] | +--------+--------+ + + + + Encounter Details +--------+ + + + + | Date | Type | Department | Care Team | Description | +--------+ + + + + | // | Mandarin Chinese Teacher | Digestive Health | Diamond De León, | Morbid obesity (HCC) | | 2015 | | Center at [facility] [address] | [address] GUARD [address] | (Primary Dx) | | | | [address] | [address], [address] | | | | | for Health and | [place], [place] | | | | | Healing, Building 2 | [address] | | | | | [place], [place] | [phone] | | | | | [address] | | | | | | [phone] | | | +--------+ + + + [...]
--- OUTSIDE RECORDS SUMMARY | ~2020-05-29 | XMS | Encounter Summary ---
Demographics + + + | Address | [address] | | | [place] [address] | + + + | Home Phone | | + + + | Preferred Language | Unknown | + + + | Marital Status | Unknown | + + + | Yazidism Affiliation | Unknown | + + + | Race | Unknown | + + + | Ethnic Group | Unknown | + + + Author + + + | Author | [facility] | | | and [place] | + + + | Organization | [facility] | | | and [place] [...] Team Providers + +------+ + | Care Materials Planner Name | Role | Phone | + +------+ + PCP | Unavailable | + +------+ + Encounter Details +--------+ + + + + | Date | Type | Department | Care Team | Description | +--------+ + + + + | 08/23/ | Hospital | [facility] | | | | 2005 - | Encounter | MED CTR MED ONC | | | | | | [address] | | | | 08/25/ | | [place] [address] | | | | 2005 | | [phone] | | | +--------+ + + + [...]
--- OUTSIDE RECORDS SUMMARY | ~2020-05-29 | XMS | Encounter Summary ---
Demographics + + + | Address | [address] | | | [place] [address] | + + + | Home Phone | | + + + | Preferred Language | Unknown | + + + | Marital Status | Unmarried Domestic Partner | + + + | Presybeterian Affiliation | Unknown | + + + | Race | or | + + + | Ethnic Group | Not or | + + + Author + + + | Author | [place] [employer] [facility] | + + + | Organization | [facility] | [...] Team Providers + +------+ + | Care Vp Biology Name | Role | Phone | + +------+ + | Larissa Keen MD | PCP | | + +------+ + Encounter Details +--------+ + + + + | Date | Type | Department | Care Team | Description | +--------+ + + + + | 11/01/ | Abstract | Digestive Health | Diamond De León, | | | 2014 | | Center at [facility] [address] | STREET OPENINGS INSPECTOR [address] | | | | | [address] [facility] | [facility] [address] | | | | | for Health and | [place], [place] | | | | | [facility], [place] [address] | [address] | | | | | [place], [place] | [phone] | | | | | [address] | | | | | | [phone] | | | +--------+ + + + [...]
--- OUTSIDE RECORDS SUMMARY | ~2020-05-29 | XMS | Encounter Summary ---
Demographics + + + | Address | [address] | | | [place] [address] | + + + | Home Phone | | + + + | Preferred Language | Unknown | + + + | Marital Status | Unmarried Domestic Partner | + + + | Latter-Day Affiliation | Unknown | + + + | Race | or | + + + | Ethnic Group | Not or | + + + Author + + + | Author | [place] [employer] [facility] | + + + | Organization | [facility] | + + + | Address | Unknown | + + + | Phone | Unavailable | + + + Support + + +---------+ + | Name | Relationship | Address | Phone | + + +---------+ + | Lazaro Merchant | ECON | Unknown | | + + +---------+ + Care Team Providers + +------+ + | Care Chief Fundraising Officer Name | Role | Phone | + [...] | 2013 | on | Center at [facility] [address] | FEED GRINDER [address] | Surgery (counseling | | | | [address] | , [address] | list) | | | | for Health and | [place], [place] | | | | | [facility] 2 | [address] | | | | | [place], [place] | [phone] | | | | | [address] | | | | | | [phone] | | | +--------+ + + + [...] + + documented as of this encounter Miscellaneous Notes Telephone Encounter - Korina Rebolledo - 05/03/2014 4:53 PM PDTList of counselors sent vi a email per Diamond request. documented in this encounter Plan of Treatment Not on filedocumented as of this encounter Visit Diagnoses Not on filedocumented in this encounter"
--- OUTSIDE RECORDS SUMMARY | ~2020-05-29 | XMS | Encounter Summary ---
Demographics + + + | Address | [address] | | | [place] [address] | + + + | Home Phone | | + + + | Preferred Language | Unknown | + + + | Marital Status | Unmarried Domestic Partner | + + + | Religion Affiliation | Unknown | + + + | Race | or | + + + | Ethnic Group | Not or | + + + Author + + + | Author | [facility] | + + + | Organization | [facility] | + + + | Address | Unknown | + + + | Phone | Unavailable | + + + Support + + +---------+ + | Name | Relationship | Address | Phone | + + +---------+ + | Lazaro Merchant | ECON | Unknown | | + + +---------+ + Care Team Providers + +------+ + | Care Want Ad Supervisor Name | Role | Phone | + +------+ + | Larissa Keen MD | PCP | | + +------+ + Encounter Details +--------+ + + + + | Date | Type | Department | Care Team | Description | +--------+ + + + + | 10/17/ | Abstract | Digestive Health | Diamond De León, | | | 2014 | | Center at [facility] [address] | SCHOOL CURRICULUM DEVELOPER [address] | | | | | [address] [facility] | [facility] 350 | | | | | for Health and | [place], [place] | | | | | [facility], [place] [address] | [address] | | | | | [place], [place] | [phone] | | | | | [address] | | | | | | [phone] | | | +--------+ + + + [...]
--- OUTSIDE RECORDS SUMMARY | ~2020-05-29 | XMS | Encounter Summary ---
Demographics + + + | Address | [address] | | | [place] [address] | + + + | Home Phone [...] + + | Author | [place] [employer] [facility] | + + + | Organization | [facility] | [...] Team Providers + +------+ + | Care Canning Machine Operator Name | Role | Phone | + +------+ + | Mar DoddP | PCP | | + +------+ + Encounter Details +--------+ + + + + | Date | Type | Department | Care Team | Description | +--------+ + + + + | 03/15/ | Abstract | Digestive Health | Fátima Hernandez, | | | 2013 | | Center at [facility] [address] | ACNP [address] | | | | | [address] | e [place], [place] | | | | | for Health and | [address] | | | | | Healing, [address] | | | | | | [place], [place] | | | | | | [address] | | | | | | | [...]
--- OUTSIDE RECORDS SUMMARY | ~2020-05-29 | XMS | Encounter Summary ---
Demographics + + + | Address | [address] | | | [place] [address] | + + + | Home Phone | | + + + | Preferred Language | Unknown | + + + | Marital Status | Unmarried Domestic Partner | + + + | Restorationist Affiliation | Unknown | + + + | Race | or | + + + | Ethnic Group | Not or | + + + Author + + + | Author | [facility] [facility] | + + + | Organization | [facility] | + + + | Address | Unknown | + + + | Phone | Unavailable | + + + Support + + +---------+ + | Name | Relationship | Address | Phone | + + +---------+ + | Lazaro Merchant | ECON | Unknown | | + + +---------+ + Care Team Providers + +------+ + | Care Tubing Tester Name | Role | Phone | + [...] | | | | | | | [place], [place] | | | | | | | [address] | | | | | | | Phone: | | | | | | | [phone] | | | | | | | Fax: | | | | | | | [phone] | +--------+--------+ + + + + Encounter Details +--------+---------+ + + + | Date | Type | Department | Care Team | Description | +--------+---------+ + + + | 01/24/ | Office | Digestive Health | Tejal Iraheta RD, | Morbid obesity with | | 2014 | Visit | Center at [facility] [address] | [place], [place] [address] | BMI of 70 and over, | | | | [address] | [address] | adult ([facility]) (Primary | | | | for Health and | [place], [place] | Dx); Type 2 | | | | [facility], [place] [address] | [address] | diabetes mellitus | | | | [facility] [place] | [phone] | treated with insulin | | | | [address] | | ([facility]) | | | | [phone] | | | +--------+---------+ + + + [...] documented in this encounter Progress Notes Tejal Iraheta RD, [facility], [place] - 01/24/2015 10:24 AM PDTFormatting of this note might be diff erent from the original. Referring Provider: No Referring Provider Per Patient Outpatient [facility], Pre-Bariatric Surgery Visit Follow-up diet consult prior to having Leah-En-Y gastric bypass surgery. Documented Time of Visit: 10:20 to 11:20 (60 minutes qpvh-sl-aery with patient). Bariatric RN also participated in [...] Breakfast: [place] yogurt + 20oz creamer + Sinhala cream 3T or Bagel + cream cheese [...] - lettuce, carrots, celery, swathi toes + Bhutanese dressing) + Rice a Roger, occ fried [...] plans to f/u with her clinic in [facility] - Begin seated exercise program Written Education [...] benefit from closer f/u. If coming to [place] i s unrealistic I am available to consult with RD (if available) in her clinic in [place]. GOAL: The patient's goal is to have weight loss surgery to maintain weight loss and improve other health conditions. 1. Continue to practice behavioral changes to prepare for surgery. 2. Increase physical activity. 3. Review all information provided for post-surgery diet progression. 4. Call or send [employer] message to dietitian with any questions. Contact information was provided. Follow up with dietitian - TBD, pt to be discussed at high risk meeting. Tejal Iraheta RD, CNSC, [place] Pager# [phone] Electronically signed by Tejal Iraheta RD, [facility], [place] at 01/24/2015 12:19 PM PDTdocumented i n this encounter Plan of Treatment Not on filedocumented as of this encounter Procedures + +--------+ + + + | Procedure Name | Priori | Date/Time | Associated Diagnosis | Comments | | | ty | | | | + +--------+ + + + | WA MNT RE-ASSESSMNT | Routin | 01/24/2015 | Morbid obesity | | | X15MIN | e | 12:19 PM | with BMI of 70 and | | | | | PDT | over, adult ([facility]) | | | | | | Type 2 diabetes | | | | | | mellitus treated | | | | | | with insulin ([facility]) | | + +--------+ + + + documented in this encounter Visit Diagnoses + + | Diagnosis | + + | Morbid obesity with BMI of 70 and over, adult ([facility]) - Primary | + + | Type 2 diabetes mellitus treated with insulin ([facility]) | + + documented in this encounter
--- OUTSIDE RECORDS SUMMARY | ~2020-05-29 | XMS | Clinical Summary ---
Demographics + + + | Address | [address] | | | [place] [address] | + + + | Home Phone | | + + + | Preferred Language | Unknown | + + + | Marital Status | Unknown | + + + | Lutheran Affiliation | Unknown | + + + | Race | Unknown | + + + | Ethnic Group | Unknown | + + + Author + + + | Author | [facility] | | | and [place] | + + + | Organization | [facility] | | | and [place] [...] Team Providers + +------+ + | Care Paradichlorobenzene Tender Name | Role | Phone | + +------+ + | Margarito Felix PA-C | PCP | | + +------+ + Allergies + + + + + + | Active Allergy | Reactions | Severity | Noted | Comments | | | | | Date | | + + + + + + | Amoxicillin-Pot | Other (See Comments) | Medium | 07/23/20 | collitis | | Clavulanate | | | 14 | | + + + + + + | Azithromycin | Rash | Medium | 07/23/20 | | | | | | 14 | | + + + + + + | Diltiazem | Other (See Comments) | Medium | 01/20/20 | Irregular heart | | | | | 17 | beat, shortness of | | | | | | breath | + + + + + + | Levofloxacin | Other (See | Medium | 01/20/20 | Colitis, | | | Comments), Rash | | 17 | fibrillation | + + + + + + Medications + + + +---------+------+------+-------+ | Medication | Sig | Dispensed | Refills | Star | End | Statu | | | | | | t | Date | s | | | | | | Date | | | + + + +---------+------+------+-------+ | calcium-vitamin D | Take 1 tablet by | | 0 | | | Activ | | (OSCAL) 500 mg-200 | mouth Daily. | | | | | e | | units per tablet | | | | | | | + + + +---------+------+------+-------+ | cholecalciferol | Take 1,000 Units by | | 0 | | | Activ | | (VITAMIN D-3) 5,000 | mouth Daily. | | | | | e | | units/mL liquid | | | | | | | + + + +---------+------+------+-------+ | clotrimazole | Apply topically 2 | | 0 | | | Activ | | (LOTRIMIN) 1% | times daily. nails | | | | | e | | external solution | | | | | | | + + + +---------+------+------+-------+ | diclofenac | Place 1 patch onto | | 0 | | | Activ | | (FLECTOR) 1.3% PTCH | the skin 2 times | | | | | e | | | daily. As need for | | | | | | | | pain | | | | | | + + + +---------+------+------+-------+ | DIGOXIN | Take 0.25 mg by | | 0 | | | Activ | | | mouth Daily. heart | | | | | e | + + + +---------+------+------+-------+ | diltiazem | Take 300 mg by mouth | | 0 | | | Activ | | (CARDIZEM CD) 300 mg | Daily. Blood | | | | | e | | 24 hr capsule | pressure | | | | | | + + + +---------+------+------+-------+ | irbesartan | Take 300 mg by mouth | | 0 | | | Activ | | (AVAPRO) 300 mg | Daily. | | | | | e | | tablet | | | | | | | + + + +---------+------+------+-------+ | levothyroxine | Take 75 mcg by mouth | | 0 | | | Activ | | (SYNTHROID, | every morning | | | | | e | | LEVOTHROID) 75 MCG | (before breakfast). | | | | | | | tablet | | | | | | | + + + +---------+------+------+-------+ | lidocaine | Apply topically as | | 0 | | | Activ | | (XYLOCAINE) 2% jelly | needed. | | | | | e | + + + +---------+------+------+-------+ | magnesium | Take by mouth Daily | | 0 | | | Activ | | hydroxide (MILK OF | as needed. | | | | | e | | MAGNESIA) 400 mg/5 | | | | | | | | mL suspension | | | | | | | + + + +---------+------+------+-------+ | metoprolol | Take 100 mg by mouth | | 0 | | | Activ | | (TOPROL-XL) 100 MG | Daily. | | | | | e | | 24 hr tablet | | | | | | | + + + +---------+------+------+-------+ | Multiple | Take by mouth. | | 0 | | | Activ | | Vitamins-Minerals | | | | | | e | | (MULTIVITAL PO) | | | | | | | + + + +---------+------+------+-------+ | omeprazole | Take 40 mg by mouth | | 0 | | | Activ | | (PRILOSEC) 40 MG | every morning | | | | | e | | capsule | (before breakfast). | | | | | | + + + +---------+------+------+-------+ | rivaroxaban | Take 20 mg by mouth | | 0 | | | Activ | | (XARELTO) 20 mg | Daily (with dinner). | | | | | e | | tablet | | | | | | | + + + +---------+------+------+-------+ | | Take 1 tablet by | | 0 | | | Activ | | sulfamethoxazole-tri | mouth 2 times daily. | | | | | e | | methoprim (BACTRIM | | | | | | | | DS) 800-160 mg per | | | | | | | | tablet | | | | | | | + + + +---------+------+------+-------+ | | Take 1 tablet by | | 0 | | | Activ | | triamterene-hydrochl | mouth Daily. | | | | | e | | orothiazide | | | | | | | | (MAXZIDE-25) 37.5-25 | | | | | | | | mg per tablet | | | | | | | + + + +---------+------+------+-------+ | Cholecalciferol | Take 5,000 Units by | | 0 | | | Activ | | (VITAMIN D3 PO) | mouth daily. | | | | | e | + + + +---------+------+------+-------+ | OMEPRAZOLE PO | Take 1 tablet by | | 0 | | | Activ | | | mouth 2 (two) times | | | | | e | | | daily. | | | | | | + + + +---------+------+------+-------+ | Multiple | Take 1 tablet by | | 0 | | | Activ | | Vitamins-Minerals | mouth daily. | | | | | e | | (MULTIVITAMIN PO) | | | | | | | + + + +---------+------+------+-------+ | ascorbic acid | Take 1,000 mg by | | 0 | | | Activ | | (VITAMIN C) 1000 MG | mouth daily. | | | | | e | | tablet | | | | | | | + + + +---------+------+------+-------+ | calcium, as | Take 600 mg by mouth | | 0 | | | Activ | | carbonate, (OS-JEANNIE) | 2 (two) times daily | | | | | e | | 600 MG TABS | with meals. | | | | | | + + + +---------+------+------+-------+ | celecoxib | Take 200 mg by mouth | | 0 | | | Activ | | (CELEBREX) 200 mg | daily. | | | | | e | | capsule | | | | | | | + + + +---------+------+------+-------+ | glipiZIDE | Take 10 mg by mouth | | 0 | | | Activ | | (GLUCOTROL) 10 MG | daily. | | | | | e | | tablet | | | | | | | + + + +---------+------+------+-------+ | | Take 1 tablet by | | 0 | | | Activ | | HYDROcodone-acetamin | mouth every 6 (six) | | | | | e | | ophen (NORCO) 10-325 | hours as needed for | | | | | | | mg per tablet | Pain. | | | | | | + + + +---------+------+------+-------+ | insulin glargine | Inject 10 Units into | | 0 | | | Activ | | (LANTUS SOLOSTAR) | the skin nightly. | | | | | e | | 100 units/mL | | | | | | | | injection (pen) | | | | | | | + + + +---------+------+------+-------+ | magnesium oxide | Take 400 mg by mouth | | 0 | | | Activ | | (MAG-OX) 400 mg | daily. | | | | | e | | tablet | | | | | | | + + + +---------+------+------+-------+ | fish oil 1,000 mg | Take 1 g by mouth | | 0 | | | Activ | | capsule | daily. | | | | | e | + + + +---------+------+------+-------+ | ondansetron | Take 4 mg by mouth 3 | | 0 | | | Activ | | (ZOFRAN) 4 mg tablet | (three) times daily | | | | | e | | | as needed for | | | | | | | | Nausea. | | | | | | + + + +---------+------+------+-------+ | oxyCODONE | Take 10 mg by mouth | | 0 | | | Activ | | (OXYCONTIN) 10 mg ER | every 8 (eight) | | | | | e | | abuse-deterrent | hours as needed for | | | | | | | tablet | Pain. | | | | | | + + + +---------+------+------+-------+ | SITagliptin | Take 100 mg by mouth | | 0 | | | Activ | | (JANUVIA) 100 mg | daily. | | | | | e | | tablet | | | | | | | + + + +---------+------+------+-------+ | irbesartan | Take 300 mg by mouth | | 0 | | | Activ | | (AVAPRO) 300 mg | nightly. | | | | | e | | tablet | | | | | | | + + + +---------+------+------+-------+ | | | | 0 | 02/2 | | Activ | | clotrimazole-betamet | | | | 8/20 | | e | | hasone (LOTRISONE) | | | | 19 | | | | cream | | | | | | | + + + +---------+------+------+-------+ | TRULICITY 0.75 | | | 0 | 05/2 | | Activ | | MG/0.5ML injection | | | | 0/20 | | e | | | | | | 19 | | | + + + +---------+------+------+-------+ | fluconazole | take 1 tablet by | | 0 | 04/0 | | Activ | | (DIFLUCAN) 150 mg | mouth immediately | | | 9/20 | | e | | tablet | and 1 IN 3 DAYS | | | 19 | | | + + + +---------+------+------+-------+ | TRUE METRIX BLOOD | | | 0 | 08/2 | | Activ | | GLUCOSE TEST strip | | | | 0/20 | | e | | | | | | 18 | | | + + + +---------+------+------+-------+ | B-D ULTRAFINE III | | | 0 | 07/1 | | Activ | | SHORT PEN 31G X 8 MM | | | | 0/20 | | e | | | | | | 19 | | | + + + +---------+------+------+-------+ | mupirocin | | | 0 | 02/2 | | Activ | | (BACTROBAN) 2% | | | | 8/20 | | e | | ointment | | | | 19 | | | + + + +---------+------+------+-------+ | Vit-Fe | | | 0 | 06/2 | | Activ | | Fumarate-FA | | | | 4/20 | | e | | ( VITAMIN | | | | 19 | | | | PLUS LOW IRON) 27-1 | | | | | | | | MG TABS | | | | | | | + + + +---------+------+------+-------+ | Vit-Fe | | | 0 | 01/0 | | Activ | | Fumarate-FA (PRETAB) | | | | 7/20 | | e | | 29-1 MG TABS | | | | 19 | | | + + + +---------+------+------+-------+ | progesterone | | | 0 | 07/0 | | Activ | | (PROMETRIUM) 200 mg | | | | 7/20 | | e | | capsule | | | | 19 | | | + + + +---------+------+------+-------+ | verapamil (CALAN) | | | 0 | 06/2 | | Activ | | 80 mg tablet | | | | 8/20 | | e | | | | | | 19 | | | + + + +---------+------+------+-------+ | TOPROL XL 200 MG | | | 0 | 07/1 | | Activ | | ER tablet | | | | 7/20 | | e | | | | | | 19 | | | + + + +---------+------+------+-------+ | oxyCODONE 10 MG | TK 1 T PO TID PRF | | 0 | 04/02 | | Activ | | TABS | PAIN | | | 10/22 | | e | | | | | | 19 | | | + + + +---------+------+------+-------+ Active Problems + + + | Problem | Noted Date | + + + | Morbid obesity due to excess calories | 01/19/2017 | + + + | Hyperlipidemia | 07/23/2014 | + + + + + | Overview: Last Assessment & Plan: | | On Statin. | + + + + + | SOB (shortness of breath) | 07/23/2014 | + + + + + | Overview: Last Assessment & Plan: Multifactorial-Recent h/o | | Afib s/p cardioversion- as per pt echo done in [facility] is | | Marquez request and review records from [id number] | | want to follow up with her teacher home therapy in [place]. | |2D echo | |Pt want to follow up with her teacher home therapy in [place]. | + + + + + | Paroxysmal atrial fibrillation | 07/23/2014 | + + + + + | Overview: Paroxysmal atrial fibrillation, S/P CV in 2013. | | | | Last Assessment & Plan: | | S/p cardioversion currently in sinus | | On Xarelto for stroke prophylaxis. | + + + + + | History of cardioversion | 05/03/2014 | + + + | Asthma | 04/18/2014 | + + + | High blood pressure | 04/18/2014 | + + + | Obesity | 04/18/2014 | + + + | Fibrillation, atrial | 04/18/2014 | + + + | Hypothyroidism | 04/18/2014 | + + + | Stress | 04/18/2014 | + + + | Anxiety | 04/18/2014 | + + + | Depression | 04/18/2014 | + + + | Hypersomnia with sleep apnea | 04/18/2014 | + + + | Dysmenorrhea | 04/18/2014 | + + + | Vitamin D deficiency | 04/18/2014 | + + + | Esophageal reflux | 04/18/2014 | + + + | Diabetes | 04/18/2014 | + + + | Hypertension | 04/18/2014 | + + + Family History + + +------+ + | Medical History | Relation | Name | Comments | + + +------+ + | Diabetes, NIDDM | Father | | | + + +------+ + | Heart attack | Father | | | + + +------+ + | Sleep apnea | Father | | | + + +------+ + + +------+ + + | Relation | Name | Status | Comments | + +------+ + + | Father | | Alive | | + +------+ + + | Father | | | | + +------+ + + | Mother | | | drug overdose | + +------+ + + Social History + +-------+ +--------+------+ [...] on file | | + + + Last Filed Vital Signs + + + + + | Vital Sign | Reading | Time Taken | Comments | + + + + + | Blood Pressure | 124/72 | 03/16/2017 3:10 PM | | | | | PDT | | + + + + + | Pulse | 92 | 03/16/2017 3:10 PM | | | | | PDT | [...] + + + + | Weight | 235.1 kg (518 lb 4.8 | 03/16/2017 3:10 PM | | | | oz) | PDT | | + + + + + | Height | 167.6 cm (5' 6") | 03/16/2017 3:10 PM | | | | | PDT | | + + + + + | Body Mass Index | 83.66 | 03/16/2017 3:10 PM | | | | | PDT | | + + + + + Plan of Treatment + + +-------+ + | Health Maintenance | Due Date | Last | Comments | | | | Done | | + + +-------+ + | Vaccine: | | | | | Dtap/Tdap/Td (1 - | 3 | | | | Tdap) | | | | + + +-------+ + | Cervical Cancer | | | | | Screening (Pap) | 4 | | | + + +-------+ + | Breast Cancer | | | | | Screening | 9 | | | + + +-------+ + | Vaccine: Influenza | | | | | (#1) | 0 | | | + + +-------+ + Results Not on filefrom Last 3 Months Insurance + +--------+ +--------+ +---------+--------+ | Payer | Benefi | Subscriber | Effect | Phone | Address | Type | | | t Plan | ID | imani | | | | | | / | | Dates | | | | | | Group | | | | | | + +--------+ +--------+ +---------+--------+ | [employer] | HEALTH | [id number] | 01/02/20 | [phone] | | PPO | | | COMP | | 07-Pre | 7 | | | | | PPOR | | sent | | | | + +--------+ +--------+ +---------+--------+ | [employer] | IHS | [id number] | Effect | | | Indemn | | SERVICE | YELLOW | | imani | | | ity | | | HAWK | | for | | | | | | | | all | | | | | | | | dates | | | | + +--------+ +--------+ +---------+--------+ + +--------+ +--------+ + + | Guarantor Name | Accoun | Relation to | Date | Phone | Billing Address | | | t Type | Patient | of | | | | | | | | | | + +--------+ +--------+ + + | Marielle Esparza | Person | Self [birth year] | [address] | | | al/Fam | | 1975 | [phone] | [place] [address] | | | be | | | 1 (Home) | | + +--------+ +--------+ + + Advance Directives + + + + + | Type | Date Recorded | Patient | Explanation | | | | Seasoning Mixer | | + + + + + | Power of | | | | | Site Safety Coordinator | | | | + + + + + | Advance | | | | | Directive | | | | + + + + +
--- OUTSIDE RECORDS SUMMARY | ~2020-05-29 | XMS | Encounter Summary ---
Demographics + + + | Address | [address] | | | [place] [address] | + + + | Home Phone | | + + + | Preferred Language | Unknown | + + + | Marital Status | Unmarried Domestic Partner | + + + | Rastafari Affiliation | Unknown | + + + | Race | or | + + + | Ethnic Group | Not or | + + + Author + + + | Author | [employer] [facility] | + + + [...] Team Providers + +------+ + | Care Accounting Director Name | Role | Phone | + +------+ + | Larissa Keen MD | PCP | | + +------+ + Reason for Visit + +--------+ + | Reason | Onset | Comments | | | Date | | + +--------+ + | Chart Review | 08/07/ | | | | 2014 | | + +--------+ + Encounter Details +--------+ + + + + | Date | Type | Department | Care Team | Description | +--------+ + + + + | 08/07/ | Telephone | [facility] | Fátima Hernandez, | Chart Review | | 2014 | | [place] [address] | ACNP [address] | | | | | [address] [facility] for | [address] [facility] [place] | | | | | Health and Healing, | [address] | | | | | [address] | [phone] | | | | | [facility] [place] | | | | | | [address] | | | | | | [phone] | | | +--------+ + + + [...] this encounter Miscellaneous Notes Telephone Encounter - Rosy Veronica MA - 08/08/2015 1:44 PM PSTRecords faxed. Confirmat ion received. elephone Encounter - Iglesia Lees - 08/07/2015 4:45 PM PSTPatients providers office was sahn paz to request chart notes for patient appointment that she have tomorrow @4 located at the [facility] in [place]. Provider is requesting call back an follow up preferably be fore the appointment. Number provided is the providers direct line. documented in this encounter Plan of Treatment Not on filedocumented as of this encounter Visit Diagnoses Not on filedocumented in this encounter"
--- OUTSIDE RECORDS SUMMARY | ~2020-05-29 | XMS | Encounter Summary ---
Demographics + + + | Address | [address] | | | [place] [address] | + + + | Home Phone [...] + + | Author | [employer] [place] [employer] [facility] | + + + | Organization | [facility] | + [...] Team Providers + +------+ + | Care Hat Block Bench Hand Name | Role | Phone | + +------+ + | Larissa Keen MD | PCP | | + +------+ + Encounter Details +--------+ + + + + | Date | Type | Department | Care Team | Description | +--------+ + + + + | 06/05/ | Abstract | Digestive Health | Fátima Hernandez, | | | 2014 | | Center at [facility] [address] | AC[address] | | | | | [address] [place] | [address] [place], [place] | | | | | for Health and | [address] | | | | | Healing, [address] | | | | | | [place], [place] | | | | | | [address] | | | | | | | [...]
--- OUTSIDE RECORDS SUMMARY | ~2020-05-29 | XMS | Encounter Summary ---
Demographics + + + | Address | [address] | | | [place] [address] | + + + | Home Phone | | + + + | Preferred Language | Unknown | + + + | Marital Status | Unmarried Domestic Partner | + + + | Baptism Affiliation | Unknown | + + + | Race | or | + + + | Ethnic Group | Not or | + + + Author + + + | Author | [place] [facility] | + + + | Organization | [facility] | + [...] Team Providers + +------+ + | Care Resist Coater Developer Name | Role | Phone | + +------+ + | Larissa Keen MD | PCP | | + +------+ + Encounter Details +--------+ + + + + | Date | Type | Department | Care Team | Description | +--------+ + + + + | 07/15/ | Abstract | Digestive Health | Fátima Hernandez, | | | 2014 | | Center at [facility] [address] | AC[address] | | | | | [address] [place] | [address] [facility] [place] | | | | | for Health and | [address] | | | | | Healing, [address] | | | | | | [place], [place] | | | | | | [address] | | | | | | | [...]
--- OUTSIDE RECORDS SUMMARY | ~2020-05-29 | XMS | Encounter Summary ---
Demographics + + + | Address | [address] | | | [place] [address] | + + + | Home Phone | | + + + | Preferred Language | Unknown | + + + | Marital Status | Unmarried Domestic Partner | + + + | Evangelical Affiliation | Unknown | + + + | Race | or | + + + | Ethnic Group | Not or | + + + Author + + + | Author | [employer] [place] [employer] [facility] | + + + | Organization | [facility] | + [...] Team Providers + +------+ + | Care Plastics Bench Mechanic Name | Role | Phone | + +------+ + | Mar DoddP | PCP | | + +------+ + Encounter Details +--------+ + + + + | Date | Type | Department | Care Team | Description | +--------+ + + + + | 03/27/ | Abstract | Digestive Health | Diamond De León, | | | 2013 | | Center at [address] | CABLE SPLICER HELPER [address] | | | | | [address] [facility] | [facility] [address] | | | | | for Health and | [place], [place] | | | | | [facility], [place] [address] | [address] | | | | | [place], [place] | [phone] | | | | | [address] | | | | | | [phone] | | | +--------+ + + + [...]
--- OUTSIDE RECORDS SUMMARY | ~2020-05-29 | XMS | Encounter Summary ---
Demographics + + + | Address | [address] | | | [place] [address] | + + + | Home Phone | | + + + | Preferred Language | Unknown | + + + | Marital Status | Unknown | + + + | Restoration Affiliation | Unknown | + + + | Race | Unknown | + + + | Ethnic Group | Unknown | + + + Author + + + | Author | [facility] | | | and nIoana | + + + | Organization | [facility] | | | and [place] [...] Team Providers + +------+ + | Care Business Operations Director Name | Role | Phone | + +------+ + | Margarito Felix PA-C | PCP | | + +------+ + Encounter Details +--------+ + + + + | Date | Type | Department | Care Team | Description | +--------+ + + + + | 02/18/ | Orders Only | [facility] | Delvin Phan, | | | 2017 | | CONVERSION 888 | MD Noelel SPANGLER | | | | | [place] | [place], [place] | | | | | [place], [place] | [address] | | | | | [address] | | | | | | [phone] | | | +--------+ + + + [...] | + +--------+ + + + | ECHO INTERPRETATION | Routin | 02/18/2017 | | Results for this | | OF OUTSIDE FILMS | e | 12:44 PM | | procedure are in the | | | | PDT | | results section. | + +--------+ + + + documented in this encounter Results ECHO Interpretation of Outside Films (02/18/2017 12:44 PM PDT) + + | Specimen | + + | | + + + + + | Impressions | Performed At | + + + | 1. This was a technically difficult study with suboptimal views. 2. | | | The left ventricle is normal in size, mild concentric hypertrophy and | | | normal systolic function EF 55-60%. 3. The right ventricle is mildly | | | enlarged with normal systolic funcion. 4. Trace tricuspid | | | regurgitation with mild pulmonary hypertension 44 mmHg. 5. There is | | | no pericardial effusion. 6. Interatrial septal aneurysm. | | + + + + + + | Narrative | Performed At | + + + | Patient Name: Marielle Esparza Date of : 1975 | | | Performing Physician: Delvin Phan | | | | | | INDICATIONS Atrial fibrillation CONCLUSIONS | | | 1. This was a technically difficult study with suboptimal | | | views. 2. The left ventricle is normal in size, mild concentric | | | hypertrophy and normal systolic function EF 55-60%. 3. The right | | | ventricle is mildly enlarged with normal systolic funcion. 4. Trace | | | tricuspid regurgitation with mild pulmonary hypertension 44 mmHg. 5. | | | There is no pericardial effusion. 6. Interatrial septal aneurysm. | | | FINDINGS -------- ECG rhythm: Sinus rhythm. Study: A 2-dimensional | | | transthoracic echocardiogram with m-mode, spectral and color flow | | | Doppler was perfomed. Study: This was a technically difficult study | | | with suboptimal views. Left Ventricle: Overall left ventricular | | | systolic function is normal with, an EF between 55 - 60 %. Left | | | Ventricle: The left ventricle cavity size is normal. Left Ventricle: | | | There is mild concentric left ventricular hypertrophy. Left | | | Ventricle: No regional wall motion abnormalities. Left Ventricle: | | | Pseudonormal LV diastolic filling pattern, consistent with elevated LA | | | pressure and moderate dysfunction (Grade II). Right Ventricle: The | | | right ventricle is mildly enlarged. Right Ventricle: The right | | | ventricular systolic function is normal. Left Atrium: The left atrial | | | size is normal. Right Atrium: The right atrium is normal in size. | | | Aortic Valve: The aortic valve was not well visualized. Aortic Valve: | | | There is no evidence of aortic regurgitation. Aortic Valve: There is | | | no evidence of aortic stenosis. Mitral Valve: The mitral valve is | | | normal. Mitral Valve: There is trace mitral regurgitation. Tricuspid | | | Valve: The tricuspid valve appears structurally normal. Tricuspid | | | Valve: Trace tricuspid regurgitation present. Tricuspid Valve: There | | | is mild pulmonary hypertension. Tricuspid Valve: The right | | | ventricular systolic pressure (pulmonary artery systolic pressure), as | | | measured by Doppler, is 44.61mmHg. Pulmonic Valve: The pulmonic | | | valve was not well visualized. Pericardium: There is no pericardial | | | effusion. Pericardium: No pleural effusion seen. IVC/Hepatic Veins: | | | The IVC was not well visualized. Aorta: The aortic root, ascending | | | aorta are within normal dimensions. Septum: Interatrial septal | | | aneurysm. MEASUREMENTS Ao asc: 3.10 cm Ao | | | Diam: 3.72 cm Ao sinus: 3.[address] junct: 3.07 cm LA | | | Diam: 4.51 cm LA Major: 4.89 cm EDV(Teich): 143.34 ml | | | IVSd: 1.23 cm LVIDd: 5.43 cm LVPWd: 1.16 cm LVOT Area: | | | 4.11 cm2 LVOT Diam: 2.28 cm %FS: 29.00 % EF(Teich): 55.19 | | | % ESV(Teich): 64.21 ml LVIDs: 3.85 cm SV(Teich): 79.12 ml | | | RA Major: 5.01 cm LVEF MOD A2C: 52.90 % SV MOD A2C: 83.19 | | | ml LVEF MOD A4C: 50.52 % SV MOD A4C: 87.12 ml EF Biplane: | | | 51.74 % LVEDV MOD BP: 165.33 ml LVESV MOD BP: 79.77 ml LVEDV | | | MOD A2C: 157.25 ml LVLd A2C: 8.94 cm LVEDV MOD A4C: 172.43 | | | ml LVLd A4C: 8.85 cm LVESV MOD A2C: 74.06 ml LVLs A2C: | | | 7.04 cm LVESV MOD A4C: 85.30 ml LVLs A4C: 7.09 cm LAESV(A-L): | | | 81.65 ml LAESV Index (A-L): 28.15 ml/m2 LAAs A2C: 21.42 | | | cm2 LAESV A-L A2C: 71.78 ml LALs A2C: 5.42 cm LAAs A4C: | | | 24.36 cm2 LAESV A-L A4C: 90.05 ml LALs A4C: 5.59 cm RAAs: | | | 12.06 cm2 RAESV A-L: 25.19 ml RAESV MOD: 25.31 ml RALs: | | | 4.90 cm IVSd: 1.07 cm EDV(Teich): 135.54 ml LVIDd: 5.30 cm | | | %FS: 30.71 % EF(Teich): 57.82 % ESV(Teich): 57.16 ml | | | LVIDs: 3.67 cm LVPWd: 1.31 cm TAPSE: 2.99 cm AV maxPG: | | | 10.84 mmHg AV meanP.35 mmHg AV Vmax: 1.64 m/s AV Vmean: | | | 1.19 m/s AV VTI: 35.48 cm DON Vmax: 3.54 cm2 DON (VTI): | | | 3.66 cm2 AVAI Vmax: 0.00 cm2/m2 AVAI (VTI): 0.00 cm2/m2 LVOT | | | maxP.08 mmHg LVOT meanP.62 mmHg LVSI Dopp: 44.79 | | | ml/m2 LVSV Dopp: 129.89 ml LVOT Vmax: 1.42 m/s LVOT Vmean: | | | 0.99 m/s LVOT VTI: 31.59 cm MV A Pepe: 0.95 m/s MV DecT: | | | 227.26 ms MV E Pepe: 1.16 m/s MV E/A Ratio: 1.22 MV PHT: | | | 65.90 ms MVA By PHT: 3.33 cm2 Septal e': 0.06 m/s Septal | | | E/e': 16.79 Lateral e': 0.08 m/s Lateral E/e': 14.05 RAP: | | | 10 mmHg RVSP: 44.61 mmHg TR maxP.61 mmHg TR Vmax: | | | 2.94 m/s Utility Accounts Director: YOUNG Authenticated by: Delvin Phan | | | Report Date/Time: 02-18-2017 23:27:20 | | + + + + + | Procedure Note | + + | Yuan, Rad Conversion - 05/24/2019 7:24 PM PDT Patient Name: Arline Esparza of | | : 1975 Performing Physician: Delvin | | Carolinabyron INDICATIONS------ | | -----Atrial fibrillation CONCLUSIONS 1. This was a technically difficult study | | with suboptimal views.2. The left ventricle is normal in size, mild concentric | | hypertrophy and normal systolic function EF 55-60%.3. The right ventricle is mildly | | enlarged with normal systolic funcion.4. Trace tricuspid regurgitation with mild | | pulmonary hypertension 44 mmHg.5. There is no pericardial effusion.6. Interatrial septal | | aneurysm. FINDINGS--------ECG rhythm: Sinus rhythm.Study: A 2-dimensional transthoracic | | echocardiogram with m-mode, spectral and color flow Doppler was perfomed.Study: This | | was a technically difficult study with suboptimal views.Left Ventricle: Overall left | | ventricular systolic function is normal with, an EF between 55 - 60 %.Left Ventricle: | | The left ventricle cavity size is normal.Left Ventricle: There is mild concentric left | | ventricular hypertrophy.Left Ventricle: No regional wall motion abnormalities.Left | | Ventricle: Pseudonormal LV diastolic filling pattern, consistent with elevated LA | | pressure and moderate dysfunction (Grade II).Right Ventricle: The right ventricle is | | mildly enlarged.Right Ventricle: The right ventricular systolic function is normal.Left | | Atrium: The left atrial size is normal.Right Atrium: The right atrium is normal in | | size.Aortic Valve: The aortic valve was not well visualized.Aortic Valve: There is no | | evidence of aortic regurgitation.Aortic Valve: There is no evidence of aortic | | stenosis.Mitral Valve: The mitral valve is normal.Mitral Valve: There is trace mitral | | regurgitation.Tricuspid Valve: The tricuspid valve appears structurally normal.Tricuspid | | Valve: Trace tricuspid regurgitation present.Tricuspid Valve: There is mild pulmonary | | hypertension.Tricuspid Valve: The right ventricular systolic pressure (pulmonary artery | | systolic pressure), as measured by Doppler, is 44.61mmHg.Pulmonic Valve: The pulmonic | | valve was not well visualized.Pericardium: There is no pericardial effusion.Pericardium: | | No pleural effusion seen.IVC/Hepatic Veins: The IVC was not well visualized.Aorta: The | | aortic root, ascending aorta are within normal dimensions.Septum: Interatrial septal | | aneurysm. MEASUREMENTS Ao asc: 3.10 cmAo Diam: 3.72 cmAo sinus: 3.72 | | cmAo st junct: 3.07 cmLA Diam: 4.51 cmLA Major: 4.89 cmEDV(Teich): 143.34 | | mlIVSd: 1.23 cmLVIDd: 5.43 cmLVPWd: 1.16 cmLVOT Area: 4.11 [id number] Diam: 2.28 | | cm%FS: 29.00 %EF(Teich): 55.19 %ESV(Teich): 64.21 mlLVIDs: 3.85 cmSV(Teich): | | 79.12 mlRA Major: 5.01 cmLVEF MOD A2C: 52.90 %SV MOD A2C: 83.19 mlLVEF MOD A4C: | | 50.52 %SV MOD A4C: 87.12 mlEF Biplane: 51.74 %LVEDV MOD BP: 165.33 mlLVESV MOD BP: | | 79.77 mlLVEDV MOD A2C: 157.25 mlLVLd A2C: 8.94 cmLVEDV MOD A4C: 172.43 mlLVLd | | A4C: 8.85 cmLVESV MOD A2C: 74.06 mlLVLs A2C: 7.04 cmLVESV MOD A4C: 85.30 mlLVLs | | A4C: 7.09 cmLAESV(A-L): 81.65 mlLAESV Index (A-L): 28.15 ml/m2LAAs A2C: 21.42 | | [id number] A-L A2C: 71.78 mlLALs A2C: 5.42 cmLAAs A4C: 24.36 [id number] A-L A4C: | | 90.05 mlLALs A4C: 5.59 cmRAAs: 12.06 [id number] A-L: 25.19 mlRAESV MOD: 25.31 | | mlRALs: 4.90 cmIVSd: 1.07 cmEDV(Teich): 135.54 mlLVIDd: 5.30 cm%FS: 30.71 | | %EF(Teich): 57.82 %ESV(Teich): 57.16 mlLVIDs: 3.67 cmLVPWd: 1.31 cmTAPSE: 2.99 | | cmAV maxP.84 mmHgAV meanP.35 mmHgAV Vmax: 1.64 m/Carlos Vmean: 1.19 m/Carlos | | VTI: 35.48 cmAVA Vmax: 3.54 cm2AVA (VTI): 3.66 [id number] Vmax: 0.00 cm2/m2AVAI | | (VTI): 0.00 cm2/m2LVOT maxP.08 mmHgLVOT meanP.62 mmHgLVSI Dopp: 44.79 | | ml/m2LVSV Dopp: 129.89 mlLVOT Vmax: 1.42 m/sLVOT Vmean: 0.99 m/sLVOT VTI: 31.59 | | cmMV A Pepe: 0.95 m/sMV DecT: 227.26 msMV E Pepe: 1.16 m/sMV E/A Ratio: 1.22MV | | PHT: 65.90 msMVA By PHT: 3.33 [id number] e': 0.06 m/sSeptal E/e': 16.79Lateral | | e': 0.08 m/sLateral E/e': 14.05RAP: 10 mmHgRVSP: 44.61 mmHgTR maxP.61 | | mmHgTR Vmax: 2.94 m/s Utility Accounts Director: Melyticated by: Delvin Hernandez | | Date/Time: 02-18-2017 23:27:20 IMPRESSION: 1. This was a technically difficult study | | with suboptimal views.2. The left ventricle is normal in size, mild concentric | | hypertrophy and normal systolic function EF 55-60%.3. The right ventricle is mildly | | enlarged with normal systolic funcion.4. Trace tricuspid regurgitation with mild | | pulmonary hypertension 44 mmHg.5. There is no pericardial effusion.6. Interatrial septal | | aneurysm. | |Ao sinus: 3.72 cm | |Ao st junct: 3.07 cm | |LA Diam: 4.51 cm | |LA Major: 4.89 cm | |EDV(Teich): 143.34 ml | |IVSd: 1.23 cm | |LVIDd: 5.43 cm | |LVPWd: 1.16 cm | |LVOT Area: 4.11 cm2 | |LVOT Diam: 2.28 cm | |%FS: 29.00 % | |EF(Teich): 55.19 % | |ESV(Teich): 64.21 ml | |LVIDs: 3.85 cm | |SV(Teich): 79.12 ml | |RA Major: 5.01 cm | |LVEF MOD A2C: 52.90 % | |SV MOD A2C: 83.19 ml | |LVEF MOD A4C: 50.52 % | |SV MOD A4C: 87.12 ml | |EF Biplane: 51.74 % | |LVEDV MOD BP: 165.33 ml | |LVESV MOD BP: 79.77 ml | |LVEDV MOD A2C: 157.25 ml | |LVLd A2C: 8.94 cm | |LVEDV MOD A4C: 172.43 ml | |LVLd A4C: 8.85 cm | |LVESV MOD A2C: 74.06 ml | |LVLs A2C: 7.04 cm | |LVESV MOD A4C: 85.30 ml | |LVLs A4C: 7.09 cm | |LAESV(A-L): 81.65 ml | |LAESV Index (A-L): 28.15 ml/m2 | |LAAs A2C: 21.42 cm2 | |LAESV A-L A2C: 71.78 ml | |LALs A2C: 5.42 cm | |LAAs A4C: 24.36 cm2 | |LAESV A-L A4C: 90.05 ml | |LALs A4C: 5.59 cm | |RAAs: 12.06 cm2 | |RAESV A-L: 25.19 ml | |RAESV MOD: 25.31 ml | |RALs: 4.90 cm | |IVSd: 1.07 cm | |EDV(Teich): 135.54 ml | |LVIDd: 5.30 cm | |%FS: 30.71 % | |EF(Teich): 57.82 % | |ESV(Teich): 57.16 ml | |LVIDs: 3.67 cm | |LVPWd: 1.31 cm | |TAPSE: 2.99 cm | |AV maxP.84 mmHg | |AV meanP.35 mmHg | |AV Vmax: 1.64 m/s | |AV Vmean: 1.19 m/s | |AV VTI: 35.48 cm | |DON Vmax: 3.54 cm2 | |DON (VTI): 3.66 cm2 | |AVAI Vmax: 0.00 cm2/m2 | |AVAI (VTI): 0.00 cm2/m2 | |LVOT maxP.08 mmHg | |LVOT meanP.62 mmHg | |LVSI Dopp: 44.79 ml/m2 | |LVSV Dopp: 129.89 ml | |LVOT Vmax: 1.42 m/s | |LVOT Vmean: 0.99 m/s | |LVOT VTI: 31.59 cm | |MV A Pepe: 0.95 m/s | |MV DecT: 227.26 ms | |MV E Pepe: 1.16 m/s | |MV E/A Ratio: 1.22 | |MV PHT: 65.90 ms | |MVA By PHT: 3.33 cm2 | |Septal e': 0.06 m/s | |Septal E/e': 16.79 | |Lateral e': 0.08 m/s | |Lateral E/e': 14.05 | |RAP: 10 mmHg | |RVSP: 44.61 mmHg | |TR maxP.61 mmHg | |TR Vmax: 2.94 m/s | | | |Utility Accounts Director: | |Authenticated by: Delvin Phan | |Report Date/Time: 02-18-2017 23:27:20 | | | |IMPRESSION: | |1. This was a technically difficult study with suboptimal views. | |2. The left ventricle is normal in size, mild concentric hypertrophy and normal systolic fu nction EF 55-60%. | |3. The right ventricle is mildly enlarged with normal systolic funcion. | |4. Trace tricuspid regurgitation with mild pulmonary hypertension 44 mmHg. | |5. There is no pericardial effusion. | |6. Interatrial septal aneurysm. | + + documented in this encounter Visit Diagnoses Not on filedocumented in this encounter"
--- OUTSIDE RECORDS SUMMARY | ~2020-05-29 | XMS | Encounter Summary ---
Demographics + + + | Address | [address] | | | [place] [address] | + + + | Home Phone [...] + + + | Author | [facility] | + + + | Organization | [facility] | + + + | Address | Unknown | + + + | Phone | Unavailable | + + + Support + + +---------+ + | Name | Relationship | Address | Phone | + + +---------+ + | Lazaro Merchant | ECON | Unknown | | + + +---------+ + Care Team Providers + +------+ + | Care Planning And Analysis Manager Name | Role | Phone | + +------+ + | Larissa Keen MD | PCP | | + +------+ + Encounter Details +--------+ + + + + | Date | Type | Department | Care Team | Description | +--------+ + + + + | 12/04/ | Abstract | Digestive Health | Diamond De León, | | | 2014 | | Center at [facility] [address] | CLINICAL SUPPORT ASSOCIATE [address] | | | | | [address] [facility] | [facility] [address] | | | | | for Health and | [place], [place] | | | | | [facility], [place] [address] | [address] | | | | | [place], [place] | [phone] | | | | | [address] | | | | | | [phone] | | | +--------+ + + + [...]
--- OUTSIDE RECORDS SUMMARY | ~2020-05-29 | XMS | Encounter Summary ---
Demographics + + + | Address | [address] | | | [place] [address] | + + + | Home Phone | | + + + | Preferred Language | Unknown | + + + | Marital Status | Unmarried Domestic Partner | + + + | Confucianism Affiliation | Unknown | + + + | Race | or | + + + | Ethnic Group | Not or | + + + Author + + + | Author | [facility] | + + + | Organization | [facility] | + [...] Team Providers + +------+ + | Care Cap Cutter Name | Role | Phone | + +------+ + | Larissa Keen MD | PCP | | + +------+ + Reason for Visit + + + | Reason | Comments | + + + | Medical Records | [facility] - OUTSIDE RECORDS: Progress Note 09/12/2014 | | Review | | + + + Encounter Details +--------+ + + + + | Date | Type | Department | Care Team | Description | +--------+ + + + + | 09/13/ | Abstract | Digestive Health | Diamond De León, | Medical Records | | 2013 | | Center at [facility] [address] | ELEVATOR CONSTRUCTOR SUPERVISOR [address] | Review ([facility] - | | | | [address] [facility] | [facility] [address] | OUTSIDE RECORDS: | | | | for Health and | [place], [place] | Progress Note | | | | [facility] [address] | [address] | 09/12/2014 ) | | | | [place], [place] | [phone] | | | | | [address] | | | | | | [phone] | | | +--------+ + + + [...]
--- OUTSIDE RECORDS SUMMARY | ~2020-05-29 | XMS | Encounter Summary ---
Demographics + + + | Address | [address] | | | [place] [address] | + + + | Home Phone | | + + + | Preferred Language | Unknown | + + + | Marital Status | Unmarried Domestic Partner | + + + | Jain Affiliation | Unknown | + + + | Race | or | + + + | Ethnic Group | Not or | + + + Author + + + | Author | [facility] | + + + | Organization | [facility] | + + + | Address | Unknown | + + + | Phone | Unavailable | + + + Support + + +---------+ + | Name | Relationship | Address | Phone | + + +---------+ + | Lazaro Merchant | ECON | Unknown | | + + +---------+ + Care Team Providers + +------+ + | Care Mammal Keeper Name | Role | Phone | + [...] Visit | Therapy Services at | [address] [facility] | BMI of 70 and over, | | | | [facility] | [facility], | adult (HCC) (Primary | | | | [address] | [place] [address] | Dx); Use of cane as | | | | Center for Health | [phone] | ambulatory aid | | | | and Healing, | | | | | | Building [address], | | | | | | Floor [place], [place] | | | | | | [address] | | | | | | [phone] | | | +--------+---------+ + + + [...] Melendez, PT - 06/02/2015 11:50 AM PDT [id number] OSMIN ESPINOZA Date of : 1975 Start of care: 06/02/2015 Date of onset: 01/08/2015 Referring/Attending Practitioner: Fátima De Luna NP Primary/Referral Diagnosis/ICD-9:278.01, V85.45 Morbid obesity with BMI of 70 and over, ad ult 719.7 Use of cane as ambulatory aid Insurance: Payor: [employer] / Plan: [employer] / Product Type: Elisabeth stewart / Service period from: 06/02/2015 to: - Number visits used/authorized: 10/03 [facility] PHYSICAL THERAPY EVALUATION SUBJECTIVE: History of Presenting [...] is moderate. 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 lives with her spouse. PMH: See epic Meds: see epic Living situation/environment is limiting function: none Equipment [...] will continue in her hometown, follow up martha brady MD is having any difficulties. Independent with [...] change in their status. Mandy Melendez P.T. [facility] REHABILITATION SERVICES AND HAND THERAPY [address] Mailcode: [address], [address] [place] [id number] documented in this enco unter Plan [...] | + +--------+ + + + | ME THERAPEUTIC | Routin | 06/02/2015 | Morbid [...]
--- OUTSIDE RECORDS SUMMARY | ~2020-05-29 | XMS | Encounter Summary ---
Demographics + + + | Address | [address] | | | [place] [address] | + + + | Home Phone [...] + + + | Author | [facility] | + + + | Organization | [facility] | + + + | Address | Unknown | + + + | Phone | Unavailable | + + + Support + + +---------+ + | Name | Relationship | Address | Phone | + + +---------+ + | Lazaro Merchant | ECON | Unknown | | + + +---------+ + Care Team Providers + +------+ + | Care Build Master Name | Role | Phone | + [...] [facility] [address] | FORGING PRESS LEVER TENDER [address] | | | | | [address] [facility] | [facility] [address] | | | | | for Health and | [place], [place] | | | | | [facility], [place] [address] | [address] | | | | | [place], [place] | [phone] | | | | | [address] | | | | | | [phone] | | | +--------+ + + + [...]
--- OUTSIDE RECORDS SUMMARY | ~2020-05-29 | XMS | Encounter Summary ---
Demographics + + + | Address | [address] | | | [place] [address] | + + + | Home Phone | | + + + | Preferred Language | Unknown | + + + | Marital Status | Unknown | + + + | Latter Day Affiliation | Unknown | + + + | Race | Unknown | + + + | Ethnic Group | Unknown | + + + Author + + + | Author | [facility] | | | and [place] | + + + | Organization | [facility] | | | and [place] [...] Team Providers + +------+ + | Care Facilities Maintenance Manager Name | Role | Phone | + +------+ + | Margarito Felix PA-C | PCP | | + +------+ + Encounter Details +--------+ + + + + | Date | Type | Department | Care Team | Description | +--------+ + + + + | 04/18/ | Abstract | [facility] [place] | Merrick Gonzalez MD | Asthma, mild | | 2013 | | OTOLARYNGOLOGY [address] | [address] [place] | persistent, | | | | [address] [place] [address] | [address] | uncomplicated | | | | [place] | [address] | (Primary Dx); High | | | | [address] | | blood pressure; | | | | [phone] | | Obesity; | | | | [...]
--- OUTSIDE RECORDS SUMMARY | ~2020-05-29 | XMS | Encounter Summary ---
Demographics + + + | Address | [address] | | | [place] [address] | + + + | Home Phone | | + + + | Preferred Language | Unknown | + + + | Marital Status | Unmarried Domestic Partner | + + + | Jehovah'S Witness Affiliation | Unknown | + + + | Race | or | + + + | Ethnic Group | Not or | + + + Author + + + | Author | [facility] | + + + | Organization | [facility] | + + + | Address | Unknown | + + + | Phone | Unavailable | + + + Support + + +---------+ + | Name | Relationship | Address | Phone | + + +---------+ + | Lazaro Merchant | ECON | Unknown | | + + +---------+ + Care Team Providers + +------+ + | Care Turbo Operator Name | Role | Phone | [...] | Pain | Diagnoses | Conser, | Bat Carrier Psych | | | | Management | Morbid | Diamond Sandoval NP | [address] | | | | | obesity | [address] | | | | | (HCC) | [address], | Center for | | | | | Procedures | [address] | Health and | | | | | CONSULT TO | [place], [place] | [facility], | | | | | PAIN CENTER | [address] | Building | | | | | | Phone: | 1,15th Floor | | | | | | [phone] | [place], [place] | | | | | | Fax: | [address] | | | | | | [phone] | Phone: | | | | | | | [phone] | | | | | | | Fax: | | | | | | | [phone] | +--------+--------+ + + + + Reason [...] | | | | | | | [place], [place] | | | | | | | [address] | | | | | | | Phone: | | | | | | | [phone] | | | | | | | Fax: | | | | | | | [phone] | +--------+ + + + + + Encounter Details +--------+---------+ + + + | Date | Type | Department | Care Team | Description | +--------+---------+ + + + | 05/03/ | Office | Digestive Health | Diamond De León, | Morbid obesity (HCC) | | 2013 | Visit | Center at [facility] [address] | FORM MAKER [address] | (Primary Dx); | | | | [address] | [address], [address] | Diabetes ([facility]); HTN | | | | for Health and | [place], [place] | (hypertension); TOMMY | | | | [facility] 2 | [address] | (obstructive sleep | | | | [place], [place] | [phone] | apnea); Heavy | | | | [address] | | periods; A-fib | | | | [phone] | | ([facility]); History of | | | | | [...] in this encounter Patient Instructions Patient Instructions iDamond De León NP - 05/03/2014 10:03 AM PDTPlan: 1. Dietitian consultation: Today. 2. Labs needed: CBC, CMP, TSH, A1C, PTH, Vitamin D25: Please have these faxed to us from [facility] primary care office. 3. Pap test: [...] timeframe for surgery: Merritt De León RN, STOCK [employer]OVER- Nurse Practitioner for Bariatric Surgery [facility] | [address] | [place], [place] | [address] | Potential Contraindications to Bariatric Surgery Age [...] in this encounter Progress Notes Diamond De Lóen NP - 05/03/2014 9:10 AM PDTFormatting of [...] Redux or Phen/fen: no Transthoracic ECHO: - Jehovah'S Witness or cultural reason you would refuse blood [...] Surgical History Procedure Laterality Date Tonsillectomy 2009 [facility] [place], [place] Gallbladder removal 2005 [place], [place] Incisional hernia repair 2003 [facility] Incisional hernia repair 2011 [facility] Cardioversion 214 [facility] History Social History Marital Status: Unmarried [...] of lower extremity edema, hyperlipidemia. Denies CHF, [place], ischemic heart disease, DVT/PE, or pulmonary hypertension. [...] December, she will meet wi th her threat monitoring analyst and discuss weaning from blood thinner prior [...] of realistic expectations of bariatric surgery was teri wheeler today. A Bariatric notebook with pre-op, inter-op and post-op guidance and information was provide d for the patient today. Plan: 1. Dietitian consultation: Today. 2. Labs needed: CBC, CMP, TSH, A1C, PTH, Vitamin D25: Please have these faxed to us from [facility] primary care office. 3. Pap test: [...] timeframe for surgery: Merritt De León RN, [facility]- Nurse Practitioner for Bariatric Surgery [facility] | [address] | [place], [place] | [address] | Potential Contraindications to Bariatric Surgery Age [...] pt visit. Start time: 904, end time 1005. I spent a total of 60 minutes [...]
--- OUTSIDE RECORDS SUMMARY | ~2020-05-29 | XMS | Encounter Summary ---
Demographics + + + | Address | [address] | | | [place] [address] | + + + | Home Phone [...] + + + | Author | [facility] | + + + | Organization | [facility] | + + + | Address | Unknown | + + + | Phone | Unavailable | + + + Support + + +---------+ + | Name | Relationship | Address | Phone | + + +---------+ + | Lazaro Merchant | ECON | Unknown | | + + +---------+ + Care Team Providers + +------+ + | Care Active Directory Engineer Name | Role | Phone | + +------+ + | Larissa Keen MD | PCP | | + +------+ + Encounter Details +--------+ + + + + | Date | Type | Department | Care Team | Description | +--------+ + + + + | 10/09/ | Abstract | Digestive Health | Diamond De León, | | | 2014 | | Center at [facility] [address] | FORENSIC PATHOLOGIST [address] | | | | | [address] [facility] | [facility] [address] | | | | | for Health and | [place], [place] | | | | | [facility], [place] [address] | [address] | | | | | [place], [place] | [phone] | | | | | [address] | | | | | | [phone] | | | +--------+ + + + [...]
--- OUTSIDE RECORDS SUMMARY | ~2020-05-29 | XMS | Encounter Summary ---
Demographics + + + | Address | [address] | | | [place] [address] | + + + | Home Phone [...] + + + | Author | [employer] [facility] | + + + [...] Team Providers + +------+ + | Care Over Short And Damage Clerk Name | Role | Phone | + +------+ + | Larissa Keen MD | PCP | | + +------+ + Reason for Visit + +--------+ + | Reason | Onset | Comments | | | Date | | + +--------+ + | Evaluation AND/OR | 01/30/ | | | management - new | 2015 | | | patient | | | + +--------+ + Consultation (Routine) +--------+--------+ + + + + | Status | Reason | Specialty | Diagnoses / | Referred By | Referred To | | | | | Procedures | Contact | Contact | +--------+--------+ + + + + | Closed | | Pain | Diagnoses | Conser, | Jazz Singer Psych | | | | Management | Morbid | Diamond M, LESSON INSTRUCTOR | [address] | | | | | obesity | [address] | | | | | (HCC) | [address], | Center for | | | | | Procedures | [address] | Health and | | | | | CONSULT TO | [place], [place] | Healing, | | | | | PAIN CENTER | [address] | Building | | | | | | Phone: | ,15th Floor | | | | | | [phone] | [place], [place] | | | | | | Fax: | [address] | | | | | | [phone] | Phone: | | | | | | | [phone] | | | | | | | Fax: | | | | | | | [phone] | +--------+--------+ + + + + Encounter Details +--------+---------+ + + + | Date | Type | Department | Care Team | Description | +--------+---------+ + + + | 01/24/ | Office | Pain Center at [facility] | Berto Samuels, | Adjustment disorder | | 2014 | Visit | 15th Floor [address] | PhD [address] | with mixed anxiety | | | | [address] Mailcode: | [place], [place] | and depressed mood | | | | [facility] Center for | [address] | (Primary Dx); Morbid | | | | Health and Healing, | [phone] | obesity with BMI of | | | | Building | | 70 and over, adult | | | | Floor [place], [place] | | ([facility]); Type 2 | | | | [address] | | diabetes mellitus | | | | [phone] | | treated with insulin | | | | | | ([facility]) | +--------+---------+ + + + Social [...] Name: Marielle Esparza : 1975 Medical Record: [id number] Age:39 y.o. Weight: 465 lbs BMI: 73 Proposed Surgery: Leah en y gastric bypass. Public Meeting: Attended Identifying Information: Marielle Esparza is a 39 y.o. female who lives with her boyfriend in [place], [place]. She was referred for psychological evaluation prior to bariatric surgery. I nformed consent and limits of confidentiality were discussed prior to the interview. Please see medical records for previous attempts at weight management. Recent Changes in Eating and Dietary Styles: She has made some improvements in food choices and she has reduced her portions some but sh vicente has made few other changes. She skips [...] is socially active with fri ends and [place] and community activities. 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 Current Life Stressors: Her health [...] to improve her consistency with following the training program assistant's recommendations. 4. She is urged to establish [...] interpretation. BERTO SAMUELS, PhD PA[facility] AT [facility] 4TH FLOOR [address] Mail Code: [place] [id number] documented in this en counter Plan of Treatment Not on filedocumented as of this encounter Visit Diagnoses + + | Diagnosis | + + | Adjustment disorder with mixed anxiety and depressed mood - Primary | + + | Morbid obesity with BMI of 70 and over, adult (HCC) | + + | Type 2 diabetes mellitus treated with insulin (HCC) | + + documented in this encounter
--- OUTSIDE RECORDS SUMMARY | ~2020-05-29 | XMS | Encounter Summary ---
Demographics + + + | Address | [address] | | | [place] [address] | + + + | Home Phone [...] + + + | Author | [place] [employer] [facility] | + + + | Organization | [facility] | + [...] Providers + +------+ + | Care Property And Supply Officer Name | Role | Phone | [...] | | | | | | | [facility] | | | | | | | Health and | | | | | | | Healing, | | | | | | | Building 2 | | | | | | | [place], [place] | | | | | | | [address] | | | | | | | Phone: | | | | | | | [phone] | | | | | | | Fax: | | | | | | | [phone] | +--------+--------+ + + + + Encounter Details +--------+---------+ + + + | Date | Type | Department | Care Team | Description | +--------+---------+ + + + | 06/02/ | Office | Digestive Health | Esequiel, Tejal, RD, | Morbid obesity (HCC) | | 2015 | Visit | Center at [facility] [address] | [place], [place] [address] | (Primary Dx); Type | | | | [address] | [address] | 2 diabetes mellitus | | | | for [facility] and | [place], [place] | treated with insulin | | | | [place] [address] | [address] | (HCC) | | | | [place], [place] | [phone] | | | | | [address] | | | | | | [phone] | | | +--------+---------+ + + + [...] of this encounter Progress Notes Tejal Iraheta, MARIALUISA, CSOWM, [place] - 06/02/2015 10:27 AM PDTFormatting of this note might be diff erent from the original. Referring Provider: Larissa Keen MD [facility], Pre-Bariatric Surgery Visit Follow-up diet consult prior to having Leah-En-Y gastric bypass surgery or Sleeve Gastrecto my. Documented Time of Visit: 10:29 to 10:57 (28 minutes mkhi-[id number] with patient) SUBJECTIVE: took her a couple of weeks to get into the Liver Reduction Diet. Using [employer] rs and Premier Huffman. Working with counselor, no longer binging. Feeling [...] post-surgery diet progression. 4. Call or send Pansieve message to dietitian with any questions. Contact information was provided. Follow up with dietitian in ~ 1 month at [facility]. Tejal Iraheta RD, [facility], [place] Pager# [phone] documented i n this encounter Plan of Treatment Not on filedocumented as of this encounter Procedures + +--------+ + + + | Procedure Name | Priori | Date/Time | Associated Diagnosis | Comments | | | ty | | | | + +--------+ + + + | [place] MNT RE-ASSESSMNT | Routin | 06/02/2015 | Morbid obesity | | | X15MIN | e | 11:18 AM | ([facility]) Type 2 | | | | | PDT | diabetes mellitus | | | | | | treated with insulin | | | | | | ([facility]) | | + +--------+ + + + documented in this encounter Visit Diagnoses + + | Diagnosis | + + | Morbid obesity (HCC) - Primary Morbid obesity | + + | Type 2 diabetes mellitus treated with insulin (HCC) | + + documented in this encounter
--- OUTSIDE RECORDS SUMMARY | ~2020-05-29 | XMS | Encounter Summary ---
Demographics + + + | Address | [address] | | | [place] [address] | + + + | Home Phone | | + + + | Preferred Language | Unknown | + + + | Marital Status | Unknown | + + + | Yazidism Affiliation | Unknown | + + + | Race | Unknown | + + + | Ethnic Group | Unknown | + + + Author + + + | Author | [facility] | | | and [place] | + + + | Organization | [facility] | | | and [place] [...] Providers + +------+ + | Care Certified Surgical First Assistant Name | Role | Phone | + +------+ + | Margarito Felix PA-C | PCP | | + +------+ + Encounter Details +--------+ + + + + | Date | Type | Department | Care Team | Description | +--------+ + + + + | 04/27/ | Orders Only | [facility] | Provider, | | | 2018 | | SYSTEM GENERIC OP | MD [address] | | | | | CONVERSION [address] | [place] [place] | | | | | [address] [place], [place] | [place] [address] | | | | | [address] | | | | | | [phone] | | | +--------+ + + + [...]
--- OUTSIDE RECORDS SUMMARY | ~2020-05-29 | XMS | Clinical Summary ---
Demographics + + + | Address | [address] | | | [place] [address] | + + + | Home Phone | | + + + | Preferred Language | Unknown | + + + | Marital Status | Unmarried Domestic Partner | + + + | Gnosticism Affiliation | Unknown | + + + | Race | or | + + + | Ethnic Group | Not or | + + + Author + + + | Author | [facility] | + + + | Organization | [facility] | + + + | Address | Unknown | + + + | Phone | Unavailable | + + + Support + + +---------+ + | Name | Relationship | Address | Phone | + + +---------+ + | Lazaro Merchant | ECON | Unknown | | + + +---------+ + Care Team Providers + +------+ + | Care Finisher Card Tender Name | Role | Phone | + +------+ + | Larissa Keen MD | PCP | | + +------+ + Source Comments SHERRI is fully live on both [facility] Amb[facility] and [facility] InPatient.[facility] Allergies + + + + + [...] | | + + +-------+ + | Pneumococcal | | | | | vaccination (1 of | 0 | | | | - PPSV23) | | | | + + +-------+ + | Influenza (Flu) | | | [...] [place] OF [place] | BLUE | [id number] | 10/03/19 | [phone] | [address] | [address] | | | CROSS | | [address] | 8 | [address] | | | | [place] | | sent | | [place], | | | | L | | | | [place] [address] | | + +--------+ +--------+ + +------+ [...] | 1975 | [phone] | [place] [address] | | | be | | | 1 (Home) | | + +--------+ +--------+ + +
--- OUTSIDE RECORDS SUMMARY | ~2020-05-29 | XMS | Encounter Summary ---
Demographics + + + | Address | [address] | | | [place] [address] | + + + | Home Phone [...] + + + | Author | [place] [employer] [facility] | + + + | Organization | [facility] | + + + | Address | Unknown | + + + | Phone | Unavailable | + + + Support + + +---------+ + | Name | Relationship | Address | Phone | + + +---------+ + | Lazaro Merchant | ECON | Unknown | | + + +---------+ + Care Team Providers + +------+ + | Care Community Living Instructor Name | Role | Phone | + [...] | | Center at [facility] [address] | | | | | | [facility] | | | | | | for Health and | | | | | | Healing, [address] | | | | | | [place], [place] | | | | | | [address] | | | | | | [phone] | | | +--------+ + + + [...]
--- OUTSIDE RECORDS SUMMARY | ~2020-05-29 | XMS | Encounter Summary ---
Demographics + + + | Address | [address] | | | [place] [address] | + + + | Home Phone | | + + + | Preferred Language | Unknown | + + + | Marital Status | Unmarried Domestic Partner | + + + | Orthodox Affiliation | Unknown | + + + | Race | or | + + + | Ethnic Group | Not or | + + + Author + + + | Author | [place] [employer] [facility] | + + + [...] Team Providers + +------+ + | Care Grounds/Maintenance Specialist Name | Role | Phone | [...] | 2014 | Visit | Center at [facility] [address] | | BMI of 70 and over, | | | | [facility] | | adult (HCC) (Primary | | | | for Health and | | Dx) | | | | [facility], [facility] 2 | | | | | | [place], [place] | | | | | | [address] | | | | | | [phone] | | | +--------+---------+ + + + [...] of Class: 3:00 until 4:00 (60 minutes xojy-xu-pwje with patient) OBJECTIVE: Height: Ht Readings from [...] or sharing information. Yes Blanca Thurston RD GRAVURE PRESS OPERATOR LD Outpatient Adult Dietitian documented in this enc ounter Plan of Treatment Not on filedocumented as of this encounter Visit Diagnoses + + | Diagnosis | + + | Morbid obesity with BMI of 70 and over, adult (HCC) - Primary | + + documented in this encounter
--- OUTSIDE RECORDS SUMMARY | ~2020-05-29 | XMS | Encounter Summary ---
Demographics + + + | Address | [address] | | | [place] [address] | + + + | Home Phone | | + + + | Preferred Language | Unknown | + + + | Marital Status | Unmarried Domestic Partner | + + + | Protestant Affiliation | Unknown | + + + | Race | or | + + + | Ethnic Group | Not or | + + + Author + + + | Author | [place] [employer] [facility] | + + + [...] Team Providers + +------+ + | Care Mainframe Consultant Name | Role | Phone | [...] 2014 | | Center at [facility] [address] | GROUP RESERVATIONS COORDINATOR [address] | | | | | [address] [facility] | [facility] 350 | | | | | for Health and | [place], [place] | | | | | [facility], [place] [address] | [address] | | | | | [place], [place] | [phone] | | | | | [address] | | | | | | [phone] | | | +--------+ + + + [...]
--- OUTSIDE RECORDS SUMMARY | ~2020-05-29 | XMS | Encounter Summary ---
Demographics + + + | Address | [address] | | | [place] [address] | + + + | Home Phone [...] + + + | Author | [place] [employer] [facility] | + + + | Organization | [facility] | + + + | Address | Unknown | + + + | Phone | Unavailable | + + + Support + + +---------+ + | Name | Relationship | Address | Phone | + + +---------+ + | Lazaro Merchant | ECON | Unknown | | + + +---------+ + Care Team Providers + +------+ + | Care Extension Service Specialist In Charge Name | Role | Phone | + +------+ + | Larissa Keen MD | PCP | | + +------+ + Reason for Visit + +--------+ + | Reason | Onset | Comments | | | Date | | + +--------+ + | Discussion | 01/30/ | | | | 2014 | | + +--------+ + Encounter Details +--------+ + + + + | Date | Type | Department | Care Team | Description | +--------+ + + + + | 01/30/ | Telephone | Digestive Health | Jaquelin Ibanez, | Discussion | | 2014 | | Center at [facility] 34[address] | MD | | | | | S [facility] | | | | | | for Health and | | | | | | [facility], [place] [address] | | | | | | [place], [place] | | | | | | [address] | | | | | | [phone] | | | +--------+ + + + [...] this encounter Miscellaneous Notes Telephone Encounter - Nikki Castaneda RN - 01/30/2015 2:26 PM PDTI called Marielle to follow -up after her senior security architect visit last week. She had visited the senior security architect and been told that o ur new guideline for patients with a BMI > 50 need to lose 10% of their body weight. Shannon w, this communicated to her that she needed to lose 100 pounds and she was distraught about this information, feeling like there is no way that she will be able to do it. I had told h er at the time that I would speak with Dr. Ibanez and see if he had any advice/recommendatio n/plans that would assist her. I spoke with Dr. Ibanez and he does want her to lose the 10% but he is willing to meet with her one-on-one to discuss her situation, if necessary. I relayed the above information to Marielle. She sounds much more positive today. She has started the Liver Reduction diet and feels like it is already helping. We discussed that a weight loss goal of 10% would be 51 pounds, which she feels is attainable. We also talked a bout the fact that our team does take into account individual situation and that what we verito lly want to see is a serious, concentrated effort to follow our instructions. Dr. Espinoza sugmaranda ested that she have ongoing psychological counseling and she asked how that would impact her surgery timeline. Again, I told her that it shouldn't impact the timeline. If she loses t he 50 pounds and can demonstrate that she's established care with a mental health provider, that she's gone to appointment and followed their advice, that is all we need. I did emphas ize that Dr. Espinoza would like her to continue the counseling after surgery and I told her iris t we fully support that as this is a huge change. I told her that we could arrange a visit with Dr. Ibanez to discuss her situation but that at this time it doesn't seem necessary since she is feeling better and has started the diet. She is in agreement. She will continue the Liver Reduction Diet and she will set up care with a local mental health provider. I encouraged her to call me back with any other questi ons or concerns. She verbalized understanding and thanked us for assistance. documented in this encounter Plan of Treatment Not on filedocumented as of this encounter Visit Diagnoses Not on filedocumented in this encounter"
--- OUTSIDE RECORDS SUMMARY | ~2020-05-29 | XMS | Encounter Summary ---
Demographics + + + | Address | [address] | | | [place] [address] | + + + | Home Phone [...] + + | Author | [place] [employer] [facility] | + + + | Organization | [facility] | + + + | Address | Unknown | + + + | Phone | Unavailable | + + + Support + + +---------+ + | Name | Relationship | Address | Phone | + + +---------+ + | Lazaro Merchant | ECON | Unknown | | + + +---------+ + Care Team Providers + +------+ + | Care Counter Clerk [employer] Name | Role | Phone | + +------+ + | Mar DoddP | PCP | | + +------+ + Encounter Details +--------+ + + + + | Date | Type | Department | Care Team | Description | +--------+ + + + + | 03/11/ | Abstract | Digestive Health | Fátima Hernandez, | | | 2013 | | Center at [facility] [address] | ACNP [address] | | | | [address] [place] | e [place], [place] | | | | | for Health and | [address] | | | | | Healing, [address] | | | | | | [place], [place] | | | | | | [address] | | | | | | | [...]
--- OUTSIDE RECORDS SUMMARY | ~2020-05-29 | XMS | Encounter Summary ---
Demographics + + + | Address | [address] | | | [place] [address] | + + + | Home Phone | | + + + | Preferred Language | Unknown | + + + | Marital Status | Unknown | + + + | Hoahaoism Affiliation | Unknown | + + + | Race | Unknown | + + + | Ethnic Group | Unknown | + + + Author + + + | Author | [facility] | | | and [place] | + + + | Organization | [facility] | | | and [...] Providers + +------+ + | Care Senior Bookkeeper Name | Role | Phone | + +------+ + PCP | Unavailable | + +------+ + Encounter Details +--------+ + + + + | Date | Type | Department | Care Team | Description | +--------+ + + + + | 05/16/ | Hospital | [facility] | Michael Peraza, | | | 2004 | Encounter | MED [facility] SLEEP | [address] | | | | | CENTER [address] | [place] | | | | | [place] | [id number] | | | | | [address] | | | | | | [phone] | | | +--------+ + + + [...]
--- OUTSIDE RECORDS SUMMARY | ~2020-05-29 | XMS | Encounter Summary ---
Demographics + + + | Address | [address] | | | [place] [address] | + + + | Home Phone [...] + + + | Author | [employer] | + + + [...] Team Providers + +------+ + | Care Merchandise Manager Name | Role | Phone | [...] | | | | | | | [place], [place] | | | | | | | [address] | | | | | | | Phone: | | | | | | | [phone] | | | | | | | Fax: | | | | | | | [phone] | +--------+ + + + + + [...] | [address] | Ave [place], [place] | adult ([facility]) (Primary | | | | for Health and | [phone] | Dx); Type 2 | | | | Healing, Building 2 | | diabetes mellitus | | | | [place], [place] | | without complication | | | | [address] | | (HCC); Essential | | | [...] to your private appointme nt with the cat cracker operator. These classes will be scheduled apporoximately 1 month apart to allow time for you to put the teaching into action. When you check out today, please ask the collection clerk to schedule these with you + [...] the time. If your referral is at [facility], they will call you in the next week to schedule . + Required weight loss: 10% wt loss goal of 50 pounds + [facility] so that we can communicate easily back [...] the surgeon. Fátima De Luna DNP, ACNP, BEAUTY DIRECTOR Nurse Practitioner for Bariatric Surgery [facility] | [address] | [place], [place] | [address] | Potential Contraindications to Bariatric Surgery Age [...] other providers does not guarantee that the [facility] Bariatric Surger y program will deem you a surgical candidate. documented in this encounter Progress Notes Fátima De Luna ACNP - 06/02/2015 9:30 AM PDTFormatting of this note might be different fro m the original. BARIATRIC INITIAL VISIT Provider: Fátima De Luna DNP, ANDREP, BEAUTY DIRECTOR Referring Provider: [facility] Reason for Requested Consultation: Initial evaluation for [...] program. 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 2005, DM diet, lost 110 , regained 120. [...] Surgical History Procedure Laterality Date Tonsillectomy 2009 [facility], [place] Gallbladder removal 2005 [place], [place] Incisional hernia repair 2003 [facility] Incisional hernia repair 2011 [facility] Cardioversion 214 [facility] History Social History Marital Status: Unmarried Domestic [...] extremity edema, hypertension, hyperlipidemia. Zoran es CHF, [place], ischemic heart disease, DVT/PE, or pulmonary hypertension. [...] which is 50 pounds. PLan: appointment with cat cracker operator and PT. 2. CV: history of A fib, today on exam in [facility]. Off xarelto per her supervising producer. Blood pres sure is not well controlled today. Plan: Ask pcp to follow BP for trends. Target less than 140/80 3. CM: last A1C is 7.6 Plan: she will continue towork on her DM 4. Psychiatric evaluation: she had a prior evaluation and followed up locally with a provid er for ongoing counseling x 6 sessions [...] The following has been provided to Marielle Vilma This is a preliminary visit for a [...] to your private appointme nt with the cat cracker operator. These classes will be scheduled apporoximately 1 month apart to allow time for you to put the teaching into action. When you check out today, please ask the collection clerk to schedule these with you + [...] of 50 pounds + [facility] so that we can communicate easily back [...] the surgeon. Fátima De Luna DNP, ACNP, BEAUTY DIRECTOR Nurse Practitioner for Bariatric Surgery [facility] | [address] | [place], [place] | [address] | Potential Contraindications to Bariatric Surgery Age [...] other providers does not guarantee that the [facility] Bariatric Surger y program will [...] of 70 and over, adult ([facility]) - Primary | + + | Type [...]
[~2020-05-29 10:03] MED LIST changes: +CALCIUM 600 +1 EAC3 PO; +CENTANY30 GM TOP; +ECONAZOLE NITRA30 GM TOP; +MULTI VITAMIN1 EACH PO
[2020-05-29] MEDS ORDERED: NOVOLOG100 UNIT/2 SUB-Q (11:08)
[2020-05-29] MEDS ORDERED: ACIDOPHILUS1 EAC4 PO (11:11)
[2020-05-29] MEDS ORDERED: HYDROXYZINE HCL25 MG PO (11:12)
[2020-05-29] MEDS ORDERED: FOLIXAPURE5000 UNIT PO (11:13)
[2020-05-29] MEDS ORDERED: SENNA PLUS TAB1 EACH PO (11:14)
[2020-05-29] MEDS ORDERED: CIPRO500 MG PO (11:14)
[2020-05-29] MEDS ORDERED: TYLENOL EXTRA500 MG PO (11:15)
[2020-05-29] MEDS ORDERED: GABAPENTIN100 MG PO (11:15)
[2020-05-29] MEDS ORDERED: METAMUCIL0.4 GM PO (11:16)
[2020-05-29] MEDS ORDERED: ATIVAN1 MG PO (11:17)
[2020-05-30] MEDS ORDERED: OXYCODONE HCL5 MG PO (13:12)
[2020-05-30] MEDS ORDERED: FISH OIL 1,0001 EAC2 PO (14:19)
[2020-05-30] MEDS ORDERED: VITAMIN C500 M1 PO (14:20)
--- NOTE | 2020-06-02 08:25 | OR ---
[facility] [address], [place] [address] Signed DATE OF OPERATION: 05/29/2020 SURGEON: Igor Avina MD PREOPERATIVE DIAGNOSES: 1. History of necrotizing perineal soft tissue infection, right side, status post extensive debridement. 2. Three weeks wound VAC therapy, wound now granulating. 3. Morbid obesity (greater than 420 pounds). POSTOPERATIVE DIAGNOSES: 1. History of necrotizing perineal soft tissue infection, right side, status post extensive debridement. 2. Three weeks wound VAC therapy, wound now granulating. 3. Morbid obesity (greater than 420 pounds). PROCEDURE: Split-thickness skin grafting to 12 x 6 cm perineal wound (donor site right thigh, recipient site right perineum). ANESTHESIA: Spinal with IV sedation; Natalya Le CRNA. INDICATION: This morbidly obese, 420-pound woman was seen by me approximately 4 weeks ago with a necrotizing soft tissue infection of the perineum requiring significant debridement. She recovered from that operation. The left medial thigh wound was debrided as well, though not as extensive as the right perineal wound. She has been at [facility] with a wound VAC therapy as she was unable to manage her own perineal area due to her body habitus and other factors. She has had excellent wound care at the [facility] and the wound has an excellent granulating base. Primary reapproximation is unlikely to be curative and the extent of the defect is unlikely to allow for natural migration of epidermis over the wound otherwise. I have recommended a skin graft. She understands risks of bleeding, infection, and importantly failure of the graft and wished to proceed. FINDINGS: The wound base was granulating quite well. The medial thigh wound was nearly healed and had a DuoDERM on it. Electronically Signed By: IGOR AVINA MD 06/02/20 0825 PATIENT NAME: OSMIN ESPINOZA OPERATIVE REPORT DATE OF : 73 REPORT #: [id number] PHYSICIAN: IGOR AVINA MD PCP: NATALIE RUSSELL MD REPORT IS CONFIDENTIAL AND NOT TO BE RELEASED WITHOUT AUTHORIZATION [facility] [address] [place] [id number] Signed As regards to the recipient site, it was grafted fully with skin donated from the right anterior thigh. A 1 to 1.5 mesh ratio was used and careful dressing applied to both sites. DESCRIPTION OF PROCEDURE: The patient was brought to the operating room in the upright position, underwent a spinal anesthetic. Preoperative antibiotic clindamycin was given. Legs were placed in stirrups. The perineal wound was examined after removing the wound VAC device. Excellent granulation was noted in the base of the wound. The medial left thigh had a small 2 cm defect, which was granulating well and also which had a DuoDERM dressing. The right anterior thigh was prepared with a chlorhexidine solution and the perineum with a Betadine based solution and draped sterilely. On the right anterior thigh, a Maria Guadalupe dermatome was used to excise several segments of skin, thickness of 0.15 inches. The skin was meshed in the 1 to 1.5 ratio device and applied to the perineal wound, where granulation was noted to be quite good. With meticulous care, the graft was secured to the wound with interrupted 3-0 Vicryl suture. Typical use of a staple device would be quite unlikely tolerated for removal of this mega and on that basis, suture was used. An Adaptic dressing was covered in bacitracin and applied to the site. Mastisol was applied to the skin edges, particularly medially where the highest risk of wound dressing distraction was likely. Fluff gauze was applied as was OpSite several in total applied, which appeared to be well secured. OpSite dressing was applied to the donor site in the right thigh. Notably, the right thigh donor site was covered with epinephrine soaked saline allowing for good hemostasis. The patient was ultimately transferred to the stretcher and taken to recovery room in good condition. BLOOD LOSS: Minimal. COMPLICATIONS: None. Electronically Signed By: IGOR AVINA MD 06/02/20 0825 PATIENT NAME: OSMIN ESPINOZA OPERATIVE REPORT DATE OF : 73 REPORT #: [id number] PHYSICIAN: IGOR AVINA MD PCP: NATALIE RUSSELL MD REPORT IS CONFIDENTIAL AND NOT TO BE RELEASED WITHOUT AUTHORIZATION [address] [address] Signed MD KIERRA Mcintosh/AILEEN /[id number] cc: Natalie Russell MD Copies: NATALIE RUSSELL MD ~ Electronically Signed By: IGOR AVINA MD 06/02/20 0825 PATIENT NAME: OSMIN ESPINOZA OPERATIVE REPORT DATE OF : 73 REPORT #: [id number] PHYSICIAN: IGOR AVINA MD PCP: NATALIE RUSSELL MD REPORT IS CONFIDENTIAL AND NOT TO BE RELEASED WITHOUT AUTHORIZATION
== END 2020-05-30 15:52 | disposition home or self-care (01) ==
LOC: DS 10:03 → MS 15:33 → DS 15:34 → MS 15:35
PROVIDERS: ADMIT Surgery
PROC: 0HR Skin and Breast, Replacement (ICD-10-PCS; principal; 2020-05-29 12:15)
DX: L08.89 Other specified local infections of the skin and subcutaneous tissue (principal); I10 Essential (primary) hypertension; E11.9 Type 2 diabetes mellitus without complications; F41.9 Anxiety disorder, unspecified; E03.9 Hypothyroidism, unspecified; I48.91 Unspecified atrial fibrillation; K21.9 Gastro-esophageal reflux disease without esophagitis; G47.33 Obstructive sleep apnea (adult) (pediatric); E66.01 Morbid (severe) obesity due to excess calories; Z99.89 Dependence on other enabling machines and devices; Z79.899 Other long term (current) drug therapy
CPT/HCPCS: 00400; 96372; 96374; 96375; 96376; G0378; J1170; J1644; J1815; J1885; J2001; J2250; J2405; J2704; J3490; J7121

== ENCOUNTER 2022-05-28 17:38 | Emergency (ER) | payer BC, OTHER ==
[~2022-05-28] VITALS: Ht 167.6 cm; Wt 210.0 kg
[~2022-05-28 17:38] MED LIST changes: +ACIDOPHILUS1 EAC4 PO; +ATIVAN1 MG PO; -CALCIUM 600 +1 EAC3 PO; +CALCIUM CARBON600 M1 PO; +CIPRO500 MG PO; +FOLIXAPURE5000 UNIT PO; +GABAPENTIN100 MG PO; +HYDROXYZINE HCL25 MG PO; +LANTUS SOL100 UNIT/1 SUB-Q; +M-NATAL PLUS T1 EACH PO; +METAMUCIL0.4 GM PO; +NOVOLOG100 UNIT/2 SUB-Q; +OXYCODONE HCL5 MG PO; +SENNA PLUS TAB1 EACH PO; +TYLENOL EXTRA500 MG PO; +VERAPAMIL ER240 M1 PO; +VITAMIN D375 MCG PO
--- OUTSIDE RECORDS SUMMARY | 2022-05-28 17:40 | XMS ---
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 Care History Medical/Surgical 04/28/2020 [facility] - PATIENT IS PADMAJA ELIGIBLE, \T\middot;\T\nbsp; PLEASE REFER PATIENT TO [facility] FOR NON EMERGENT MEDICAL NEEDS. \T\middot;\T\nbsp; [facility] CAN SEE PATIENTS SAME DAY FOR APTS IF PATIENT CALLS FIRST THING IN THE MORNING. E.D. VISIT COUNT (12 MO.) 2 [facility]. TOTAL 2 NOTE: Visits indicate total known visits. ED/UCC VISIT TRACKING (12 MO.) 05/28/2022 17:38 [facility] [place] TYPE: Emergency COMPLAINT: - L LEG PAIN. 09/20/2021 20:52 [facility] [place] TYPE: Emergency COMPLAINT: - HIGH PB, CHEST PAIN INPATIENT VISIT TRACKING (12 MO.) 09/20/2021 20:53 [facility] [place] TYPE: Observation COMPLAINT: - A FIB RVR/HTN DIAGNOSES: - Anxiety disorder, unspecified - Permanent atrial fibrillation - Obstructive sleep apnea (adult) (pediatric) - jail (current) use of insulin - Chronic pain syndrome - Allergy status to other antibiotic agents - Type 2 diabetes mellitus with hyperglycemia - Personal history of nicotine dependence - Essential (primary) hypertension - Hypothyroidism, unspecified - Other specified anxiety disorders - Unspecified atrial flutter - Contact with and (suspected) exposure to COVID-19 - 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
[2022-05-28] MEDS ORDERED: BACTRIM DS TAB1 EACH PO (23:03)
[2022-05-28] MEDS ORDERED: NYSTATIN1 EAC9 TOP (23:03)
== END 2022-05-28 23:33 | disposition home or self-care (01) ==
LOC: ED 17:38
DX: L03.116 Cellulitis of left lower limb (principal); L30.8 Other specified dermatitis; B37.2 Candidiasis of skin and nail
CPT/HCPCS: 36415; 80053; 85025; 85379; 93971; J2060; J2270

== ENCOUNTER 2022-06-25 17:10 | Emergency (ER) | payer BC, OTHER ==
[~2022-06-25] VITALS: Ht 167.6 cm; Wt 210.0 kg
[~2022-06-25 17:10] MED LIST changes: +BACTRIM DS TAB1 EACH PO; +NYSTATIN1 EAC9 TOP
--- OUTSIDE RECORDS SUMMARY | 2022-06-25 17:12 | XMS ---
PreManage Notification: OSMIN ESPINOZA Security Graduate Teaching Associate Events No recent Security Events currently on file CRITERIA MET - Group Notification - [facility] - 2 Visits in 30 Days - PDMP CARE PROVIDERS CRYSTAL DYE DPM PHONE: [phone] SONYA NGUYỄN Nurse Practitioner: Family Current PHONE: Unknown CHLOE [facility] Current PHONE: Unknown NIGEL MAS [facility] Current PHONE: [phone] Trace has no Care Guidelines for this patient. Care History Medical/Surgical 04/28/2020 [facility] - PATIENT IS PADMAJA ELIGIBLE, \T\middot;\T\nbsp; PLEASE REFER PATIENT TO [facility] FOR NON EMERGENT MEDICAL NEEDS. \T\middot;\T\nbsp; [facility] CAN SEE PATIENTS SAME DAY FOR APTS IF PATIENT CALLS FIRST THING IN THE MORNING. E.D. VISIT COUNT (12 MO.) 3 [facility]. TOTAL 3 NOTE: Visits indicate total known visits. ED/UCC VISIT TRACKING (12 MO.) 06/25/2022 17:10 [facility] [place] TYPE: Emergency COMPLAINT: - LT LEG SWELLING 05/28/2022 17:38 [facility] [place] TYPE: Emergency COMPLAINT: - L LEG PAIN/NO INJURY DIAGNOSES: - Other specified dermatitis - Cellulitis of left lower limb - Other specified soft tissue disorders - Candidiasis of skin and nail 09/20/2021 20:52 [facility] [place] TYPE: Emergency COMPLAINT: - HIGH PB, CHEST PAIN INPATIENT VISIT TRACKING (12 MO.) 09/20/2021 20:[address] [facility] [place] TYPE: Observation COMPLAINT: - A FIB RVR/HTN DIAGNOSES: - Contact with and (suspected) exposure to COVID-19 - longterm (current) use of anticoagulants - Anxiety disorder, unspecified - Permanent atrial fibrillation - Obstructive sleep apnea (adult) (pediatric) - longterm (current) use of insulin - Chronic pain syndrome - Allergy status to other antibiotic agents - Type 2 diabetes mellitus with hyperglycemia - Personal history of nicotine dependence - Essential (primary) hypertension - Hypothyroidism, unspecified - Other specified anxiety disorders - Unspecified atrial flutter [email or web address]
[2022-06-25] MEDS ORDERED: LIPITOR10 MG PO (20:14)
[2022-06-26] MEDS ORDERED: DOXYCYCLINE HY100 MG PO (00:21)
== END 2022-06-26 00:50 | disposition home or self-care (01) ==
LOC: ED 17:10
DX: L03.116 Cellulitis of left lower limb (principal); I48.91 Unspecified atrial fibrillation; G47.30 Sleep apnea, unspecified; I10 Essential (primary) hypertension; Z87.891 Personal history of nicotine dependence; Z88.1 Allergy status to other antibiotic agents; Z88.8 Allergy status to other drugs, medicaments and biological substances; Z79.899 Other long term (current) drug therapy; Z79.4 Long term (current) use of insulin
CPT/HCPCS: 36415; 80053; 85025; 85379; 85610; 85730; 93971; 96374; 99284-25; A9270; J1885